=== PATIENT | male | born 1950 | race Caucasian/White ===

== ENCOUNTER 2017-10-11 19:10 | Emergency (ER) | payer MEDICARE, OTHER, SELFPAY ==
[2017-10-11 19:32] VITALS: BP 139/66; PULSE 78; RESP 16; TEMP 36.3; O2SAT 92; BMI 39.5
--- NOTE | 2017-10-11 19:40 | DI.RAD.S_ITS ---
PROCEDURE: XR FOOT LT MIN 3V INDICATIONS: left foot injury TECHNIQUE: 3 views of the foot were acquired. COMPARISON: None. FINDINGS: Bones: No displaced fractures are or dislocations. No suspicious bony lesions. Soft tissues: There is soft tissue swelling in the forefoot. IMPRESSION: 1. No displaced fracture or dislocation. Dictated by: Oz Velez M.D. on 10/11/2017 at 20:37 Approved by: Oz Velez M.D. on 10/11/2017 at 20:38
--- NOTE | 2017-10-11 20:55 | ED_ITS ---
HPI - Extremity Injury (Lower) <NADIRA Santos - Last Filed: 10/11/17 22:06> General Chief Complaint: Extremity Injury, Lower Stated Complaint: pain x2 days foot injury/smashed Time Seen by Provider: 10/11/17 21:03 History of Present Illness HPI Narrative: 67-year-old male here for complaint of pain into his left foot. Patient states that he accidentally dropped a grill great on his left foot 2 days ago. He denies any other injuries. He is able to ambulate in the emergency room today. He reports increased pain with weight-bearing. He does report having some bruising to the area. No other concerns. Related Data Home Medications Medication Instructions Recorded Confirmed MULTIVITAMIN (#MULTIPLE VITAMINS) 1 cap PO QDAY #0 10/22/10 doxazosin [Cardura] 2 mg PO HS #0 08/23/12 amitriptyline 25 mg PO HS #0 tab 01/24/16 naproxen sodium [Aleve] 220 mg PO BIDCC #0 tab 01/24/16 nortriptyline [Pamelor] 25 mg PO HS #0 cap 01/24/16 Previous Rx's Medication Instructions Recorded alum-mag hydroxide-simeth [Mag-Al 10 ml PO Q6HP PRN #30 ea 12/12/15 Plus] cephalexin [Keflex] 500 mg PO Q6H #20 cap 07/16/17 hydrocodone-acetaminophen [Gloucester] 1 tab PO Q4HP PRN #15 tab 07/16/17 Allergies Allergy/AdvReac Type Severity Reaction Status Date / Time No Known Drug Allergies Allergy Verified 10/11/17 19:38 Review of Systems <NADIRA Santos - Last Filed: 10/11/17 22:06> Constitutional Denies chills, Denies fatigue, Denies fever(s), Denies lethargy and Denies weakness Eyes Denies change in vision, Denies eye discharge, Denies irritation and Denies loss of vision ENT Ears, Nose, Mouth, and Throat: Denies change in voice, Denies neck pain and Denies sore throat Cardiovascular Denies dyspnea and Denies dyspnea on exertion Respiratory Denies cough, Denies dyspnea, Denies dyspnea on exertion and Denies wheezing Genitourinary Denies hematuria, Denies flank pain, Denies urinary incontinence and Denies urinary urgency Musculoskeletal Denies neck pain Comments: Left foot pain Integumentary/Breasts Denies pruritus, Denies erythema, Denies rash and Denies wounds Neurologic Denies loss of vision and Denies weakness Endocrine Denies fatigue and Denies flushing Allergic/Immunologic Denies wheezing Exam <NADIRA Santos - Last Filed: 10/11/17 22:06> Initial Vital Signs Initial Vital Signs: Vital Signs Temperature 97.4 F L 10/11/17 19:32 Pulse Rate 78 10/11/17 19:32 Respiratory Rate 16 10/11/17 19:32 Blood Pressure 139/66 H 10/11/17 19:32 Pulse Oximetry 92 10/11/17 19:32 Const General: cooperative and well developed Nutritional Appearance: well nourished Orientation: alert, awake, oriented x3 and not confused HENMT Mouth: oral mucosae normal and moist mucous membranes Eyes Conjunctivae: conjunctivae normal Sclera: sclerae normal Cornea: corneas normal Pupils: PERRL EOM: EOM intact bilaterally Resp Effort & Inspection: normal respiratory effort, able to speak in complete sentences, no respiratory distress and no use of accessory muscles Auscultation: clear to auscultation bilaterally, no rales, no rhonchi and no wheezes Cardio Rate: regular rate Rhythm: regular rhythm Heart Sounds: no click, no gallops, no murmurs and no rubs Skin General: no rashes or lesions noted, No jaundice and No petechiae Extrem Other: Left foot with slight swelling. Ecchymosis along the MTP joints of all 4 fingers. No skin breaks. Distal sensation is intact. Distal range of motion is intact. Distal cap refill less than 2 sec <Fidencio Brown DO - Last Filed: 10/12/17 04:23> Initial Vital Signs Initial Vital Signs: Vital Signs Temperature 97.4 F L 10/11/17 19:32 Pulse Rate 78 10/11/17 19:32 Respiratory Rate 16 10/11/17 19:32 Blood Pressure 139/66 H 10/11/17 19:32 Pulse Oximetry 92 10/11/17 19:32 Course <NADIRA Santos - Last Filed: 10/11/17 22:06> Orders Ordered: ED Orders 10/11/17 19:40 XR foot LT min 3V Stat Vital Signs - 8 hr 10/11/17 19:32 Temperature 97.4 F L Pulse Rate 78 Respiratory Rate 16 Blood Pressure 139/66 H Pulse Oximetry 92 <Fidencio Brown DO - Last Filed: 10/12/17 04:23> Orders Ordered: ED Orders 10/11/17 19:40 XR foot LT min 3V Stat Vital Signs - 8 hr 10/11/17 19:32 Temperature 97.4 F L Pulse Rate 78 Respiratory Rate 16 Blood Pressure 139/66 H Pulse Oximetry 92 MDM - Extremity Injury (Lower) <NADIRA Santos - Last Filed: 10/11/17 22:06> Imaging Data foot: Radiologist's impression: Patient: Arvind Hinds MR#: [id number] : 1950 Acct:[id number] Age/Sex: 67 / M Date of Service: 10/11/17 Loc: ED Accession Number: [id number] Procedure: XR foot LT min 3V Ordering Provider: Medardo Garcia PROCEDURE: XR FOOT LT MIN 3V INDICATIONS: left foot injury TECHNIQUE: 3 views of the foot were acquired. COMPARISON: None. FINDINGS: Bones: No displaced fractures are or dislocations. No suspicious bony lesions. Soft tissues: There is soft tissue swelling in the forefoot. IMPRESSION: 1. No displaced fracture or dislocation. Dictated by: Oz Velez M.D. on 10/11/2017 at 20:37 Approved by: Oz Velez M.D. on 10/11/2017 at 20:38 [facility] Narrative Medical decision making narrative: X-ray of the left foot was obtained was negative for any acute fractures. Signs and symptoms presents as contusion to the left foot. [id number] Tylenol Motrin as needed for any discomfort. Follow up with primary care provider. Ice and elevation few times a day over the next few days to help with swelling. For any worsening symptoms return to the emergency room. Discharge Plan Departure Patient Disposition: Home, Self-Care Clinical Impression: Contusion of foot, left Discharge Date/Time: 10/11/17 21:26 Interventions: ED Discharge Assessment Last Done: 10/11/17 21:25 Instructions: DI for Contusion Activity Restrictions/Additional Instructions: X-ray of the left foot was obtained was negative for any acute fractures. Signs and symptoms presents as contusion to the left foot. [id number] Tylenol Motrin as needed for any discomfort. Follow up with primary care provider. Ice and elevation few times a day over the next few days to help with swelling. For any worsening symptoms return to the emergency room. Prescriptions: No Action MULTIVITAMIN (#MULTIPLE VITAMINS) 1 cap PO QDAY Qty: 0 RF: 0 doxazosin [Cardura] 2 MG tablet 2 mg PO HS Qty: 0 RF: 0 alum-mag hydroxide-simeth [Mag-Al Plus] 30 ML suspension 10 ml PO Q6HP PRNQty: 30 RF: 0 amitriptyline 25 MG tablet 25 mg PO HS Qty: 0 RF: 0 nortriptyline [Pamelor] 25 MG capsule 25 mg PO HS Qty: 0 RF: 0 naproxen sodium [Aleve] 220 MG tablet 220 mg PO BIDCC Qty: 0 RF: 0 hydrocodone-acetaminophen [[place]] 5 MG/325 MG tablet 1 tab PO Q4HP PRNQty: 15 RF: 0 cephalexin [Keflex] 500 MG capsule 500 mg PO Q6H Qty: 20 RF: 0 Referrals: Jackson Brennan DO [Primary Care Provider] - <Fidencio Brown DO - Last Filed: 10/12/17 04:23> Cosign ED Attending Cosbrandiature Attestation: I was immediately available in the department for consultation. Documentation has been reviewed. I agree with assessment and plan.
== END 2017-10-11 21:26 | disposition home or self-care (01) ==
PROVIDERS: Emergency Provider Nurse Practitioner Family; Family Provider Family Medicine; PCP Family Medicine
DX: S90.32XA Contusion of left foot, initial encounter (principal); W23.0XXA Caught, crushed, jammed, or pinched between moving objects, initial encounter
CPT/HCPCS: 73630; 99282; 99283

== ENCOUNTER 2017-11-20 10:36 | Emergency (ER) | payer MEDICARE, OTHER, SELFPAY ==
[2017-11-20 10:42] VITALS: BP 145/80; PULSE 72; RESP 15; TEMP 36.8; O2SAT 92; BMI 39.5
--- NOTE | 2017-11-20 11:26 | PC.NURSE ---
dropped something on his left foot and has had swelling since - swelling goes up into calf area - spotty redness - normal temp
--- NOTE | 2017-11-20 11:39 | ED_ITS ---
HPI - Extremity Injury (Lower) General Chief Complaint: Extremity Injury, Lower Stated Complaint: CELLULITUS LEFT LEG Time Seen by Provider: 11/20/17 11:27 Source: patient Mode of arrival: ambulatory Limitations: no limitations History of Present Illness HPI Narrative: Patient is a 67-year-old male who presents with left leg rash. He broke his foot on 10/11/2017. Since then he has had left leg swelling. A few days ago he noticed a rash she said it initially was pruritic. He has not been looking at his leg on a regular basis does not over it has been worsening. He has not had any fever or chills. The thinks that his legs low bit more swollen today. Related Data Home Medications Medication Instructions Recorded Confirmed MULTIVITAMIN (#MULTIPLE VITAMINS) 1 cap PO QDAY #0 10/22/10 doxazosin [Cardura] 2 mg PO HS #0 08/23/12 amitriptyline 25 mg PO HS #0 tab 01/24/16 naproxen sodium [Aleve] 220 mg PO BIDCC #0 tab 01/24/16 nortriptyline [Pamelor] 25 mg PO HS #0 cap 01/24/16 Previous Rx's Medication Instructions Recorded alum-mag hydroxide-simeth [Mag-Al 10 ml PO Q6HP PRN #30 ea 12/12/15 Plus] cephalexin [Keflex] 500 mg PO Q6H #20 cap 07/16/17 hydrocodone-acetaminophen [Hayden] 1 tab PO Q4HP PRN #15 tab 07/16/17 cephalexin [Keflex] 500 mg PO TID #21 cap 11/20/17 Allergies Allergy/AdvReac Type Severity Reaction Status Date / Time No Known Drug Allergies Allergy Verified 11/20/17 10:42 Review of Systems Review of Systems GENERAL: Denies chills, fatigue, malaise, fever, sweats, travel HEENT: Denies sinus pain, ear pain, sore throat, difficulty swallowing, neck pain RESPIRATORY: Denies dyspnea, cough, wheezing, hemoptysis, sputum. CARDIOVASCULAR: Denies chest pain, palpitations, orthopnea, edema GASTROINTESTINAL: Denies nausea, vomiting, abdominal pain, diarrhea, constipation, melena. : Denies dysuria, frequency, incontinence, hematuria, urinary retention, flank pain. MUSCULOSKELETAL: Denies weakness, joint pain, or bony pain SKIN: See HPI NEUROLOGIC: Denies weakness, dizziness, headache, numbness, change in speech, confusion PSYCHIATRIC: No concerning psychosocial issues. 12 point review of systems is negative except for those stated above and HPI PFSH Medical History Diabetes (Acute) Social History Smoking Status: Never smoker Exam Initial Vital Signs Initial Vital Signs: Vital Signs Temperature 98.3 F 11/20/17 10:42 Pulse Rate 72 11/20/17 10:42 Respiratory Rate 15 11/20/17 10:42 Blood Pressure 145/80 H 11/20/17 10:42 Pulse Oximetry 92 11/20/17 10:42 GENERAL: Well-appearing, well-nourished and in no acute distress. HEENT: Head atraumatic,EOMI, pupils reactive CARDIOVASCULAR: Regular rate and rhythm without murmurs, rubs or gallops. RESPIRATORY: Breath sounds equal bilaterally, no wheezes rales or rhonchi. NEUROLOGICAL: Alert and oriented x4.Normal gait and speech. Cranial nerves II through XII grossly intact. SKIN: Left leg blotchy erythema which petechiae purpura, remains below the knee non circumferential EXTREMITIES: Legs look relatively equal to me. No significant swelling in the left leg calf is nontender. No pitting edema. Neurovascularly intact no gross bony deformity Course Vital Signs - 8 hr 11/20/17 10:42 Temperature 98.3 F Pulse Rate 72 Respiratory Rate 15 Blood Pressure 145/80 H Pulse Oximetry 92 Discharge Plan Departure Patient Disposition: Home, Self-Care Clinical Impression: Cellulitis Discharge Date/Time: 11/20/17 11:58 Interventions: ED Discharge Assessment Last Done: 11/20/17 11:57 Instructions: Cellulitis Activity Restrictions/Additional Instructions: *You have been diagnosed with cellulitis left leg *What to do: Look at rash every day if it is going beyond the knee return to ED for further evaluation *Continue to take medications as directed Keflex 500 mg 3 times a day for 7 At your request you're medications have been faxed to [facility] in [place] *Follow up with your primary care provider in 2-3 days *Return to ER if you should have worsening rash, fever, weakness or any new, worsening or concerning symptoms Prescriptions: New cephalexin [Keflex] 500 mg capsule 500 mg PO TID Qty: 21 RF: 0 No Action MULTIVITAMIN (#MULTIPLE VITAMINS) 1 cap PO QDAY Qty: 0 RF: 0 doxazosin [Cardura] 2 MG tablet 2 mg PO HS Qty: 0 RF: 0 alum-mag hydroxide-simeth [Mag-Al Plus] 30 ML suspension 10 ml PO Q6HP PRNQty: 30 RF: 0 amitriptyline 25 MG tablet 25 mg PO HS Qty: 0 RF: 0 nortriptyline [Pamelor] 25 MG capsule 25 mg PO HS Qty: 0 RF: 0 naproxen sodium [Aleve] 220 MG tablet 220 mg PO BIDCC Qty: 0 RF: 0 hydrocodone-acetaminophen [Hayden] 5 MG/325 MG tablet 1 tab PO Q4HP PRNQty: 15 RF: 0 cephalexin [Keflex] 500 MG capsule 500 mg PO Q6H Qty: 20 RF: 0 Referrals: Jackson Brennan DO [Primary Care Provider] -
== END 2017-11-20 11:58 | disposition home or self-care (01) ==
PROVIDERS: Emergency Provider Emergency Medicine; Family Provider Family Medicine; PCP Family Medicine
DX: L03.116 Cellulitis of left lower limb (principal)
CPT/HCPCS: 99282

== ENCOUNTER 2018-03-11 12:55 | Emergency (ER) | payer MEDICARE, OTHER, SELFPAY ==
[2018-03-11 12:58] VITALS: BP 146/86; PULSE 78; RESP 14; TEMP 36.6; O2SAT 98
--- NOTE | 2018-03-11 13:20 | DI.RAD.S_ITS ---
PROCEDURE: XR HAND LT MIN 3V INDICATIONS: laceration 2/3 fingers b/l. TECHNIQUE: 3 views of the hand(s) acquired. COMPARISON: [facility], , HAND 3V RIGHT, 04/08/2017, 14:33. FINDINGS: Bones: Acute comminuted fracture involving the third distal phalangeal shaft is noted. There is also suggestion of a nondisplaced fracture involving the second distal phalangeal tuft. No other acute fracture or dislocation is seen. There is extensive fusion of carpal bones with numerous fixation screws in place. Near-complete bony fusion throughout intercarpal joints are seen. No gross hardware loosening or failure is noted. 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 Soft tissues: No suspicious soft tissue calcifications. IMPRESSION: Acute fractures involving second and third distal phalanges as described above. No other acute fracture or dislocation. Extensive fusion of carpal bones. Dictated by: Duarte Loza M.D. on 03/11/2018 at 14:30 Approved by: Duarte Loza M.D. on 03/11/2018 at 14:39
[2018-03-11] MEDS: HYDROMORPHONE 1 MG INJ IV (13:30)
[2018-03-11] MEDS: CEFAZOLIN 1 GM/50 ML FROZ.PIGGY IV (13:30)
[2018-03-11] MEDS: ONDANSETRON 4 MG/2 ML INJ IV (13:32)
--- NOTE | 2018-03-11 13:33 | PC.NURSE ---
unable to assess fingers RT pain, controlling bleeding and limited mobility. Pt went to XR and after pain medication administered.
[2018-03-11 13:40] VITALS: BP 132/90; PULSE 68; RESP 16; O2SAT 93
--- NOTE | 2018-03-11 13:41 | ED_ITS ---
HPI - Extremity Injury (Upper) General Chief Complaint: Extremity Injury, Upper Stated Complaint: left hand injury from table saw Time Seen by Provider: 03/11/18 13:20 Source: patient Mode of arrival: ambulatory Limitations: no limitations History of Present Illness HPI narrative: This is a 67 year old male who comes to the emergency department with complaint of laceration to the 2nd and 3rd finger. Patient states he was working with a table saw when he states that he was pushing a peice of wood through and it kicked back and he lacerated his fingers. He has pain, he is having difficulty with extension and flexion of all of the fingers, it is unclear if this is secondary to pain or actual tendon involvement. Patient denies any other injuries. He states his tetanus is up-to-date. He does have a history of Parkinson's disease and takes medications for this. Related Data Home Medications Medication Instructions Recorded Confirmed MULTIVITAMIN (#MULTIPLE VITAMINS) 1 cap PO QDAY #0 10/22/10 naproxen sodium [Aleve] 220 mg PO BIDCC #0 tab 01/24/16 nortriptyline [Pamelor] 25 mg PO HS #0 cap 01/24/16 03/11/18 allopurinol 1 tab PO DAILY 03/11/18 03/11/18 carbidopa-levodopa 03/11/18 cetirizine 1 tab PO DAILY 03/11/18 03/11/18 doxazosin 1 tab PO BEDTIME 03/11/18 03/11/18 duloxetine 1 cap PO DAILY 03/11/18 03/11/18 esomeprazole magnesium 1 cap PO DAILY 03/11/18 03/11/18 felodipine 1 tab PO DAILY 03/11/18 03/11/18 gabapentin 03/11/18 glimepiride 1 tab PO DAILY 03/11/18 03/11/18 lamotrigine 1 tab PO BID 03/11/18 03/11/18 lamotrigine 1 tab PO DAILY 03/11/18 03/11/18 metformin 03/11/18 pramipexole 1 tab PO DAILY 03/11/18 03/11/18 rasagiline [Azilect] 1 tab PO DAILY 03/11/18 03/11/18 rosuvastatin 1 tab PO DAILY 03/11/18 03/11/18 Previous Rx's Medication Instructions Recorded alum-mag hydroxide-simeth [Mag-Al 10 ml PO Q6HP PRN #30 ea 12/12/15 Plus] hydrocodone-acetaminophen [[place]] 1 tab PO Q4HP PRN #15 tab 07/16/17 cephalexin [Keflex] 500 mg PO QID #40 cap 03/11/18 hydrocodone-acetaminophen [[place]] 1 tab PO Q4-6H PRN #20 tab 03/11/18 Allergies Allergy/AdvReac Type Severity Reaction Status Date / Time No Known Drug Allergies Allergy Verified 03/11/18 13:00 Review of Systems Review of Systems All systems reviewed & are unremarkable except as noted in HPI and below Musculoskeletal Reports as per HPI, Reports limited range of motion, Denies numbness and Reports other (Pain, laceration) Integumentary/Breasts Reports bleeding lesions Neurologic Denies numbness PFSH Medical History Diabetes (Acute) Parkinsons disease (Acute) Social History Smoking Status: Never smoker Exam Narrative Exam Narrative: GENERAL: Alert and oriented x three, well-nourished, well- appearing male in moderate distress. HEENT: Head normocephalic, atraumatic, EOMI, pupils reactive, face symmetric, moist mucous membranes NECK: Supple, full range of motion CARDIOVASCULAR: Regular rate and rhythm without murmurs, rubs or gallops. RESPIRATORY: Breath sounds equal bilaterally, no wheezes rales or rhonchi. EXTREMITIES: Patient able to partially extend fingers but having some difficulty , unable to flex fingers individually prior to numbing. After numbing he is able to flex/extend fingers although not at distal DIP on 2/3rd finger. He does have sensation to light touch at the distal end where skin is still intact , cap refill is 2 seconds. Patient's 2nd finger has laceration of from the pad running about midline towards the finger that is about a cm in length, the fingernail is almost completely avulsed, and there is small laceration adjacent on the lateral side. On the 3rd finger patient has a laceration of the distal finger running from the pad to approximately midline of the nail that is jagged and irregular and into the subcutaneous tissue, patient has majority of the nail in place although easily movable, patient has a large avulsion just proximal to the nail that is 1 x 2 cm in length, I am not able to visualize tendon or bone but it is fairly deep into the subcutaneous tissue. Sensation, 2+ radial pulse, . Neurovascularly intact NEUROLOGICAL: Cranial nerves II through XII grossly intact. Moving all extremities SKIN: Warm, dry, no petechiae. Initial Vital Signs Initial Vital Signs: Vital Signs Temperature 97.8 F 03/11/18 12:58 Pulse Rate 78 03/11/18 12:58 Respiratory Rate 14 03/11/18 12:58 Blood Pressure 146/86 H 03/11/18 12:58 Pulse Oximetry 98 03/11/18 12:58 Procedures Laceration Repair Laceration 1: Site: other (3rd finger left hand) Side (If applicable): left Size (cm): 2.1 Description: stellate Depth: simple, single layer Local Anesthetic: bupivacaine 0.5% (done digital block) Pre-repair: wound explored and irrigated extensively Skin layer closed with: nylon Size (cm): 4-0 Number of sutures: 2 Technique: simple, interrupted (Patient had 2 sutures placed in the distal end of the finger to help draw together. Nonstick dressing applied.) Nerve Block Nerve Block 1: Time out performed: Yes Local Anesthetic: bupivacaine 0.5% Amount of anesthesia used (mL): 5 Side: left Nerve Blocks: digital (2nd) Procedure Successful: Yes Patient Tolerated Procedure: Well Complications: none Nerve Block 2: Time out performed: Yes Local Anesthetic: bupivacaine 0.5% Amount of anesthesia used (mL): 6 Side: left Nerve Blocks: digital (3rd) Procedure Successful: Yes Patient Tolerated Procedure: Well Complications: [facility] Procedure Name of Procedure: Time out performed: Yes Course Orders Ordered: ED Orders 03/11/18 13:20 XR hand LT min 3V Stat Discontinued Medications Diphtheria/Tetanus/Acell Pertussis (Adacel) 0.5 ml IM .ONCE ONE Stop: 03/11/18 13:22 Last Admin: 03/11/18 14:22 Dose: Hydromorphone HCl (Dilaudid) 1 mg IV NOW ONE Stop: 03/11/18 13:21 Last Admin: 03/11/18 13:30 Dose: 1 mg Cefazolin Sodium/Dextrose (Ancef) 1 gm in 50 mls @ 200 mls/hr IV NOW ONE Stop: 03/11/18 13:34 Last Infusion: 03/11/18 14:22 Dose: 0 mls/hr Admin: 03/11/18 13:30 Dose: 200 mls/hr Ondansetron HCl (Zofran) 4 mg IV NOW ONE Stop: 03/11/18 13:32 Last Admin: 03/11/18 13:32 Dose: 4 mg Vital Signs - 8 hr 03/11/18 12:58 03/11/18 13:40 03/11/18 14:12 Temperature 97.8 F Pulse Rate 78 68 69 Respiratory Rate 14 16 18 Blood Pressure 146/86 H Blood Pressure [Right Arm] 132/90 122/53 L Pulse Oximetry 98 93 97 03/11/18 15:06 03/11/18 16:08 03/11/18 16:31 Temperature Pulse Rate 71 70 73 Respiratory Rate 14 18 18 Blood Pressure Blood Pressure [Right Arm] 131/83 126/77 106/70 Pulse Oximetry 92 97 97 MDM - Extremity Injury (Upper) Imaging Data Hand x-ray: Radiologist's impression: [address] [address] XRay Report Signed Patient: Arvind Hinds RMR#: [id number] : [id number]:[id number] Age/Sex: 67 / MDate of Service: 03/11/18 Loc: ED Accession Number: [id number] Procedure: XR hand LT min 3V Ordering Provider: Diana Romano D.O. PROCEDURE: XR HAND LT MIN 3V INDICATIONS: laceration 2/3 fingers b/l. TECHNIQUE: 3 views of the hand(s) acquired. COMPARISON: [facility] , HAND 3V RIGHT, 04/08/2017, 14:33. FINDINGS: Bones: Acute comminuted fracture involving the third distal phalangeal shaft is noted. There is also suggestion of a nondisplaced fracture involving the second distal phalangeal tuft. No other acute fracture or dislocation is seen. There is extensive fusion of carpal bones with numerous fixation screws in place. Near-complete bony fusion throughout intercarpal joints are seen. No gross hardware loosening or failure is noted. 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 Soft tissues: No suspicious soft tissue calcifications. IMPRESSION: Acute fractures involving second and third distal phalanges as described above. No other acute fracture or dislocation. Extensive fusion of carpal bones. Dictated by: Duarte Loza M.D. on 03/11/2018 at 14:30 Approved by: Duarte Loza M.D. on 03/11/2018 at 14:39 [facility] Narrative Medical decision making narrative: Patient has open fractures of the distal 2nd and 3rd fingers. He has some avulsion but does not appear to have a complete amputation or almost complete amputation of either finger. The majority of the tissue is intact. I spoke with Dr. Lezama who recommends if there is laceration that appears will be improved with a stitch may place that, wound care as well as some dose of IV antibiotics and then Keflex, splinting and follow-up in the next week with Orthopedic surgery. Patient has had similar injuries in the past and is comfortable with this plan. Splint applied by nursing. Discharge Plan Departure Patient Disposition: Home Clinical Impression: Fracture of finger, left, Fracture of distal phalanx of finger, open Discharge Date/Time: 03/11/18 16:50 Interventions: ED Discharge Assessment Last Done: 03/11/18 16:42 Instructions: DI for Open Fracture Activity Restrictions/Additional Instructions: Follow-up with Orthopedic surgery in the next 5-7 days for recheck. Call thing Wednesday morning for an appointment. Take antibiotics until they are completely gone. Your prescription has been sent to your pharmacy. Take pain medications as needed, these medications can make you sleepy do not drive, perform hazards activities or make any major decisions while taking them. Wound Care: Keep wound(s) clean and dry. Wash daily with soap and water only. Keep area bandaged when not washing it. Do not use over the counter products (alcohol or peroxide)on the wounds unless instructed by a physician, you may use triple antibiotic ointment to the affected areas. If wound condition worsens (increased/expanding redness, developing fluid blisters, or worsening pain), either contact your doctor for an urgent re- assessment , or return to the Emergency Department. Return to the Emergency Department for any new or worsening symptoms Return if fever greater than 100.4 Fahrenheit, increased swelling, increasing pain or worsening symptoms such as increased discharge or spreading redness. Use warm compresses 3 times daily for 20 minutes to the affected area. Prescriptions: New cephalexin [Keflex] 500 mg capsule 500 mg PO QID Qty: 40 RF: 0 hydrocodone-acetaminophen [[place]] 5-325 mg tablet 1 tab PO Q4-6H PRN (Reason: pain) Qty: 20 RF: 0 No Action MULTIVITAMIN (#MULTIPLE VITAMINS) 1 cap PO QDAY Qty: 0 RF: 0 alum-mag hydroxide-simeth [Mag-Al Plus] 30 ML suspension 10 ml PO Q6HP PRNQty: 30 RF: 0 nortriptyline [Pamelor] 25 MG capsule 25 mg PO HS Qty: 0 RF: 0 naproxen sodium [Aleve] 220 MG tablet 220 mg PO BIDCC Qty: 0 RF: 0 hydrocodone-acetaminophen [[place]] 5 MG/325 MG tablet 1 tab PO Q4HP PRNQty: 15 RF: 0 cetirizine 10 mg tablet 1 tab PO DAILY RF: 0 felodipine 5 mg tablet extended release 24 hr 1 tab PO DAILY RF: 0 carbidopa-levodopa 50-200 mg tablet extended release RF: 0 lamotrigine 25 mg tablet 1 tab PO BID RF: 0 esomeprazole magnesium 40 mg capsule,delayed release(DR/EC) 1 cap PO DAILY RF: 0 glimepiride 4 mg tablet 1 tab PO DAILY RF: 0 gabapentin 300 mg capsule RF: 0 doxazosin 4 mg tablet 1 tab PO BEDTIME RF: 0 allopurinol 300 mg tablet 1 tab PO DAILY RF: 0 metformin 500 mg tablet extended release 24 hr RF: 0 lamotrigine 100 mg tablet 1 tab PO DAILY RF: 0 duloxetine 60 mg capsule,delayed release(DR/EC) 1 cap PO DAILY RF: 0 rasagiline [Azilect] 1 mg tablet 1 tab PO DAILY RF: 0 pramipexole 0.25 mg tablet 1 tab PO DAILY RF: 0 rosuvastatin 20 mg tablet 1 tab PO DAILY RF: 0
[2018-03-11 14:12] VITALS: BP 122/53; PULSE 69; RESP 18; O2SAT 97
[2018-03-11 15:06] VITALS: BP 131/83; PULSE 71; RESP 14; O2SAT 92
[2018-03-11 16:08] VITALS: BP 126/77; PULSE 70; RESP 18; O2SAT 97
[2018-03-11 16:31] VITALS: BP 106/70; PULSE 73; RESP 18; O2SAT 97
== END 2018-03-11 16:50 | disposition home or self-care (01) ==
PROVIDERS: Emergency Provider Emergency Medicine; Family Provider Family Medicine; PCP Family Medicine
DX: S62.633B Displaced fracture of distal phalanx of left middle finger, initial encounter for open fracture (principal); S62.635B Displaced fracture of distal phalanx of left ring finger, initial encounter for open fracture; W31.2XXA Contact with powered woodworking and forming machines, initial encounter
CPT/HCPCS: 12001; 36591; 64450; 73130; 96365; 96375; 99284; 99285; J1170; J2405

== ENCOUNTER 2018-03-20 08:35 | Emergency (ER) | payer MEDICARE, OTHER, SELFPAY ==
[2018-03-20 08:40] VITALS: BP 120/79; PULSE 86; RESP 16; TEMP 37; O2SAT 93; BMI 41.0
--- NOTE | 2018-03-20 08:56 | ED.WOUNDLAC ---
HPI - Wound/Laceration General Chief Complaint: Wound/Laceration Stated Complaint: LEFT HAND INFECTION Time Seen by Provider: 03/20/18 08:55 Source: patient Mode of arrival: ambulatory Limitations: no limitations History of Present Illness HPI narrative: Patient is a 67-year-old male who presents with known left hand injury 2nd and 3rd fingertips. He was seen evaluated here initially in the ED followed up with Orthopedics and is scheduled for surgery in 3 days. He has been on Keflex. However he says the swelling and pain has gotten more intense. He says there is white drainage. No significant erythema or streaking. He has not had any fevers. Related Data Home Medications Medication Instructions Recorded Confirmed MULTIVITAMIN (#MULTIPLE VITAMINS) 1 cap PO QDAY #0 10/22/10 naproxen sodium [Aleve] 220 mg PO BIDCC #0 tab 01/24/16 nortriptyline [Pamelor] 25 mg PO HS #0 cap 01/24/16 03/11/18 allopurinol 1 tab PO DAILY 03/11/18 03/11/18 carbidopa-levodopa 03/11/18 cetirizine 1 tab PO DAILY 03/11/18 03/11/18 doxazosin 1 tab PO BEDTIME 03/11/18 03/11/18 duloxetine 1 cap PO DAILY 03/11/18 03/11/18 esomeprazole magnesium 1 cap PO DAILY 03/11/18 03/11/18 felodipine 1 tab PO DAILY 03/11/18 03/11/18 gabapentin 03/11/18 glimepiride 1 tab PO DAILY 03/11/18 03/11/18 lamotrigine 1 tab PO BID 03/11/18 03/11/18 lamotrigine 1 tab PO DAILY 03/11/18 03/11/18 metformin 03/11/18 pramipexole 1 tab PO DAILY 03/11/18 03/11/18 rasagiline [Azilect] 1 tab PO DAILY 03/11/18 03/11/18 rosuvastatin 1 tab PO DAILY 03/11/18 03/11/18 Previous Rx's Medication Instructions Recorded alum-mag hydroxide-simeth [Mag-Al 10 ml PO Q6HP PRN #30 ea 12/12/15 Plus] hydrocodone-acetaminophen [[place]] 1 tab PO Q4HP PRN #15 tab 03/02/18 cephalexin [Keflex] 500 mg PO QID #40 cap 03/11/18 hydrocodone-acetaminophen [[place]] 1 tab PO Q4-6H PRN #20 tab 03/11/18 Allergies Allergy/AdvReac Type Severity Reaction Status Date / Time No Known Drug Allergies Allergy Verified 03/11/18 13:00 Review of Systems Review of Systems GENERAL: Denies chills, fatigue, malaise, fever, sweats, travel HEENT: Denies sinus pain, ear pain, sore throat, difficulty swallowing, neck pain RESPIRATORY: Denies dyspnea, cough, wheezing, hemoptysis, sputum. CARDIOVASCULAR: Denies chest pain, palpitations, orthopnea, edema GASTROINTESTINAL: Denies nausea, vomiting, abdominal pain, diarrhea, constipation, melena. : Denies dysuria, frequency, incontinence, hematuria, urinary retention, flank pain. MUSCULOSKELETAL: Denies weakness, joint pain, or bony pain SKIN: See HPI NEUROLOGIC: Denies weakness, dizziness, headache, numbness, change in speech, confusion PSYCHIATRIC: No concerning psychosocial issues. 12 point review of systems is negative except for those stated above and HPI PFSH Medical History Arthritis (Acute) Asthma (Acute) Depression (Acute) Diabetes (Acute) Pancreatic tumor (Acute) Parkinsons disease (Acute) Sleep apnea (Acute) Surgical History H/O vasectomy (Acute) Hx of parathyroidectomy (Acute) Hx of splenectomy (Acute) S/P excision of lipoma (Acute) Status post correction of deviated nasal septum (Acute) Status post fusion of wrist (Acute) Social History Smoking Status: Former smoker alcohol intake: current Exam Initial Vital Signs Initial Vital Signs: Vital Signs Temperature 98.6 F 03/20/18 08:40 Pulse Rate 86 03/20/18 08:40 Respiratory Rate 16 03/20/18 08:40 Blood Pressure 120/79 03/20/18 08:40 Pulse Oximetry 93 03/20/18 08:40 GENERAL: Well-appearing, well-nourished and in no acute distress. CARDIOVASCULAR: peripheral pulses in tact, cap refill <2 sec RESPIRATORY: No respiratory distress, speaks in full sentences without difficulty EXTREMITIES: Normal range of motion, no clubbing or edema. Neurovascularly intact NEUROLOGICAL: Cranial nerves II through XII grossly intact. Normal gait and speech. SKIN: Stitches in place in left 2nd and 3rd finger. There is a significant swelling but no significant gross pus no erythema or streaking. He is able to move he has neurovascularly intact. Course Orders Ordered: ED Orders 03/20/18 09:23 Basic Metabolic Panel Stat Blood Culture Stat Complete Blood Count AUTO DIFF Stat Lactate (Lactic Acid) Stat 03/20/18 13:00 Lactate (Lactic Acid) Routine Discontinued Medications Vancomycin HCl 1,500 mg/ (Sodium Chloride) 500 mls @ 333.333 mls/hr IV NOW ONE Stop: 03/20/18 09:04 Last Infusion: 03/20/18 12:14 Dose: 0 mls/hr Admin: 03/20/18 09:40 Dose: 333.333 mls/hr Sodium Chloride (Normal Saline 0.9%) 1,000 mls @ 1,000 mls/hr IV BOLUS ONE Stop: 03/20/18 11:10 Last Infusion: 03/20/18 12:14 Dose: 0 mls/hr Admin: 03/20/18 10:19 Dose: 1,000 mls/hr Consultations Consultation #1: Dr. Craig orthopedics has been notified of patient's symptoms test results and plan for surgery on Wednesday. At this time he states that surgery unlikely stay at Wednesday as previously scheduled. No need for emergent surgery. Aware of lactic acid 3.7. Time: 10:12 Vital Signs - 8 hr 03/20/18 08:40 03/20/18 11:58 03/20/18 14:00 Temperature 98.6 F Pulse Rate 86 65 82 Respiratory Rate 16 16 20 Blood Pressure 120/79 142/87 H Blood Pressure [Left Arm] 146/85 H Pulse Oximetry 93 96 98 MDM - Wound/Laceration Lab Data Attestation: I reviewed the patient's lab results. Result diagrams: 03/20/18 09:23 03/20/18 09:23 Lab Results 03/20/18 03/20/18 03/20/18 Range/Units 09:23 09:23 09:23 WBC 8.0 (4.5-11.0) X10^3/uL RBC 4.48 L (4.5-5.9) X10^6/uL Hgb 14.7 (13.5-17.5) g/dL Hct 43.8 (41-53) % MCV 97.8 (80-100) fL MCH 32.9 (26-34) PG MCHC 33.6 (30-36) % RDW 14.3 (11.6-14.8) % Plt Count 303 (150-400) X10^3/uL Neut % (Auto) 62.8 (50-75) % Lymph % (Auto) 24.0 L (25-40) % [place] % (Auto) 8.3 (3-14) % Eos % (Auto) 3.7 (2-4) % Baso % (Auto) 1.2 (0-2) % Neut # (Auto) 5000 (0550-9895) /uL Sodium 141 (137-145) mmol/L Potassium 4.2 (3.4-5.1) mmol/L Chloride 100 (98-107) mmol/L Carbon Dioxide 24 (22-32) mmol/L BUN 18 (9-20) mg/dL Creatinine 0.80 (0.66-1.25) mg/dL Estimated GFR > 60.0 (>60) mL/min BUN/Creatinine Ratio 22.5 H (6-22) Glucose 230 H (80-110) mg/dL Lactate 3.7 H (0.7-2.1) mmol/L Calcium 8.5 (8.4-10.2) mg/dL 03/20/18 Range/Units 13:00 WBC (4.5-11.0) X10^3/uL RBC (4.5-5.9) X10^6/uL Hgb (13.5-17.5) g/dL Hct (41-53) % MCV (80-100) fL MCH (26-34) PG MCHC (30-36) % RDW (11.6-14.8) % Plt Count (150-400) X10^3/uL Neut % (Auto) (50-75) % Lymph % (Auto) (25-40) % [place] % (Auto) (3-14) % Eos % (Auto) (2-4) % Baso % (Auto) (0-2) % Neut # (Auto) (2795-0421) /uL Sodium (137-145) mmol/L Potassium (3.4-5.1) mmol/L Chloride (98-107) mmol/L Carbon Dioxide (22-32) mmol/L BUN (9-20) mg/dL Creatinine (0.66-1.25) mg/dL Estimated GFR (>60) mL/min BUN/Creatinine Ratio (6-22) Glucose (80-110) mg/dL Lactate 0.9 (0.7-2.1) mmol/L Calcium (8.4-10.2) mg/dL MDM Narrative Medical decision making narrative: Patient 1 L of IV fluids and vancomycin repeat lactate was well below cortical limits. Patient did not appear septic or toxic. Wound does not seem grossly infected. At this time I agree with surgery on Wednesday. Patient also been elevating his warm well he has been in the emergency department for last 4-5 hours. His swelling significantly went down his pain improved been able to sleep. I discussed all findings with the patient and spouse, Education has been performed regarding treatment plan, diagnosis, warning signs and symptoms and all concerns have been addressed. Verbally agree with and understood all of the above. Discharge Plan Departure Patient Disposition: Home Clinical Impression: Laceration of left index finger Discharge Date/Time: 03/20/18 14:02 Interventions: ED Discharge Assessment Last Done: 03/20/18 14:00 Instructions: Care for a Laceration Prior to Repair Activity Restrictions/Additional Instructions: *You have been diagnosed with finger laceration *What to do: Blood work is reassuring. I did discuss case with Orthopedics. At this time may wait until Wednesday for surgery. Keep elevated to help avoid swelling *Continue to take medications as directed Continue and finish antibiotics as previously prescribed *Follow up with your primary care provider in 2-3 days, follow up with Orthopedic as scheduled in 2 days *Return to ER if you should have redness, pus, increased pain or any new, worsening or concerning symptoms Prescriptions: No Action MULTIVITAMIN (#MULTIPLE VITAMINS) 1 cap PO QDAY Qty: 0 RF: 0 alum-mag hydroxide-simeth [Mag-Al Plus] 30 ML suspension 10 ml PO Q6HP PRNQty: 30 RF: 0 nortriptyline [Pamelor] 25 MG capsule 25 mg PO HS Qty: 0 RF: 0 naproxen sodium [Aleve] 220 MG tablet 220 mg PO BIDCC Qty: 0 RF: 0 hydrocodone-acetaminophen [[place]] 5 MG/325 MG tablet 1 tab PO Q4HP PRNQty: 15 RF: 0 cetirizine 10 mg tablet 1 tab PO DAILY RF: 0 felodipine 5 mg tablet extended release 24 hr 1 tab PO DAILY RF: 0 carbidopa-levodopa 50-200 mg tablet extended release RF: 0 lamotrigine 25 mg tablet 1 tab PO BID RF: 0 esomeprazole magnesium 40 mg capsule,delayed release(DR/EC) 1 cap PO DAILY RF: 0 glimepiride 4 mg tablet 1 tab PO DAILY RF: 0 gabapentin 300 mg capsule RF: 0 doxazosin 4 mg tablet 1 tab PO BEDTIME RF: 0 allopurinol 300 mg tablet 1 tab PO DAILY RF: 0 metformin 500 mg tablet extended release 24 hr RF: 0 lamotrigine 100 mg tablet 1 tab PO DAILY RF: 0 duloxetine 60 mg capsule,delayed release(DR/EC) 1 cap PO DAILY RF: 0 rasagiline [Azilect] 1 mg tablet 1 tab PO DAILY RF: 0 pramipexole 0.25 mg tablet 1 tab PO DAILY RF: 0 rosuvastatin 20 mg tablet 1 tab PO DAILY RF: 0 cephalexin [Keflex] 500 mg capsule 500 mg PO QID Qty: 40 RF: 0 hydrocodone-acetaminophen [[place]] 5-325 mg tablet 1 tab PO Q4-6H PRN (Reason: pain) Qty: 20 RF: 0 Referrals: Jackson Brennan DO [Primary Care Provider] -
--- NOTE | 2018-03-20 08:59 | PC.NURSE ---
left 3 and 4th finger, healing, swelling noted. scan amount of discharge middle finger. soaking in hibiclens and warm water, tolerating well. distal cms intact and rom limited due to pain.
[2018-03-20 09:35] LABS: Add Manual Diff / Slide Review NO; Basophils Percent Auto 1.2 % (0-2); Eosinophils Percent Auto 3.7 % (2-4); Hematocrit 43.8 % (41-53); Hemoglobin 14.7 g/dL (13.5-17.5); Mean Corpuscular HGB Conc 33.6 % (30-36); Mean Corpuscular Hemoglobin 32.9 PG (26-34); Mean Corpuscular Volume 97.8 fL (80-100); Monocytes Percent Auto 8.3 % (3-14); Neutrophils Absolute Auto 5000 /uL (3000-5900); Neutrophils Percent Auto 62.8 % (50-75); Platelet Count 303 X10^3/uL (150-400); Red Blood Cell Count 4.48 X10^6/uL (4.5-5.9); Red Cell Distribution Width 14.3 % (11.6-14.8)
[2018-03-20] MEDS: VANCOMYCIN 1,500 MG in SODIUM CHLORIDE 0.9% 500 ML 333.333 ML IV (09:40)
[2018-03-20 09:46] LABS: Lactate (Lactic Acid) 3.7 mmol/L (0.7-2.1)
[2018-03-20 09:47] LABS: BUN Creatinine Ratio 22.5 (6-22); Blood Urea Nitrogen 18 mg/dL (9-20); Calcium 8.5 mg/dL (8.4-10.2); Carbon Dioxide 24 mmol/L (22-32); Chloride 100 mmol/L (98-107); Estimated Glomerular Filt Rate > 60.0 mL/min (>60); Glucose 230 mg/dL (80-110); HEMOLYSIS 30 (0-50); Potassium 4.2 mmol/L (3.4-5.1); Sodium 141 mmol/L (137-145)
[2018-03-20] MEDS: SODIUM CHLORIDE 0.9% 1,000 ML 1000 ML IV (10:19)
[2018-03-20 11:58] VITALS: BP 146/85; PULSE 65; RESP 16; O2SAT 96
[2018-03-20 13:27] LABS: Lactate (Lactic Acid) 0.9 mmol/L (0.7-2.1)
[2018-03-20 14:00] VITALS: BP 142/87; PULSE 82; RESP 20; O2SAT 98
== END 2018-03-20 14:02 | disposition home or self-care (01) ==
PROVIDERS: Emergency Provider Emergency Medicine; Family Provider Family Medicine; PCP Family Medicine
DX: S61.211A Laceration without foreign body of left index finger without damage to nail, initial encounter (principal)
CPT/HCPCS: 36415; 36591; 80048; 83605; 85025; 87040; 96365; 96366; 99283

== ENCOUNTER 2018-03-22 06:09 | Day surgery (SDC) | payer MEDICARE, OTHER, SELFPAY ==
[2018-03-16 15:23] VITALS: BMI 41.3
[2018-03-22] VITALS (10 sets, daily range): BP systolic 102–154; BP diastolic 63–95; PULSE 55–81; RESP 8–17; TEMP 36.2–36.7; O2SAT 90–99; BMI 39.9
--- NOTE | 2018-03-22 07:06 | PM.PREOP ---
Pre-operative Note Interval Note Pre-op Check: Yes History & Physical Reviewed by Physician and Yes Exam Performed Changes: No
--- NOTE | 2018-03-22 07:12 | P.OP_ITS ---
Operative Date/Time/Diagnoses Date of procedure: 03/22/18 Time of procedure: 08:10 Pre-op diagnosis: 1. Open fracture distal phalanx left middle finger ICD 10: S62.663 2. Laceration of nail bed of finger left index ICD S61.319 3. Laceration of nail bed finger left middle ICD S61.319 4. Contact with powered saw as cause of accidental injury ICD W31.2XXA Post-op diagnosis: same Procedure & Clinicians Procedure: 1. Percutaneous skeletal fixation, distal phalangeal fracture, finger, middle left F2 CPT 51103 2. Repair, nail bed, finger left, F2 CPT 65313 3. Repair, nail bed, finger left F1 CPT 77919 Same procedure as scheduled: Yes Indications: Patient is a 67-year-old male that sustained an injury to his left hand with a table saw. The patient sustained complex lacerations including nail bed lacerations and open fracture of the left middle finger and a nail bed laceration and distal tuft fracture of the left index finger. Patient had initial washout and several sutures placed into his fingers in the emergency room and sent to clinic for evaluation. Due to the complex nature of the nailbed lacerations that had not been repaired and the complex comminuted and displaced distal phalanx fracture the patient was indicated for formal irrigation debridement nail bed repair of the left middle and index fingers and possible pinning of the left middle finger. The patient understands that regardless of fixation that the patient is at high risk for nail bed deformity sensation loss and finger sensitivity. The patient understands there is a risk for need for additional procedures in the future should he have nail bed deformity, infection, persistent pain or nonunion. The risks benefits and alternatives to the procedure were discussed with the patient in detail including infection, malunion, nonunion, nail bed deformity, persistent pain, numbness, blood clot, symptomatic hardware. Patient understands and has expressed their desire to proceed with irrigation debridement nail bed repair and possible pinning. Surgeon: Mare Varela Click Yes if Unassisted: Yes Anesthesia Type: General and Local Operative Notes Findings: Left middle finger: Left middle finger nail had been slipped under the small amount of remaining eponychial fold of this was angulated loose and easily removed. On removal a complex stellate nail bed laceration was encountered the proximal aspect of the sterile matrix into the germinal matrix. Additionally this probed deep to expose the open fracture at the base of the DIP joint. This was irrigated thoroughly decision is made to stabilize the distal phalanx with a transarticular wire through the DIP joint. This was in place the nail bed was repaired using 6 0 Monocryl suture. This was a complex repair. The nail was cleansed and Betadine the retained and replaced at the eponychial fold for a stent and secured with nylon suture. Left index finger: The distal 90% of the nail was missing the base of the nail in the eponychial fold was retained. Distal to this there was a again a stellate nail bed laceration as well as a vertical laceration through the pulp of the distal phalanx. The nail bed was irrigated and repaired with 6 0 Monocryl suture. The remaining proximal nail in the eponychial fold all was well fixed and retained. Closure Type: primary Specimen(s): none sent Implants & Drains: 0.045 K-wire x1 in the left middle finger across the DIP Applied: other (Aluminum foam splint) Estimated Blood Loss (mL): 1 Blood products transfused: none Tourniquet time (min): 20 Procedure in detail: The patient was seen in the site and sides of surgery marked in the preoperative area. This was the left hand index and middle fingers. The patient was then brought to the operating room placed on the operative table. General anesthesia was administered. A hand table was positioned on the left side. All bony prominences were padded the patient was secured to the table. SCDs were placed on the legs. The left upper extremity was prepped and draped in the standard sterile fashion. Formal time-out procedure was called to confirm the patient, procedure, side and site of surgery , administration of preoperative antibiotics. All personnel agreed. Digital blocks were completed on the left hand 2nd and 3rd digits through a common digital nerve block at the A1 chivo level of the index and middle fingers with 4 cc of 50/50 Marcaine and lidocaine Two of glove finger tourniquets were created on the middle and index finger and rolled down for exsanguination. Attention was 1st turned to the left middle finger. There is a complex saw injury with a nail bed laceration. The nail was present and loosely placed up partially under the eponychial fold was angulated and easily removed. This exposed a large stellate type nail bed laceration involving the proximal nail bed at the proximal aspect of the sterile and into the germinal matrix. This was very extensive in nature. There was no purulence noted. There was noted to be displaced fracture fragment of the base of the proximal phalanx that was prominent in the proximal wound of this was reduced and thorough irrigation was completed. The nail was removed placed in a Betadine solution and retained for later use as a stent. After irrigation it was felt that due to the extremely comminuted nature of the distal phalanx fracture that the nail would not provide enough inherent stability not to support the fracture fragment. Therefore decision for pinning was made. Again due to the very proximal nature of the fracture a transarticular a DIP pin was selected. Therefore a 0.45 K-wire was placed in a retrograde fashion across the DIP joint under fluoroscopic guidance. This held a reasonable reduction and clinical appearance of this complex a comminuted fracture. Next the nail bed was repaired using 6 0 Monocryl suture. This was a very difficult repair due to the nature of the nailbed tissue quality as well as a complex laceration pattern. After the nail bed was repaired the saved finger nail was trimmed and replaced into what remained of the eponychial fold as a nail stent. This was secured using 5 0 nylon suture in a figure-eight type pattern utilizing a notch in the nail to help secure it. The pulp lacerations that have previously had a few loose sutures in from the ER were again inspected these were noted to be clean with no evidence of purulent drainage and healed. The sutures removed from this laceration. The tourniquet was released and hemostasis achieved. Attention was then turned to the left index finger where again a finger tourniquet was utilized for exsanguination. This finger had a nondisplaced distal tuft fracture was felt to be stable. Over 90% of the distal nail was absent due to the injury. However the proximal 10% was well fixed in the eponychial fold and was felt to provide adequate stenting and the nailbed laceration was distal to this so this was left in place. The nail bed laceration was then inspected and cleared of clot and thoroughly irrigated. Again this was a stellate pattern in the sterile matrix. Again after irrigation the 6 0 Monocryl sutures was used to repair the laceration and a simple suture fashion. Once this was completed the tourniquet was released. Dressings were placed with non adherent Xeroform gauze followed by sterile gauze and Coban. For the middle finger and additional lumen a foam splint was utilized at the DIP joint. Coban was placed around the dressings. The patient was then woken from anesthesia and taken to recovery room in good condition. All counts were correct. There were no known immediate complications from this procedure. Complications: none Condition: stable Disposition: PACU Plan for aftercare: The patient will elevate his fingers above heart level. He will have pain/anti-inflammatory medication as needed. Patient will keep his dressing clean dry and intact he will follow up as scheduled in approximately 1 week for a dressing change. The wire will be retained approximately 3-4 weeks and pulled in clinic. Nylon sutures were retained approximately 2 weeks.
[2018-03-22] MEDS: LACTATED RINGERS 1,000 ML 42 ML IV (07:45)
[2018-03-22] MEDS: CEFAZOLIN 2 GM/100 ML FROZ.PIGGY IV (07:55)
--- NOTE | 2018-03-22 08:23 | SUR.OPER ---
Supine on padded OR bed, head on pillow, Right arm secured on padded arm board at <90 degrees abduction, Left arm on large padded armboard and controlled by surgeon, legs uncrossed, safety belt at thigh.
[2018-03-22] MEDS: BUPIVACAINE 0.25% (PF) VIAL 30 ML INJ (08:38)
[2018-03-22] MEDS: LIDOCAINE 1% 10 ML INJ INJ (08:39)
[2018-03-22] MEDS: fentaNYL 100 MCG/2 ML INJ 50 MCG IV ×2 (09:47→09:52)
[2018-03-22] MEDS: HYDROMORPHONE 2 MG INJ 0.5 MG IV (10:02)
[2018-03-22] MEDS: HYDROCODONE/ACET 5/325 TABLET 1 TAB PO (10:28)
--- NOTE | 2018-03-22 10:43 | SUR.PHASEII ---
assumed care from jassi, operative fingers to L hand cd/i. they are iced and elevated. brought in, d/c instructions discussed, pt's pain up to 6/10, medicated with norco 1 tab, when dr bolden made aware. pt now feeling better and stated pain down to 4/10
--- NOTE | 2018-03-22 11:15 | SUR.PHASEII ---
pt ready to go, dressed with assist of and left when ready and in stable condition.
== END 2018-03-22 11:00 | disposition home or self-care (01) ==
PROVIDERS: Family Provider Family Medicine; PCP Family Medicine; Visit Provider Orthopaedic Surgery Foot and Ankle Surgery
PROC: (CPT 26756; principal; 2018-03-22 07:45)
PROC: (CPT 26756; 2018-03-22 07:45)
DX: S62.663B Nondisplaced fracture of distal phalanx of left middle finger, initial encounter for open fracture (principal); S61.311A Laceration without foreign body of left index finger with damage to nail, initial encounter; S61.313A Laceration without foreign body of left middle finger with damage to nail, initial encounter; W31.2XXA Contact with powered woodworking and forming machines, initial encounter; G47.33 Obstructive sleep apnea (adult) (pediatric); G20 Parkinson's disease; E11.9 Type 2 diabetes mellitus without complications; J45.909 Unspecified asthma, uncomplicated; Z79.84 Long term (current) use of oral hypoglycemic drugs
CPT/HCPCS: 26756; 11760 ×2; J0690; J1100; J1170; J2250; J2704; J3010

== ENCOUNTER 2018-04-01 19:42 | Emergency (ER) | payer MEDICARE, OTHER, SELFPAY ==
[2018-04-01 19:47] VITALS: BP 140/84; PULSE 76; RESP 18; TEMP 36.8; O2SAT 94; BMI 39.5
--- NOTE | 2018-04-01 19:53 | ED.SKABFB ---
HPI - Skin/Abscess/Foreign Bdy <NADIRA Santos - Last Filed: 04/01/18 22:14> General Chief complaint: Skin/Abscess/Foreign Body Stated complaint: BANDAGES CAME OFF FINGER Time Seen by Provider: 04/01/18 19:53 Source: patient Mode of arrival: ambulatory Limitations: no limitations History of Present Illness HPI narrative: 67-year-old male with history of hypertension and is a former smoker here for complaint of a point pin out of his left index finger. He was treated by Orthopedics for a open fracture to his distal left index finger and middle finger earlier this month. He reports that there was a pain that was inserted by the surgeon for the fracture he states today that is bandage accidentally came off when he was lifting a child seat plan the bandage and the pain out of the distal end of the finger. He denies any direct trauma to the distal end of the finger. He denies any increased pain no bleeding. He still has full range of motion and good sensation to the distal end of the finger. He denies any other concerns or complaints at this time. MD complaint: other Related Data Home Medications Medication Instructions Recorded Confirmed MULTIVITAMIN (#MULTIPLE VITAMINS) 1 cap PO QDAY #0 10/22/10 03/22/18 naproxen sodium [Aleve] 220 mg PO BIDCC #0 tab 01/24/16 03/22/18 nortriptyline [Pamelor] 25 mg PO HS #0 cap 01/24/16 03/22/18 allopurinol 1 tab PO DAILY 03/11/18 03/22/18 carbidopa-levodopa 03/11/18 cetirizine 1 tab PO DAILY 03/11/18 03/22/18 doxazosin 1 tab PO BEDTIME 03/11/18 03/22/18 duloxetine 1 cap PO DAILY 03/11/18 03/22/18 esomeprazole magnesium 1 cap PO DAILY 03/11/18 03/22/18 felodipine 1 tab PO DAILY 03/11/18 03/22/18 gabapentin 03/11/18 glimepiride 1 tab PO DAILY 03/11/18 03/22/18 lamotrigine 1 tab PO BID 03/11/18 03/22/18 lamotrigine 1 tab PO DAILY 03/11/18 03/22/18 metformin 03/11/18 pramipexole 1 tab PO DAILY 03/11/18 03/22/18 rasagiline [Azilect] 1 tab PO DAILY 03/11/18 03/22/18 rosuvastatin 1 tab PO DAILY 03/11/18 03/22/18 alum-mag hydroxide-simeth [Mag-Al 10 ml PO Q6HP 03/22/18 03/22/18 Plus] Previous Rx's Medication Instructions Recorded hydrocodone-acetaminophen [Paris] 1 tab PO Q4HP PRN #15 tab 07/16/17 cephalexin [Keflex] 500 mg PO QID #40 cap 03/11/18 hydrocodone-acetaminophen [[place]] 1 tab PO Q4-6H PRN #15 tab 03/22/18 Allergies Allergy/AdvReac Type Severity Reaction Status Date / Time No Known Drug Allergies Allergy Verified 03/11/18 13:00 Review of Systems <NADIRA Santos - Last Filed: 04/01/18 22:14> Constitutional Denies chills, Denies fever(s), Denies lethargy and Denies weakness Eyes Denies change in vision, Denies eye discharge, Denies irritation and Denies loss of vision ENT Ears, Nose, Mouth, and Throat: Denies change in voice, Denies neck pain and Denies sore throat Cardiovascular Denies chest pain, Denies irregular heart rhythm, Denies lightheadedness, Denies palpitations, Denies dyspnea, Denies dyspnea on exertion and Denies orthopnea Respiratory Denies cough, Denies dyspnea, Denies dyspnea on exertion and Denies wheezing Gastrointestinal Gastrointestinal: Denies abdominal pain, Denies change in bowel habits, Denies diarrhea, Denies nausea and Denies vomiting Genitourinary Denies hematuria, Denies flank pain, Denies urinary incontinence and Denies urinary urgency Musculoskeletal Denies neck pain Comments: Pain from surgery came out of distal left middle finger Integumentary/Breasts Denies pruritus, Denies erythema, Denies rash and Denies wounds Neurologic Denies loss of vision and Denies weakness Endocrine Denies palpitations Allergic/Immunologic Denies wheezing Exam <NADIRA Santos - Last Filed: 04/01/18 22:14> Initial Vital Signs Initial Vital Signs: Vital Signs Temperature 98.3 F 04/01/18 19:47 Pulse Rate 76 04/01/18 19:47 Respiratory Rate 18 04/01/18 19:47 Blood Pressure 140/84 04/01/18 19:47 Pulse Oximetry 94 04/01/18 19:47 Const General: cooperative and well developed Nutritional Appearance: well nourished Orientation: alert, awake, oriented x3 and not confused [facility] Mouth: oral mucosae normal and moist mucous membranes Eyes Conjunctivae: conjunctivae normal Sclera: sclerae normal Pupils: PERRL EOM: EOM intact bilaterally Resp Effort & Inspection: normal respiratory effort, able to speak in complete sentences, no respiratory distress and no use of accessory muscles Auscultation: clear to auscultation bilaterally, no rales, no rhonchi and no wheezes Cardio Rate: regular rate Rhythm: regular rhythm Heart Sounds: no click, no gallops, no murmurs and no rubs Skin General: no rashes or lesions noted, No jaundice and No petechiae Neuro General: alert, oriented x3, gait normal and no focal motor deficits Speech: speech normal Extrem Other: Left middle finger with incision site to the distal end of the middle finger that appears to be healing well no signs of infection. Distal sensation is intact. Distal cap refills less than 2 sec. Patient has good range of motion. No signs of bleeding. <Diana Romano DO - Last Filed: 04/02/18 01:10> Initial Vital Signs Initial Vital Signs: Vital Signs Temperature 98.3 F 04/01/18 19:47 Pulse Rate 76 04/01/18 19:47 Respiratory Rate 18 04/01/18 19:47 Blood Pressure 140/84 04/01/18 19:47 Pulse Oximetry 94 04/01/18 19:47 Course <NADIRA Santos - Last Filed: 04/01/18 22:14> Vital Signs - 8 hr 04/01/18 19:47 04/01/18 20:50 Temperature 98.3 F Pulse Rate 76 74 Respiratory Rate 18 Blood Pressure 140/84 125/86 Pulse Oximetry 94 94 <Diana Romano DO - Last Filed: 04/02/18 01:10> Vital Signs - 8 hr 04/01/18 19:47 04/01/18 20:50 Temperature 98.3 F Pulse Rate 76 74 Respiratory Rate 18 Blood Pressure 140/84 125/86 Pulse Oximetry 94 94 MDM - Skin/Abscess/Foreign Bdy <NADIRA Santos - Last Filed: 04/01/18 22:14> [facility] Narrative Medical decision making narrative: Discussed case with Dr. [facility] who states redressed and splint finger and have follow-up with Orthopedics on Wednesday. Patient's finger was redressed and resplinted. [id number] Tylenol Motrin as needed for any discomfort. Patient called Dr. Hahn is office thing Wednesday morning to schedule follow-up appointment. For any worsening symptoms return to the emergency room. Discharge Plan Departure Patient Disposition: Home Clinical Impression: Fracture of phalanx of left middle finger Discharge Date/Time: 04/01/18 20:51 Interventions: ED Discharge Assessment Last Done: 04/01/18 20:50 Instructions: DI for Finger Fracture Activity Restrictions/Additional Instructions: After talking with Orthopedics finger was redressed and resplinted. Recommended to follow up with Orthopedics on Wednesday call Dr. Contreras's office and schedule follow-up appointment. Use [id number] Tylenol or Motrin as needed for any discomfort. Dress wound daily with bacitracin and a dressing. For any worsening symptoms return to the emergency room. Prescriptions: No Action MULTIVITAMIN (#MULTIPLE VITAMINS) 1 cap PO QDAY Qty: 0 RF: 0 nortriptyline [Pamelor] 25 MG capsule 25 mg PO HS Qty: 0 RF: 0 naproxen sodium [Aleve] 220 MG tablet 220 mg PO BIDCC Qty: 0 RF: 0 hydrocodone-acetaminophen [Paris] 5 MG/325 MG tablet 1 tab PO Q4HP PRNQty: 15 RF: 0 cetirizine 10 mg tablet 1 tab PO DAILY RF: 0 felodipine 5 mg tablet extended release 24 hr 1 tab PO DAILY RF: 0 carbidopa-levodopa 50-200 mg tablet extended release RF: 0 lamotrigine 25 mg tablet 1 tab PO BID RF: 0 esomeprazole magnesium 40 mg capsule,delayed release(DR/EC) 1 cap PO DAILY RF: 0 glimepiride 4 mg tablet 1 tab PO DAILY RF: 0 gabapentin 300 mg capsule RF: 0 doxazosin 4 mg tablet 1 tab PO BEDTIME RF: 0 allopurinol 300 mg tablet 1 tab PO DAILY RF: 0 metformin 500 mg tablet extended release 24 hr RF: 0 lamotrigine 100 mg tablet 1 tab PO DAILY RF: 0 duloxetine 60 mg capsule,delayed release(DR/EC) 1 cap PO DAILY RF: 0 rasagiline [Azilect] 1 mg tablet 1 tab PO DAILY RF: 0 pramipexole 0.25 mg tablet 1 tab PO DAILY RF: 0 rosuvastatin 20 mg tablet 1 tab PO DAILY RF: 0 cephalexin [Keflex] 500 mg capsule 500 mg PO QID Qty: 40 RF: 0 alum-mag hydroxide-simeth [Mag-Al Plus] 30 ML suspension 10 ml PO Q6HP RF: 0 hydrocodone-acetaminophen [[place]] 5-325 mg tablet 1 tab PO Q4-6H PRN (Reason: pain) Qty: 15 RF: 0 Referrals: Mare Varela MD [Physician] - Jackson Brennan DO [Primary Care Provider] - <Diana Romano DO - Last Filed: 04/02/18 01:10> Cosign ED Attending Cosignature Attestation: I was immediately available in the department for consultation. This documentation has been reviewed and I agree with assessment and plan. Supervised by Diana Romano DO
--- NOTE | 2018-04-01 20:35 | ED_ITS ---
HPI - Skin/Abscess/Foreign Bdy <NADIRA Santos - Last Filed: 04/01/18 22:14> General Chief complaint: Skin/Abscess/Foreign Body Stated complaint: BANDAGES CAME OFF FINGER Time Seen by Provider: 04/01/18 19:53 Source: patient Mode of arrival: ambulatory Limitations: no limitations History of Present Illness HPI narrative: 67-year-old male with history of hypertension and is a former smoker here for complaint of a point pin out of his left index finger. He was treated by Orthopedics for a open fracture to his distal left index finger and middle finger earlier this month. He reports that there was a pain that was inserted by the surgeon for the fracture he states today that is bandage accidentally came off when he was lifting a child seat plan the bandage and the pain out of the distal end of the finger. He denies any direct trauma to the distal end of the finger. He denies any increased pain no bleeding. He still has full range of motion and good sensation to the distal end of the finger. He denies any other concerns or complaints at this time. MD complaint: other Related Data Home Medications Medication Instructions Recorded Confirmed MULTIVITAMIN (#MULTIPLE VITAMINS) 1 cap PO QDAY #0 10/22/10 03/22/18 naproxen sodium [Aleve] 220 mg PO BIDCC #0 tab 01/24/16 03/22/18 nortriptyline [Pamelor] 25 mg PO HS #0 cap 01/24/16 03/22/18 allopurinol 1 tab PO DAILY 03/11/18 03/22/18 carbidopa-levodopa 03/11/18 cetirizine 1 tab PO DAILY 03/11/18 03/22/18 doxazosin 1 tab PO BEDTIME 03/11/18 03/22/18 duloxetine 1 cap PO DAILY 03/11/18 03/22/18 esomeprazole magnesium 1 cap PO DAILY 03/11/18 03/22/18 felodipine 1 tab PO DAILY 03/11/18 03/22/18 gabapentin 03/11/18 glimepiride 1 tab PO DAILY 03/11/18 03/22/18 lamotrigine 1 tab PO BID 03/11/18 03/22/18 lamotrigine 1 tab PO DAILY 03/11/18 03/22/18 metformin 03/11/18 pramipexole 1 tab PO DAILY 03/11/18 03/22/18 rasagiline [Azilect] 1 tab PO DAILY 03/11/18 03/22/18 rosuvastatin 1 tab PO DAILY 03/11/18 03/22/18 alum-mag hydroxide-simeth [Mag-Al 10 ml PO Q6HP 03/22/18 03/22/18 Plus] Previous Rx's Medication Instructions Recorded hydrocodone-acetaminophen [[place]] 1 tab PO Q4HP PRN #15 tab 07/16/17 cephalexin [Keflex] 500 mg PO QID #40 cap 03/11/18 hydrocodone-acetaminophen [[place]] 1 tab PO Q4-6H PRN #15 tab 03/22/18 Allergies Allergy/AdvReac Type Severity Reaction Status Date / Time No Known Drug Allergies Allergy Verified 03/11/18 13:00 Review of Systems <NADIRA Santos - Last Filed: 04/01/18 22:14> Constitutional Denies chills, Denies fever(s), Denies lethargy and Denies weakness Eyes Denies change in vision, Denies eye discharge, Denies irritation and Denies loss of vision ENT Ears, Nose, Mouth, and Throat: Denies change in voice, Denies neck pain and Denies sore throat Cardiovascular Denies chest pain, Denies irregular heart rhythm, Denies lightheadedness, Denies palpitations, Denies dyspnea, Denies dyspnea on exertion and Denies orthopnea Respiratory Denies cough, Denies dyspnea, Denies dyspnea on exertion and Denies wheezing Gastrointestinal Gastrointestinal: Denies abdominal pain, Denies change in bowel habits, Denies diarrhea, Denies nausea and Denies vomiting Genitourinary Denies hematuria, Denies flank pain, Denies urinary incontinence and Denies urinary urgency Musculoskeletal Denies neck pain Comments: Pain from surgery came out of distal left middle finger Integumentary/Breasts Denies pruritus, Denies erythema, Denies rash and Denies wounds Neurologic Denies loss of vision and Denies weakness Endocrine Denies palpitations Allergic/Immunologic Denies wheezing Exam <NADIRA Santos - Last Filed: 04/01/18 22:14> Initial Vital Signs Initial Vital Signs: Vital Signs Temperature 98.3 F 04/01/18 19:47 Pulse Rate 76 04/01/18 19:47 Respiratory Rate 18 04/01/18 19:47 Blood Pressure 140/84 04/01/18 19:47 Pulse Oximetry 94 04/01/18 19:47 Const General: cooperative and well developed Nutritional Appearance: well nourished Orientation: alert, awake, oriented x3 and not confused [facility] Mouth: oral mucosae normal and moist mucous membranes Eyes Conjunctivae: conjunctivae normal Sclera: sclerae normal Pupils: PERRL EOM: EOM intact bilaterally Resp Effort & Inspection: normal respiratory effort, able to speak in complete sentences, no respiratory distress and no use of accessory muscles Auscultation: clear to auscultation bilaterally, no rales, no rhonchi and no wheezes Cardio Rate: regular rate Rhythm: regular rhythm Heart Sounds: no click, no gallops, no murmurs and no rubs Skin General: no rashes or lesions noted, No jaundice and No petechiae Neuro General: alert, oriented x3, gait normal and no focal motor deficits Speech: speech normal Extrem Other: Left middle finger with incision site to the distal end of the middle finger that appears to be healing well no signs of infection. Distal sensation is intact. Distal cap refills less than 2 sec. Patient has good range of motion. No signs of bleeding. <Diana Romano DO - Last Filed: 04/02/18 01:10> Initial Vital Signs Initial Vital Signs: Vital Signs Temperature 98.3 F 04/01/18 19:47 Pulse Rate 76 04/01/18 19:47 Respiratory Rate 18 04/01/18 19:47 Blood Pressure 140/84 04/01/18 19:47 Pulse Oximetry 94 04/01/18 19:47 Course <NADIRA Santos - Last Filed: 04/01/18 22:14> Vital Signs - 8 hr 04/01/18 19:47 04/01/18 20:50 Temperature 98.3 F Pulse Rate 76 74 Respiratory Rate 18 Blood Pressure 140/84 125/86 Pulse Oximetry 94 94 <Diana Romano DO - Last Filed: 04/02/18 01:10> Vital Signs - 8 hr 04/01/18 19:47 04/01/18 20:50 Temperature 98.3 F Pulse Rate 76 74 Respiratory Rate 18 Blood Pressure 140/84 125/86 Pulse Oximetry 94 94 MDM - Skin/Abscess/Foreign Bdy <NADIRA Santos - Last Filed: 04/01/18 22:14> [facility] Narrative Medical decision making narrative: Discussed case with Dr. [facility] who states redressed and splint finger and have follow-up with Orthopedics on Wednesday. Patient's finger was redressed and resplinted. [id number] Tylenol Motrin as needed for any discomfort. Patient called Dr. Hahn is office thing Wednesday morning to schedule follow-up appointment. For any worsening symptoms return to the emergency room. Discharge Plan Departure Patient Disposition: Home Clinical Impression: Fracture of phalanx of left middle finger Discharge Date/Time: 04/01/18 20:51 Interventions: ED Discharge Assessment Last Done: 04/01/18 20:50 Instructions: DI for Finger Fracture Activity Restrictions/Additional Instructions: After talking with Orthopedics finger was redressed and resplinted. Recommended to follow up with Orthopedics on Wednesday call Dr. Contreras's office and schedule follow-up appointment. Use [id number] Tylenol or Motrin as needed for any discomfort. Dress wound daily with bacitracin and a dressing. For any worsening symptoms return to the emergency room. Prescriptions: No Action MULTIVITAMIN (#MULTIPLE VITAMINS) 1 cap PO QDAY Qty: 0 RF: 0 nortriptyline [Pamelor] 25 MG capsule 25 mg PO HS Qty: 0 RF: 0 naproxen sodium [Aleve] 220 MG tablet 220 mg PO BIDCC Qty: 0 RF: 0 hydrocodone-acetaminophen [[place]] 5 MG/325 MG tablet 1 tab PO Q4HP PRNQty: 15 RF: 0 cetirizine 10 mg tablet 1 tab PO DAILY RF: 0 felodipine 5 mg tablet extended release 24 hr 1 tab PO DAILY RF: 0 carbidopa-levodopa 50-200 mg tablet extended release RF: 0 lamotrigine 25 mg tablet 1 tab PO BID RF: 0 esomeprazole magnesium 40 mg capsule,delayed release(DR/EC) 1 cap PO DAILY RF: 0 glimepiride 4 mg tablet 1 tab PO DAILY RF: 0 gabapentin 300 mg capsule RF: 0 doxazosin 4 mg tablet 1 tab PO BEDTIME RF: 0 allopurinol 300 mg tablet 1 tab PO DAILY RF: 0 metformin 500 mg tablet extended release 24 hr RF: 0 lamotrigine 100 mg tablet 1 tab PO DAILY RF: 0 duloxetine 60 mg capsule,delayed release(DR/EC) 1 cap PO DAILY RF: 0 rasagiline [Azilect] 1 mg tablet 1 tab PO DAILY RF: 0 pramipexole 0.25 mg tablet 1 tab PO DAILY RF: 0 rosuvastatin 20 mg tablet 1 tab PO DAILY RF: 0 cephalexin [Keflex] 500 mg capsule 500 mg PO QID Qty: 40 RF: 0 alum-mag hydroxide-simeth [Mag-Al Plus] 30 ML suspension 10 ml PO Q6HP RF: 0 hydrocodone-acetaminophen [[place]] 5-325 mg tablet 1 tab PO Q4-6H PRN (Reason: pain) Qty: 15 RF: 0 Referrals: Mare Varela MD [Physician] - Jackson Brennan DO [Primary Care Provider] - <Diana Romano DO - Last Filed: 04/02/18 01:10> Cosign ED Attending Cosignature Attestation: I was immediately available in the department for consultation. This documentation has been reviewed and I agree with assessment and plan. Supervised by Diana Romano DO
[2018-04-01 20:50] VITALS: BP 125/86; PULSE 74; O2SAT 94
== END 2018-04-01 20:51 | disposition home or self-care (01) ==
PROVIDERS: Emergency Provider Nurse Practitioner Family; Family Provider Family Medicine; PCP Family Medicine
DX: S62.603A Fracture of unspecified phalanx of left middle finger, initial encounter for closed fracture (principal)
CPT/HCPCS: 99282

== ENCOUNTER 2018-04-11 10:35 | Outpatient (RCR) | payer MEDICARE, OTHER, SELFPAY | END 2018-04-12 11:41 | LOC: SP 10:35 | PROVIDERS: Family Provider Family Medicine; PCP Family Medicine; Visit Provider Electrodiagnostic Medicine | DX: G20 Parkinson's disease (principal); R13.10 Dysphagia, unspecified | CPT/HCPCS: 92610 ==

== ENCOUNTER 2018-04-19 13:13 | Day surgery (SDC) | payer MEDICARE, OTHER, SELFPAY ==
[2018-04-18 12:27] VITALS: BMI 41.3
[2018-04-19] VITALS (11 sets, daily range): BP systolic 130–172; BP diastolic 86–112; PULSE 63–79; RESP 9–16; TEMP 36.3–36.9; O2SAT 93–100; BMI 41.3
--- NOTE | 2018-04-19 14:21 | PM.PREOP ---
Pre-operative Note Interval Note Pre-op Check: Yes History & Physical Reviewed by Physician and Yes Exam Performed Changes: No
[2018-04-19] MEDS: LACTATED RINGERS 1,000 ML 42 ML IV (15:20)
[2018-04-19] MEDS: CEFAZOLIN 2 GM/100 ML FROZ.PIGGY IV (15:40)
--- NOTE | 2018-04-19 16:05 | SUR.OPER ---
Supine on padded OR bed, head on pillow, right arm secured on padded arm board, left arm on sterile field, at <90 degrees abduction, legs uncrossed, safety belt at thigh, tape over blanket over lower legs.
[2018-04-19] MEDS: BUPIVACAINE 0.25% (PF) VIAL 30 ML INJ (16:12)
--- NOTE | 2018-04-19 17:35 | SUR.PHASEI ---
Dr. Stevens wants an EKG. RT called they are at bedside. patient remains alert NSR.
[2018-04-19] MEDS: HYDRALAZINE 20 MG/ML VIAL 10 MG IV ×2 (17:45→18:03)
[2018-04-19] MEDS: CARBIDOPA-LEVODOPA ER 50/200 TABLET 1 EACH PO (18:03)
[2018-04-19] MEDS: LORazepam 2 MG/ML SYRINGE 0.5 MG IV ×2 (18:13→18:15)
--- NOTE | 2018-04-19 18:29 | PM.OP.1 ---
Operative Date/Time/Diagnoses Date of procedure: 04/19/18 Time of procedure: 16:00 Pre-op diagnosis: Open displaced fracture distal phalanx left middle finger. Painful stiff left middle finger distal phalanx Post-op diagnosis: same Procedure & Clinicians Procedure: 1. Revision amputation left finger tip left middle finger at distal interphalangeal joint disarticulation 2. Surgeon interpretation of intraoperative fluoroscopic images. cpt [id number] Modifier 58 for staged procedure: More extensive procedure--with persistence of a painful stiff digit , comminuted distal phalanx fracture with dorsal tissue loss. the patient has elected for revision amputation with disarticulation at the distal interphalangeal joint, after initial attempting digit salvage after his severe hand saw injury Same procedure as scheduled: Yes Indications: The patient is a 67-year-old male that is status post saw injury to his left hand index and middle fingers. The patient had a nail bed repair of the left index finger and a nail bed repair and pinning of the highly comminuted distal phalanx fracture of the middle finger on the left as well as a nail bed repair. Unfortunately patient has had a loss of fixation of his highly comminuted distal phalanx fracture. Additionally the patient has had continued swelling and pain and stiffness. Options were discussed with the patient. Due to the highly comminuted distal phalanx fracture destruction of the DIP joint the patient has been indicated for revision amputation with disarticulation through the DIP joint and primary closure. We discussed the amputation levels regardless of traumatic or surgical can have throbbing and persistent stump sensitivity. Patient understands and agrees with the plan he would like to proceed with revision amputation, disarticulation through the DIP joint of his left middle finger. Surgeon: Mare Varela Click Yes if Unassisted: Yes Anesthesia Type: General and Local Operative Notes Findings: Healing dorsal middle finger saw injury with a complex nail bed laceration. There is a healing scab the wound just proximal to the nail bed and a supple distal phalanx pulp tissue. Radiographically there is a highly comminuted burst type fracture of the distal phalanx with extension into the distal interphalangeal joint with significant displacement of the fragments. Intraoperative fluoroscopy: AP and lateral imaging of the left middle finger demonstrate amputation stump after disarticulation through the DIP joint with shortening and contouring of the middle phalanx condyles. Closure Type: primary Specimen(s): none sent Estimated Blood Loss (mL): 2 Blood products transfused: none Tourniquet time (min): 0 Procedure in detail: Patient was seen in the preoperative area his side and site of surgery marked and informed consent confirmed and final questions answered. Patient was then brought back to the operating room by the anesthesia team and placed supine on the operative table. General anesthesia was administered. Patient's left hand was prepped on a hand table. A formal time-out procedure was performed confirming the patient's side and site of surgery administration of preoperative antibiotics 30 min prior to incision. All were in agreement. A finger digital block was performed following the time-out procedure approximately 7 cc of 0.25% Marcaine plain of this was done through the standard dorsal digital block technique with additional supplementary local through a palmar the central the common digital nerve block. Next the left upper extremity is prepped and draped in the standard sterile fashion. Finger glove tourniquet was placed over the middle finger and rolled down. This was cut and released prior to closure. [place] type incision was drawn out over the left middle finger with the dorsal shorter flap adjust proximal to the nail fold and the unhealed dorsal wound. A longer plantar pulp flap was maintained. The skin was incised sharply deep down to bone and through the DIP joint performing the disarticulation. Disarticulation stump was noted have a highly comminuted distal phalanx fracture with the DIP joint surface in at least 3 different pieces. Middle phalanx cartilage was removed with a rongeur and the condyles carefully contoured reduce prominence but maintain length. Medial and lateral neurovascular bundles were dissected out cut proximally under tension. Wound edges were freshened wound irrigated with sterile saline. The finger tourniquet was released and a layered closure was performed utilizing 2 O Vicryl, 4 0 Monocryl, 5 0 nylon. A digit pinked up nicely after tourniquet release. The digit was dressed with Xeroform gauze Erika and Coban. Final intraoperative fluoroscopy was obtained confirming appropriate length and shape of the amputation. The patient was awoken from anesthesia and taken to the PACU in good condition. There were no immediate complications from this procedure. Complications: none Condition: stable Disposition: PACU Plan for aftercare: Patient will keep his dressing in place he will follow up in the clinic in approximately 2 weeks for suture removal. Patient states he has tramadol at home for pain medication and declines further prescription. Patient understands to elevate and use ice knee may take anti-inflammatories as tolerated for pain.
== END 2018-04-19 18:50 | disposition home or self-care (01) ==
PROVIDERS: PCP Family Medicine; Visit Provider Orthopaedic Surgery Foot and Ankle Surgery
PROC: (CPT 26951; principal; 2018-04-19 14:45)
DX: S62.633D Displaced fracture of distal phalanx of left middle finger, subsequent encounter for fracture with routine healing (principal); G20 Parkinson's disease; G47.33 Obstructive sleep apnea (adult) (pediatric); E66.9 Obesity, unspecified; J45.909 Unspecified asthma, uncomplicated; Z87.891 Personal history of nicotine dependence; F41.9 Anxiety disorder, unspecified; I10 Essential (primary) hypertension
CPT/HCPCS: 26951; 93005; 93010; J0360; J0690; J2060; J2405; J2704; J3010

== ENCOUNTER 2018-07-26 16:26 | Emergency (ER) | payer MEDICARE, OTHER, SELFPAY ==
[2018-07-26 16:35] VITALS: BP 157/100; PULSE 84; RESP 17; TEMP 37; O2SAT 97; BMI 41.0
--- NOTE | 2018-07-26 16:44 | DI.RAD.S_ITS ---
PROCEDURE: XR FINGER RT MIN 2V INDICATIONS: laceration on thumb TECHNIQUE: AP hand, 2 views of the right 1st finger(s) acquired. COMPARISON: None FINDINGS: Bones: There is a mildly displaced oblique fracture of the distal phalanx of the 1st digit. Soft tissues: No suspicious soft tissue calcifications. IMPRESSION: 1st digit fracture. Dictated by: Merlene Henson M.D. on 07/26/2018 at 17:01 Approved by: Merlene Henson M.D. on 07/26/2018 at 17:03
--- NOTE | 2018-07-26 17:39 | ED.WOUNDLAC ---
HPI - Wound/Laceration <Ann Dewey PA-C - Last Filed: 07/26/18 21:43> General Chief Complaint: Wound/Laceration Stated Complaint: RT HAND THUMB LACERATION Time Seen by Provider: 07/26/18 17:39 Source: patient Mode of arrival: ambulatory Limitations: no limitations History of Present Illness HPI narrative: This 68-year-old male states that he ?did something stupid again?. He cut the thumb on his right hand with a table saw and thinks this went to the bone. He states he was wearing gloves. He states his tetanus vaccine is up-to-date from last injury. He denies any other injury or pain. He does not think that the finger feels weak. He states he has some numbness around that area from previous injuries but parts are painful. He states that he would like some tramadol for pain as he cannot take other medications but that works well for him without side effects. Related Data Home Medications Medication Instructions Recorded Confirmed MULTIVITAMIN (#MULTIPLE VITAMINS) 1 cap PO QDAY #0 10/22/10 03/22/18 naproxen sodium [Aleve] 220 mg PO BIDCC #0 tab 01/24/16 03/22/18 nortriptyline [Pamelor] 25 mg PO HS #0 cap 01/24/16 03/22/18 allopurinol 1 tab PO DAILY 03/11/18 03/22/18 carbidopa-levodopa 03/11/18 doxazosin 1 tab PO BEDTIME 03/11/18 03/22/18 duloxetine 1 cap PO DAILY 03/11/18 03/22/18 esomeprazole magnesium 1 cap PO DAILY 03/11/18 03/22/18 felodipine 1 tab PO DAILY 03/11/18 03/22/18 gabapentin 03/11/18 glimepiride 1 tab PO DAILY 03/11/18 03/22/18 lamotrigine 1 tab PO DAILY 03/11/18 03/22/18 lamotrigine 150 tab PO BID 03/11/18 03/22/18 metformin 03/11/18 pramipexole 1 tab PO DAILY 03/11/18 03/22/18 rasagiline [Azilect] 1 tab PO DAILY 03/11/18 03/22/18 rosuvastatin 1 tab PO DAILY 03/11/18 03/22/18 alum-mag hydroxide-simeth [Mag-Al 10 ml PO Q6HP 03/22/18 03/22/18 Plus] albuterol sulfate 2 puff INHALATION Q4-6H PRN 04/19/18 04/19/18 duloxetine [Cymbalta] 60 mg PO DAILY 04/19/18 04/19/18 levalbuterol HCl 0.63 mg INHALATION Q4-6H PRN 04/19/18 04/19/18 Previous Rx's Medication Instructions Recorded cephalexin [Keflex] 500 mg PO QID #28 cap 07/26/18 tramadol 50 mg PO Q6H PRN #10 tab 07/26/18 Allergies Allergy/AdvReac Type Severity Reaction Status Date / Time No Known Drug Allergies Allergy Verified 07/26/18 16:40 Review of Systems <Ann Dewey PA-C - Last Filed: 07/26/18 21:43> Review of Systems ROS Unobtainable: All systems reviewed & are unremarkable except as noted in HPI and below PFSH <Ann Dewey PA-C - Last Filed: 07/26/18 21:43> Medical History Arthritis (Chronic) Asthma (Chronic) Depression (Chronic) Diabetes (Chronic) Parkinsons disease (Chronic) Sleep apnea (Chronic) Pancreatic tumor (Resolved) Surgical History H/O vasectomy (Resolved) Hx of parathyroidectomy (Resolved) Hx of splenectomy (Resolved) S/P excision of lipoma (Resolved) Status post correction of deviated nasal septum (Resolved) Status post fusion of wrist (Resolved) Status post nail surgery (Resolved 03/22/18) Social History household members: spouse Smoking Status: Former smoker alcohol intake: current Social History household members: spouse Smoking Status: Former smoker alcohol intake: current Exam <Ann Dewey PA-C - Last Filed: 07/26/18 21:43> Narrative Exam Narrative: GENERAL APPEARANCE: Patient sitting comfortably, in no distress. LUNGS: Clear to auscultation bilaterally. HEART: Rate and rhythm regular without murmur, normal S1 and S2, no S3 or S4. DERMATOLOGIC: There is a 3 cm long laceration extending from the lateral border of the thumb nail over the thumb pad, this is jagged, 6-7 mm deep at most, fat is visible, the medial portion is edematous and the skin does not come together, there is as much as 8-9 mm gap with the fat visible and partly everted, no visible bone on tendon, lateral portion there is no gap but skin is jagged. There is no subungual hematoma and the nail appears viable MUSCULOSKELETAL: Right thumb full range of motion, strength is intact in all anne against resistance NEUROVASCULAR: Sensation thumb is warm and pink with brisk cap refill. Resting tremor noted Initial Vital Signs Initial Vital Signs: Vital Signs Temperature 98.6 F 07/26/18 16:35 Pulse Rate 84 07/26/18 16:35 Respiratory Rate 17 07/26/18 16:35 Blood Pressure 157/100 H 07/26/18 16:35 Pulse Oximetry 97 07/26/18 16:35 <Fidencio Brown DO - Last Filed: 07/27/18 03:43> Initial Vital Signs Initial Vital Signs: Vital Signs Temperature 98.6 F 07/26/18 16:35 Pulse Rate 84 07/26/18 16:35 Respiratory Rate 17 07/26/18 16:35 Blood Pressure 157/100 H 07/26/18 16:35 Pulse Oximetry 97 07/26/18 16:35 Procedures <Ann Dewey PA-C - Last Filed: 07/26/18 21:43> Laceration Repair Laceration 1: Site: hand (thumb) Side (If applicable): right Size (cm): 3 Description: irregular Depth: simple, single layer Local Anesthetic: lidocaine 1% Amount of anesthesia used (mL): 6 Pre-repair: wound explored and irrigated extensively Skin layer closed with: nylon Size (cm): 5-0 Number of sutures: 3 Technique: simple, interrupted Misc Procedure Name of Procedure: Note: The thumb is markedly edematous, fat is everted and only the radial of the border could be loosely sutured with 3 sutures due to the swelling and gap. Surgicel was placed over the gap, then a bulky dressing, and straight splint to protect the joint. Advised patient the fracture itself is likely to heal on its own however he should follow up with his PCP in a few days to reassess once the swelling is a bit improved to check the tendons again. Patient has had a similar wound in the past and needed treatment at wound care, and he agrees to call there in the morning for appointment. Course <Ann Dewey PA-C - Last Filed: 07/26/18 21:43> Additional Information: Dr. Brown has seen wound and agrees the majority of it should not be sutured and patient should f/u at wound care. Keflex prescribed for open fx Orders Ordered: Discontinued Medications Acetaminophen (Tylenol) 650 mg PO NOW ONE Stop: 07/26/18 17:50 Last Admin: 07/26/18 18:01 Dose: 650 mg Tramadol HCl (Ultram) 50 mg PO NOW ONE Stop: 07/26/18 17:50 Last Admin: 07/26/18 18:01 Dose: 50 mg Vital Signs - 8 hr 07/26/18 16:35 07/26/18 19:35 Temperature 98.6 F Pulse Rate 84 68 Respiratory Rate 17 15 Blood Pressure 157/100 H 165/105 H Pulse Oximetry 97 99 <Fidencio Brown DO - Last Filed: 07/27/18 03:43> Orders Ordered: Discontinued Medications Acetaminophen (Tylenol) 650 mg PO NOW ONE Stop: 07/26/18 17:50 Last Admin: 07/26/18 18:01 Dose: 650 mg Tramadol HCl (Ultram) 50 mg PO NOW ONE Stop: 07/26/18 17:50 Last Admin: 07/26/18 18:01 Dose: 50 mg Vital Signs - 8 hr 07/26/18 16:35 07/26/18 19:35 Temperature 98.6 F Pulse Rate 84 68 Respiratory Rate 17 15 Blood Pressure 157/100 H 165/105 H Pulse Oximetry 97 99 Discharge Plan Departure Patient Disposition: Home Clinical Impression: Laceration of thumb Qualifiers: Encounter type: initial encounter Damage to nail status: with damage Foreign body presence: without foreign body Laterality: right Qualified Code(s): S61.111A - Laceration without foreign body of right thumb with damage to nail, initial encounter Fracture of thumb, open Qualifiers: Encounter type: initial encounter Phalanx: distal Fracture alignment: displaced Laterality: right Qualified Code(s): S62.521B - Displaced fracture of distal phalanx of right thumb, initial encounter for open fracture Discharge Date/Time: 07/26/18 19:36 Interventions: ED Discharge Assessment Last Done: 07/26/18 19:35 Instructions: DI for Laceration Repair, DI for Finger Fracture Activity Restrictions/Additional Instructions: You have a fracture that is a little bit out of place at the end of your thumb. Typically, this will heal without surgery however you should follow-up with her PCP at the end of this week to reassess your tendon and ligament strength once the swelling starts to improve. You should also call the [facility] 1st thing tomorrow morning and schedule an appointment as most of this wound was too wide to be sutured and too swollen. You should follow up there this week as well. Since you have taken tramadol without problems before, you can continue a little bit of this for pain as needed. Take 1 tab up to every 6 hr with Tylenol as they work well together. Remember this can interact potentially with your Seroquel so we do not want you to take more than that, but it is not worth the risk of terrible side effects that you have had with other pain medicines. I have prescribed an antibiotic, cephalexin for you to take for the next week to help prevent infection since this is an open fracture. Please pick this up as well and start it this evening Prescriptions: New tramadol 50 mg tablet 50 mg PO Q6H PRN (Reason: fracture pain) Qty: 10 RF: 0 cephalexin [Keflex] 500 mg capsule 500 mg PO QID Qty: 28 RF: 0 No Action MULTIVITAMIN (#MULTIPLE VITAMINS) 1 cap PO QDAY Qty: 0 RF: 0 nortriptyline [Pamelor] 25 MG capsule 25 mg PO HS Qty: 0 RF: 0 naproxen sodium [Aleve] 220 MG tablet 220 mg PO BIDCC Qty: 0 RF: 0 felodipine 5 mg tablet extended release 24 hr 1 tab PO DAILY RF: 0 carbidopa-levodopa 50-200 mg tablet extended release RF: 0 lamotrigine 25 mg tablet 150 tab PO BID RF: 0 esomeprazole magnesium 40 mg capsule,delayed release(DR/EC) 1 cap PO DAILY RF: 0 glimepiride 4 mg tablet 1 tab PO DAILY RF: 0 gabapentin 300 mg capsule RF: 0 doxazosin 4 mg tablet 1 tab PO BEDTIME RF: 0 allopurinol 300 mg tablet 1 tab PO DAILY RF: 0 metformin 500 mg tablet extended release 24 hr RF: 0 lamotrigine 100 mg tablet 1 tab PO DAILY RF: 0 duloxetine 60 mg capsule,delayed release(DR/EC) 1 cap PO DAILY RF: 0 rasagiline [Azilect] 1 mg tablet 1 tab PO DAILY RF: 0 pramipexole 0.25 mg tablet 1 tab PO DAILY RF: 0 rosuvastatin 20 mg tablet 1 tab PO DAILY RF: 0 alum-mag hydroxide-simeth [Mag-Al Plus] 30 ML suspension 10 ml PO Q6HP RF: 0 levalbuterol HCl 0.63 mg/3 mL Solution For Nebulization 0.63 mg INHALATION Q4-6H PRN (Reason: asthma) RF: 0 albuterol sulfate 90 mcg/actuation Hfa Aerosol Inhaler 2 puff INHALATION Q4-6H PRN (Reason: asthma) RF: 0 duloxetine [Cymbalta] 60 mg Capsule,Delayed Release(Dr/Ec) 60 mg PO DAILY RF: 0 Referrals: Jackson Brennan DO [Primary Care Provider] - Jim Mar MD [Physician] - <Fidencio Brown DO - Last Filed: 07/27/18 03:43> [facility] I was immediately available in the department for consultation. Documentation has been reviewed. I agree with assessment and plan.
[2018-07-26] MEDS: TRAMADOL 50 MG TABLET PO (18:01)
[2018-07-26] MEDS: ACETAMINOPHEN 325 MG TABLET 650 MG PO (18:01)
[2018-07-26 19:35] VITALS: BP 165/105; PULSE 68; RESP 15; O2SAT 99
== END 2018-07-26 19:36 | disposition home or self-care (01) ==
PROVIDERS: Emergency Provider Internal Medicine; PCP Family Medicine
DX: S61.111A Laceration without foreign body of right thumb with damage to nail, initial encounter (principal); S62.521B Displaced fracture of distal phalanx of right thumb, initial encounter for open fracture
CPT/HCPCS: 12002; 73140; 99284

== ENCOUNTER → 2018-07-29 14:09 | Outpatient (CLI) | payer MEDICARE, OTHER, SELFPAY | PROVIDERS: PCP Family Medicine; Visit Provider Family Medicine | DX: S62.521B Displaced fracture of distal phalanx of right thumb, initial encounter for open fracture (principal); S61.111A Laceration without foreign body of right thumb with damage to nail, initial encounter; E11.622 Type 2 diabetes mellitus with other skin ulcer; G20 Parkinson's disease; W31.2XXA Contact with powered woodworking and forming machines, initial encounter | CPT/HCPCS: 11042; 99212; 99213 ==

== ENCOUNTER → 2018-08-05 09:52 | Outpatient (CLI) | payer MEDICARE, OTHER, SELFPAY | PROVIDERS: PCP Family Medicine; Visit Provider Family Medicine | DX: S61.111A Laceration without foreign body of right thumb with damage to nail, initial encounter (principal); S62.521B Displaced fracture of distal phalanx of right thumb, initial encounter for open fracture; W31.2XXA Contact with powered woodworking and forming machines, initial encounter; E11.622 Type 2 diabetes mellitus with other skin ulcer; G20 Parkinson's disease | CPT/HCPCS: 11042 ==

== ENCOUNTER → 2018-08-11 08:32 | Outpatient (CLI) | payer MEDICARE, OTHER, SELFPAY | PROVIDERS: PCP Family Medicine; Visit Provider Family Medicine | DX: S61.111A Laceration without foreign body of right thumb with damage to nail, initial encounter (principal); S62.521B Displaced fracture of distal phalanx of right thumb, initial encounter for open fracture; E11.622 Type 2 diabetes mellitus with other skin ulcer; G20 Parkinson's disease; Z91.19 Patient's noncompliance with other medical treatment and regimen | CPT/HCPCS: 97597; 99213 ==

== ENCOUNTER → 2018-08-18 10:05 | Outpatient (CLI) | payer MEDICARE, OTHER, SELFPAY | PROVIDERS: PCP Family Medicine; Visit Provider Family Medicine | DX: S61.111A Laceration without foreign body of right thumb with damage to nail, initial encounter (principal); S62.521B Displaced fracture of distal phalanx of right thumb, initial encounter for open fracture; E11.622 Type 2 diabetes mellitus with other skin ulcer; G20 Parkinson's disease; Z91.19 Patient's noncompliance with other medical treatment and regimen | CPT/HCPCS: 97597 ==

== ENCOUNTER → 2018-08-22 11:24 | Outpatient (CLI) | payer MEDICARE, OTHER, SELFPAY ==
--- NOTE | 2018-08-22 | DI.RAD.S_ITS ---
PROCEDURE: XR FINGER RT MIN 2V INDICATIONS: RIGHT THUMB PAIN TECHNIQUE: AP hand, 2 views of the right first finger acquired. COMPARISON: [facility], [place], XR FINGER RT MIN 2V, 07/26/2018, 16:50. [facility], [place], FINGER RT, 07/16/2017, 16:37. FINDINGS: Bones: No previously unidentified fractures or dislocations. No suspicious bony lesions. There is a healing fracture involving the distal phalanx of the first digit, accompanied by prior soft tissue deep laceration. No osteomyelitis is found, no foreign body is seen. Soft tissues: No suspicious soft tissue calcifications. IMPRESSION: Healing deep laceration and fracture involving the distal phalanx of the thumb. Dictated by: Harry Paredes M.D. on 08/22/2018 at 12:49 Approved by: Harry Paredes M.D. on 08/22/2018 at 12:51
== END ==
PROVIDERS: PCP Family Medicine; Visit Provider Family Medicine
DX: M79.644 Pain in right finger(s) (principal); S62.521A Displaced fracture of distal phalanx of right thumb, initial encounter for closed fracture; S61.111A Laceration without foreign body of right thumb with damage to nail, initial encounter; E11.622 Type 2 diabetes mellitus with other skin ulcer
CPT/HCPCS: 73140

== ENCOUNTER → 2018-08-25 08:50 | Outpatient (CLI) | payer MEDICARE, OTHER, SELFPAY | PROVIDERS: PCP Family Medicine; Visit Provider Family Medicine | DX: S61.111A Laceration without foreign body of right thumb with damage to nail, initial encounter (principal); S62.521B Displaced fracture of distal phalanx of right thumb, initial encounter for open fracture; E11.622 Type 2 diabetes mellitus with other skin ulcer; G20 Parkinson's disease; Z91.19 Patient's noncompliance with other medical treatment and regimen | CPT/HCPCS: 97597 ==

== ENCOUNTER → 2019-03-29 13:06 | Outpatient (CLI) | payer MEDICARE, OTHER, SELFPAY ==
--- NOTE | 2019-03-29 | DI.RAD.S_ITS ---
PROCEDURE: XR RIBS LT 2V INDICATIONS: LT 1ST RIB TECHNIQUE: 2 views of the left ribs were acquired. COMPARISON: None. FINDINGS: Surgical changes and devices: None. Bones and chest wall: No acute fractures or dislocations. No suspicious bony lesions. Overlying soft tissues appear unremarkable. Minimal degenerative changes of the left acromioclavicular joint. Lungs and pleura: Hazy left lung base pulmonary opacities noted. IMPRESSION: 1. No acute left rib fracture identified. 2. Hazy left basilar pulmonary opacities likely representing atelectasis, less likely pneumonia. Consider dedicated PA and lateral chest radiographs if there is continued clinical concern. Dictated by: Boston Hanna M.D. on 03/29/2019 at 17:35 Approved by: Boston Hanna M.D. on 03/29/2019 at 17:38
== END ==
PROVIDERS: PCP Family Medicine; Visit Provider Internal Medicine
DX: R07.81 Pleurodynia (principal)
CPT/HCPCS: 71100

== ENCOUNTER 2019-06-07 02:37 | Emergency (ER) | payer MEDICARE, OTHER, SELFPAY ==
--- NOTE | 2019-06-07 03:02 | ED.EAR ---
HPI - Ear Problem General Chief complaint: Ear Stated complaint: left ear cut, fell out of bed Time Seen by Provider: 06/07/19 03:02 History of Present Illness HPI Narrative: 68-year-old gentleman with getting out of bed this evening to get up to the bathroom. He rolled over and fell out of bed catching the external portion of his ear on the edge of the bedside table on the way down. He suffered no additional trauma but did notice moderate amount of bleeding from the ear and came in for additional evaluation. No dizziness, nausea, chest pain, dyspnea, fever, altered mental status Severity: mild Treatment prior to arrival: none Related Data Home Medications Medication Instructions Recorded Confirmed MULTIVITAMIN (#MULTIPLE VITAMINS) 1 cap PO QDAY #0 10/22/10 03/22/18 naproxen sodium [Aleve] 220 mg PO BIDCC #0 tab 01/24/16 03/22/18 nortriptyline [Pamelor] 25 mg PO HS #0 cap 01/24/16 03/22/18 allopurinol 1 tab PO DAILY 03/11/18 03/22/18 carbidopa-levodopa 03/11/18 doxazosin 1 tab PO BEDTIME 03/11/18 03/22/18 duloxetine 1 cap PO DAILY 03/11/18 03/22/18 esomeprazole magnesium 1 cap PO DAILY 03/11/18 03/22/18 felodipine 1 tab PO DAILY 03/11/18 03/22/18 gabapentin 03/11/18 glimepiride 1 tab PO DAILY 03/11/18 03/22/18 lamotrigine 1 tab PO DAILY 03/11/18 03/22/18 lamotrigine 150 tab PO BID 03/11/18 03/22/18 metformin 03/11/18 pramipexole 1 tab PO DAILY 03/11/18 03/22/18 rasagiline [Azilect] 1 tab PO DAILY 03/11/18 03/22/18 rosuvastatin 1 tab PO DAILY 03/11/18 03/22/18 alum-mag hydroxide-simeth [Mag-Al 10 ml PO Q6HP 03/22/18 03/22/18 Plus] albuterol sulfate 2 puff INHALATION Q4-6H PRN 04/19/18 04/19/18 duloxetine [Cymbalta] 60 mg PO DAILY 04/19/18 04/19/18 levalbuterol HCl 0.63 mg INHALATION Q4-6H PRN 04/19/18 04/19/18 Previous Rx's Medication Instructions Recorded cephalexin [Keflex] 500 mg PO QID #28 cap 07/26/18 tramadol 50 mg PO Q6H PRN #10 tab 07/26/18 Allergies Allergy/AdvReac Type Severity Reaction Status Date / Time No Known Drug Allergies Allergy Verified 07/26/18 16:40 Review of Systems Review of Systems Narrative: All systems reviewed and are unremarkable except as noted in HPI and below Patient History Medical History Arthritis (Chronic) Asthma (Chronic) Depression (Chronic) Diabetes (Chronic) Pancreatic tumor (Resolved) Parkinsons disease (Chronic) Sleep apnea (Chronic) Surgical History H/O vasectomy (Resolved) Hx of parathyroidectomy (Resolved) Hx of splenectomy (Resolved) S/P excision of lipoma (Resolved) Status post correction of deviated nasal septum (Resolved) Status post fusion of wrist (Resolved) Status post nail surgery (Resolved 03/22/18) Social History household members: spouse Smoking Status: Former smoker alcohol intake: current Smoking Status: Former smoker alcohol intake frequency: 0-2 drinks per day Substance Use Type: marijuana Exam Narrative Exam Narrative: General: Alert appropriate in no acute distress Neck: Supple without any tenderness or contusion. Full range of motion at the neck Left ear: 1 cm superficial laceration mid antihelix extending toward the helix. Skin edges easily approximate. No damage to underlying cartilage. Bleeding is controlled. No damage or trauma into the canal or further into the ear itself. Face: no additional trauma, bruising Respiratory: Able to speak in full sentences, no obvious respiratory distress Skin: No obvious rashes, warm and dry Extremities: No bruising, contusion, pain or signs of trauma Neurologic: Grossly intact no obvious asymmetries or abnormalities Psych, appropriate insight and affect, cooperative Initial Vital Signs Initial Vital Signs: Vital Signs Temperature 97.9 F 06/07/19 03:09 Pulse Rate 79 06/07/19 03:09 Respiratory Rate 16 06/07/19 03:09 Blood Pressure 151/104 H 06/07/19 03:09 Pulse Oximetry 93 06/07/19 03:09 Course Vital Signs Vital signs: Vital Signs - 8 hr 06/07/19 03:09 Temperature 97.9 F Pulse Rate 79 Respiratory Rate 16 Blood Pressure 151/104 H Pulse Oximetry 93 Medical Decision Making Medical Records Medical records reviewed: Yes I reviewed the patient's medical records. MDM Narrative Medical decision making narrative: 1 cm superficial laceration to the antihelix of the ear, left side. Closed with skin adhesive. No sign of infection, no indication for antibiotics at this time. No damage further down the ear or to the canal itself. No other trauma identified on exam. Safe for home discharge Thank you for coming in tonight. I'm sorry you rolled out of bed in ended up hitting your ear on the table. You cut through the skin over the surface of the ear only. She did not damage the cartilage. It is the external ear and does not extend into the ear canal. I used skin adhesive to hold the edges of the skin together to decrease the risk of infection. You do have quite a bit of bruising to the ear and I do expect that it will hurt and will be more swollen tomorrow. It is okay to shower and let water run into the ear canal. Please be gentle withdrawing the external ear so you don't feel the glue off too soon. It would be ideal to leave the glue in place for 4-5 days. If you notice increasing signs of infection, redness, drainage or more pain in the cartilage itself the wound does need to be evaluated again. Please feel free to return to the emergency room if you are worsening I hope you're able to get more sleep this evening Discharge Plan Departure Patient Disposition: Home Clinical Impression: Laceration of ear Qualifiers: Encounter type: initial encounter Laterality: left Qualified Code(s): S01.312A - Laceration without foreign body of left ear, initial encounter Instructions: DI for Minor Laceration Activity Restrictions/Additional Instructions: Thank you for coming in tonight. I'm sorry you rolled out of bed in ended up hitting your ear on the table. You cut through the skin over the surface of the ear only. She did not damage the cartilage. It is the external ear and does not extend into the ear canal. I used skin adhesive to hold the edges of the skin together to decrease the risk of infection. You do have quite a bit of bruising to the ear and I do expect that it will hurt and will be more swollen tomorrow. It is okay to shower and let water run into the ear canal. Please be gentle withdrawing the external ear so you don't feel the glue off too soon. It would be ideal to leave the glue in place for 4-5 days. If you notice increasing signs of infection, redness, drainage or more pain in the cartilage itself the wound does need to be evaluated again. Please feel free to return to the emergency room if you are worsening I hope you're able to get more sleep this evening Prescriptions: No Action MULTIVITAMIN (#MULTIPLE VITAMINS) 1 cap PO QDAY Qty: 0 RF: 0 nortriptyline [Pamelor] 25 MG capsule 25 mg PO HS Qty: 0 RF: 0 naproxen sodium [Aleve] 220 MG tablet 220 mg PO BIDCC Qty: 0 RF: 0 tramadol 50 mg tablet 50 mg PO Q6H PRN (Reason: fracture pain) Qty: 10 RF: 0 cephalexin [Keflex] 500 mg capsule 500 mg PO QID Qty: 28 RF: 0 felodipine 5 mg tablet extended release 24 hr 1 tab PO DAILY RF: 0 carbidopa-levodopa 50-200 mg tablet extended release RF: 0 lamotrigine 25 mg tablet 150 tab PO BID RF: 0 esomeprazole magnesium 40 mg capsule,delayed release(DR/EC) 1 cap PO DAILY RF: 0 glimepiride 4 mg tablet 1 tab PO DAILY RF: 0 gabapentin 300 mg capsule RF: 0 doxazosin 4 mg tablet 1 tab PO BEDTIME RF: 0 allopurinol 300 mg tablet 1 tab PO DAILY RF: 0 metformin 500 mg tablet extended release 24 hr RF: 0 lamotrigine 100 mg tablet 1 tab PO DAILY RF: 0 duloxetine 60 mg capsule,delayed release(DR/EC) 1 cap PO DAILY RF: 0 rasagiline [Azilect] 1 mg tablet 1 tab PO DAILY RF: 0 pramipexole 0.25 mg tablet 1 tab PO DAILY RF: 0 rosuvastatin 20 mg tablet 1 tab PO DAILY RF: 0 alum-mag hydroxide-simeth [Mag-Al Plus] 30 ML suspension 10 ml PO Q6HP RF: 0 levalbuterol HCl 0.63 mg/3 mL Solution For Nebulization 0.63 mg INHALATION Q4-6H PRN (Reason: asthma) RF: 0 albuterol sulfate 90 mcg/actuation Hfa Aerosol Inhaler 2 puff INHALATION Q4-6H PRN (Reason: asthma) RF: 0 duloxetine [Cymbalta] 60 mg Capsule,Delayed Release(Dr/Ec) 60 mg PO DAILY RF: 0 Referrals: Jackson Brennan DO [Primary Care Provider] -
[2019-06-07 03:09] VITALS: BP 151/104; PULSE 79; RESP 16; TEMP 36.6; O2SAT 93; BMI 40.4
[2019-06-07 03:20] VITALS: BP 147/91; PULSE 82; RESP 19; O2SAT 93
== END 2019-06-07 03:20 | disposition home or self-care (01) ==
PROVIDERS: Emergency Provider Emergency Medicine; PCP Family Medicine
DX: S01.312A Laceration without foreign body of left ear, initial encounter (principal); W06.XXXA Fall from bed, initial encounter
CPT/HCPCS: 99281; 99282

== ENCOUNTER 2019-07-11 22:17 | Emergency (ER) | payer MEDICARE, OTHER, SELFPAY ==
[2019-07-11 22:18] VITALS: BP 127/82; PULSE 83; RESP 16; TEMP 37.6; O2SAT 95; BMI 39.5
--- NOTE | 2019-07-11 22:39 | DI.RAD.S_ITS ---
PROCEDURE: XR CHEST 2V INDICATIONS: shortness of breath, cough TECHNIQUE: 2 views of the chest were acquired. COMPARISON: [facility], , CHEST 2 VIEW, 05/01/2017, 13:33. FINDINGS: Surgical changes and devices: None. Lungs and pleura: No acute consolidation. There is a linear peripheral opacity in the left base compatible with scarring or atelectasis. No pleural effusions or pneumothorax. Mediastinum: Mediastinal contours are normal. Heart size is normal. Bones and chest wall: No suspicious bony abnormalities. Soft tissues appear unremarkable. IMPRESSION: 1. No acute cardiopulmonary disease. Dictated by: Oz Velez M.D. on 07/12/2019 at 8:06 Approved by: Oz Velez M.D. on 07/12/2019 at 8:06
[2019-07-11 23:07] LABS: Hematocrit 40.3 % (41-53); Hemoglobin 13.4 g/dL (13.5-17.5); Mean Corpuscular HGB Conc 33.3 % (30-36); Mean Corpuscular Hemoglobin 32.9 PG (26-34); Mean Corpuscular Volume 98.9 fL (80-100); Platelet Count 257 X10^3/uL (150-400); Red Blood Cell Count 4.08 X10^6/uL (4.5-5.9); Red Cell Distribution Width 14.7 % (11.6-14.8); White Blood Cell Count 8.5 X10^3/uL (4.5-11.0)
[2019-07-11 23:09] LABS: Add Manual Diff / Slide Review YES
[2019-07-11 23:13] LABS: Alanine Aminotransferase 9 IU/L (<50); Albumin Globulin Ratio 1.3 (1.0-2.8); Alkaline Phosphatase 180 U/L (38-126); Aspartate Aminotransferase 33 IU/L (17-59); Bilirubin Total 0.3 mg/dL (0.2-1.3); Blood Urea Nitrogen 20 mg/dL (9-20); Carbon Dioxide 26 mmol/L (22-32); Chloride 101 mmol/L (98-107); Estimated Glomerular Filt Rate > 60.0 mL/min (>60); Globulin 3.1 g/dL (1.7-4.1); Glucose 266 mg/dL (80-110); HEMOLYSIS 21 (0-50); Potassium 4.1 mmol/L (3.4-5.1); Sodium 136 mmol/L (137-145); Total Protein 7.1 g/dL (6.3-8.2)
--- NOTE | 2019-07-11 23:19 | ED.GENADULT ---
HPI - General Adult General Chief complaint: Shortness of Breath/Dyspnea Stated complaint: SOB and cough for approx 3 days Time Seen by Provider: 07/11/19 23:16 Source: patient Mode of arrival: Ambulatory Limitations: no limitations History of Present Illness HPI narrative: 68-year-old male. Has a history of asthma. Has albuterol at home. Has 3 days of cough and shortness of breath. Chest pain only with coughing. He states that he is having somewhat of a productive cough. Subjective fevers. Did do his albuterol prior to arrival without any improvement of symptoms. Related Data Home Medications Medication Instructions Recorded Confirmed MULTIVITAMIN (#MULTIPLE VITAMINS) 1 cap PO QDAY #0 10/22/10 03/22/18 naproxen sodium [Aleve] 220 mg PO BIDCC #0 tab 01/24/16 03/22/18 nortriptyline [Pamelor] 25 mg PO HS #0 cap 01/24/16 03/22/18 allopurinol 1 tab PO DAILY 03/11/18 03/22/18 carbidopa-levodopa 03/11/18 doxazosin 1 tab PO BEDTIME 03/11/18 03/22/18 duloxetine 1 cap PO DAILY 03/11/18 03/22/18 esomeprazole magnesium 1 cap PO DAILY 03/11/18 03/22/18 felodipine 1 tab PO DAILY 03/11/18 03/22/18 gabapentin 03/11/18 glimepiride 1 tab PO DAILY 03/11/18 03/22/18 lamotrigine 1 tab PO DAILY 03/11/18 03/22/18 lamotrigine 150 tab PO BID 03/11/18 03/22/18 metformin 03/11/18 pramipexole 1 tab PO DAILY 03/11/18 03/22/18 rasagiline [Azilect] 1 tab PO DAILY 03/11/18 03/22/18 rosuvastatin 1 tab PO DAILY 03/11/18 03/22/18 alum-mag hydroxide-simeth [Mag-Al 10 ml PO Q6HP 03/22/18 03/22/18 Plus] albuterol sulfate 2 puff INHALATION Q4-6H PRN 04/19/18 04/19/18 duloxetine [Cymbalta] 60 mg PO DAILY 04/19/18 04/19/18 levalbuterol HCl 0.63 mg INHALATION Q4-6H PRN 04/19/18 04/19/18 Previous Rx's Medication Instructions Recorded cephalexin [Keflex] 500 mg PO QID #28 cap 07/26/18 tramadol 50 mg PO Q6H PRN #10 tab 07/26/18 prednisone 40 mg PO DAILY 4 Days #8 tab 07/12/19 Allergies Allergy/AdvReac Type Severity Reaction Status Date / Time No Known Drug Allergies Allergy Verified 07/11/19 22:18 Review of Systems Constitutional Constitutional: Reports fever(s) Cardiovascular Cardiovascular: Reports dyspnea Respiratory Respiratory: Reports cough and Reports dyspnea Gastrointestinal Gastrointestinal: Denies abdominal pain, Denies nausea and Denies vomiting Musculoskeletal Musculoskeletal: Denies myalgias and Denies arthralgias Integumentary/Breasts Skin/Breast: Denies rash Neurologic Neurologic: Denies behavioral changes Psychiatric Psychiatric: Denies behavioral changes Hematologic/Lymphatic Hematologic/Lymphatic: Denies easy bleeding and Denies easy bruising Patient History Medical History Arthritis (Chronic) Asthma (Chronic) Depression (Chronic) Diabetes (Chronic) Pancreatic tumor (Resolved) Parkinsons disease (Chronic) Sleep apnea (Chronic) Social History household members: spouse Smoking Status: Former smoker alcohol intake: current Smoking Status: Former smoker alcohol intake frequency: holidays/special occasions only Substance Use Type: marijuana Exam Initial Vital Signs Initial Vital Signs: Vital Signs Temperature 99.6 F 07/11/19 22:18 Pulse Rate 83 07/11/19 22:18 Respiratory Rate 16 07/11/19 22:18 Blood Pressure 127/82 07/11/19 22:18 Pulse Oximetry 95 07/11/19 22:18 Const General: cooperative, comfortable and well developed Limitations: mental status not altered HENMT Head: normal to inspection and normocephalic Resp Effort & Inspection: normal respiratory effort Auscultation: clear to auscultation bilaterally Cardio Rate: regular rate Rhythm: regular rhythm Skin Lesions: no lesions Rashes: no rashes Neuro General: alert and awake Cognition: normal cognition Speech: speech normal Extrem General: normal to inspection and capillary refill normal Course Orders Ordered: ED Orders 07/11/19 22:39 XR chest 2V Stat EKG-12 Lead Stat Measure peak expiratory flow ONCE RT Consult Eval and Treat Now 07/11/19 22:55 Complete Blood Count AUTO DIFF Stat Comprehensive Metabolic Panel Stat Lactate (Lactic Acid) Stat Discontinued Medications Prednisone (Deltasone) 40 mg PO NOW ONE Stop: 07/12/19 00:06 Last Admin: 07/12/19 00:27 Dose: 40 mg [facility] Vital Signs Vital signs: Vital Signs - 8 hr 07/12/19 00:34 Temperature 99.0 F Pulse Rate 69 Respiratory Rate 23 Blood Pressure 139/85 Pulse Oximetry 91 Medical Decision Making Lab Data Lab results reviewed: Yes I reviewed the patient's lab results. Result diagrams: 07/11/19 22:55 07/11/19 22:55 Labs: Lab Results 07/11/19 07/11/19 07/11/19 Range/Units 22:55 22:55 22:55 WBC 8.5 (4.5-11.0) X10^3/uL RBC 4.08 L (4.5-5.9) X10^6/uL Hgb 13.4 L (13.5-17.5) g/dL Hct 40.3 L (41-53) % MCV 98.9 (80-100) fL MCH 32.9 (26-34) PG MCHC 33.3 (30-36) % RDW 14.7 (11.6-14.8) % Plt Count 257 (150-400) X10^3/uL Neut % (Auto) Not Reportable Lymph % (Auto) Not Reportable Thomas % (Auto) Not Reportable Eos % (Auto) Not Reportable Baso % (Auto) Not Reportable Lymph # (Auto) Not Reportable Thomas # (Auto) Not Reportable Baso # (Auto) Not Reportable Total Counted 100 Seg Neutrophils % 83.0 H (38-70) % Lymphocytes % (Manual) 6.0 L (25-45) % Monocytes % (Manual) 8.0 (2-11) % Eosinophils % (Manual) 3.0 (2-4) % Neutrophils # (Manual) 7055 H (2701-3328) /uL RBC Morphology Normal morphology Sodium 136 L (137-145) mmol/L Potassium 4.1 (3.4-5.1) mmol/L Chloride 101 (98-107) mmol/L Carbon Dioxide 26 (22-32) mmol/L BUN 20 (9-20) mg/dL Creatinine 0.80 (0.66-1.25) mg/dL Estimated GFR > 60.0 (>60) mL/min BUN/Creatinine Ratio 25.0 H (6-22) Glucose 266 H (80-110) mg/dL Lactate 2.0 (0.7-2.1) mmol/L Calcium 9.0 (8.4-10.2) mg/dL Total Bilirubin 0.3 (0.2-1.3) mg/dL AST 33 (17-59) IU/L ALT 9 (<50) IU/L Alkaline Phosphatase 180 H (38-126) U/L Total Protein 7.1 (6.3-8.2) g/dL Albumin 4.0 (3.5-5.0) g/dL Globulin 3.1 (1.7-4.1) g/dL Albumin/Globulin Ratio 1.3 (1.0-2.8) Imaging Data Chest x-ray: Attestation: I personally reviewed and interpreted this imaging study as follows: My Impression: Increased pulmonary markings bilateral. No focal consolidation ECG Data Attestation: I personally reviewed and interpreted this ECG as follows: Prior ECG tracings: not available for review Interpretation: Sinus rhythm Ventricular rate 82 Sinus arrhythmia Normal QRS Normal QTC No ST T wave changes MDM Narrative Medical decision making narrative: Patient stated that he did not think another nebulizer treatment here in the ER with improvement of his symptoms. He is afebrile. His lungs are clear. His chest x-ray shows no definitive pneumonia. His EKG is unremarkable. I feel we can hold on antibiotics for now. He is not hypoxic. Not tachypneic. Will send home with a short course of steroids. He stated that these have helped him in the past. He was given return precautions and follow-up instructions. He expressed understanding and agreement. Discharge Plan Departure Patient Disposition: Home Clinical Impression: Cough Discharge Date/Time: 07/12/19 00:35 Instructions: DI for Cough -- Adult Activity Restrictions/Additional Instructions: Take the steroids as needed. Continue to use your albuterol inhaler/nebulizer at home as needed. Return to the emergency department for any new or worsening symptoms. Contact your primary care provider for follow-up. Your prescriptions were electronically transmitted to [facility] in [place] Prescriptions: New prednisone 20 mg tablet 40 mg PO DAILY 4 Days Qty: 8 RF: 0 No Action MULTIVITAMIN (#MULTIPLE VITAMINS) 1 cap PO QDAY Qty: 0 RF: 0 nortriptyline [Pamelor] 25 MG capsule 25 mg PO HS Qty: 0 RF: 0 naproxen sodium [Aleve] 220 MG tablet 220 mg PO BIDCC Qty: 0 RF: 0 tramadol 50 mg tablet 50 mg PO Q6H PRN (Reason: fracture pain) Qty: 10 RF: 0 cephalexin [Keflex] 500 mg capsule 500 mg PO QID Qty: 28 RF: 0 felodipine 5 mg tablet extended release 24 hr 1 tab PO DAILY RF: 0 carbidopa-levodopa 50-200 mg tablet extended release RF: 0 lamotrigine 25 mg tablet 150 tab PO BID RF: 0 esomeprazole magnesium 40 mg capsule,delayed release(DR/EC) 1 cap PO DAILY RF: 0 glimepiride 4 mg tablet 1 tab PO DAILY RF: 0 gabapentin 300 mg capsule RF: 0 doxazosin 4 mg tablet 1 tab PO BEDTIME RF: 0 allopurinol 300 mg tablet 1 tab PO DAILY RF: 0 metformin 500 mg tablet extended release 24 hr RF: 0 lamotrigine 100 mg tablet 1 tab PO DAILY RF: 0 duloxetine 60 mg capsule,delayed release(DR/EC) 1 cap PO DAILY RF: 0 rasagiline [Azilect] 1 mg tablet 1 tab PO DAILY RF: 0 pramipexole 0.25 mg tablet 1 tab PO DAILY RF: 0 rosuvastatin 20 mg tablet 1 tab PO DAILY RF: 0 alum-mag hydroxide-simeth [Mag-Al Plus] 30 ML suspension 10 ml PO Q6HP RF: 0 levalbuterol HCl 0.63 mg/3 mL Solution For Nebulization 0.63 mg INHALATION Q4-6H PRN (Reason: asthma) RF: 0 albuterol sulfate 90 mcg/actuation Hfa Aerosol Inhaler 2 puff INHALATION Q4-6H PRN (Reason: asthma) RF: 0 duloxetine [Cymbalta] 60 mg Capsule,Delayed Release(Dr/Ec) 60 mg PO DAILY RF: 0 Referrals: Jackson Brennan DO [Primary Care Provider] -
[2019-07-11 23:21] LABS: Neutrophils Absolute Manual 7055 /uL (3000-5900); Total Cells Counted 100
[2019-07-11 23:22] LABS: RBC Morphology Normal Morphology
[2019-07-12] MEDS: predniSONE 20 MG TABLET 40 MG PO (00:27)
[2019-07-12 00:34] VITALS: BP 139/85; PULSE 69; RESP 23; TEMP 37.2; O2SAT 91
== END 2019-07-12 00:35 | disposition home or self-care (01) ==
PROVIDERS: Emergency Provider Emergency Medicine; PCP Family Medicine
DX: R05 Cough (principal); R07.89 Other chest pain
CPT/HCPCS: 36415; 71046; 80053; 83605; 85025; 93005; 99284; 99285

== ENCOUNTER 2019-12-23 19:21 | Emergency (ER) | payer MEDICARE, OTHER, SELFPAY ==
--- NOTE | 2019-12-23 19:28 | DI.RAD.S_ITS ---
PROCEDURE: XR RIBS RT MIN 3V W CXR 1V INDICATIONS: R rib pain post fall TECHNIQUE: To views of the right ribs were acquired, along with a single view chest. COMPARISON: [facility], , XR CHEST 2V, 07/11/2019, 22:39. FINDINGS: Surgical changes and devices: None. Bones and chest wall: Mildly displaced right lateral 6th rib. Possible nondisplaced right 7th rib. No suspicious bony lesions. Overlying soft tissues appear unremarkable. Lungs and pleura: No pleural effusions or pneumothorax. Prominent pulmonary markings bilaterally, unchanged. Mild airspace opacity at the right costophrenic angle. Mediastinum: Mediastinal contours appear normal. Heart size is normal. IMPRESSION: Mildly displaced right lateral 6th rib. Possible nondisplaced right 7th rib fracture. Dictated by: Robert Palmer M.D. on 12/23/2019 at 20:01 Approved by: Robert Palmer M.D. on 12/23/2019 at 20:06
[2019-12-23 19:29] VITALS: BP 137/103; PULSE 65; RESP 14; TEMP 36.7; O2SAT 95; BMI 39.5
--- NOTE | 2019-12-23 19:33 | ED_ITS ---
HPI - Fall <BARBARA ParkerP - Last Filed: 12/23/19 20:54> General Chief Complaint: Fall Stated Complaint: Right side fall Time Seen by Provider: 12/23/19 19:29 Source: patient Mode of arrival: EMS History of Present Illness HPI Narrative: 69yo male with history of diabetes and hypertension, states he slipped while walking in landed on his right side approximately 2 days ago. He felt a pop in his ribs but thought that it was just bruised. However, over the past 2 days he has noticed increasing pain in the right side of his ribs. Patient called EMS today for significant pain, he states the pain is worse with movement or palpation to the area. Patient denies any previous injury to his ribs. He denies any shoulder pain, elbow pain, neck pain, head injury, hip pain, or lower leg pain. He denies hitting his head or losing consciousness. Patient denies feeling dizzy, shortness of breath, or having chest pain prior to fall. He denies loss conscious or vomiting post fall, was able to get up off th e floor himself. Patient denies any other symptoms such as fevers, chills, nausea, vomiting, diarrhea, or any other concerns. Modified trauma called post x-ray results. Related Data Home Medications Medication Instructions Recorded Confirmed naproxen sodium [Aleve] 220 mg PO BIDCC #0 tab 01/24/16 12/23/19 allopurinol 300 mg PO DAILY 12/23/19 12/23/19 alprazolam 0.25 mg PO TID PRN 12/23/19 12/23/19 carbidopa-levodopa 1 tab PO 6XD 12/23/19 12/23/19 cetirizine 10 mg PO DAILY PRN 12/23/19 12/23/19 doxazosin 4 mg PO DAILY 12/23/19 12/23/19 duloxetine 60 mg PO DAILY 12/23/19 12/23/19 esomeprazole magnesium 40 mg PO DAILY 12/23/19 12/23/19 felodipine 5 mg PO DAILY 12/23/19 12/23/19 gabapentin 300 mg PO QID 12/23/19 12/23/19 glipizide 10 mg PO BID 12/23/19 12/23/19 lamotrigine 200 mg PO DAILY 12/23/19 12/23/19 metformin 1,000 mg PO BID 12/23/19 12/23/19 nortriptyline 25 mg PO BEDTIME 12/23/19 12/23/19 pramipexole 0.25 mg PO BEDTIME 12/23/19 12/23/19 rasagiline [Azilect] 1 mg PO DAILY 12/23/19 12/23/19 rosuvastatin 20 mg PO DAILY 12/23/19 12/23/19 Previous Rx's Medication Instructions Recorded oxycodone-acetaminophen [Percocet] 1 tab PO Q4-6H PRN #10 tab 12/23/19 Allergies Allergy/AdvReac Type Severity Reaction Status Date / Time No Known Drug Allergies Allergy Verified 12/23/19 19:43 Review of Systems <NADIRA Parker - Last Filed: 12/23/19 20:54> Review of Systems Narrative: REVIEW OF SYSTEMS: GENERAL: Denies fever or chills. HENT: No head trauma. EYES: No d vision changes CARDIOVASCULAR: Reports rib pain, see HPI. No heart palpitations or diaphoresis. RESPIRATORY: No shortness of breath or cough. GASTROINTESTINAL: No nausea or vomiting MUSCULOSKELETAL: Complains of right rib pain, see HPI. INTEGUMENTARY: No rash. NEURO: No numbness. PSYCH: No behavior or mood changes. Patient History <NADIRA Parker - Last Filed: 12/23/19 20:54> Medical History Arthritis (Chronic) Asthma (Chronic) Depression (Chronic) Diabetes (Chronic) Pancreatic tumor (Resolved) Parkinsons disease (Chronic) Sleep apnea (Chronic) Surgical History H/O vasectomy (Resolved) Hx of parathyroidectomy (Resolved) Hx of splenectomy (Resolved) S/P excision of lipoma (Resolved) Status post correction of deviated nasal septum (Resolved) Status post fusion of wrist (Resolved) Status post nail surgery (Resolved 03/22/18) Social History household members: spouse Smoking Status: Former smoker alcohol intake: current Smoking Status: Former smoker alcohol intake frequency: holidays/special occasions only Substance Use Type: marijuana Exam <NADIRA Parker - Last Filed: 12/23/19 20:54> Initial Vital Signs Initial Vital Signs: Vital Signs Temperature 98.0 F 12/23/19 19:29 Pulse Rate 65 12/23/19 19:29 Respiratory Rate 14 12/23/19 19:29 Blood Pressure 137/103 H 12/23/19 19:29 Pulse Oximetry 95 12/23/19 19:29 PHYSICAL EXAMINATION: GENERAL: Alert, and cooperative. Answers questions promptly and appropriately. Vital signs noted. HENT: Normocephalic, atraumatic. EYES: Symmetrical, sclera white, no periorbital swelling. NECK: No spinal tenderness, nexus score 0. CARDIOVASCULAR: S1 and S2 sounds normal. Regular rate and rhythm, no murmurs, clicks, or bruits. No pedal edema. RESPIRATORY: Normal respiratory rate, trachea midline, airway patent. No stridor, nasal flaring or accessory muscle use. Lungs are clear in all anne. MUSCULOSKELETAL: Tenderness to palpation of lateral right upper ribs, no tenderness to palpation of clavicles, neck, shoulder, elbow, wrist, or hip. Equal tone and mass bilaterally. No spinal tenderness or deformities. EXTREMITIES: CMS intact. No pedal edema. SKIN: Warm, dry, soft, appropriate color for ethnicity. No lesions, rashes, or wounds. NEURO: Alert and Oriented X 3. No sensory deficits. PSYCH: Appropriate affect and mood. <Fidencio Brown DO - Last Filed: 12/23/19 22:26> Initial Vital Signs Initial Vital Signs: Vital Signs Temperature 98.0 F 12/23/19 19:29 Pulse Rate 65 12/23/19 19:29 Respiratory Rate 14 12/23/19 19:29 Blood Pressure 137/103 H 12/23/19 19:29 Pulse Oximetry 95 12/23/19 19:29 Course <NADIRA Parker - Last Filed: 12/23/19 20:54> Course Course Narrative: Patient was given Toradol, reports reduced pain after injection. RT at bedside to teach patient had a use incentive spirometer. Orders Ordered: ED Orders 12/23/19 19:28 XR ribs RT min 3V w CXR1V Stat 12/23/19 20:33 RT Consult Eval and Treat NOW Discontinued Medications Ketorolac Tromethamine (Toradol) 30 mg IM NOW ONE Stop: 12/23/19 19:29 Last Admin: 12/23/19 19:34 Dose: 30 mg Documented by: HUGH Oxycodone/Acetaminophen (Endocet 5/325 Prepack) 1 bottle MISC SEEINSTR ONE Stop: 12/23/19 20:34 Last Admin: 12/23/19 20:42 Dose: 1 bottle Documented by: SANDRA Vital Signs Vital signs: Vital Signs - 8 hr 12/23/19 19:29 12/23/19 19:54 12/23/19 20:00 Temperature 98.0 F Pulse Rate 65 65 65 Respiratory Rate 14 Blood Pressure 137/103 H 187/102 H Pulse Oximetry 95 96 94 12/23/19 20:42 Temperature Pulse Rate 66 Respiratory Rate Blood Pressure 151/70 H Pulse Oximetry 94 <Fidencio Brown DO - Last Filed: 12/23/19 22:26> Orders Ordered: ED Orders 12/23/19 19:28 XR ribs RT min 3V w CXR1V Stat 12/23/19 20:33 RT Consult Eval and Treat NOW Discontinued Medications Ketorolac Tromethamine (Toradol) 30 mg IM NOW ONE Stop: 12/23/19 19:29 Last Admin: 12/23/19 19:34 Dose: 30 mg Documented by: HUGH Oxycodone/Acetaminophen (Endocet 5/325 Prepack) 1 bottle MISC SEEINSTR ONE Stop: 12/23/19 20:34 Last Admin: 12/23/19 20:42 Dose: 1 bottle Documented by: SANDRA Vital Signs Vital signs: Vital Signs - 8 hr 12/23/19 19:29 12/23/19 19:54 12/23/19 20:00 Temperature 98.0 F Pulse Rate 65 65 65 Respiratory Rate 14 Blood Pressure 137/103 H 187/102 H Pulse Oximetry 95 96 94 12/23/19 20:42 Temperature Pulse Rate 66 Respiratory Rate Blood Pressure 151/70 H Pulse Oximetry 94 MDM - Fall <NADIRA Parker - Last Filed: 12/23/19 20:54> Medical Records Attestation: I reviewed the patient's medical records. Lab Data Attestation: I reviewed the patient's lab results. Imaging Data Rib Xray: Radiologist's Impression: [address] [address] XRay Report Signed Patient: Arvind Hinds RMR#: [id number] : [id number]:[id number] Age/Sex: 69 / MDate of Service: 12/23/19 Loc: ED Accession Number: [id number] Procedure: XR ribs RT min 3V w CXR1V Ordering Provider: Milady Fernandez PROCEDURE: XR RIBS RT MIN 3V W CXR 1V INDICATIONS: R rib pain post fall TECHNIQUE: To views of the right ribs were acquired, along with a single view chest. COMPARISON: [facility], CR, XR CHEST 2V, 07/11/2019, 22:39. FINDINGS: Surgical changes and devices: None. Bones and chest wall: Mildly displaced right lateral 6th rib. Possible nondisplaced right 7th rib. No suspicious bony lesions. Overlying soft tissues appear unremarkable. Lungs and pleura: No pleural effusions or pneumothorax. Prominent pulmonary markings bilaterally, unchanged. Mild airspace opacity at the right costophrenic angle. Mediastinum: Mediastinal contours appear normal. Heart size is normal. IMPRESSION: Mildly displaced right lateral 6th rib. Possible nondisplaced right 7th rib fracture. Dictated by: Robert Palmer M.D. on 12/23/2019 at 20:01 Approved by: Robert Palmer M.D. on 12/23/2019 at 20:06 [facility] Narrative Medical decision making narrative: 69-year-old male presents to the emergency department after mechanical fall for right rib pain. X-ray results show to rib fractures. Patient's pain significantly improved after administration of Toradol, we discussed being discharged with oxycodone. Patient states he does not like to use narcotics frequently but wheeze in occasionally needed for pain. RT performed incentive spirometer teaching, patient was educated extensively about the importance of. He was encouraged to follow up with his PCP in 1-2 weeks. Return precautions given for new or worsening symptoms. Patient agreed to plan of care verbalized understanding. at bedside verbalized understanding. Discharge Plan Departure Patient Disposition: Home Clinical Impression: Closed rib fracture Qualifiers: Encounter type: initial encounter Rib fracture type: multiple ribs Laterality: right Qualified Code(s): S22.41XA - Multiple fractures of ribs, right side, initial encounter for closed fracture Discharge Date/Time: 12/23/19 20:50 Instructions: DI for Rib Fracture, How to Prevent Falls Activity Restrictions/Additional Instructions: Thank you for entrusting me with your care today. As discussed, you have to rib fractures. You have fractured your 6th and 7th rib. You have been given an incentive spirometer, please use this daily. Take 10 breaths 10 times a day to prevent pneumonia. You have been prescribed a narcotic medication, this medication can make you drowsy. Do not drive while using this medication or perform activities that require mental alertness. These medications can also make you constipated, please use [id number] docusate sodium as needed for constipation. Your prescription was sent to [facility] in [place]. Call your primary care provider on Wednesday to schedule a follow-up appointment within the next few weeks. Return emergency department for any new or worsening symptoms such as severe pain, uncontrollable vomiting, high fevers, severe cough, or any other concerns. Prescriptions: New oxycodone-acetaminophen [Percocet] 5-325 mg tablet 1 tab PO Q4-6H PRN (Reason: pain) Qty: 10 RF: 0 No Action naproxen sodium [Aleve] 220 MG tablet 220 mg PO BIDCC Qty: 0 RF: 0 lamotrigine 200 mg tablet 200 mg PO DAILY RF: 0 cetirizine 10 mg tablet 10 mg PO DAILY PRN (Reason: allergies) RF: 0 glipizide 10 mg tablet 10 mg PO BID RF: 0 felodipine 5 mg tablet extended release 24 hr 5 mg PO DAILY RF: 0 nortriptyline 25 mg capsule 25 mg PO BEDTIME RF: 0 alprazolam 0.25 mg tablet 0.25 mg PO TID PRN (Reason: Anxiety) RF: 0 esomeprazole magnesium 40 mg capsule,delayed release(DR/EC) 40 mg PO DAILY RF: 0 pramipexole 0.25 mg tablet 0.25 mg PO BEDTIME RF: 0 gabapentin 300 mg capsule 300 mg PO QID RF: 0 doxazosin 4 mg tablet 4 mg PO DAILY RF: 0 allopurinol 300 mg tablet 300 mg PO DAILY RF: 0 metformin 500 mg tablet extended release 24 hr 1,000 mg PO BID RF: 0 rosuvastatin 20 mg tablet 20 mg PO DAILY RF: 0 duloxetine 60 mg capsule,delayed release(DR/EC) 60 mg PO DAILY RF: 0 rasagiline [Azilect] 1 mg tablet 1 mg PO DAILY RF: 0 carbidopa-levodopa 50-200 mg tablet extended release 1 tab PO 6XD RF: 0 Referrals: Jonatan Bales MD [Primary Care Provider] - <Fidencio Brown DO - Last Filed: 12/23/19 22:26> Cosign ED Attending Cosignature Attestation: I was immediately available in the department for consultation. This documentation has been reviewed and I agree with assessment and plan. Supervised by Fidencio Brown DO
[2019-12-23] MEDS: KETOROLAC 60 MG/2 ML VIAL 30 MG IM (19:34)
[2019-12-23 19:54] VITALS: PULSE 65; O2SAT 96
[2019-12-23 20:00] VITALS: BP 187/102; PULSE 65; O2SAT 94
[2019-12-23 20:42] VITALS: BP 151/70; PULSE 66; O2SAT 94
[2019-12-23] MEDS: OXYCODONE/APAP 5/325 PREPACK 1 BOTTLE MISC (20:42)
== END 2019-12-23 20:50 | disposition home or self-care (01) ==
PROVIDERS: Emergency Provider Nurse Practitioner; PCP Internal Medicine
DX: S22.41XA Multiple fractures of ribs, right side, initial encounter for closed fracture (principal); W19.XXXA Unspecified fall, initial encounter
CPT/HCPCS: 71101; 96372; 99283; J1885

== ENCOUNTER 2020-10-05 12:37 | Emergency (ER) | payer MEDICARE, OTHER, SELFPAY ==
[2020-10-05 12:40] VITALS: BP 115/84; PULSE 74; RESP 15; TEMP 36.8; O2SAT 96; BMI 38.0
--- NOTE | 2020-10-05 12:44 | DI.RAD.S_ITS ---
PROCEDURE: XR WRIST LT MIN 3V INDICATIONS: wrist pain TECHNIQUE: 4 views of the wrist were acquired. COMPARISON: [facility], CR, XR WRIST 3VW LT, 05/29/2016, 11:07. [facility], CR, XR WRIST 3VW LT, 04/03/2016, 11:16. [facility], CR, XR WRIST 3VW LT, 01/16/2016, 12:22. [facility], CR, XR WRIST 3VW LT, 12/06/2015, 16:03. [facility], CR, WRIST MINIMUM 3 VIEWS LEFT, 04/17/2013, 16:24. FINDINGS: Bones: Numerous fixation screws can be seen within the central ulnar carpus. The navicular bone has been removed. No displaced fractures are seen. No suspicious lytic or blastic lesions are seen. Soft tissues: No suspicious soft tissue calcifications. IMPRESSION: Extensive postoperative changes, without an acute plain film abnormality seen. Dictated by: Lance Locke M.D. on 10/05/2020 at 12:17 Approved by: Lance Locke M.D. on 10/05/2020 at 12:19
[2020-10-05 14:02] VITALS: PULSE 70
--- NOTE | 2020-10-05 14:48 | ED_ITS ---
HPI - Extremity Problem General Chief complaint: Extremity Problem,Nontraumatic Stated complaint: LT WRIST PAIN Time Seen by Provider: 10/05/20 14:23 Source: patient Mode of arrival: Ambulatory Limitations: no limitations History of Present Illness HPI Narrative: 70-year-old male with chronic left wrist/hand pain. Has also had longstanding left hand/wrist discomfort who is here for evaluation of worsening pain in his left wrist. Is also describing swelling. Has had discomfort in his left wrist off and on for the past month but over the past 12-24 hours he feels like it is getting worse. He has no history of gout. He is on allopurinol for another reason. He describes no specific trauma. He does have a wrist brace that he has been using that is left over from prior surgeries. Related Data Home Medications Medication Instructions Recorded Confirmed naproxen sodium [Aleve] 220 mg PO BIDCC #0 tab 01/24/16 12/23/19 allopurinol 300 mg PO DAILY 12/23/19 12/23/19 alprazolam 0.25 mg PO TID PRN 12/23/19 12/23/19 carbidopa-levodopa 1 tab PO 6XD 12/23/19 12/23/19 cetirizine 10 mg PO DAILY PRN 12/23/19 12/23/19 doxazosin 4 mg PO DAILY 12/23/19 12/23/19 duloxetine 60 mg PO DAILY 12/23/19 12/23/19 esomeprazole magnesium 40 mg PO DAILY 12/23/19 12/23/19 felodipine 5 mg PO DAILY 12/23/19 12/23/19 gabapentin 300 mg PO QID 12/23/19 12/23/19 glipizide 10 mg PO BID 12/23/19 12/23/19 lamotrigine 200 mg PO DAILY 12/23/19 12/23/19 metformin 1,000 mg PO BID 12/23/19 12/23/19 nortriptyline 25 mg PO BEDTIME 12/23/19 12/23/19 pramipexole 0.25 mg PO BEDTIME 12/23/19 12/23/19 rasagiline [Azilect] 1 mg PO DAILY 12/23/19 12/23/19 rosuvastatin 20 mg PO DAILY 12/23/19 12/23/19 Previous Rx's Medication Instructions Recorded oxycodone-acetaminophen [Percocet] 1 tab PO Q4-6H PRN #10 tab 12/23/19 Allergies Allergy/AdvReac Type Severity Reaction Status Date / Time No Known Drug Allergies Allergy Verified 10/05/20 12:59 Review of Systems Constitutional Constitutional: Reports system reviewed and no additional complaints, except as documented Musculoskeletal Comments: Left wrist/hand discomfort Integumentary/Breasts Skin/Breast: Reports system reviewed and no additional complaints, except as documented Neurologic Neurologic: Reports system reviewed and no additional complaints, except as documented Hematologic/Lymphatic On Anticoagulants: No Allergic/Immunologic Allergic/Immunologic: Reports system reviewed and no additional complaints, except as documented Patient History Medical History Arthritis Asthma Depression Diabetes Pancreatic tumor Parkinsons disease Sleep apnea Surgical History (Updated 06/20/20 @ 08:48 by [facility]) H/O vasectomy Hx of parathyroidectomy Hx of splenectomy S/P excision of lipoma Status post correction of deviated nasal septum Status post fusion of wrist Status post nail surgery (03/22/18) Social History household members: spouse Smoking Status: Former smoker alcohol intake: current Smoking Status: Former smoker alcohol intake frequency: holidays/special occasions only Substance Use Type: marijuana Exam Initial Vital Signs Initial Vital Signs: Vital Signs Temperature 98.2 F 10/05/20 12:40 Pulse Rate 74 10/05/20 12:40 Respiratory Rate 15 10/05/20 12:40 Blood Pressure 115/84 10/05/20 12:40 Pulse Oximetry 96 10/05/20 12:40 Const General: cooperative and comfortable Limitations: mental status not altered HENLA Head: normal to inspection and normocephalic Cardio Pulses: radial pulses present on the left Skin Other: Well-healed surgical scars posterior left wrist Neuro Sensory Exam: no sensory deficits noted Extrem Other: Left elbow is unremarkable. Does have discomfort with flexion and extension of the left wrist. Does have swelling around the left wrist. The rest of his hand is unremarkable Psych Appearance: grossly normal and well kempt Course Orders Ordered: ED Orders 10/05/20 12:44 XR wrist LT min 3V Stat Vital Signs Vital signs: Vital Signs - 8 hr 10/05/20 12:40 10/05/20 14:02 Temperature 98.2 F Pulse Rate 74 Pulse Rate [Left Radial] 70 Respiratory Rate 15 Blood Pressure 115/84 Pulse Oximetry 96 MDM - Extremity (Nontraumatic) Imaging Data Extremity x-ray #1: Radiologist's Impression: [address] [id number] ReportSigned Patient: Arvind Hinds RMR#: [id number]: 1950cct:[id number]/Sex: 70 / MDate of Service: 10/05/20Loc: EDAccession Number: [id number] Procedure: XR wrist LT min 3V Ordering Provider: Diana Romano D.O. PROCEDURE: XR WRIST LT MIN 3V INDICATIONS: wrist pain TECHNIQUE: 4 views of the wrist were acquired. COMPARISON: [facility] [place], [place], XR WRIST 3VW LT, 05/29/2016, 11:07. [facility] [place], CR, XR WRIST 3VW LT, 04/03/2016, 11:16. [facility] [place], CR, XR WRIST 3VW LT, 01/16/2016, 12:22. [facility] [place], CR, XR WRIST 3VW LT, 12/06/2015, 16:03. [facility], CR, WRIST MINIMUM 3 VIEWS LEFT, 04/17/2013, 16:24. FINDINGS: Bones: Numerous fixation screws can be seen within the central ulnar carpus. The navicular bone has been removed. No displaced fractures are seen. No suspicious lytic or blastic lesions are seen. Soft tissues: No suspicious soft tissue calcifications. IMPRESSION: Extensive postoperative changes, without an acute plain film abnormality seen. Dictated by: Lance Locke M.D. on 10/05/2020 at 12:17 Approved by: Lance Locke M.D. on 10/05/2020 at 12:19 [facility] Narrative Medical decision making narrative: There were no fractures nor dislocations. He is neurovascular intact. Does have swelling around the left wrist but there is no signs of infection. Low suspicion for gout. We did discuss conservative treatment to include resting it and keeping it elevated also pain medicine which he states he has at home already. No further workup needed on the emergency department. He is given return precautions. Expressed understanding and agreement. Discharge Plan Departure Patient Disposition: Home Clinical Impression: Left wrist pain Instructions: How To Perform RICE (Rest, Ice, Compress, Elevate), DI for Wrist Pain Activity Restrictions/Additional Instructions: The x-rays today do not show any signs of acute fractures. There is no indication of any infection. I do recommend that you continue with the anti- inflammatories and also the wrist splint like we discussed. Return to the emergency department for any new or worsening symptoms Prescriptions: No Action naproxen sodium [Aleve] 220 MG tablet 220 mg PO BIDCC Qty: 0 RF: 0 lamotrigine 200 mg tablet 200 mg PO DAILY RF: 0 cetirizine 10 mg tablet 10 mg PO DAILY PRN (Reason: allergies) RF: 0 glipizide 10 mg tablet 10 mg PO BID RF: 0 felodipine 5 mg tablet extended release 24 hr 5 mg PO DAILY RF: 0 nortriptyline 25 mg capsule 25 mg PO BEDTIME RF: 0 alprazolam 0.25 mg tablet 0.25 mg PO TID PRN (Reason: Anxiety) RF: 0 esomeprazole magnesium 40 mg capsule,delayed release(DR/EC) 40 mg PO DAILY RF: 0 pramipexole 0.25 mg tablet 0.25 mg PO BEDTIME RF: 0 gabapentin 300 mg capsule 300 mg PO QID RF: 0 doxazosin 4 mg tablet 4 mg PO DAILY RF: 0 allopurinol 300 mg tablet 300 mg PO DAILY RF: 0 metformin 500 mg tablet extended release 24 hr 1,000 mg PO BID RF: 0 rosuvastatin 20 mg tablet 20 mg PO DAILY RF: 0 duloxetine 60 mg capsule,delayed release(DR/EC) 60 mg PO DAILY RF: 0 rasagiline [Azilect] 1 mg tablet 1 mg PO DAILY RF: 0 carbidopa-levodopa 50-200 mg tablet extended release 1 tab PO 6XD RF: 0 oxycodone-acetaminophen [Percocet] 5-325 mg tablet 1 tab PO Q4-6H PRN (Reason: pain) Qty: 10 RF: 0 Referrals: Jonatan Bales MD [Primary Care Provider] -
== END 2020-10-05 14:55 | disposition home or self-care (01) ==
PROVIDERS: Emergency Provider Emergency Medicine; PCP Internal Medicine
DX: M25.532 Pain in left wrist (principal)
CPT/HCPCS: 73110; 99283

== ENCOUNTER 2021-01-26 11:13 | Emergency (ER) | payer MEDICARE, OTHER, SELFPAY ==
--- NOTE | 2021-01-26 12:09 | DI.US.S_ITS ---
PROCEDURE: US PERIPH VENOUS LOW EXTREM LT INDICATIONS: sudden pain in left upper thigh. difficulty walking TECHNIQUE: Real-time imaging, as well as color and pulse Doppler interrogation, were performed of the lower extremity deep veins from the inguinal ligament to the popliteal fossa. COMPARISON: None. FINDINGS: The common femoral, femoral and popliteal veins are normally compressible, and free of intraluminal thrombus. Color and pulse Doppler demonstrate normal phasic intraluminal flow. There is normal augmentation response to distal compression maneuver. No abnormality identified in the left lateral upper thigh at the area of clinical concern. IMPRESSION: No left lower extremity DVT. Dictated by: Robert Palmer M.D. on 01/26/2021 at 12:15 Approved by: Robert Palmer M.D. on 01/26/2021 at 12:17
[2021-01-26 12:11] VITALS: BP 138/84; PULSE 81; RESP 19; TEMP 36.3; O2SAT 93; BMI 38.0
[2021-01-26 13:40] VITALS: BP 132/81; PULSE 66; RESP 20; O2SAT 99
[2021-01-26 13:45] VITALS: PULSE 71; O2SAT 95
--- NOTE | 2021-01-26 13:56 | ED.EXTPRO ---
HPI - Extremity Problem General Chief complaint: Extremity Problem,Nontraumatic Stated complaint: Pain 6/10 in left leg. thinks blood clot Time Seen by Provider: 01/26/21 13:30 Source: patient Mode of arrival: Family Vehicle Limitations: no limitations History of Present Illness HPI Narrative: Patient is a 70-year-old male here for evaluation of pain in his left leg. He states that last evening he started noticing a pain in his left upper leg. There is a ?knot? in that area. He denies any trauma. He has had a history of lipomas in the past. Has not tried anything for the symptoms prior to arrival. He is concerned about a blood clot. Related Data Home Medications Medication Instructions Recorded Confirmed naproxen sodium 220 mg tablet 220 mg PO BIDCC #0 tab 01/24/16 12/23/19 (Aleve) allopurinol 300 mg tablet 300 mg PO DAILY 12/23/19 12/23/19 alprazolam 0.25 mg tablet 0.25 mg PO TID PRN 12/23/19 12/23/19 carbidopa ER 50 mg-levodopa 200 mg 1 tab PO 6XD 12/23/19 12/23/19 tablet,extended release cetirizine 10 mg tablet 10 mg PO DAILY PRN 12/23/19 12/23/19 doxazosin 4 mg tablet 4 mg PO DAILY 12/23/19 12/23/19 duloxetine 60 mg capsule,delayed 60 mg PO DAILY 12/23/19 12/23/19 release esomeprazole magnesium 40 mg 40 mg PO DAILY 12/23/19 12/23/19 capsule,delayed release felodipine 5 mg tablet,extended 5 mg PO DAILY 12/23/19 12/23/19 release 24 hr gabapentin 300 mg capsule 300 mg PO QID 12/23/19 12/23/19 glipizide 10 mg tablet 10 mg PO BID 12/23/19 12/23/19 lamotrigine 200 mg tablet 200 mg PO DAILY 12/23/19 12/23/19 metformin 500 mg tablet,extended 1,000 mg PO BID 12/23/19 12/23/19 release 24 hr nortriptyline 25 mg capsule 25 mg PO BEDTIME 12/23/19 12/23/19 pramipexole 0.25 mg tablet 0.25 mg PO BEDTIME 12/23/19 12/23/19 rasagiline 1 mg tablet (Azilect) 1 mg PO DAILY 12/23/19 12/23/19 rosuvastatin 20 mg tablet 20 mg PO DAILY 12/23/19 12/23/19 Previous Rx's Medication Instructions Recorded oxycodone-acetaminophen 5 mg-325 1 tab PO Q4-6H PRN #10 tab 12/23/19 mg tablet (Percocet) Allergies Allergy/AdvReac Type Severity Reaction Status Date / Time No Known Drug Allergies Allergy Verified 01/26/21 12:16 Review of Systems Constitutional Constitutional: Reports system reviewed and no additional complaints, except as documented Musculoskeletal Musculoskeletal: Reports system reviewed and no additional complaints, except as documented and Reports as per HPI Integumentary/Breasts Skin/Breast: Reports system reviewed and no additional complaints, except as documented and Reports as per HPI Neurologic Neurologic: Reports system reviewed and no additional complaints, except as documented Hematologic/Lymphatic On Anticoagulants: No Patient History Medical History (Updated 01/26/21 @ 14:00 by Eliceo Hardy DO) Arthritis Asthma Depression Diabetes Pancreatic tumor Parkinsons disease Sleep apnea Surgical History (Updated 06/20/20 @ 08:48 by [facility]wd: [facility]) H/O vasectomy Hx of parathyroidectomy Hx of splenectomy S/P excision of lipoma Status post correction of deviated nasal septum Status post fusion of wrist Status post nail surgery (03/22/18) Social History household members: spouse Smoking Status: Former smoker alcohol intake: current Smoking Status: Former smoker alcohol intake frequency: holidays/special occasions only Substance Use Type: marijuana Exam Initial Vital Signs Initial Vital Signs: Vital Signs Temperature 97.3 F L 01/26/21 12:11 Pulse Rate 81 01/26/21 12:11 Respiratory Rate 19 01/26/21 12:11 Blood Pressure 138/84 01/26/21 12:11 Pulse Oximetry 93 01/26/21 12:11 Const General: cooperative and comfortable Resp Effort & Inspection: normal respiratory effort Cardio Rate: regular rate Skin General: no rashes or lesions noted and elasticity normal Neuro General: patient awake, patient oriented x3 and moves all extremities Extrem Other: Patient does have a well defined 2 cm soft freely movable mass in his lateral thigh the left leg approximately mid femur. This appears to be the area of tenderness to palpation. Course Orders Ordered: ED Orders 01/26/21 12:09 US periph venous low extrem lt Stat Vital Signs Vital signs: Vital Signs - 8 hr 01/26/21 12:11 01/26/21 13:40 Temperature 97.3 F L Pulse Rate 81 66 Respiratory Rate 19 20 Blood Pressure 138/84 132/81 Pulse Oximetry 93 99 MDM - Extremity (Nontraumatic) Imaging Data US - DVT: Radiologist's Impression: [address] [address] Ultrasound Report Signed Patient: Arvind Hinds MR#: [id number] : 1950 Acct:[id number] Age/Sex: 70 / M Date of Service: 01/26/21 Loc: ED Accession Number: [id number] ?? Procedure: US periph venous low extrem lt Ordering Provider: Eliceo Hardy D.O. PROCEDURE:? US PERIPH VENOUS LOW EXTREM LT ? INDICATIONS:? sudden pain in left upper thigh. difficulty walking ? TECHNIQUE:? Real-time imaging, as well as color and pulse Doppler interrogation, were performed of the lower extremity deep veins from the inguinal ligament to the popliteal fossa.? ? COMPARISON:? None. ? FINDINGS:? The common femoral, femoral and popliteal veins are normally compressible, and free of intraluminal thrombus.? Color and pulse Doppler demonstrate normal phasic intraluminal flow.? There is normal augmentation response to distal compression maneuver. ? ? No abnormality identified in the left lateral upper thigh at the area of clinical concern. ? IMPRESSION:? No left lower extremity DVT. ? ? Dictated by: Robert Palmer M.D. on 01/26/2021 at 12:15 ? ? Approved by: Robert Palmer M.D. on 01/26/2021 at 12:17?? [facility] Narrative Medical decision making narrative: Patient does not have a DVT on his ultrasound and his physical exam is most consistent with a lipoma. This seems to be where he is having the most tenderness to palpation. He is neurovascularly intact. No further workup needed in the emergency department. Informed him that he should contact his primary doctor as he may need to get in to have this lipoma removed especially if the symptoms continue. He expressed understanding agreement. Discharge Plan Departure Patient Disposition: Home Clinical Impression: Lipoma Instructions: Lipoma Activity Restrictions/Additional Instructions: Your physical exam today is most consistent with a lipoma on the outside of your left leg. These can become uncomfortable. Recommend that you contact your primary doctor for follow-up to discuss further evaluation if needed. Return to the emergency department for any new or worsening symptoms Prescriptions: No Action naproxen sodium [Aleve] 220 MG tablet 220 mg PO BIDCC Qty: 0 RF: 0 lamotrigine 200 mg tablet 200 mg PO DAILY RF: 0 cetirizine 10 mg tablet 10 mg PO DAILY PRN (Reason: allergies) RF: 0 glipizide 10 mg tablet 10 mg PO BID RF: 0 felodipine 5 mg tablet extended release 24 hr 5 mg PO DAILY RF: 0 nortriptyline 25 mg capsule 25 mg PO BEDTIME RF: 0 alprazolam 0.25 mg tablet 0.25 mg PO TID PRN (Reason: Anxiety) RF: 0 esomeprazole magnesium 40 mg capsule,delayed release(DR/EC) 40 mg PO DAILY RF: 0 pramipexole 0.25 mg tablet 0.25 mg PO BEDTIME RF: 0 gabapentin 300 mg capsule 300 mg PO QID RF: 0 doxazosin 4 mg tablet 4 mg PO DAILY RF: 0 allopurinol 300 mg tablet 300 mg PO DAILY RF: 0 metformin 500 mg tablet extended release 24 hr 1,000 mg PO BID RF: 0 rosuvastatin 20 mg tablet 20 mg PO DAILY RF: 0 duloxetine 60 mg capsule,delayed release(DR/EC) 60 mg PO DAILY RF: 0 rasagiline [Azilect] 1 mg tablet 1 mg PO DAILY RF: 0 carbidopa-levodopa 50-200 mg tablet extended release 1 tab PO 6XD RF: 0 oxycodone-acetaminophen [Percocet] 5-325 mg tablet 1 tab PO Q4-6H PRN (Reason: pain) Qty: 10 RF: 0 Referrals: Jonatan Bales MD [Primary Care Provider] -
[2021-01-26 14:00] VITALS: BP 124/72; PULSE 66; O2SAT 97
== END 2021-01-26 14:37 | disposition home or self-care (01) ==
PROVIDERS: Emergency Provider Emergency Medicine; PCP Internal Medicine
DX: D17.24 Benign lipomatous neoplasm of skin and subcutaneous tissue of left leg (principal)
CPT/HCPCS: 93971; 99283

== ENCOUNTER 2021-01-30 12:02 | Emergency (ER) | payer MEDICARE, OTHER, SELFPAY ==
[2021-01-30 12:26] VITALS: BP 132/65; PULSE 67; RESP 15; TEMP 36.2; O2SAT 95; BMI 38.0
--- NOTE | 2021-01-30 15:46 | ED.SKABFB ---
HPI - Skin/Abscess/Foreign Bdy <Connor Hadley PA-C - Last Filed: 01/30/21 16:02> General Chief complaint: Skin/Abscess/Foreign Body Stated complaint: Pain in Left Leg, Rash Time Seen by Provider: 01/30/21 14:46 Source: patient Mode of arrival: Wheelchair Limitations: no limitations History of Present Illness HPI narrative: Arvind presents today with chief complaint of continued left proximal leg pain and now rash to his left inner proximal thigh. He reports that the rash is painful to the touch. He denies any significant fever, difficulty walking, decreased range of motion, or any other acute concerns or complaints at this time. Related Data Home Medications Medication Instructions Recorded Confirmed naproxen sodium 220 mg tablet 220 mg PO BIDCC #0 tab 01/24/16 12/23/19 (Aleve) allopurinol 300 mg tablet 300 mg PO DAILY 12/23/19 12/23/19 alprazolam 0.25 mg tablet 0.25 mg PO TID PRN 12/23/19 12/23/19 carbidopa ER 50 mg-levodopa 200 mg 1 tab PO 6XD 12/23/19 12/23/19 tablet,extended release cetirizine 10 mg tablet 10 mg PO DAILY PRN 12/23/19 12/23/19 doxazosin 4 mg tablet 4 mg PO DAILY 12/23/19 12/23/19 duloxetine 60 mg capsule,delayed 60 mg PO DAILY 12/23/19 12/23/19 release esomeprazole magnesium 40 mg 40 mg PO DAILY 12/23/19 12/23/19 capsule,delayed release felodipine 5 mg tablet,extended 5 mg PO DAILY 12/23/19 12/23/19 release 24 hr gabapentin 300 mg capsule 300 mg PO QID 12/23/19 12/23/19 glipizide 10 mg tablet 10 mg PO BID 12/23/19 12/23/19 lamotrigine 200 mg tablet 200 mg PO DAILY 12/23/19 12/23/19 metformin 500 mg tablet,extended 1,000 mg PO BID 12/23/19 12/23/19 release 24 hr nortriptyline 25 mg capsule 25 mg PO BEDTIME 12/23/19 12/23/19 pramipexole 0.25 mg tablet 0.25 mg PO BEDTIME 12/23/19 12/23/19 rasagiline 1 mg tablet (Azilect) 1 mg PO DAILY 12/23/19 12/23/19 rosuvastatin 20 mg tablet 20 mg PO DAILY 12/23/19 12/23/19 Previous Rx's Medication Instructions Recorded oxycodone-acetaminophen 5 mg-325 1 tab PO Q4-6H PRN #10 tab 12/23/19 mg tablet (Percocet) valacyclovir 1 gram tablet 1,000 mg PO TID 7 Days #21 tab 01/30/21 Allergies Allergy/AdvReac Type Severity Reaction Status Date / Time No Known Drug Allergies Allergy Verified 01/30/21 12:26 Review of Systems <Connor Hadley PA-C - Last Filed: 01/30/21 16:02> Review of Systems Narrative: As per HPI Patient History <Connor Hadley PA-C - Last Filed: 01/30/21 16:02> Medical History (Updated 01/30/21 @ 15:53 by Connor Hadley PA-C) Arthritis Asthma Depression Diabetes Pancreatic tumor Parkinsons disease Sleep apnea Surgical History (Updated 06/20/20 @ 08:48 by [email or web address] [place]) H/O vasectomy Hx of parathyroidectomy Hx of splenectomy S/P excision of lipoma Status post correction of deviated nasal septum Status post fusion of wrist Status post nail surgery (03/22/18) Social History household members: spouse Smoking Status: Former smoker alcohol intake: current Smoking Status: Former smoker alcohol intake frequency: 0-2 drinks per day Substance Use Type: marijuana Exam <Connor Hadley PA-C - Last Filed: 01/30/21 16:02> Narrative Exam Narrative: Exam Narrative: Const General: cooperative, healthy appearing, comfortable, no acute distress, well developed and well groomed Nutritional Appearance: Elevated BMI Orientation: alert and oriented x3 HENMT Head: normal to inspection and atraumatic Ears: hearing grossly normal bilaterally Nose: external nose normal and nares normal Face and sinus: normal facial exam Neck Neck: normal visual inspection and supple Resp Effort & Inspection: normal respiratory effort, able to speak in complete sentences, no audible wheezes, not labored, no nasal flaring and no respiratory distress Neuro General: alert, oriented x3, gait normal, tone normal and moves all extremities Cognition: normal cognition Speech: speech normal Gait: normal gait Skin Irregular shaped area of Clustered vesicles on erythematous base to left proximal inner thigh. No underlying fluctuance noted. Psych Appearance: grossly normal and well kempt Mental Status: mental status grossly normal Speech and Movement: speech and movement normal Mood: congruent mood Affect: normal affect Initial Vital Signs Initial Vital Signs: Vital Signs Temperature 97.2 F L 01/30/21 12:26 Pulse Rate 67 01/30/21 12:26 Respiratory Rate 15 01/30/21 12:26 Blood Pressure 132/65 01/30/21 12:26 Pulse Oximetry 95 01/30/21 12:26 <Diana Romano DO - Last Filed: 01/31/21 09:14> Initial Vital Signs Initial Vital Signs: Vital Signs Temperature 97.2 F L 01/30/21 12:26 Pulse Rate 67 01/30/21 12:26 Respiratory Rate 15 01/30/21 12:26 Blood Pressure 132/65 01/30/21 12:26 Pulse Oximetry 95 01/30/21 12:26 Course <Connor Hadley PA-C - Last Filed: 01/30/21 16:02> Vital Signs Vital signs: Vital Signs - 8 hr 01/30/21 12:26 Temperature 97.2 F L Pulse Rate 67 Respiratory Rate 15 Blood Pressure 132/65 Pulse Oximetry 95 <DO Barrett Rowan Last Filed: 01/31/21 09:14> Vital Signs Vital signs: Vital Signs - 8 hr 01/30/21 12:26 Temperature 97.2 F L Pulse Rate 67 Respiratory Rate 15 Blood Pressure 132/65 Pulse Oximetry 95 [facility] - Skin/Abscess/Foreign Bdy <RUBY Pablo Last Filed: 01/30/21 16:02> [facility] Narrative Medical decision making narrative: Differential diagnosis includes he tinea infection, abscess, cellulitis. Patient's rash is consistent with herpes zoster. He also has had the prodromal symptoms that suggest this. We will treat with antivirals and strict ER return precautions. Patient verbalizes understanding and agrees to plan and has no further concerns at this time. Thank you A [id number] system was used with the dictation of this note. Please disregard any spelling or grammatical errors. Discharge Plan Departure Patient Disposition: Home Clinical Impression: Shingles rash Qualifiers: Herpes zoster complications: without complications Qualified Code(s): B02.9 - Zoster without complications Instructions: DI for Shingles Activity Restrictions/Additional Instructions: It was very nice to meet you this afternoon. Please use the antivirals as discussed to help decrease the length of your shingles outbreak. Use ibuprofen or acetaminophen as needed to help with pain management. Return precautions include fever, spreading rash, or any other new or worsening complaints. Thank you Connor Hadley PA-C Prescriptions: New valacyclovir 1 gram tablet 1,000 mg PO TID 7 Days Qty: 21 RF: 0 No Action naproxen sodium [Aleve] 220 MG tablet 220 mg PO BIDCC Qty: 0 RF: 0 lamotrigine 200 mg tablet 200 mg PO DAILY RF: 0 cetirizine 10 mg tablet 10 mg PO DAILY PRN (Reason: allergies) RF: 0 glipizide 10 mg tablet 10 mg PO BID RF: 0 felodipine 5 mg tablet extended release 24 hr 5 mg PO DAILY RF: 0 nortriptyline 25 mg capsule 25 mg PO BEDTIME RF: 0 alprazolam 0.25 mg tablet 0.25 mg PO TID PRN (Reason: Anxiety) RF: 0 esomeprazole magnesium 40 mg capsule,delayed release(DR/EC) 40 mg PO DAILY RF: 0 pramipexole 0.25 mg tablet 0.25 mg PO BEDTIME RF: 0 gabapentin 300 mg capsule 300 mg PO QID RF: 0 doxazosin 4 mg tablet 4 mg PO DAILY RF: 0 allopurinol 300 mg tablet 300 mg PO DAILY RF: 0 metformin 500 mg tablet extended release 24 hr 1,000 mg PO BID RF: 0 rosuvastatin 20 mg tablet 20 mg PO DAILY RF: 0 duloxetine 60 mg capsule,delayed release(DR/EC) 60 mg PO DAILY RF: 0 rasagiline [Azilect] 1 mg tablet 1 mg PO DAILY RF: 0 carbidopa-levodopa 50-200 mg tablet extended release 1 tab PO 6XD RF: 0 oxycodone-acetaminophen [Percocet] 5-325 mg tablet 1 tab PO Q4-6H PRN (Reason: pain) Qty: 10 RF: 0 Referrals: Jonatan Bales MD [Primary Care Provider] - <Diana Romano DO - Last Filed: 01/31/21 09:14> Cosign ED Attending Cosignature Attestation: I was immediately available in the department for consultation. Documentation has been reviewed.
[2021-01-30 16:00] VITALS: BP 137/68; PULSE 67; RESP 16; TEMP 36.7; O2SAT 96
== END 2021-01-30 16:01 | disposition home or self-care (01) ==
PROVIDERS: Emergency Provider Physician Assistant; PCP Internal Medicine
DX: B02.9 Zoster without complications (principal)
CPT/HCPCS: 99281

== ENCOUNTER 2021-02-26 09:21 | Emergency (ER) | payer MEDICARE, OTHER, SELFPAY ==
[2021-02-26] VITALS (55 sets, daily range): BP systolic 138–191; BP diastolic 70–110; PULSE 55–78; RESP 12–26; TEMP 36.7; O2SAT 88–98; BMI 39.5
--- NOTE | 2021-02-26 09:24 | ED_ITS ---
HPI - General Adult General Chief complaint: Seizure Stated complaint: Seizure Time Seen by Provider: 02/26/21 09:22 Source: patient and EMS Mode of arrival: EMS History of Present Illness HPI narrative: Patient is a 70-year-old male. Known history of Parkinson's disease. Approximately 2 weeks ago he had a deep brain stimulator placed by the [employer] [facility]. He has no reported history of seizures. Apparently this morning the patient was standing in the kitchen. His heard some rustling. She came into the kitchen and noticed that he was stumbling around and moving his hands around on the counter. She helped him to the ground. He did not fall. Did not hit his head. He then had what was reported as a ?grand mall ?s eizure. Unsure as to how long the seizure lasted however it did end on its own. He did bite his lower lip. When EMS arrived he was confused. They did describe it as a postictal state. Upon transport to the emergency department the patient did have episodes of hypoxia with a oxygen saturations in the 80s. No underlying lung issues that her diagnosed. This improved with oxygen by nasal cannula. His mental status improved EN route to the emergency department per EMS. Upon arrival patient is complaining of left big toe pain and does seem a little confused about what happened this morning. Related Data Home Medications Medication Instructions Recorded Confirmed naproxen sodium 220 mg tablet 220 mg PO BIDCC #0 tab 01/24/16 12/23/19 (Aleve) allopurinol 300 mg tablet 300 mg PO DAILY 12/23/19 12/23/19 alprazolam 0.25 mg tablet 0.25 mg PO TID PRN 12/23/19 12/23/19 carbidopa ER 50 mg-levodopa 200 mg 1 tab PO 6XD 12/23/19 12/23/19 tablet,extended release cetirizine 10 mg tablet 10 mg PO DAILY PRN 12/23/19 12/23/19 doxazosin 4 mg tablet 4 mg PO DAILY 12/23/19 12/23/19 duloxetine 60 mg capsule,delayed 60 mg PO DAILY 12/23/19 12/23/19 release esomeprazole magnesium 40 mg 40 mg PO DAILY 12/23/19 12/23/19 capsule,delayed release felodipine 5 mg tablet,extended 5 mg PO DAILY 12/23/19 12/23/19 release 24 hr gabapentin 300 mg capsule 300 mg PO QID 12/23/19 12/23/19 glipizide 10 mg tablet 10 mg PO BID 12/23/19 12/23/19 lamotrigine 200 mg tablet 200 mg PO DAILY 12/23/19 12/23/19 metformin 500 mg tablet,extended 1,000 mg PO BID 12/23/19 12/23/19 release 24 hr nortriptyline 25 mg capsule 25 mg PO BEDTIME 12/23/19 12/23/19 pramipexole 0.25 mg tablet 0.25 mg PO BEDTIME 12/23/19 12/23/19 rasagiline 1 mg tablet (Azilect) 1 mg PO DAILY 12/23/19 12/23/19 rosuvastatin 20 mg tablet 20 mg PO DAILY 12/23/19 12/23/19 Previous Rx's Medication Instructions Recorded oxycodone-acetaminophen 5 mg-325 1 tab PO Q4-6H PRN #10 tab 12/23/19 mg tablet (Percocet) Allergies Allergy/AdvReac Type Severity Reaction Status Date / Time No Known Drug Allergies Allergy Verified 01/30/21 12:26 Review of Systems Constitutional Constitutional: Denies fever(s) and Denies headache(s) Eyes Eyes: Reports system reviewed and no additional complaints, except as documented ENT Ears, Nose, Mouth, and Throat: Reports system reviewed and no additional complaints, except as documented and Denies headache(s) Cardiovascular Cardiovascular: Reports system reviewed and no additional complaints, except as documented Respiratory Respiratory: Reports as per HPI and Reports system reviewed and no additional complaints, except as documented Gastrointestinal Gastrointestinal: Reports system reviewed and no additional complaints, except as documented Musculoskeletal Musculoskeletal: Reports system reviewed and no additional complaints, except as documented and Reports as per HPI Integumentary/Breasts Skin/Breast: Reports system reviewed and no additional complaints, except as documented and Reports as per HPI Neurologic Neurologic: Reports system reviewed and no additional complaints, except as documented, Reports as per HPI and Denies headache(s) Hematologic/Lymphatic On Anticoagulants: No Patient History Medical History (Updated 02/26/21 @ 17:43 by Eliceo Hardy DO) Arthritis Asthma Depression Diabetes Pancreatic tumor Parkinsons disease Sleep apnea Surgical History (Updated 06/20/20 @ 08:48 by [employer] [facility]) H/O vasectomy Hx of parathyroidectomy Hx of splenectomy S/P excision of lipoma Status post correction of deviated nasal septum Status post fusion of wrist Status post nail surgery (03/22/18) Social History household members: spouse Smoking Status: Former smoker alcohol intake: current Smoking Status: Former smoker alcohol intake frequency: 0-2 drinks per day Substance Use Type: marijuana Exam Initial Vital Signs Initial Vital Signs: Vital Signs Temperature 98.0 F 02/26/21 09:33 Pulse Rate 73 02/26/21 09:33 Respiratory Rate 18 02/26/21 09:33 Blood Pressure 166/91 H 02/26/21 09:33 Pulse Oximetry 88 L 02/26/21 09:33 Const General: cooperative and comfortable HENMT Head: other (Two surgical incisions with stitches in place bilateral frontal region.) Mouth: oral mucosae normal, tongue normal, moist mucous membranes and lip abnorm al (Small superficial abrasion to the left lower lip no active bleeding.) Teeth and gingiva: dentition normal Eyes General: appearance normal, both eyes and all related structures Resp Effort & Inspection: normal respiratory effort Auscultation: clear to auscultation bilaterally Cardio Rate: regular rate Rhythm: regular rhythm GI Inspection: normal to inspection Palpation: soft Skin Other: Surgical incisions in the bilateral frontal region of his scalp are consistent with his stated history of deep brain stimulator placement. The stitches appear well. Wounds of. Healing. No signs of infection. Patient does have a superficial abrasion on the dorsum of the left great toe. Neuro General: patient alert, patient awake and moves all extremities Speech: speech normal Other: No shaking movements. Is confused about why he is here. Does know his date. Extrem Other: Shoulders elbows pelvis knees all unremarkable. Psych Appearance: grossly normal and well kempt Course Orders Ordered: ED Orders 02/26/21 09:31 XR foot LT min 3V Stat 02/26/21 09:49 CT head/brain wo con Stat 02/26/21 10:05 Complete Blood Count AUTO DIFF Stat Comprehensive Metabolic Panel Stat Lipase Stat Prolactin Stat 02/26/21 10:27 EKG-12 Lead Stat 02/26/21 11:53 COVID19 -Nasal swab/Pre-Proc Stat Discontinued Medications Acetaminophen (Acetaminophen 325 Mg Tablet) 650 mg PO NOW ONE Stop: 02/26/21 11:06 Last Admin: 02/26/21 11:10 Dose: 650 mg Documented by: NEFTALI Acetaminophen (Acetaminophen 325 Mg Tablet) 650 mg PO NOW ONE Stop: 02/26/21 16:57 Last Admin: 02/26/21 17:14 Dose: 650 mg Documented by: NEFTALI Carbidopa/Levodopa (Carbidopa-Levodopa 25/100 Tablet) 1 each PO NOW ONE Stop: 02/26/21 16:32 Last Admin: 02/26/21 16:52 Dose: 1 each Documented by: NEFTALI Carbidopa/Levodopa (Carbidopa-Levodopa Er 50/200 Tablet) 0.5 each PO NOW ONE Stop: 02/26/21 16:32 Last Admin: 02/26/21 16:52 Dose: 0.5 each Documented by: NEFTALI Levetiracetam 1,000 mg/ Sodium (Chloride) 110 mls @ 440 mls/hr IV NOW ONE Stop: 02/26/21 12:00 Last Infusion: 02/26/21 12:57 Dose: 0 mls/hr Documented by: Admin: 02/26/21 12:40 Dose: 440 mls/hr Documented by: NEFTALI Lorazepam (Lorazepam 2 Mg/Ml Inj) 2 mg IV NOW ONE Stop: 02/26/21 11:42 Last Admin: 02/26/21 11:53 Dose: Not Given Documented by: NEFTALI Vital Signs Vital signs: Vital Signs - 8 hr 02/26/21 09:51 02/26/21 10:00 02/26/21 10:30 Pulse Rate 72 63 64 Respiratory Rate 13 18 Blood Pressure Pulse Oximetry 89 L 94 95 02/26/21 10:40 02/26/21 11:00 02/26/21 11:01 Pulse Rate 65 60 65 Respiratory Rate 22 20 26 H Blood Pressure 180/91 H 181/89 H Pulse Oximetry 94 96 95 02/26/21 11:27 02/26/21 11:30 02/26/21 11:31 Pulse Rate 58 L 59 L Respiratory Rate 18 15 22 Blood Pressure 152/79 H Pulse Oximetry 93 92 93 02/26/21 11:42 02/26/21 11:44 02/26/21 12:00 Pulse Rate 68 75 76 Respiratory Rate 16 16 19 Blood Pressure 191/97 H 179/84 H Pulse Oximetry 98 97 92 02/26/21 12:04 02/26/21 12:30 02/26/21 13:00 Pulse Rate 77 77 73 Respiratory Rate 19 20 20 Blood Pressure 147/86 H 166/79 H Pulse Oximetry 91 91 90 L 02/26/21 13:01 02/26/21 13:30 02/26/21 14:00 Pulse Rate 73 74 69 Respiratory Rate 20 19 18 Blood Pressure 138/83 143/77 H 148/86 H Pulse Oximetry 91 90 L 95 02/26/21 14:30 02/26/21 15:00 02/26/21 15:30 Pulse Rate 70 69 69 Respiratory Rate 17 18 17 Blood Pressure 163/81 H Pulse Oximetry 92 96 95 02/26/21 15:31 02/26/21 15:41 Pulse Rate 71 Respiratory Rate 18 Blood Pressure 160/90 H Pulse Oximetry 96 93 Medical Decision Making Lab Data Lab results reviewed: Yes I reviewed the patient's lab results. Result diagrams: 02/26/21 10:05 02/26/21 10:05 Labs: Lab Results 02/26/21 02/26/21 02/26/21 Range/Units 10:05 10:05 11:53 WBC 7.1 (4.5-11.0) X10^3/uL RBC 4.29 L (4.5-5.9) X10^6/uL Hgb 13.9 (13.5-17.5) g/dL Hct 42.8 (41-53) % MCV 99.8 (80-100) fL MCH 32.4 (26-34) PG MCHC 32.5 (30-36) % RDW 14.8 (11.6-14.8) % Plt Count 317 (150-400) X10^3/uL Neut % (Auto) 68.0 (50-75) % Lymph % (Auto) 17.4 L (25-40) % Bradford % (Auto) 9.1 (3-14) % Eos % (Auto) 4.8 H (2-4) % Baso % (Auto) 0.7 (0-2) % Neut # (Auto) 4800 (8243-4322) /uL Lymph # (Auto) 1200 (3733-4209) /uL Bradford # (Auto) 600 (0-900) /uL Eos # (Auto) 300 (0-450) /uL Baso # (Auto) 100 (0-100) /uL Sodium 137 (137-145) mmol/L Potassium 4.7 (3.4-5.1) mmol/L Chloride 99 (98-107) mmol/L Carbon Dioxide 29 (22-32) mmol/L BUN 18 (9-20) mg/dL Creatinine 0.77 (0.66-1.25) mg/dL Estimated GFR > 60.0 (>60) mL/min BUN/Creatinine Ratio 23.4 H (6-22) Glucose 205 H (80-110) mg/dL Calcium 9.3 (8.4-10.2) mg/dL Total Bilirubin 0.4 (0.2-1.3) mg/dL AST 27 (17-59) IU/L ALT 11 (<50) IU/L Alkaline Phosphatase 202 H (38-126) U/L Total Protein 7.1 (6.3-8.2) g/dL Albumin 4.1 (3.5-5.0) g/dL Globulin 3.0 (1.7-4.1) g/dL Albumin/Globulin Ratio 1.4 (1.0-2.8) Lipase 39 (23-300) U/L Prolactin 16.3 (3.7-17.9) ng/mL SARS-CoV-2 (PCR) Negative (Negative) Point of Care Testing Glucose POC 197 Point of care testing: Point of Care Testing Glucose POC [address] scan - head: Radiologist's Impression: [address] [address] [address] Scan Report Signed Patient: Arvind Hinds MR#: [id number] : 1950 Acct:[id number] Age/Sex: 70 / M Date of Service: 02/26/21 Loc: ED Accession Number: [id number] ?? Procedure: CT head/brain wo con Ordering Provider: Eliceo Hardy D.O. PROCEDURE:? CT HEAD/BRAIN WO CON ? INDICATIONS:? first time seizure after stimulator placed for Parkinson's ? TECHNIQUE:? Noncontrast 4.5 mm thick angled axial sections acquired from the foramen magnum to the vertex, with coronal and sagittal reformats.? For radiation dose reduction, the following was used:? automated exposure control, adjustment of mA and/or kV according to patient size.? ? COMPARISON:? None. ? FINDINGS:? Image quality:? Excellent.? ? CSF spaces:? Basal cisterns are patent.? No extra-axial fluid collections.? The ventricles are symmetric in size and shape.? ? Brain:? No intracranial bleeds or masses.? Bilateral thalamic neural stimulators noted.? There is cerebral volume loss for age, with resultant ventricular and sulcal prominence.? There are periventricular and deep white matter chronic small vessel ischemic changes.? There is intracranial internal carotid artery atherosclerosis.? ? Skull and face:? Calvarium and visualized facial bones appear intact, without suspicious lesions.? ? Sinuses:? Visualized sinuses and mastoids are clear.? ? IMPRESSION:? No acute intracranial disease process. ? ? Dictated by: Korin Garcia MD, PhD on 02/26/2021 at 9:45 ? ? Approved by: Korin Garcia MD, PhD on 02/26/2021 at 9:49? Extremity x-ray #1: Radiologist's Impression: [place] [address] XRay Report Signed Patient: Arvind Hinds MR#: [id number] : 1950 Acct:[id number] Age/Sex: 70 / M Date of Service: 02/26/21 Loc: ED Accession Number: [id number] ?? Procedure: XR foot LT min 3V Ordering Provider: Eliceo Hardy D.O. PROCEDURE:? XR FOOT LT MIN 3V ? INDICATIONS:? L great toe pain after seizure ? TECHNIQUE:? 3 views of the foot were acquired.? ? COMPARISON:? [facility], , XR FOOT LT MIN 3V, 10/11/2017, 19:39. ? FINDINGS:? ? Bones:? In this patient with this given history, scrutiny is given to great toe.? No 1st toe fractures or dislocations are seen. ? No fractures or dislocations are seen elsewhere.? No suspicious bony lesions.? ? Incidental note is made of a bipartite medial sesamoid bone.? Incidental note is made of an accessory ossicle, an os trigonum.? A plantar calcaneal spur is seen.? ? Soft tissues:? No tibiotalar joint effusion.? Achilles tendon appears normal.? ? ? IMPRESSION:? No acute abnormalities can be seen by plain film, including involving the great toe. ? ? Dictated by: Lance Locke M.D. on 02/26/2021 at 8:53 ? ? Approved by: Lance Locke M.D. on 02/26/2021 at 8:55?? ECG Data Attestation: I personally reviewed and interpreted this ECG as follows: Interpretation: Sinus rhythm Ventricular rate is 62 Normal axis Normal QRS Normal QTC No ST T wave changes MDM Narrative Medical decision making narrative: Upon arrival it appeared that the patient did have the seizure. It was not witnessed but he did appear to be postictal afterwards and also. Of have been his left lower lip. He was somewhat confused upon arrival with a seem to improve. His arrived to the emergency department and she stated that he did return to essentially normal. I discussed the case with SALLIE Meyer with his neuro surgery team who stated that seizures after a deep brain stimulator are rare after 24 hours. She recommended treating him like any other first-time seizure. Holding on any antiseizure medications and having him follow-up as an outpatient. Patient was observed in the emergency department and prior to discharged had another generalized tonic clonic seizure. Lasted approximately 30 seconds. It did resolve on its own however he was given 2 mg of Ativan. I contacted the neurosurgery team once again. It was recommended that he be given 1 g of Keppra which was administered. He again was postictal afterwards. His stated that he was back to normal in between the seizures so I would not consider this status. Patient did have some episodes of hypoxia but I suspect that this is secondary to his somnolence from the Ativan. No further seizure activity. Neurosurgery team at [facility] would like him transferred to their facility. Dr. Trejo is excepting. Did discuss this with the patient's expressed understanding and agreement. Patient did get to the point where he passed a swallow screen. He was given a dose of his carbidopa/levodopa and tolerated without problems. Currently waiting for bed assignment. Care turned over to Dr. Romano at change of shift to continue to observe until transfer is complete. Discharge Plan Departure Patient Disposition: [facility] Clinical Impression: Generalized seizure, Parkinson's disease Prescriptions: No Action naproxen sodium [Aleve] 220 MG tablet 220 mg PO BIDCC Qty: 0 RF: 0 lamotrigine 200 mg tablet 200 mg PO DAILY RF: 0 cetirizine 10 mg tablet 10 mg PO DAILY PRN (Reason: allergies) RF: 0 glipizide 10 mg tablet 10 mg PO BID RF: 0 felodipine 5 mg tablet extended release 24 hr 5 mg PO DAILY RF: 0 nortriptyline 25 mg capsule 25 mg PO BEDTIME RF: 0 alprazolam 0.25 mg tablet 0.25 mg PO TID PRN (Reason: Anxiety) RF: 0 esomeprazole magnesium 40 mg capsule,delayed release(DR/EC) 40 mg PO DAILY RF: 0 pramipexole 0.25 mg tablet 0.25 mg PO BEDTIME RF: 0 gabapentin 300 mg capsule 300 mg PO QID RF: 0 doxazosin 4 mg tablet 4 mg PO DAILY RF: 0 allopurinol 300 mg tablet 300 mg PO DAILY RF: 0 metformin 500 mg tablet extended release 24 hr 1,000 mg PO BID RF: 0 rosuvastatin 20 mg tablet 20 mg PO DAILY RF: 0 duloxetine 60 mg capsule,delayed release(DR/EC) 60 mg PO DAILY RF: 0 rasagiline [Azilect] 1 mg tablet 1 mg PO DAILY RF: 0 carbidopa-levodopa 50-200 mg tablet extended release 1 tab PO 6XD RF: 0 oxycodone-acetaminophen [Percocet] 5-325 mg tablet 1 tab PO Q4-6H PRN (Reason: pain) Qty: 10 RF: 0 Referrals: Jonatan Bales MD [Primary Care Provider] -
--- NOTE | 2021-02-26 09:31 | DI.RAD.S_ITS ---
PROCEDURE: XR FOOT LT MIN 3V INDICATIONS: L great toe pain after seizure TECHNIQUE: 3 views of the foot were acquired. COMPARISON: [facility], CR, XR FOOT LT MIN 3V, 10/11/2017, 19:39. FINDINGS: Bones: In this patient with this given history, scrutiny is given to great toe. No 1st toe fractures or dislocations are seen. No fractures or dislocations are seen elsewhere. No suspicious bony lesions. Incidental note is made of a bipartite medial sesamoid bone. Incidental note is made of an accessory ossicle, an os trigonum. A plantar calcaneal spur is seen. Soft tissues: No tibiotalar joint effusion. Achilles tendon appears normal. IMPRESSION: No acute abnormalities can be seen by plain film, including involving the great toe. Dictated by: Lance Locke M.D. on 02/26/2021 at 8:53 Approved by: Lance Locke M.D. on 02/26/2021 at 8:55
--- NOTE | 2021-02-26 09:49 | DI.CT.S_ITS ---
PROCEDURE: CT HEAD/BRAIN WO CON INDICATIONS: first time seizure after stimulator placed for Parkinson's TECHNIQUE: Noncontrast 4.5 mm thick angled axial sections acquired from the foramen magnum to the vertex, with coronal and sagittal reformats. For radiation dose reduction, the following was used: automated exposure control, adjustment of mA and/or kV according to patient size. COMPARISON: None. FINDINGS: Image quality: Excellent. CSF spaces: Basal cisterns are patent. No extra-axial fluid collections. The ventricles are symmetric in size and shape. Brain: No intracranial bleeds or masses. Bilateral thalamic neural stimulators noted. There is cerebral volume loss for age, with resultant ventricular and sulcal prominence. There are periventricular and deep white matter chronic small vessel ischemic changes. There is intracranial internal carotid artery atherosclerosis. Skull and face: Calvarium and visualized facial bones appear intact, without suspicious lesions. Sinuses: Visualized sinuses and mastoids are clear. IMPRESSION: No acute intracranial disease process. Dictated by: Korin Garcia MD, PhD on 02/26/2021 at 9:45 Approved by: Korin Garcia MD, PhD on 02/26/2021 at 9:49
[2021-02-26 10:20] LABS: Add Manual Diff / Slide Review NO; Basophils Absolute Auto 100 /uL (0-100); Basophils Percent Auto 0.7 % (0-2); Eosinophils Absolute Auto 300 /uL (0-450); Eosinophils Percent Auto 4.8 % (2-4); Hematocrit 42.8 % (41-53); Hemoglobin 13.9 g/dL (13.5-17.5); Lymphocytes Absolute Auto 1200 /uL (1100-4500); Lymphocytes Percent Auto 17.4 % (25-40); Mean Corpuscular HGB Conc 32.5 % (30-36); Mean Corpuscular Hemoglobin 32.4 PG (26-34); Mean Corpuscular Volume 99.8 fL (80-100); Monocytes Absolute Auto 600 /uL (0-900); Monocytes Percent Auto 9.1 % (3-14); Neutrophils Absolute Auto 4800 /uL (1500-7000); Platelet Count 317 X10^3/uL (150-400); Red Blood Cell Count 4.29 X10^6/uL (4.5-5.9); Red Cell Distribution Width 14.8 % (11.6-14.8); White Blood Cell Count 7.1 X10^3/uL (4.5-11.0)
[2021-02-26 10:30] LABS: Alanine Aminotransferase 11 IU/L (<50); Albumin 4.1 g/dL (3.5-5.0); Albumin Globulin Ratio 1.4 (1.0-2.8); Alkaline Phosphatase 202 U/L (38-126); Aspartate Aminotransferase 27 IU/L (17-59); BUN Creatinine Ratio 23.4 (6-22); Bilirubin Total 0.4 mg/dL (0.2-1.3); Blood Urea Nitrogen 18 mg/dL (9-20); Calcium 9.3 mg/dL (8.4-10.2); Carbon Dioxide 29 mmol/L (22-32); Chloride 99 mmol/L (98-107); Estimated Glomerular Filt Rate > 60.0 mL/min (>60); Glucose 205 mg/dL (80-110); HEMOLYSIS < 15 (0-50); Lipase 39 U/L (23-300); Potassium 4.7 mmol/L (3.4-5.1); Sodium 137 mmol/L (137-145); Total Protein 7.1 g/dL (6.3-8.2)
[2021-02-26 10:46] LABS: Prolactin 16.3 ng/mL (3.7-17.9)
[2021-02-26] MEDS: ACETAMINOPHEN 325 MG TABLET 650 MG PO ×2 (11:10→17:14)
--- NOTE | 2021-02-26 11:12 | PC.NURSE ---
patient oxygen removed, to see what room air oxygen saturations do. Maintaining 92% on room air. reports he normally runs low 90's
--- NOTE | 2021-02-26 11:39 | PC.NURSE ---
Loud moaning and grunting heard from room, patient having grand mal seizure. Dr Hardy immediately at bedside, verbal order for 2mg IV Ativan. Patient rolled to side by Dr hardy, suction at bedside, nasal cannula oxygen in place.
[2021-02-26] MEDS: LORazepam 2 MG/ML INJ (11:40)
--- NOTE | 2021-02-26 12:14 | PC.NURSE ---
patient snoring, remains on 6lnc. oxygen sats drop into high 80's, patient repositioned, sats increase to low 90's. COntinue to monitor patient. Provider aware. Patient opens eyes with repositioning of head. Non verbal at this time.
[2021-02-26 12:17] LABS: COVID19 -Nasal RAPID Negative (Negative)
[2021-02-26] MEDS: levETIRAcetam 1,000 MG in SODIUM CHLORIDE 0.9% 100 ML 440 ML IV (12:40)
--- NOTE | 2021-02-26 15:20 | PC.NURSE ---
Patient more awake, eyes open, able to verbalize need to urinate. Repositioned patient in bed, placed urinal. Privacy given for patient to attempt to urinate.
[2021-02-26] MEDS: CARBIDOPA-LEVODOPA ER 50/200 TABLET 0.5 EACH PO ×2 (16:52→21:34)
[2021-02-26] MEDS: CARBIDOPA-LEVODOPA 25/100 TABLET 1 EACH PO ×2 (16:52→21:34)
--- NOTE | 2021-02-26 18:50 | PC.NURSE ---
Verbal order for EKG from Dr Romano, RT called
[2021-02-26] MEDS: MORPHINE 2 MG/ML INJ IV ×3 (19:35→23:54)
[2021-02-26] MEDS: INSULIN LISPRO 100 UNIT/ML 3ML VIAL SUBCUT (20:51)
[2021-02-26] MEDS: PRAMIPEXOLE 0.25 MG TABLET PO (20:52)
[2021-02-26] MEDS: allopurinoL 100 MG TABLET PO (20:52)
[2021-02-26] MEDS: NORTRIPTYLINE 10 MG CAPSULE PO (20:53)
[2021-02-26] MEDS: lamoTRIgine 100 MG TABLET 200 MG PO (20:54)
[2021-02-26] MEDS: DOXAZOSIN 4 MG TABLET PO (20:55)
--- NOTE | 2021-02-26 21:37 | PC.NURSE ---
Patient transferred over to hospital bed. Tolerated well, was able to roll himself over to hospital bed. Expresses significant headache. Medicated with IV morphine for headache.
[2021-02-27] VITALS: PULSE 61; RESP 20; O2SAT 90
[2021-02-27 00:01] VITALS: BP 165/72; PULSE 63; RESP 21; O2SAT 92
[2021-02-27] MEDS: levETIRAcetam 250 MG TABLET 1000 MG PO (00:33)
== END 2021-02-27 00:55 | disposition short-term general hospital (02) ==
PROVIDERS: Emergency Medicine; Emergency Provider Emergency Medicine; PCP Internal Medicine
DX: R56.9 Unspecified convulsions (principal); G20 Parkinson's disease; M79.675 Pain in left toe(s); R09.02 Hypoxemia
CPT/HCPCS: 36415; 70450; 73630; 80053; 82962; 83690; 84146; 85025; 87635; 93005; 93010; 96365; 96372; 96375; 96376; 99285; C9803; J1815; J1953; J2060; J2270

== ENCOUNTER 2021-04-16 10:19 | Emergency (ER) | payer MEDICARE, OTHER, SELFPAY ==
[2021-04-16] VITALS (14 sets, daily range): BP systolic 162–178; BP diastolic 73–124; PULSE 61–160; RESP 15–23; TEMP 36.3; O2SAT 93–100; BMI 38.0
--- NOTE | 2021-04-16 10:28 | ED.NEUROSD ---
HPI - Neuro Symptoms/Deficit General Chief Complaint: Neuro Symptoms/Deficit Stated Complaint: Poss stroke Time Seen by Provider: 04/16/21 10:26 Source: patient Mode of arrival: Wheelchair Limitations: no limitations History of Present Illness HPI Narrative: This is a 70-year-old male who was seen at [facility] yesterday and had his deep brain stimulator battery changed. Patient had incision on his left side of his head as well as left chest. Patient and his both state that he had facial droop after the surgery which has not resolved. He has had difficulty swallowing and has had difficulty swelling fluids as well as swallow going solids patient's speech has been changed. He does not appreciate any weakness on the left versus right. He was discharged around 430 p.m. yesterday afternoon. His states that when she went to see him postoperatively she noticed the facial droop in assumed that it would resolve once he returned home but it has not. It does not sound like it has been getting worse but has not improved. Patient denies any fevers or chills. He denies any headache at this time. No new numbness, tingling or weakness of extremities. He has not had any nausea or vomiting or other new GI or urinary symptoms. He is not on any anticoagulants normally or currently. He has restarted his Parkinson's medications as instructed yesterday. Patient states Dr. Trejo is a neurosurgeon who treated him and Dr. Loza is his Parkinson's doctor. Of note he did have seizure activity in February approximately 2 weeks after his DBS was placed which was new and is currently on Keppra and lamotrigine for this. He and his have not appreciated any new seizure activity since his discharge from the hospital. Related Data Home Medications Medication Instructions Recorded Confirmed naproxen sodium 220 mg tablet 220 mg PO BIDCC #0 tab 01/24/16 12/23/19 (Aleve) allopurinol 300 mg tablet 300 mg PO DAILY 12/23/19 12/23/19 alprazolam 0.25 mg tablet 0.25 mg PO TID PRN 12/23/19 12/23/19 carbidopa ER 50 mg-levodopa 200 mg 1 tab PO 6XD 12/23/19 12/23/19 tablet,extended release cetirizine 10 mg tablet 10 mg PO DAILY PRN 12/23/19 12/23/19 doxazosin 4 mg tablet 4 mg PO DAILY 12/23/19 12/23/19 duloxetine 60 mg capsule,delayed 60 mg PO DAILY 12/23/19 12/23/19 release esomeprazole magnesium 40 mg 40 mg PO DAILY 12/23/19 12/23/19 capsule,delayed release felodipine 5 mg tablet,extended 5 mg PO DAILY 12/23/19 12/23/19 release 24 hr gabapentin 300 mg capsule 300 mg PO QID 12/23/19 12/23/19 glipizide 10 mg tablet 10 mg PO BID 12/23/19 12/23/19 lamotrigine 200 mg tablet 200 mg PO DAILY 12/23/19 12/23/19 metformin 500 mg tablet,extended 1,000 mg PO BID 12/23/19 12/23/19 release 24 hr nortriptyline 25 mg capsule 25 mg PO BEDTIME 12/23/19 12/23/19 pramipexole 0.25 mg tablet 0.25 mg PO BEDTIME 12/23/19 12/23/19 rasagiline 1 mg tablet (Azilect) 1 mg PO DAILY 12/23/19 12/23/19 rosuvastatin 20 mg tablet 20 mg PO DAILY 12/23/19 12/23/19 Previous Rx's Medication Instructions Recorded oxycodone-acetaminophen 5 mg-325 1 tab PO Q4-6H PRN #10 tab 12/23/19 mg tablet (Percocet) Allergies Allergy/AdvReac Type Severity Reaction Status Date / Time No Known Drug Allergies Allergy Verified 01/30/21 12:26 Review of Systems Review of Systems ROS Unobtainable: All systems reviewed & are unremarkable except as noted in HPI and below Patient History Medical History (Updated 04/16/21 @ 17:42 by Gloria Richardson DO) Arthritis Asthma Depression Diabetes Pancreatic tumor Parkinsons disease Sleep apnea Surgical History (Updated 04/16/21 @ 10:35 by Gloria Richardson DO) H/O vasectomy Hx of parathyroidectomy Hx of splenectomy S/P deep brain stimulator placement S/P excision of lipoma Status post correction of deviated nasal septum Status post fusion of wrist Status post nail surgery (03/22/18) Social History household members: spouse Smoking Status: Former smoker alcohol intake: current Smoking Status: Former smoker alcohol intake frequency: 0-2 drinks per day Substance Use Type: marijuana Exam Narrative Exam Narrative: GEN: well nourished, well appearing male, alert and oriented x 3, patient appears to be in mild distress. HEENT: Atraumatic, patient has bandage on the left parietal scalp, warmth, erythema or other skin changes noted. Equal round reactive to light, extraocular movements are intact, nares are clear, TMs are clear with no fluid, there is no conjunctival pallor. Throat is clear without any exudates, erythema, tonsillar enlargement or uvular deviation, patient has significant left facial droop of the lower face and some mild decrease in movement of the upper. He but does have movement of the brow. He does have some dysarthria. He does appear to be managing his secretions appropriately. HEART: Regular rate and rhythm without murmur, clicks, rubs. Pulses are equal in upper and lower extremities LUNGS:Lungs clear to auscultation, no wheezes, rales, crackles, chest moves symmetrically ABD:bowel sounds normal, soft, non-tender, no guarding, rebound, rigidity, no masses noted, no hepatosplenomegaly MSCL: Non-tender, no muscle atrophy, muscles strength 5/5 upper and lower extremities, full range of motion NEURO:CN 2-12 intact, sensation normal, reflexes 2/4 upper and lower extremities. finger nose finger test normal, heel avelar test normal SKIN: Patient has incisions on the left as well as left upper chest which appear intact, without warmth, erythema or other skin changes noted. Initial Vital Signs Initial Vital Signs: Vital Signs Temperature 97.3 F L 04/16/21 10:39 Pulse Rate 160 H 04/16/21 10:39 Respiratory Rate 18 04/16/21 10:39 Pulse Oximetry 95 04/16/21 10:39 Scores GCS Gloria coma scale eye opening: Spontaneous Gloria coma scale verbal response: Orientated Munson coma scale motor response: Obey commands Munson coma scale total score: 15 NIH Stroke Scale Level of Conciousness: Alert, keenly responsive Ask month/age: Answers both questions correctly. Open/close eyes, close hand: Performs both tasks correctly Best gaze horizontal: Normal Visual anne: No visual loss Facial palsy: Partial paralysis, total or near total paralysis of lower face Left arm drift: No drift for full 10 sec Right arm drift: No drift for full 10 sec Left leg drift: No drift for full 5 sec Right leg drift: No drift for full 5 sec Limb ataxia: Absent Sensory on face/arms/legs: Normal, no sensory loss Best language: No aphasia, normal Dysarthria: Mild to mod,some slurring Extinction or inattention: No abnormality Total NIH Stroke scale score: 3 Course Orders Ordered: ED Orders 04/16/21 10:35 Basic Metabolic Panel Stat Complete Blood Count AUTO DIFF Stat Partial Thromboplastin Time Stat Prothrombin Time INR Stat EKG-12 Lead Routine 04/16/21 10:39 COVID19 -Nasal swab/Pre-Proc Stat 04/16/21 11:05 CT head/brain wo con Stat 04/16/21 11:26 CT angio head and neck Stat 04/16/21 12:24 Urine Drug Screen, Rapid Stat 04/16/21 14:13 EC echo doppler complete Stat Discontinued Medications Aspirin (Aspirin 81 Mg Chew Tab) 324 mg PO NOW ONE Stop: 04/16/21 13:53 Last Admin: 04/16/21 14:08 Dose: 324 mg Documented by: NIEVES Sodium Chloride (Normal Saline 0.9%) 1,000 mls @ 150 mls/hr IV CONT ASHLEY Last Infusion: 04/16/21 17:54 Dose: 0 mls/hr Documented by: Admin: 04/16/21 11:15 Dose: 150 mls/hr Documented by: ENZO Consultations Consultation #1: Spoke with Milady RIZO for Dr. Trejo. She is familiar with the patient. He was seen yesterday he had his leads connected for his deep brain stimulator. His surgery had been delayed secondary to seizures after the stimulator was initially placed she notes they also had flat tire on the way to their surgery yesterday. They did notice some facial droop mildly after the surgery patient was given his Parkinson's medications and it seemed to improve and he was discharged home. She states family contacted them today and stated on the way home and throughout the evening he had worsening facial droop that was quite significant this morning and patient was instructed to come to us. After review of head CT and CT angiography the neurosurgeon believes patient has likely had a stroke and is not just from his stimulator placement. They recommended 81 mg aspirin daily. They are agreeable to a 324 mg today followed by 81 mg daily afterwards. They would not recommend a higher dose this close after surgery. They will have to see the patient to switch his DBS to MRI mode in order him to get MRI and they were going to set him up with the Stroke Clinic. We did discuss that I will contact [facility] today to review the case as well. Consultation #2: Dr. Washington, with tele stroke. He agrees with plan for aspirin daily, typical stroke workup. And asked that the neurosurgery clinic set the patient up with the Stroke Clinic as he is working remotely at a different facility and does not have all the contact information. Vital Signs Vital signs: Vital Signs - 8 hr 04/16/21 10:39 04/16/21 11:41 04/16/21 11:42 Temperature 97.3 F L Pulse Rate 160 H 71 70 Respiratory Rate 18 23 22 Blood Pressure 172/86 H Pulse Oximetry 95 97 04/16/21 12:00 04/16/21 12:30 04/16/21 13:00 Temperature Pulse Rate 79 65 61 Respiratory Rate 18 18 Blood Pressure 166/124 H 174/86 H 174/97 H Pulse Oximetry 94 94 93 04/16/21 13:30 04/16/21 13:31 04/16/21 14:00 Temperature Pulse Rate 65 65 69 Respiratory Rate 20 15 23 Blood Pressure 176/94 H Pulse Oximetry 95 96 100 04/16/21 14:01 04/16/21 14:30 04/16/21 15:00 Temperature Pulse Rate 70 68 63 Respiratory Rate 17 23 15 Blood Pressure 172/91 H 177/97 H Pulse Oximetry 100 04/16/21 15:01 04/16/21 18:09 Temperature Pulse Rate 72 80 Respiratory Rate 20 22 Blood Pressure 178/92 H 162/73 H Pulse Oximetry 97 MDM - Neuro Symptoms/Deficit Lab Data Result diagrams: 04/16/21 10:35 04/16/21 10:35 Labs: Lab Results 04/16/21 04/16/21 04/16/21 Range/Units 10:35 10:35 10:35 WBC 8.3 (4.5-11.0) X10^3/uL RBC 4.04 L (4.5-5.9) X10^6/uL Hgb 13.5 (13.5-17.5) g/dL Hct 39.9 L (41-53) % MCV 98.6 (80-100) fL MCH 33.4 (26-34) PG MCHC 33.9 (30-36) % RDW 15.1 H (11.6-14.8) % Plt Count 289 (150-400) X10^3/uL Neut % (Auto) 66.2 (50-75) % Lymph % (Auto) 17.8 L (25-40) % [place] % (Auto) 12.0 (3-14) % Eos % (Auto) 3.3 (2-4) % Baso % (Auto) 0.7 (0-2) % Neut # (Auto) 5500 (0882-7448) /uL Lymph # (Auto) 1500 (2008-7293) /uL [place] # (Auto) 1000 H (0-900) /uL Eos # (Auto) 300 (0-450) /uL Baso # (Auto) 100 (0-100) /uL PT 10.1 (10.1-12.7) SECONDS INR 0.9 (0.9-1.3) APTT 32 (26.4-36.2) SECONDS Sodium 138 (137-145) mmol/L Potassium 4.2 (3.4-5.1) mmol/L Chloride 99 (98-107) mmol/L Carbon Dioxide 31 (22-32) mmol/L BUN 12 (9-20) mg/dL Creatinine 0.75 (0.66-1.25) mg/dL Estimated GFR > 60.0 (>60) mL/min BUN/Creatinine Ratio 16.0 (6-22) Glucose 250 H (80-110) mg/dL Calcium 9.9 (8.4-10.2) mg/dL U Opiates 300ng/mL cut (Negative) Ur Oxycodone Screen (Negative) Urine Methadone Screen (Negative) Ur Barbiturates Screen (Negative) U Tricyclic Antidepress (Negative) Ur Phencyclidine Scrn (Negative) Ur Amphetamines Screen (Negative) U Methamphetamines Scrn (Negative) Ur MDMA Scrn (Ecstasy) (Negative) U Benzodiazepines Scrn (Negative) Urine Cocaine Screen (Negative) U Marijuana (THC) Screen (Negative) SARS-CoV-2 (PCR) (Negative) 04/16/21 04/16/21 Range/Units 10:39 12:24 WBC (4.5-11.0) X10^3/uL RBC (4.5-5.9) X10^6/uL Hgb (13.5-17.5) g/dL Hct (41-53) % MCV (80-100) fL MCH (26-34) PG MCHC (30-36) % RDW (11.6-14.8) % Plt Count (150-400) X10^3/uL Neut % (Auto) (50-75) % Lymph % (Auto) (25-40) % [place] % (Auto) (3-14) % Eos % (Auto) (2-4) % Baso % (Auto) (0-2) % Neut # (Auto) (7723-6315) /uL Lymph # (Auto) (9789-9339) /uL [place] # (Auto) (0-900) /uL Eos # (Auto) (0-450) /uL Baso # (Auto) (0-100) /uL PT (10.1-12.7) SECONDS INR (0.9-1.3) APTT (26.4-36.2) SECONDS Sodium (137-145) mmol/L Potassium (3.4-5.1) mmol/L Chloride (98-107) mmol/L Carbon Dioxide (22-32) mmol/L BUN (9-20) mg/dL Creatinine (0.66-1.25) mg/dL Estimated GFR (>60) mL/min BUN/Creatinine Ratio (6-22) Glucose (80-110) mg/dL Calcium (8.4-10.2) mg/dL U Opiates 300ng/mL cut Negative (Negative) Ur Oxycodone Screen Negative (Negative) Urine Methadone Screen Negative (Negative) Ur Barbiturates Screen Negative (Negative) U Tricyclic Antidepress Negative (Negative) Ur Phencyclidine Scrn Negative (Negative) Ur Amphetamines Screen Negative (Negative) U Methamphetamines Scrn Negative (Negative) Ur MDMA Scrn (Ecstasy) Negative (Negative) U Benzodiazepines Scrn Negative (Negative) Urine Cocaine Screen Negative (Negative) U Marijuana (THC) Screen Negative (Negative) SARS-CoV-2 (PCR) Negative (Negative) Urine Dip Bedside Urine Glucose Negative Bedside Urine Bilirubin - Negative Bedside Urine Ketone - Negative Urine Specific Kidder 1.010 Bedside Urine Occult Blood - Negative Bedside Urine pH 7.0 Bedside Urine Protein - Negative Bedside Urine Urobilinogen - Negative Bedside Urine Nitrite - Negative Bedside Urine Leukocytes - Negative Esterase Imaging Data CT scan - head: Radiologist's Impression: Meenakshi Dumont??70??M??1950 ? Allergy/Adv: No Known Drug Allergies (More??) Close Head/Neck CTA (Signed) Korin Garcia - 04/16/[address] (Signed) Lance Locke - 04/16/[address] (Signed) Korin Garcia - 02/26/21 Foot X-Ray (Signed) Lance Locke - 02/26/21 Telemetry Strips 02/26/21 Vascular Ultrasound (Signed) Call,Robert - 01/26/21 Wrist X-Ray (Signed) Lance Locke - 10/05/20 Ribs X-Ray (Signed) Call,Robert - 12/23/19 Chest X-Ray (Signed) Oz Velez - 07/11/19 Ribs X-Ray (Signed) Boston Hanna - 03/29/19 Finger X-Ray (Signed) Harry Paredes - 08/22/18 Finger X-Ray (Signed) Merlene Henson - 07/26/18 Hand X-Ray (Signed) Duarte Loza - 03/11/18 Foot X-Ray (Signed) Oz Velez - 10/11/17 Radiology - Historical 05/01/17 Radiology - Historical 04/03/17 Radiology - Historical 05/24/16 Radiology - Historical 01/24/16 Telemetry Strips 12/11/15 Telemetry Strips 12/11/15 Radiology - Historical 12/11/15 Launch?[place] [address] CT Scan Report Signed Patient: Meenakshi Dumont MR#: [id number] : 1950 Acct:[id number] Age/Sex: 70 / M Date of Service: 04/16/21 Loc: ED Accession Number: [id number] ?? Procedure: CT angio head and neck Ordering Provider: Gloria Richardson D.O. PROCEDURE:? CT ANGIO HEAD AND NECK ? INDICATIONS:? left facial droop, dysphagia, speech, had DBS sx yesterday ? TECHNIQUE:? After the administration of intravenous contrast, 1 mm thick sections acquired from the aortic arch through the [place].? Post-contrast 4.5 mm thick sections then re-acquired from the foramen magnum to the vertex.? 3-dimensional wbfhihx-gixfkrwfq-qcpijjnpuh (MIP) and/or volume rendering reformats were acquired of the central intracranial vasculature and neck separately. ? COMPARISON:? [facility], CT, CT HEAD/BRAIN WO CON, 02/26/2021, 9:39.? [facility], CT, CT HEAD/BRAIN WO CON, 04/16/2021, 10:56. ? FINDINGS:? Image quality:? Degraded by beam hardening artifact related to neurostimulator leads. ? BRAIN:? CSF spaces:? Ventricles are normal in size and shape.? Basal cisterns are patent.? No extra-axial fluid collections.? ? Brain:? Bilateral thalamic neural stimulators are stable.? No midline shift.? No intracranial bleeds or masses.? Sandoval-white matter interface appears intact.? ? Skull and face:? Calvarium and facial bones appear intact, without suspicious lesions.? Orbits appear normal.? ? Sinuses:? Sinuses and mastoids are clear.? ? HEAD CT ANGIOGRAPHY:? Anterior circulation:? Intracranial internal carotid arteries are normal in flow. Atherosclerotic calcifications noted in the cavernous and clinoid segments of the internal carotid arteries bilaterally which causes mild stenosis of the vessels. ? The flow within the paired anterior cerebral arteries is normal and symmetric.? The flow within the middle cerebral arteries is normal and symmetric.? The anterior communicating artery is seen.? No aneurysms are seen.? ? Posterior circulation:? Visualized portions of the vertebral arteries demonstrate normal caliber, and join to form a normal appearing basilar artery.? Flow within the posterior cerebral arteries is normal and symmetric.? No aneurysms are seen.? ? Dural sinuses demonstrate normal postcontrast enhancement.? ? NECK CT ANGIOGRAPHY:? Carotid system:? The great vessels demonstrate a conventional anatomy as they arise from the aortic arch.? The origins of the common carotid arteries appear patent.? The common carotid arteries demonstrate normal caliber and courses.? The bifurcation regions are both widely patent.? The internal carotid arteries demonstrate normal calibers and courses.? ? Posterior circulation:? The origins of the vertebral arteries both appear widely patent.? The more superior extracranial portions of both vertebral arteries also demonstrate normal courses and calibers.? They join to form a normal appearing basilar artery.? ? Soft tissues:? Visualized neck soft tissues demonstrate no suspicious abnormalities.? Neural stimulator noted in the left chest wall.? Multiple air locules noted tracking along the neurostimulator lead in the left chest wall, posterior-lateral left neck and the left parietal scalp.? Air noted adjacent to neurostimulator in the subcutaneous fat of the left chest wall.? ? Bones:? No suspicious bony lesions. Spine degenerative disc disease and facet arthropathy. Visualized cervical spine appears normally aligned.? ? ? IMPRESSION:? ? 1. No acute intracranial disease process. ? 2. No large vessel occlusion, hemodynamically significant vascular stenosis, vascular dissection or aneurysm. ? 3. Subcutaneous air adjacent to neurostimulator in left chest wall and tracking along neurostimulator leads in the left neck and left scalp.? Please correlate with clinical data to exclude infection. ? Any quantitative measurements of stenosis were performed using NASCET criteria.? ? ? Dictated by: Korin Garcia MD, PhD on 04/16/2021 at 11:44 ? ? Approved by: Korin Garcia MD, PhD on 04/16/2021 at 11:54?? CTA - brain/neck: Radiologist's Impression: Meenakshi Dumont??70??M??1950 ? Allergy/Adv: No Known Drug Allergies (More??) Close Head/Neck CTA (Signed) Korin Garcia - 04/16/[address] (Signed) Lance Locke - 04/16/[address] (Signed) Korin Garcia - 02/26/21 Foot X-Ray (Signed) Lance Locke - 02/26/21 Telemetry Strips 02/26/21 Vascular Ultrasound (Signed) Robert Palmer - 01/26/21 Wrist X-Ray (Signed) Lance Locke - 10/05/20 Ribs X-Ray (Signed) Robert Palmer - 12/23/19 Chest X-Ray (Signed) Oz Velez - 07/11/19 Ribs X-Ray (Signed) Boston Hanna - 03/29/19 Finger X-Ray (Signed) Harry Paredes - 08/22/18 Finger X-Ray (Signed) Merlene Henson - 07/26/18 Hand X-Ray (Signed) Duarte Loza - 03/11/18 Foot X-Ray (Signed) Oz Velez - 10/11/17 Radiology - Historical 05/01/17 Radiology - Historical 04/03/17 Radiology - Historical 05/24/16 Radiology - Historical 01/24/16 Telemetry Strips 12/11/15 Telemetry Strips 12/11/15 Radiology - Historical 12/11/15 Launch?Image [address] [address] [address] Scan Report Signed Patient: Meenakshi Dumont MR#: [id number] : 1950 Acct:[id number] Age/Sex: 70 / M Date of Service: 04/16/21 Loc: ED Accession Number: [id number] ?? Procedure: CT angio head and neck Ordering Provider: Gloria Richardson D.O. PROCEDURE:? CT ANGIO HEAD AND NECK ? INDICATIONS:? left facial droop, dysphagia, speech, had DBS sx yesterday ? TECHNIQUE:? After the administration of intravenous contrast, 1 mm thick sections acquired from the aortic arch through the [place].? Post-contrast 4.5 mm thick sections then re-acquired from the foramen magnum to the vertex.? 3-dimensional znwwdbg-yybtborss-eulkkvmxoz (MIP) and/or volume rendering reformats were acquired of the central intracranial vasculature and neck separately. ? COMPARISON:? [facility], CT, CT HEAD/BRAIN WO CON, 02/26/2021, 9:39.? [facility], CT, CT HEAD/BRAIN WO CON, 04/16/2021, 10:56. ? FINDINGS:? Image quality:? Degraded by beam hardening artifact related to neurostimulator leads. ? BRAIN:? CSF spaces:? Ventricles are normal in size and shape.? Basal cisterns are patent.? No extra-axial fluid collections.? ? Brain:? Bilateral thalamic neural stimulators are stable.? No midline shift.? No intracranial bleeds or masses.? Sandoval-white matter interface appears intact.? ? Skull and face:? Calvarium and facial bones appear intact, without suspicious lesions.? Orbits appear normal.? ? Sinuses:? Sinuses and mastoids are clear.? ? HEAD CT ANGIOGRAPHY:? Anterior circulation:? Intracranial internal carotid arteries are normal in flow. Atherosclerotic calcifications noted in the cavernous and clinoid segments of the internal carotid arteries bilaterally which causes mild stenosis of the vessels. ? The flow within the paired anterior cerebral arteries is normal and symmetric.? The flow within the middle cerebral arteries is normal and symmetric.? The anterior communicating artery is seen.? No aneurysms are seen.? ? Posterior circulation:? Visualized portions of the vertebral arteries demonstrate normal caliber, and join to form a normal appearing basilar artery.? Flow within the posterior cerebral arteries is normal and symmetric.? No aneurysms are seen.? ? Dural sinuses demonstrate normal postcontrast enhancement.? ? NECK CT ANGIOGRAPHY:? Carotid system:? The great vessels demonstrate a conventional anatomy as they arise from the aortic arch.? The origins of the common carotid arteries appear patent.? The common carotid arteries demonstrate normal caliber and courses.? The bifurcation regions are both widely patent.? The internal carotid arteries demonstrate normal calibers and courses.? ? Posterior circulation:? The origins of the vertebral arteries both appear widely patent.? The more superior extracranial portions of both vertebral arteries also demonstrate normal courses and calibers.? They join to form a normal appearing basilar artery.? ? Soft tissues:? Visualized neck soft tissues demonstrate no suspicious abnormalities.? Neural stimulator noted in the left chest wall.? Multiple air locules noted tracking along the neurostimulator lead in the left chest wall, posterior-lateral left neck and the left parietal scalp.? Air noted adjacent to neurostimulator in the subcutaneous fat of the left chest wall.? ? Bones:? No suspicious bony lesions. Spine degenerative disc disease and facet arthropathy. Visualized cervical spine appears normally aligned.? ? ? IMPRESSION:? ? 1. No acute intracranial disease process. ? 2. No large vessel occlusion, hemodynamically significant vascular stenosis, vascular dissection or aneurysm. ? 3. Subcutaneous air adjacent to neurostimulator in left chest wall and tracking along neurostimulator leads in the left neck and left scalp.? Please correlate with clinical data to exclude infection. ? Any quantitative measurements of stenosis were performed using NASCET criteria.? ? ? Dictated by: Korin Garcia MD, PhD on 04/16/2021 at 11:44 ? ? Approved by: Korin Garcia MD, PhD on 04/16/2021 at 11:54?? ECHO: Radiologist's Impression: [address] [address] Echocardiography Report Signed Patient: Meenakshi Dumont MR#: [id number] : 1950 Acct:[id number] Age/Sex: 70 / M Date of Service: 04/16/21 Loc: ED Accession Number: [id number] ?? Procedure: EC echo doppler complete Ordering Provider: Gloria Richardson D.O. ? [facility] +---------+? [facility]? +---------+ : ? :? [address] [place] [address] ? : ? : : ? :? [place], [place] ? : ? : : ? :? [id number] ? : ? : : ? : ? Phone: [phone] : ? : [phone]? [phone]? +---------+ ? Echocardiogram Report + + :Name: MEENAKSHI DUMONT? ? ? Study Date: 04/16/2021 ? Height: 68 in? : :Hospital ? ? ReadingLocation: ? Weight: 250 lb : : ? Gender: Male ? BSA: 2.2 m2? ? : :: 1950? Age: 70 yrs? BP: 172/86 mmHg: :Reason For Study: CVA, LEFT FACIAL DROOP ? : :Ordering Physician: DYLAN,? : :GLORIA ? Performed By: Philomena Brannon? : :Referring: GLORIA RICHARDSON? : + + Interpretation Summary ? The left ventricle is mildly dilated. The ejection fraction is estimated to be 55-60%. There is no obvious LV thrombus. ? The right ventricle is mildly dilated. The right ventricular systolic function is normal. ? No significant valvular pathology seen. ? There is aortic root sclerosis/calcification. Mild atherosclerotic plaque(s) in the aortic arch. ? The IVC is of normal diameter and collapses greater than 50% with a sniff. This suggests a low right atrial pressure of 3 mm Hg. ? Procedure: ? A two-dimensional transthoracic echocardiogram with color flow and Doppler was performed. The study quality was technically difficult. There is no prior echocardiogram noted for this patient. The patient was in sinus rhythm with heart rates between 61-70 bpm during the exam. Left Ventricle: ? The left ventricle is mildly dilated. There is normal left ventricular wall thickness. A false chord is noted (normal variant). There is no thrombus. The ejection fraction is estimated to be 55-60%. There are no focal wall motion abnormalities. Diastolic parameters suggest a relaxation abnormality of the left ventricle, consistent with probable normal filling pressures. Right Ventricle: ? The right ventricle is mildly dilated. The right ventricular systolic function is normal. Atria: ? The left atrium is moderately dilated. Right atrial size is normal. There is no Doppler evidence for an interatrial shunt. Mitral Valve: ? There is mild mitral annular calcification. The mitral valve leaflets are slightly calcified. There is mild mitral regurgitation. Aortic Valve: ? The aortic valve is not well visualized. The aortic valve opens well. The aortic valve is slightly calcified. The aortic valve is trileaflet. There is no aortic valve stenosis. No aortic regurgitation is present. Tricuspid Valve: ? The tricuspid valve is normal in structure and function. There is mild tricuspid regurgitation. The right ventricular systolic pressure is estimated to be at least 28 mmHg based on an estimated right atrial pressure of 3 mm Hg. Pulmonic Valve: ? The pulmonic valve is not well visualized. There is no pulmonic valvular regurgitation. Great Vessels: ? The aortic root is normal size. There is aortic root sclerosis/calcification. The ascending aorta is at the upper limits of normal in size. Mild atherosclerotic plaque(s) in the aortic arch. The IVC is of normal diameter and collapses greater than 50% with a sniff. This suggests a low right atrial pressure of 3 mm Hg. Pericardium/ Pleura ? There is no pericardial effusion. There is no pleural effusion. ? MMode/2D Measurements & Calculations LVIDd: 6.0 cm? LVOT diam: 2.0 cm LVIDs: 3.9 cm? Ao root diam: 3.3 cm FS: 34.8 % ? asc Aorta Diam: 3.8 cm IVSd: 0.73 cm? Ao Arch Diam (Prox Trans): 3.3 cm LVPWd: 0.92 cm LV mcdonough. diameter/BSA (cm/m^2): 2.7 LV sys. diameter/BSA (cm/m^2): 1.7 ? LA A2 area: 27.0 cm2 ? RA long axis: 6.0 cm LA A4 area: 25.4 cm2 ? RA area: 21.6 cm2 LA length (vol): 6.1 cm? RA vol: 66.6 ml LA vol: 96.0 ml? RA : 29.6 ml/m2 LA vol index: 42.7 ml/m2 ? IVC diam: 1.9 cm ? RVD1 (basal): 4.5 cm TAPSE: 2.7 cm ? Doppler Measurements & Calculations Ao V2 max: 177.6 cm/sec? LVOT Max Nir: 111.8 cm/sec Ao V2 mean: 117.4 cm/sec ? LV V1 max P.0 mmHg Ao max P.6 mmHg ? LV V1 VTI: 23.5 cm Ao mean P.3 mmHg ? SHELLEY(I,D): 2.0 cm2 Ao V2 VTI: 37.8 cm ? SHELLEY(V,D): 2.0 cm2 ? sev ratio: 0.62 ? SHELLEY indexed to BSA (cm^2/m^2): 0.88 ? MV E max nir: 61.7 cm/sec? TR max nir: 248.6 cm/sec MV A max nir: 82.6 cm/sec? TR max P.7 mmHg MV E/A: 0.75 ? PA V2 max: 119.7 cm/sec Med Peak E' Nir: 7.3 cm/sec? ? ? PA V2 mean: 69.3 cm/sec E/E' med: 8.5? PA mean P.3 mmHg Lat Peak E' Nir: 8.4 cm/sec? ? ? PA pr(Accel): 31.0 mmHg E/E' lat: 7.4 E/e' average: 7.9 MV dec time: 0.31 sec ? SV(LVOT): 75.0 ml ? Reading Physician:04:36 PM ECG Data Attestation: I personally reviewed and interpreted this ECG as follows: Prior ECG tracings: available for review Interpretation: Sinus rhythm with premature atrial complexes rate of 73 MD 170 QRS 82 and QTC of 412. No acute ST elevation depression appreciated. Patient has some nonspecific change. Patient has prior EKG from 02/26/2021 which appears similar to today's. MDM Narrative Medical decision making narrative: This is a 70-year-old male with a drink brain stimulator leads reconnected yesterday. Patient and state he had some facial droop that they noted at the hospital prior to discharge and then has worsened overnight. Patient woke up this and has significant facial droop, dysarthria and has had difficulty swallowing but is able to eat food and drink water. Patient's head CT and CT angiography does not show any acute occlusion, L changes. No obvious signs of infection. Patient has restarted his Parkinson's medication at his normal dosages. His labs do not show any new findings. Patient cannot get an MRI echo was obtained which shows no acute changes. He would not be a candidate for tPA or intervention at this time. It was discussed with Telestroke. Patient does not wish to stay overnight otherwise and will follow up with his neuro surgery team and started on aspirin 81 mg daily. Discharge Plan Departure Patient Disposition: Home Clinical Impression: Acute CVA (cerebrovascular accident) Instructions: DI for Stroke-Ischemic Activity Restrictions/Additional Instructions: There is some concern that you may have had a stroke after your deep brain stimulator surgery but you do need to follow-up with your neuro surgery team. They are going to set you up for an MRI but have to have your stimulator turned to MRI mode 1st. It is recommend you take aspirin 81 mg daily until you see your neuro surgery team. Also discussed with her team about following up with the [facility]. Please return for new or worsening symptoms, new numbness, tingling, weakness, difficulty with speech that is worsening difficulty with swallowing, chest pain or shortness of breath, severe headaches, fevers or signs of infection or other new or concerning symptoms. Prescriptions: No Action naproxen sodium [Aleve] 220 MG tablet 220 mg PO BIDCC Qty: 0 0RF lamotrigine 200 mg tablet 200 mg PO DAILY 0RF cetirizine 10 mg tablet 10 mg PO DAILY PRN (Reason: allergies) 0RF Label Comments: TAKE 1 TABLET BY MOUTH ONCE DAILY NEEDED FOR CONGESTION glipizide 10 mg tablet 10 mg PO BID 0RF felodipine 5 mg tablet extended release 24 hr 5 mg PO DAILY 0RF nortriptyline 25 mg capsule 25 mg PO BEDTIME 0RF alprazolam 0.25 mg tablet 0.25 mg PO TID PRN (Reason: Anxiety) 0RF esomeprazole magnesium 40 mg capsule,delayed release(DR/EC) 40 mg PO DAILY 0RF pramipexole 0.25 mg tablet 0.25 mg PO BEDTIME 0RF gabapentin 300 mg capsule 300 mg PO QID 0RF doxazosin 4 mg tablet 4 mg PO DAILY 0RF allopurinol 300 mg tablet 300 mg PO DAILY 0RF metformin 500 mg tablet extended release 24 hr 1,000 mg PO BID 0RF rosuvastatin 20 mg tablet 20 mg PO DAILY 0RF duloxetine 60 mg capsule,delayed release(DR/EC) 60 mg PO DAILY 0RF rasagiline [Azilect] 1 mg tablet 1 mg PO DAILY 0RF carbidopa-levodopa 50-200 mg tablet extended release 1 tab PO 6XD 0RF oxycodone-acetaminophen [Percocet] 5-325 mg tablet 1 tab PO Q4-6H PRN (Reason: pain) Qty: 10 0RF Referrals: Jonatan Bales MD [Primary Care Provider] -
[2021-04-16 10:53] LABS: Add Manual Diff / Slide Review NO; Basophils Absolute Auto 100 /uL (0-100); Basophils Percent Auto 0.7 % (0-2); Eosinophils Absolute Auto 300 /uL (0-450); Eosinophils Percent Auto 3.3 % (2-4); Hematocrit 39.9 % (41-53); Hemoglobin 13.5 g/dL (13.5-17.5); Lymphocytes Absolute Auto 1500 /uL (1100-4500); Lymphocytes Percent Auto 17.8 % (25-40); Mean Corpuscular HGB Conc 33.9 % (30-36); Mean Corpuscular Hemoglobin 33.4 PG (26-34); Mean Corpuscular Volume 98.6 fL (80-100); Monocytes Absolute Auto 1000 /uL (0-900); Neutrophils Absolute Auto 5500 /uL (1500-7000); Neutrophils Percent Auto 66.2 % (50-75); Platelet Count 289 X10^3/uL (150-400); Red Blood Cell Count 4.04 X10^6/uL (4.5-5.9); Red Cell Distribution Width 15.1 % (11.6-14.8); White Blood Cell Count 8.3 X10^3/uL (4.5-11.0)
[2021-04-16 10:54] LABS: INR 0.9 (0.9-1.3); Prothrombin Time 10.1 SECONDS (10.1-12.7)
[2021-04-16 10:57] LABS: PTT Partial Thromboplastin Tim 32 SECONDS (26.4-36.2)
[2021-04-16 11:00] LABS: Blood Urea Nitrogen 12 mg/dL (9-20); Calcium 9.9 mg/dL (8.4-10.2); Carbon Dioxide 31 mmol/L (22-32); Chloride 99 mmol/L (98-107); Estimated Glomerular Filt Rate > 60.0 mL/min (>60); Glucose 250 mg/dL (80-110); HEMOLYSIS < 15 (0-50); Potassium 4.2 mmol/L (3.4-5.1); Sodium 138 mmol/L (137-145)
--- NOTE | 2021-04-16 11:05 | DI.CT.S_ITS ---
PROCEDURE: CT HEAD/BRAIN WO CON INDICATIONS: left facial droop, dysphagia, speech, had DBS sx yesterday TECHNIQUE: Noncontrast 4.5 mm thick angled axial sections acquired from the foramen magnum to the vertex, with coronal and sagittal reformats. For radiation dose reduction, the following was used: automated exposure control, adjustment of mA and/or kV according to patient size. COMPARISON: [facility], CT, HEAD WITHOUT CONTRAST, 10/22/2010, 10:36. [facility], CT, CT HEAD/BRAIN WO CON, 02/26/2021, 9:39. FINDINGS: Image quality: Excellent. CSF spaces: Basal cisterns are patent. No extra-axial fluid collections. The ventricles are symmetric in size and shape. Brain: Deep brain stimulators are seen on both sides, which are similar to the prior examination. No intracranial bleeds or masses. There is cerebral volume loss for age, with resultant ventricular and sulcal prominence. There are periventricular and deep white matter chronic small vessel ischemic changes. There is intracranial internal carotid artery atherosclerosis. In this patient with a given history of left-sided facial droop, scrutiny is given to the visualized course of the left facial nerve, including within the left parotid gland. To the limits of this noncontrast head CT, no significant abnormalities are seen. Skull and face: Associated with the left deep brain stimulator wires on the left, there is soft tissue gas seen. Calvarium and visualized facial bones appear intact, without suspicious lesions. Sinuses: Visualized sinuses and mastoids are clear. IMPRESSION: Bilateral deep brain stimulators are seen. No gasper, acute abnormality is identified by noncontrast head CT. No acute intracranial hemorrhage is seen. Soft tissue gas is seen associated with the deep brain stimulator wires on the left, which is consistent with recent surgical manipulation. Dictated by: Lance Locke M.D. on 04/16/2021 at 10:17 Approved by: Lance Locke M.D. on 04/16/2021 at 10:21
[2021-04-16] MEDS: SODIUM CHLORIDE 0.9% 1,000 ML 150 ML IV (11:15)
--- NOTE | 2021-04-16 11:26 | DI.CT.S_ITS ---
PROCEDURE: CT ANGIO HEAD AND NECK INDICATIONS: left facial droop, dysphagia, speech, had DBS sx yesterday TECHNIQUE: After the administration of intravenous contrast, 1 mm thick sections acquired from the aortic arch through the [place] of [place]. Post-contrast 4.5 mm thick sections then re-acquired from the foramen magnum to the vertex. 3-dimensional zjnplhy-vzzacmysa-zwbjznfeuu (MIP) and/or volume rendering reformats were acquired of the central intracranial vasculature and neck separately. COMPARISON: [facility], CT, CT HEAD/BRAIN WO CON, 02/26/2021, 9:39. [facility], CT, CT HEAD/BRAIN WO CON, 04/16/2021, 10:56. FINDINGS: Image quality: Degraded by beam hardening artifact related to neurostimulator leads. BRAIN: CSF spaces: Ventricles are normal in size and shape. Basal cisterns are patent. No extra-axial fluid collections. Brain: Bilateral thalamic neural stimulators are stable. No midline shift. No intracranial bleeds or masses. Sandoval-white matter interface appears intact. Skull and face: Calvarium and facial bones appear intact, without suspicious lesions. Orbits appear normal. Sinuses: Sinuses and mastoids are clear. HEAD CT ANGIOGRAPHY: Anterior circulation: Intracranial internal carotid arteries are normal in flow. Atherosclerotic calcifications noted in the cavernous and clinoid segments of the internal carotid arteries bilaterally which causes mild stenosis of the vessels. The flow within the paired anterior cerebral arteries is normal and symmetric. The flow within the middle cerebral arteries is normal and symmetric. The anterior communicating artery is seen. No aneurysms are seen. Posterior circulation: Visualized portions of the vertebral arteries demonstrate normal caliber, and join to form a normal appearing basilar artery. Flow within the posterior cerebral arteries is normal and symmetric. No aneurysms are seen. Dural sinuses demonstrate normal postcontrast enhancement. NECK CT ANGIOGRAPHY: Carotid system: The great vessels demonstrate a conventional anatomy as they arise from the aortic arch. The origins of the common carotid arteries appear patent. The common carotid arteries demonstrate normal caliber and courses. The bifurcation regions are both widely patent. The internal carotid arteries demonstrate normal calibers and courses. Posterior circulation: The origins of the vertebral arteries both appear widely patent. The more superior extracranial portions of both vertebral arteries also demonstrate normal courses and calibers. They join to form a normal appearing basilar artery. Soft tissues: Visualized neck soft tissues demonstrate no suspicious abnormalities. Neural stimulator noted in the left chest wall. Multiple air locules noted tracking along the neurostimulator lead in the left chest wall, posterior-lateral left neck and the left parietal scalp. Air noted adjacent to neurostimulator in the subcutaneous fat of the left chest wall. Bones: No suspicious bony lesions. Spine degenerative disc disease and facet arthropathy. Visualized cervical spine appears normally aligned. IMPRESSION: 1. No acute intracranial disease process. 2. No large vessel occlusion, hemodynamically significant vascular stenosis, vascular dissection or aneurysm. 3. Subcutaneous air adjacent to neurostimulator in left chest wall and tracking along neurostimulator leads in the left neck and left scalp. Please correlate with clinical data to exclude infection. Any quantitative measurements of stenosis were performed using NASCET criteria. Dictated by: Korin Garcia MD, PhD on 04/16/2021 at 11:44 Approved by: Korin Garcia MD, PhD on 04/16/2021 at 11:54
[2021-04-16 11:30] LABS: COVID19 -Nasal RAPID Negative (Negative)
[2021-04-16 12:41] LABS: UR Morphine/Opiate cutoff 300 Negative (Negative); Ur Creatinine Normal (Normal); Ur Specific Gravity Normal (Normal); Urine Amphetamines Negative (Negative); Urine Barbiturates Negative (Negative); Urine Benzodiazepines Negative (Negative); Urine Cocaine Negative (Negative); Urine MDMA Negative (Negative); Urine Methadone Negative (Negative); Urine Methamphetamines Negative (Negative); Urine Oxycodone Negative (Negative); Urine Phencyclidine Negative (Negative); Urine Tetrahydrocannabinol Negative (Negative); Urine Tricyclic Antidepressant Negative (Negative); Urine pH Normal (Normal)
[2021-04-16] MEDS: ASPIRIN 81 MG CHEW TAB 324 MG PO (14:08)
--- NOTE | 2021-04-16 14:13 | DI.ECHO.S_ITS ---
[place] [facility]---------+ [facility] +---------+ : : [address] : [place] : : : : [id number] : : : : Phone: [phone]+ Echocardiogram Report + + :Name: MEENAKSHI DUMONT Study Date: 04/16/2021 Height: 68 in : :[facility] ReadingLocation: Weight: 250 lb : : Gender: Male BSA: 2.2 m2 : :: 1950 Age: 70 yrs BP: 172/86 mmHg: :Reason For Study: CVA, LEFT FACIAL DROOP : :Ordering Physician: DYLAN, : :GLORIA Performed By: Philomena Brannon : :Referring: GLORIA RICHARDSON : + + Interpretation Summary The left ventricle is mildly dilated. The ejection fraction is estimated to be 55-60%. There is no obvious LV thrombus. The right ventricle is mildly dilated. The right ventricular systolic function is normal. No significant valvular pathology seen. There is aortic root sclerosis/calcification. Mild atherosclerotic plaque(s) in the aortic arch. The IVC is of normal diameter and collapses greater than 50% with a sniff. This suggests a low right atrial pressure of 3 mm Hg. Procedure: A two-dimensional transthoracic echocardiogram with color flow and Doppler was performed. The study quality was technically difficult. There is no prior echocardiogram noted for this patient. The patient was in sinus rhythm with heart rates between 61-70 bpm during the exam. Left Ventricle: The left ventricle is mildly dilated. There is normal left ventricular wall thickness. A false chord is noted (normal variant). There is no thrombus. The ejection fraction is estimated to be 55-60%. There are no focal wall motion abnormalities. Diastolic parameters suggest a relaxation abnormality of the left ventricle, consistent with probable normal filling pressures. Right Ventricle: The right ventricle is mildly dilated. The right ventricular systolic function is normal. Atria: The left atrium is moderately dilated. Right atrial size is normal. There is no Doppler evidence for an interatrial shunt. Mitral Valve: There is mild mitral annular calcification. The mitral valve leaflets are slightly calcified. There is mild mitral regurgitation. Aortic Valve: The aortic valve is not well visualized. The aortic valve opens well. The aortic valve is slightly calcified. The aortic valve is trileaflet. There is no aortic valve stenosis. No aortic regurgitation is present. Tricuspid Valve: The tricuspid valve is normal in structure and function. There is mild tricuspid regurgitation. The right ventricular systolic pressure is estimated to be at least 28 mmHg based on an estimated right atrial pressure of 3 mm Hg. Pulmonic Valve: The pulmonic valve is not well visualized. There is no pulmonic valvular regurgitation. Great Vessels: The aortic root is normal size. There is aortic root sclerosis/calcification. The ascending aorta is at the upper limits of normal in size. Mild atherosclerotic plaque(s) in the aortic arch. The IVC is of normal diameter and collapses greater than 50% with a sniff. This suggests a low right atrial pressure of 3 mm Hg. Pericardium/ Pleura There is no pericardial effusion. There is no pleural effusion. MMode/2D Measurements & Calculations LVIDd: 6.0 cm LVOT diam: 2.0 cm LVIDs: 3.9 cm Ao root diam: 3.3 cm FS: 34.8 % asc Aorta Diam: 3.8 cm IVSd: 0.73 cm Ao Arch Diam (Prox Trans): 3.3 cm LVPWd: 0.92 cm LV mcdonough. diameter/BSA (cm/m^2): 2.7 LV sys. diameter/BSA (cm/m^2): 1.7 LA A2 area: 27.0 cm2 RA long axis: 6.0 cm LA A4 area: 25.4 cm2 RA area: 21.6 cm2 LA length (vol): 6.1 cm RA vol: 66.6 ml LA vol: 96.0 ml RA : 29.6 ml/m2 LA vol index: 42.7 ml/m2 IVC diam: 1.9 cm RVD1 (basal): 4.5 cm TAPSE: 2.7 cm Doppler Measurements & Calculations Ao V2 max: 177.6 cm/sec LVOT Max Nir: 111.8 cm/sec Ao V2 mean: 117.4 cm/sec LV V1 max P.0 mmHg Ao max P.6 mmHg LV V1 VTI: 23.5 cm Ao mean P.3 mmHg SHELLEY(I,D): 2.0 cm2 Ao V2 VTI: 37.8 cm SHELLEY(V,D): 2.0 cm2 sev ratio: 0.62 SHELLEY indexed to BSA (cm^2/m^2): 0.88 MV E max nir: 61.7 cm/sec TR max nir: 248.6 cm/sec MV A max nir: 82.6 cm/sec TR max P.7 mmHg MV E/A: 0.75 PA V2 max: 119.7 cm/sec Med Peak E' Nir: 7.3 cm/sec PA V2 mean: 69.3 cm/sec E/E' med: 8.5 PA mean P.3 mmHg Lat Peak E' Nir: 8.4 cm/sec PA pr(Accel): 31.0 mmHg E/E' lat: 7.4 E/e' average: 7.9 MV dec time: 0.31 sec SV(LVOT): 75.0 ml Reading Physician:04:36 PM
== END 2021-04-16 17:45 | disposition home or self-care (01) ==
PROVIDERS: Emergency Provider Emergency Medicine; PCP Internal Medicine
DX: I97.821 Postprocedural cerebrovascular infarction following other surgery (principal); I63.9 Cerebral infarction, unspecified; R29.703 NIHSS score 3; R03.0 Elevated blood-pressure reading, without diagnosis of hypertension; Z20.822 Contact with and (suspected) exposure to COVID-19; Z87.891 Personal history of nicotine dependence
CPT/HCPCS: 36415; 70450; 70496; 70498; 80048; 80305; 81003; 85025; 85610; 85730; 87635; 93005; 93306; 96360; 96361; 99285; C9803; Q9967

== ENCOUNTER → 2021-07-07 08:55 | Outpatient (CLI) | payer MEDICARE, OTHER, SELFPAY ==
--- NOTE | 2021-07-07 | DI.ECHO.S_ITS ---
[place] +---------+ [facility] +---------+ : : [address] : [place] : : : : [id number] : : : : Phone: [phone] +---------+ Echocardiogram Report + + :Name: MEENAKSHI DUMONT Study Date: 07/07/2021 Height: 67.5 in : :[facility] ReadingLocation: Weight: 215 lb : : Gender: Male BSA: 2.1 m2 : :: 1950 Age: 70 yrs BP: 170/110 mmHg: :Reason For Study: Transient visual loss, bilateral : :Ordering Physician: : :HIPOLITO Performed By: Bertrand Joseph : :Referring: JEFF SOLANO : + + Interpretation Summary The study quality was technically difficult. The ejection fraction is estimated to be 55-60%. There are no obvious focal wall motion abnormalities noted but poor endocardial definition reduces the sensitivity for the detection of such. There is no Doppler evidence for an interatrial shunt. Procedure: A two-dimensional transthoracic echocardiogram with color flow and Doppler was performed. The subcostal views were difficult to obtain and are suboptimal in quality. The suprasternal notch views were difficult to obtain and are suboptimal in quality. Comparison is made with the echocardiogram of 04/16/2021. The study quality was technically difficult. The heart rate ranged between 66 - 78 bpm during the study. Left Ventricle: The left ventricle is normal in size and wall thickness. The ejection fraction is estimated to be 55-60%. There are no obvious focal wall motion abnormalities noted but poor endocardial definition reduces the sensitivity for the detection of such. Diastolic function could not be accurately assessed due to unobtainable data. Right Ventricle: The right ventricle is normal in size and function. Atria: The left atrium is mildly dilated. The right atrium is mild to moderately dilated. There is no Doppler evidence for an interatrial shunt. Mitral Valve: The mitral valve is normal in structure and function. Aortic Valve: The aortic valve is trileaflet. The aortic valve opens well. No aortic regurgitation is present. Tricuspid Valve: The tricuspid valve is normal. There is a trace or physiologic amount of tricuspid regurgitation. Pulmonary artery pressures cannot be estimated because of the lack of a measurable TR jet velocity but the IVC suggests a CVP of around 8 mmHg. Pulmonic Valve: The pulmonic valve leaflets are thin and pliable; valve motion is normal. There is a trace or physiologic amount of pulmonic regurgitation. Great Vessels: The aortic root is normal size. The ascending aorta is normal in size. The aortic arch could not be visualized. The IVC is of normal diameter and collapses less than 50% with a sniff. This suggests a right atrial pressure of 8 mm Hg. Pericardium/ Pleura There is no pericardial effusion. There is an anterior echo-free space consistent with a fat pad. There is no pleural effusion. MMode/2D Measurements & Calculations LVIDd: 5.3 cm LVOT diam: 2.0 cm LVIDs: 3.9 cm Ao root diam: 2.8 cm FS: 26.4 % asc Aorta Diam: 3.5 cm IVSd: 0.90 cm LVPWd: 0.70 cm LV mcdonough. diameter/BSA (cm/m^2): 2.5 LV sys. diameter/BSA (cm/m^2): 1.9 LA A2 area: 21.7 cm2 RA long axis: 6.6 cm LA A4 area: 25.6 cm2 IVC diam: 1.8 cm LA length (vol): 5.6 cm LA vol: 83.8 ml LA vol index: 39.9 ml/m2 RVD1 (basal): 3.7 cm TAPSE: 2.8 cm Doppler Measurements & Calculations Ao V2 max: 122.6 cm/sec LVOT Max Nir: 101.0 cm/sec Ao V2 mean: 88.7 cm/sec LV V1 max P.1 mmHg Ao max P.0 mmHg LV V1 VTI: 18.3 cm Ao mean P.4 mmHg SHELLEY(I,D): 2.4 cm2 Ao V2 VTI: 24.1 cm SHELLEY(V,D): 2.6 cm2 sev ratio: 0.76 SHELLEY indexed to BSA (cm^2/m^2): 1.1 SV(LVOT): 57.5 ml Reading Physician:02:03 PM
== END ==
PROVIDERS: PCP Internal Medicine; Referring Provider Ophthalmology; Visit Provider Ophthalmology
DX: H53.123 Transient visual loss, bilateral (principal)
CPT/HCPCS: 93306

== ENCOUNTER → 2021-07-08 12:11 | Outpatient (CLI) | payer MEDICARE, OTHER, SELFPAY ==
--- NOTE | 2021-07-08 | DI.US.S_ITS ---
PROCEDURE: US CAROTID DOPPLER BI INDICATIONS: TRANSIENT VISION LOSS TECHNIQUE: Color and pulse Doppler interrogation was performed of both carotid systems, with image documentation and velocity measurements. COMPARISON: None. FINDINGS: Stenosis calculations are based on SRU (Society of Radiologists in Ultrasound) criteria. The flow velocities and the arterial waveforms are normal within both carotid arterial systems. No significant atherosclerotic plaque is seen. The estimated degree of internal carotid artery stenosis is less than 50%. Antegrade flow is confirmed within both vertebral arteries. IMPRESSION: Normal carotid study. Dictated by: Lance Locke M.D. on 07/08/2021 at 12:46 Approved by: Lance Locke M.D. on 07/08/2021 at 12:47
== END ==
PROVIDERS: PCP Internal Medicine; Referring Provider Ophthalmology; Visit Provider Ophthalmology
DX: H53.123 Transient visual loss, bilateral (principal)
CPT/HCPCS: 93880

== ENCOUNTER → 2021-08-07 13:07 | Outpatient (CLI) | payer MEDICARE, OTHER, SELFPAY ==
--- NOTE | 2021-08-07 | DI.RAD.S_ITS ---
PROCEDURE: XR CHEST 2V INDICATIONS: COUGH TECHNIQUE: 2 views of the chest were acquired. COMPARISON: [facility], CR, XR CHEST 2V, 07/11/2019, 22:39. FINDINGS: Surgical changes and devices: Left chest wall neurostimulator. Lungs and pleura: Lungs are clear. No pleural effusions or pneumothorax. Mediastinum: Mediastinal contours are normal. Heart size is normal. Bones and chest wall: No suspicious bony abnormalities. Soft tissues appear unremarkable. IMPRESSION: No acute cardiopulmonary disease process. Dictated by: Korin Gacria MD, PhD on 08/07/2021 at 15:26 Approved by: Korin Garcia MD, PhD on 08/07/2021 at 15:26
== END ==
PROVIDERS: Family Provider Internal Medicine; PCP Internal Medicine; Referring Provider Internal Medicine; Visit Provider Internal Medicine
DX: R05.3 Chronic cough (principal)
CPT/HCPCS: 71046

== ENCOUNTER 2021-12-08 11:40 | Emergency (ER) | payer MEDICARE, OTHER, SELFPAY ==
[2021-12-08 11:46] VITALS: BP 149/89; PULSE 76; RESP 16; TEMP 36.6; O2SAT 96; BMI 38.0
--- NOTE | 2021-12-08 11:57 | PC.NURSE ---
Was normal Last night, patient awoke this morning and did not feel normal. When he attempted to speak, he noticed his voice was hoarse and he wasn't able to get words out. He whispered clear and legible words per that were not slurred and were appropriate. Mild weakness in exhibit preparator to left arm and left leg as well as some ataxia. Able to walk. Has history of stroke with left sided deficit. Also has a Deep Brain Stimulator with parkinson's tremors. Difficult to assess what is new and what is residual or symptoms of Parkinson's. Patient's stroke occurred in 2019 right after DBS was placed.
[2021-12-08 12:18] LABS: Add Manual Diff / Slide Review NO; Basophils Absolute Auto 100 /uL (0-100); Basophils Percent Auto 0.8 % (0-2); Eosinophils Absolute Auto 200 /uL (0-450); Eosinophils Percent Auto 2.7 % (2-4); Hematocrit 41.7 % (41-53); Hemoglobin 14.1 g/dL (13.5-17.5); Lymphocytes Absolute Auto 1400 /uL (1100-4500); Lymphocytes Percent Auto 20.9 % (25-40); Mean Corpuscular HGB Conc 33.9 % (30-36); Mean Corpuscular Hemoglobin 33.8 PG (26-34); Mean Corpuscular Volume 99.9 fL (80-100); Monocytes Absolute Auto 800 /uL (0-900); Monocytes Percent Auto 11.8 % (3-14); Neutrophils Absolute Auto 4400 /uL (1500-7000); Neutrophils Percent Auto 63.8 % (50-75); Platelet Count 246 X10^3/uL (150-400); Red Blood Cell Count 4.17 X10^6/uL (4.5-5.9); Red Cell Distribution Width 14.3 % (11.6-14.8); White Blood Cell Count 6.9 X10^3/uL (4.5-11.0)
[2021-12-08 12:27] LABS: Alanine Aminotransferase 8 IU/L (<50); Albumin Globulin Ratio 1.4 (1.0-2.8); Alkaline Phosphatase 121 U/L (38-126); Aspartate Aminotransferase 32 IU/L (17-59); BUN Creatinine Ratio 23.9 (6-22); Bilirubin Total 0.4 mg/dL (0.2-1.3); Blood Urea Nitrogen 17 mg/dL (9-20); Carbon Dioxide 30 mmol/L (22-32); Chloride 99 mmol/L (98-107); Estimated Glomerular Filt Rate > 60 mL/min (>60); Globulin 2.8 g/dL (1.7-4.1); Glucose 240 mg/dL (80-110); Potassium 4.6 mmol/L (3.4-5.1); Sodium 134 mmol/L (137-145); Total Protein 6.8 g/dL (6.3-8.2)
[2021-12-08 12:39] LABS: HEMOLYSIS 57 (0-50)
[2021-12-08 13:00] VITALS: BP 140/72; PULSE 62; RESP 17; O2SAT 98
--- NOTE | 2021-12-08 13:09 | ED_ITS ---
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 His last known well was last night woke up this morning did not say anything was eating his breakfast try to speak and laterally his voice was gone. He was able to whisper he was not talking gibberish he did not have slurring of speech. He had no numbness tingling or weakness no facial droop no visual changes. He is worried that this might be a stroke. Previously when he has TIA was postoperative his deep brain stimulator he again had difficulty speaking could not get words out however at that time he had facial droop and definite slurring of words. All of his symptoms resolved. Today his symptoms lasted for about 20 minutes and then they resolved. He has no other symptoms today no chest pain or palpitations. Patient states she stool more dizzy today but is always dizzy. On Anticoagulants: Yes (aspirin) Related Data Home Medications Medication Instructions Recorded Confirmed naproxen sodium 220 mg tablet 220 mg PO BIDCC #0 tabs 01/24/16 12/23/19 (Aleve) allopurinol 300 mg tablet 300 mg PO DAILY 12/23/19 12/23/19 alprazolam 0.25 mg tablet 0.25 mg PO TID PRN Anxiety 12/23/19 12/23/19 carbidopa ER 50 mg-levodopa 200 mg 1 tab PO 6XD 12/23/19 12/23/19 tablet,extended release cetirizine 10 mg tablet 10 mg PO DAILY PRN allergies 12/23/19 12/23/19 doxazosin 4 mg tablet 4 mg PO DAILY 12/23/19 12/23/19 duloxetine 60 mg capsule,delayed 60 mg PO DAILY 12/23/19 12/23/19 release esomeprazole magnesium 40 mg 40 mg PO DAILY 12/23/19 12/23/19 capsule,delayed release felodipine 5 mg tablet,extended 5 mg PO DAILY 12/23/19 12/23/19 release 24 hr gabapentin 300 mg capsule 300 mg PO QID 12/23/19 12/23/19 glipizide 10 mg tablet 10 mg PO BID 12/23/19 12/23/19 lamotrigine 200 mg tablet 200 mg PO DAILY 12/23/19 12/23/19 metformin 500 mg tablet,extended 1,000 mg PO BID 12/23/19 12/23/19 release 24 hr nortriptyline 25 mg capsule 25 mg PO BEDTIME 12/23/19 12/23/19 pramipexole 0.25 mg tablet 0.25 mg PO BEDTIME 12/23/19 12/23/19 rasagiline 1 mg tablet (Azilect) 1 mg PO DAILY 12/23/19 12/23/19 rosuvastatin 20 mg tablet 20 mg PO DAILY 12/23/19 12/23/19 Previous Rx's Medication Instructions Recorded oxycodone-acetaminophen 5 mg-325 1 tab PO Q4-6H PRN pain #10 tabs 12/23/19 mg tablet (Percocet) Allergies Allergy/AdvReac Type Severity Reaction Status Date / Time No Known Drug Allergies Allergy Verified 12/08/21 11:49 Review of Systems Review of Systems Narrative: GENERAL: Denies chills, fatigue, malaise, fever, sweats, travel HEENT: Denies sinus pain, ear pain, sore throat, difficulty swallowing, neck pain RESPIRATORY: Denies dyspnea, cough, wheezing, hemoptysis, sputum. CARDIOVASCULAR: Denies chest pain, palpitations, orthopnea, edema GASTROINTESTINAL: Denies nausea, vomiting, abdominal pain, diarrhea, constipation, melena. : Denies dysuria, frequency, incontinence, hematuria, urinary retention, flank pain. MUSCULOSKELETAL: Denies weakness, joint pain, or bony pain SKIN: No rash, no erythema, no pruritus NEUROLOGIC: See HPI PSYCHIATRIC: No concerning psychosocial issues. 12 point review of systems is negative except for those stated above and HPI Hematologic/Lymphatic On Anticoagulants: Yes (aspirin) Patient History Medical History Arthritis Asthma Depression Diabetes Pancreatic tumor Parkinsons disease Sleep apnea Surgical History H/O vasectomy Hx of parathyroidectomy Hx of splenectomy S/P deep brain stimulator placement S/P excision of lipoma Status post correction of deviated nasal septum Status post fusion of wrist Status post nail surgery (03/22/18) Social History household members: spouse Smoking Status: Former smoker alcohol intake: current Smoking Status: Former smoker alcohol intake frequency: 0-2 drinks per day Substance Use Type: marijuana Exam Initial Vital Signs Initial Vital Signs: Vital Signs Temperature 97.8 F 12/08/21 11:46 Pulse Rate 76 12/08/21 11:46 Respiratory Rate 16 12/08/21 11:46 Blood Pressure 149/89 H 12/08/21 11:46 Pulse Oximetry 96 12/08/21 11:46 Oxygen Delivery Method 12/08/21 11:46 GENERAL: Alert 71-year-old male no acute distress and in no acute distress. HEENT: Head atraumatic,EOMI, pupils reactive, face symmetric, moist mucous membranes CARDIOVASCULAR: Regular rate and rhythm without murmurs, rubs or gallops. RESPIRATORY: Breath sounds equal bilaterally, no wheezes rales or rhonchi. ABDOMEN: Soft, nontender. Normoactive bowel sounds all 4 quadrants. No guarding or rebound. EXTREMITIES: Normal range of motion, no clubbing or edema. Neurovascularly intact NEUROLOGICAL: Alert and oriented x4.Normal gait and speech. Cranial nerves II through XII grossly intact. Good guhten-tb-fnsg, good prrb-rc-lqef, strength equal bilaterally, no dysarthria or aphasia, sensation in tact to soft touch b ilaterally, no visual changes, no facial droop SKIN: Warm, dry, no laceration, no petechiae, no rashes or lesions. Scores NIH Stroke Scale Level of Conciousness: Alert, keenly responsive Ask month/age: Answers both questions correctly. Open/close eyes, close hand: Performs both tasks correctly Best gaze horizontal: Normal Visual anne: No visual loss Facial palsy: Normal symetrical movement Left arm drift: No drift for full 10 sec Right arm drift: No drift for full 10 sec Left leg drift: No drift for full 5 sec Right leg drift: No drift for full 5 sec Limb ataxia: Present in two limbs (both arms) Sensory on face/arms/legs: Normal, no sensory loss Best language: No aphasia, normal Dysarthria: Normal Extinction or inattention: No abnormality Total NIH Stroke scale score: 2 Course Orders Ordered: Discontinued Medications Sodium Chloride (Normal Saline 0.9%) 1,000 mls @ 150 mls/hr IV CONT ASHLEY Last Admin: 12/08/21 14:55 Dose: Not Given Documented By: PHYLLIS Vital Signs Vital signs: Vital Signs - 8 hr 12/08/21 11:46 Temperature 97.8 F Pulse Rate 76 Respiratory Rate 16 Blood Pressure 149/89 H Pulse Oximetry 96 Oxygen Delivery Method Room Air MDM - Neuro Symptoms/Deficit Lab Data Result diagrams: 12/08/21 12:05 12/08/21 12:05 Labs: Lab Results 12/08/21 12/08/21 12/08/21 Range/Units 12:00 12:05 12:05 WBC 6.9 (4.5-11.0) X10^3/uL RBC 4.17 L (4.5-5.9) X10^6/uL Hgb 14.1 (13.5-17.5) g/dL Hct 41.7 (41-53) % MCV 99.9 (80-100) fL MCH 33.8 (26-34) PG MCHC 33.9 (30-36) % RDW 14.3 (11.6-14.8) % Plt Count 246 (150-400) X10^3/uL Neut % (Auto) 63.8 (50-75) % Lymph % (Auto) 20.9 L (25-40) % [place] % (Auto) 11.8 (3-14) % Eos % (Auto) 2.7 (2-4) % Baso % (Auto) 0.8 (0-2) % Neut # (Auto) 4400 (2231-7311) /uL Lymph # (Auto) 1400 (2770-2684) /uL [place] # (Auto) 800 (0-900) /uL Eos # (Auto) 200 (0-450) /uL Baso # (Auto) 100 (0-100) /uL Sodium 134 L (137-145) mmol/L Potassium 4.6 (3.4-5.1) mmol/L Chloride 99 (98-107) mmol/L Carbon Dioxide 30 (22-32) mmol/L BUN 17 (9-20) mg/dL Creatinine 0.71 (0.66-1.25) mg/dL Estimated GFR > 60 (>60) mL/min BUN/Creatinine Ratio 23.9 H (6-22) Glucose 240 H (80-110) mg/dL Calcium 9.0 (8.4-10.2) mg/dL Total Bilirubin 0.4 (0.2-1.3) mg/dL AST 32 (17-59) IU/L ALT 8 (<50) IU/L Alkaline Phosphatase 121 (38-126) U/L Total Creatine Kinase 56 (55-170) U/L CK-MB (CK-2) TNP CK-MB (CK-2) Rel Index TNP Troponin I < 0.012 (0.01-0.034) ng/mL Total Protein 6.8 (6.3-8.2) g/dL Albumin 4.0 (3.5-5.0) g/dL Globulin 2.8 (1.7-4.1) g/dL Albumin/Globulin Ratio 1.4 (1.0-2.8) Imaging Data CTA - brain/neck: Radiologist's Impression: [address] [place] [id number] Scan Report Signed Patient: Arvind Hinds MR#: [id number] : 1950 Acct:[id number] Age/Sex: 71 / M Date of Service: 12/08/21 Loc: ED Accession Number: [id number] ?? Procedure: CT angio head and neck Ordering Provider: Cecilia Kapoor D.O. PROCEDURE:? CT ANGIO HEAD AND NECK ? INDICATIONS:? speech difficulty now resolved. ? TECHNIQUE:? Pre-contrast 4.5 mm thick sections acquired from the foramen magnum to the vertex.? After the administration of intravenous contrast, 1 mm thick sections acquired from the aortic arch through the [place] of [place].? Post-contrast 4.5 mm thick sections then re- acquired from the foramen magnum to the vertex.? 3-dimensional xtrrfaw-bgwwcovhx-evkiateral (MIP) and/or volume rendering reformats were acquired of the central intracranial vasculature and neck separately. For radiation dose reduction, the following was used:? automated exposure control, adjustment of mA and/or kV according to patient size.? ? COMPARISON:? [facility], CT, CT ANGIO HEAD AND NECK, 04/16/2021, 11:27. ? FINDINGS:? Image quality:? There is artifact associated with the metallic hardware. ? Artifact from the metallic hardware is reduced by metal reconstruction algorithm.? ? BRAIN:? CSF spaces:? Ventricles are normal in size and shape.? Basal cisterns are patent.? No extra-axial fluid collections.? ? Brain:? Bilateral thalamic stimulators are seen.? No midline shift.? No intracranial bleeds or masses.? Sandoval-white matter interface appears intact.? ? Skull and face:? Calvarium and facial bones appear intact, without suspicious lesions.? Orbits appear normal.? ? Sinuses:? Sinuses and mastoids are clear.? ? HEAD CT ANGIOGRAPHY:? Anterior circulation:? Intracranial internal carotid arteries are normal in size and flow.? The flow within the paired anterior cerebral arteries is normal and symmetric.? The flow within the middle cerebral arteries is normal and symmetric.? The anterior communicating artery is seen.? No aneurysms are seen.? ? Posterior circulation:? Visualized portions of the vertebral arteries demonstra te normal caliber, and join to form a normal appearing basilar artery.? Flow within the posterior cerebral arteries is normal and symmetric.? No aneurysms are seen.? ? NECK CT ANGIOGRAPHY:? Carotid system:? The great vessels demonstrate a conventional anatomy as they arise from the aortic arch.? The origins of the common carotid arteries appear patent.? The common carotid arteries demonstrate normal caliber and courses.? The bifurcation regions are both widely patent.? The internal carotid arteries demonstrate normal calibers and courses.? ? Posterior circulation:? The origins of the vertebral arteries both appear widely patent.? The more superior extracranial portions of both vertebral arteries also demonstrate normal courses and calibers.? They join to form a normal appearing basilar art jarvis.? ? Soft tissues:? Visualized neck soft tissues demonstrate no suspicious abnormalities.? ? Bones:? No suspicious bony lesions.? Visualized cervical spine appears normally aligned.? Focal moderate lower cervical spine degenerative changes are seen. ? ? IMPRESSION:? No significant acute intracranial abnormality is seen. ? Bilateral thalamic stimulators are seen. ? No significant intracranial arterial abnormality is seen.? ? Within the arteries of the neck, no hemodynamically significant stenosis can be seen. ? ? Any quantitative measurements of stenosis were performed using NASCET criteria.? ? ? Dictated by: Lance Locke M.D. on 12/08/2021 at 13:00? ECG Data Interpretation: Probable sinus rhythm however loss of artifact from deep brain stimulator no obvious ST changes MDM Narrative Medical decision making narrative: Patient presents with inability to speak. initially reported confusion and not being able to understand him however he was not actually able to get his voice out but he was able to whisper and he was not speaking gibberish or slurring his words. Patient thought he was having a stroke because postoperatively he could not speak and also had facial droop today he does not have facial droop. He has a little worsening dizziness. The always has dizziness. He does have some ataxia but a bilateral arms he also has some shaking a Parkinson's which might be contributing to this as well he certainly has no weakness. Patient's symptoms have completely resolved CT angio was negative. Patient cannot get an MRI because of his deep brain stimulator this time symptoms are very abnormal for any sort of stroke. Discharge Plan Departure Patient Disposition: Home Clinical Impression: Hoarse voice quality Instructions: DI for Transient Ischemic Attack Activity Restrictions/Additional Instructions: *You have been diagnosed with hoarse voice *What to do: At this time not being able test speak is not white a sign of a stroke. Please monitor her weakness facial droop worsening dizziness unable to understand his words severe confusion. I am glad you brought him in today. Workup today is negative fast scan is negative in blood work is reassuring. Please continue on daily aspirin. *Continue to take medications as directed *Follow up with your primary care provider in 2-3 days or call [phone] *Return to ER if you should have any of the above symptoms or any new, worsening or concerning symptoms Prescriptions: No Action naproxen sodium [Aleve] 220 MG tablet 220 mg PO BIDCC Qty: 0 lamotrigine 200 mg tablet 200 mg PO DAILY cetirizine 10 mg tablet 10 mg PO DAILY PRN (Reason: allergies) Label Comments: TAKE 1 TABLET BY MOUTH ONCE DAILY NEEDED FOR CONGESTION glipizide 10 mg tablet 10 mg PO BID felodipine 5 mg tablet extended release 24 hr 5 mg PO DAILY nortriptyline 25 mg capsule 25 mg PO BEDTIME alprazolam 0.25 mg tablet 0.25 mg PO TID PRN (Reason: Anxiety) esomeprazole magnesium 40 mg capsule,delayed release(DR/EC) 40 mg PO DAILY pramipexole 0.25 mg tablet 0.25 mg PO BEDTIME gabapentin 300 mg capsule 300 mg PO QID doxazosin 4 mg tablet 4 mg PO DAILY allopurinol 300 mg tablet 300 mg PO DAILY metformin 500 mg tablet extended release 24 hr 1,000 mg PO BID rosuvastatin 20 mg tablet 20 mg PO DAILY duloxetine 60 mg capsule,delayed release(DR/EC) 60 mg PO DAILY rasagiline [Azilect] 1 mg tablet 1 mg PO DAILY carbidopa-levodopa 50-200 mg tablet extended release 1 tab PO 6XD oxycodone-acetaminophen [Percocet] 5-325 mg tablet 1 tab PO Q4-6H PRN (Reason: pain) Qty: 10 0RF Referrals: Jonatan Bales MD [Primary Care Provider] - Visit Report Forms: Patient Portal/API
--- NOTE | 2021-12-08 13:24 | DI.CT.S_ITS ---
PROCEDURE: CT ANGIO HEAD AND NECK INDICATIONS: speech difficulty now resolved. TECHNIQUE: Pre-contrast 4.5 mm thick sections acquired from the foramen magnum to the vertex. After the administration of intravenous contrast, 1 mm thick sections acquired from the aortic arch through the [place] of [place]. Post-contrast 4.5 mm thick sections then re-acquired from the foramen magnum to the vertex. 3-dimensional gxnwzlm-kkxrbtihe-kmjhchcbha (MIP) and/or volume rendering reformats were acquired of the central intracranial vasculature and neck separately. For radiation dose reduction, the following was used: automated exposure control, adjustment of mA and/or kV according to patient size. COMPARISON: [facility], CT, CT ANGIO HEAD AND NECK, 04/16/2021, 11:27. FINDINGS: Image quality: There is artifact associated with the metallic hardware. Artifact from the metallic hardware is reduced by metal reconstruction algorithm. BRAIN: CSF spaces: Ventricles are normal in size and shape. Basal cisterns are patent. No extra-axial fluid collections. Brain: Bilateral thalamic stimulators are seen. No midline shift. No intracranial bleeds or masses. Sandoval-white matter interface appears intact. Skull and face: Calvarium and facial bones appear intact, without suspicious lesions. Orbits appear normal. Sinuses: Sinuses and mastoids are clear. HEAD CT ANGIOGRAPHY: Anterior circulation: Intracranial internal carotid arteries are normal in size and flow. The flow within the paired anterior cerebral arteries is normal and symmetric. The flow within the middle cerebral arteries is normal and symmetric. The anterior communicating artery is seen. No aneurysms are seen. Posterior circulation: Visualized portions of the vertebral arteries demonstrate normal caliber, and join to form a normal appearing basilar artery. Flow within the posterior cerebral arteries is normal and symmetric. No aneurysms are seen. NECK CT ANGIOGRAPHY: Carotid system: The great vessels demonstrate a conventional anatomy as they arise from the aortic arch. The origins of the common carotid arteries appear patent. The common carotid arteries demonstrate normal caliber and courses. The bifurcation regions are both widely patent. The internal carotid arteries demonstrate normal calibers and courses. Posterior circulation: The origins of the vertebral arteries both appear widely patent. The more superior extracranial portions of both vertebral arteries also demonstrate normal courses and calibers. They join to form a normal appearing basilar artery. Soft tissues: Visualized neck soft tissues demonstrate no suspicious abnormalities. Bones: No suspicious bony lesions. Visualized cervical spine appears normally aligned. Focal moderate lower cervical spine degenerative changes are seen. IMPRESSION: No significant acute intracranial abnormality is seen. Bilateral thalamic stimulators are seen. No significant intracranial arterial abnormality is seen. Within the arteries of the neck, no hemodynamically significant stenosis can be seen. Any quantitative measurements of stenosis were performed using NASCET criteria. Dictated by: Lance Locke M.D. on 12/08/2021 at 13:00 Approved by: Lance Locke M.D. on 12/08/2021 at 13:03
[2021-12-08 13:30] LABS: Creatine Kinase 56 U/L (55-170)
[2021-12-08 13:42] LABS: Troponin I < 0.012 ng/mL (0.01-0.034)
[2021-12-08 14:00] VITALS: BP 139/72; PULSE 71; RESP 18; O2SAT 97
[2021-12-08 14:58] VITALS: BP 133/72; PULSE 61; RESP 17; O2SAT 99
== END 2021-12-08 14:59 | disposition home or self-care (01) ==
PROVIDERS: Emergency Provider Emergency Medicine; Family Provider Internal Medicine; PCP Internal Medicine
DX: R49.0 Dysphonia (principal); R42 Dizziness and giddiness; R07.9 Chest pain, unspecified
CPT/HCPCS: 36415; 70496; 70498; 80053; 82550; 84484; 85025; 93005; 99284

== ENCOUNTER → 2021-12-19 13:42 | Outpatient (CLI) | payer MEDICARE, OTHER, SELFPAY ==
[2021-12-19 14:02] LABS: Add Manual Diff / Slide Review NO; Basophils Absolute Auto 100 /uL (0-100); Basophils Percent Auto 0.7 % (0-2); Eosinophils Absolute Auto 300 /uL (0-450); Eosinophils Percent Auto 3.5 % (2-4); Hemoglobin 13.7 g/dL (13.5-17.5); Lymphocytes Absolute Auto 1900 /uL (1100-4500); Lymphocytes Percent Auto 22.7 % (25-40); Mean Corpuscular HGB Conc 33.3 % (30-36); Mean Corpuscular Hemoglobin 33.2 PG (26-34); Mean Corpuscular Volume 99.6 fL (80-100); Monocytes Absolute Auto 1000 /uL (0-900); Monocytes Percent Auto 11.8 % (3-14); Neutrophils Absolute Auto 5100 /uL (1500-7000); Neutrophils Percent Auto 61.3 % (50-75); Platelet Count 226 X10^3/uL (150-400); Red Blood Cell Count 4.12 X10^6/uL (4.5-5.9); Red Cell Distribution Width 14.4 % (11.6-14.8); White Blood Cell Count 8.3 X10^3/uL (4.5-11.0)
[2021-12-19 14:36] LABS: Alanine Aminotransferase 11 IU/L (<50); Albumin 4.1 g/dL (3.5-5.0); Albumin Globulin Ratio 1.6 (1.0-2.8); Alkaline Phosphatase 165 U/L (38-126); Aspartate Aminotransferase 27 IU/L (17-59); BUN Creatinine Ratio 22.2 (6-22); Bilirubin Total 0.3 mg/dL (0.2-1.3); Blood Urea Nitrogen 22 mg/dL (9-20); Calcium 9.7 mg/dL (8.4-10.2); Carbon Dioxide 28 mmol/L (22-32); Chloride 99 mmol/L (98-107); Estimated Glomerular Filt Rate > 60 mL/min (>60); Globulin 2.5 g/dL (1.7-4.1); Glucose 264 mg/dL (80-110); HEMOLYSIS < 15 (0-50); Potassium 4.4 mmol/L (3.4-5.1); Sodium 137 mmol/L (137-145); Total Protein 6.6 g/dL (6.3-8.2)
[2021-12-23 16:54] LABS: Chromogranin A, Serum 60.2 ng/mL (0.0-101.8)
== END ==
PROVIDERS: Family Provider Internal Medicine; PCP Internal Medicine; Referring Provider Internal Medicine; Visit Provider Internal Medicine
DX: C7A.8 Other malignant neuroendocrine tumors (principal); C7B.8 Other secondary neuroendocrine tumors
CPT/HCPCS: 36415; 80053; 85025; 86316

== ENCOUNTER → 2022-04-18 12:29 | Outpatient (CLI) | payer MEDICARE, OTHER, SELFPAY ==
[2022-04-18 13:16] LABS: Influenza A - CEPHEID Flu A NEGATIVE (NEGATIVE); Influenza B - CEPHEID Flu B NEGATIVE (NEGATIVE); Respiratory Syncytial Virus Negative (Negative)
[2022-04-18 13:43] LABS: COVID-19 CEPHEID 4-PLEX PCR POSITIVE (Negative)
== END ==
PROVIDERS: Family Provider Internal Medicine; PCP Internal Medicine; Visit Provider Physician Assistant
DX: U07.1 COVID-19 (principal); J34.89 Other specified disorders of nose and nasal sinuses; Z20.822 Contact with and (suspected) exposure to COVID-19
CPT/HCPCS: 0241U

== ENCOUNTER 2022-04-29 09:21 | Emergency (ER) | payer MEDICARE, OTHER, SELFPAY ==
[2022-04-29 09:32] VITALS: BP 117/65; PULSE 72; RESP 18; TEMP 36.4; O2SAT 88; O2SAT 95; BMI 38.0
[2022-04-29 09:33] VITALS: BP 117/65; PULSE 71; O2SAT 91
--- NOTE | 2022-04-29 09:35 | DI.RAD.S_ITS ---
PROCEDURE: XR CHEST 2V INDICATIONS: cough TECHNIQUE: 2 views of the chest were acquired. COMPARISON: [facility], CR, XR CHEST 2V, 08/07/2021, 14:27. FINDINGS: Surgical changes and devices: Left chest wall neurostimulator device is in place. Lungs and pleura: No pleural effusions or pneumothorax. Minimal streaky bibasilar opacities likely representing atelectasis. No focal consolidations. Lungs are otherwise clear. Mediastinum: Mediastinal contours are normal. Heart size is normal. Bones and chest wall: No suspicious bony abnormalities. Soft tissues appear unremarkable. IMPRESSION: Minimal streaky bibasilar opacities favored to represent atelectasis. No focal consolidations. Otherwise, no acute cardiopulmonary abnormality seen. Dictated by: Alejo Rogers M.D. on 04/29/2022 at 10:13 Approved by: Alejo Rogers M.D. on 04/29/2022 at 10:14
--- NOTE | 2022-04-29 09:37 | ED_ITS ---
HPI - Eye Problem General Chief complaint: Eye Problems Stated complaint: rt eye pain /covid+ t-14 Time Seen by Provider: 04/29/22 09:25 History of Present Illness HPI Narrative: 71M former smoker with history of stroke, seizure, Parkinson's and 2 weeks removed from COVID diagnosis states he has been having redness and discomfort in his right eye for least 1-2 weeks. He denies any trauma or injury. He denies any blurred or double vision. He denies any drainage or exudate but states it has been tearing a bit. He denies any foreign body, welding, UV exposure. He does not wear contacts. He states he is got a mild right-sided headache Related Data Home Medications Medication Instructions Recorded Confirmed naproxen sodium 220 mg tablet 220 mg PO BIDCC #0 tabs 01/24/16 04/18/22 (Aleve) allopurinol 300 mg tablet 300 mg PO DAILY 12/23/19 04/18/22 alprazolam 0.25 mg tablet 0.25 mg PO TID PRN Anxiety 12/23/19 04/18/22 carbidopa ER 50 mg-levodopa 200 mg 1 tab PO 6XD 12/23/19 04/18/22 tablet,extended release cetirizine 10 mg tablet 10 mg PO DAILY PRN allergies 12/23/19 04/18/22 doxazosin 4 mg tablet 4 mg PO DAILY 12/23/19 04/18/22 duloxetine 60 mg capsule,delayed 60 mg PO DAILY 12/23/19 04/18/22 release esomeprazole magnesium 40 mg 40 mg PO DAILY 12/23/19 04/18/22 capsule,delayed release felodipine 5 mg tablet,extended 5 mg PO DAILY 12/23/19 04/18/22 release 24 hr gabapentin 300 mg capsule 300 mg PO QID 12/23/19 04/18/22 glipizide 10 mg tablet 10 mg PO BID 12/23/19 04/18/22 lamotrigine 200 mg tablet 200 mg PO DAILY 12/23/19 04/18/22 metformin 500 mg tablet,extended 1,000 mg PO BID 12/23/19 04/18/22 release 24 hr nortriptyline 25 mg capsule 25 mg PO BEDTIME 12/23/19 04/18/22 pramipexole 0.25 mg tablet 0.25 mg PO BEDTIME 12/23/19 04/18/22 rasagiline 1 mg tablet (Azilect) 1 mg PO DAILY 12/23/19 04/18/22 rosuvastatin 20 mg tablet 20 mg PO DAILY 12/23/19 04/18/22 Previous Rx's Medication Instructions Recorded oxycodone-acetaminophen 5 mg-325 1 tab PO Q4-6H PRN pain #10 tabs 12/23/19 mg tablet (Percocet) doxycycline hyclate 100 mg tablet 100 mg PO BID #20 tabs 04/29/22 Allergies Allergy/AdvReac Type Severity Reaction Status Date / Time No Known Drug Allergies Allergy Verified 04/29/22 09:37 Review of Systems Review of Systems Narrative: GENERAL: See HPI HEENT: See HPI RESPIRATORY: Denies dyspnea, cough, wheezing, hemoptysis, sputum. CARDIOVASCULAR: Denies chest pain, palpitations, orthopnea, edema, GASTROINTESTINAL: Denies nausea, vomiting, abdominal pain, diarrhea, constipation, melena. : Denies dysuria, frequency, incontinence, hematuria, urinary retention. MUSCULOSKELETAL: denies weakness, joint pain, or bony pain SKIN: Denies rash, skin lesions, or other NEUROLOGIC: Denies weakness, headache, numbness, change in speech, confusion, seizures, incoordination. PSYCHIATRIC: No concerning psychosocial issues. 12 point review of systems is negative except for those stated above Patient History Medical History Arthritis Asthma Depression Diabetes Pancreatic tumor Parkinsons disease Sleep apnea Viral URI with cough Surgical History H/O vasectomy Hx of parathyroidectomy Hx of splenectomy S/P deep brain stimulator placement S/P excision of lipoma Status post correction of deviated nasal septum Status post fusion of wrist Status post nail surgery (03/22/18) Social History household members: spouse Smoking Status: Former smoker alcohol intake: current Smoking Status: Former smoker alcohol intake frequency: 0-2 drinks per day Substance Use Type: marijuana Exam Narrative Exam Narrative: GENERAL: [71] year old patient appears stated age. Well-developed patient, in mild distress. HEAD: Atraumatic. Normocephalic. EYES: Pupils equal round and reactive. Extraocular motions intact though painful. No scleral icterus. Does have injection in his right eye, no obvious chemosis, no foreign body, upper lid everted. No change in his discomfort with use of proparacaine. No dye uptake with fluorescein. Rick-Pen notes pressure in right eye 17mmHg ENT: Nose without bleeding, purulent drainage. Throat without erythema, tonsillar hypertrophy or exudate. Airway patent. NECK: Trachea midline. Non tender CARDIOVASCULAR: Regular rate and rhythm without murmurs, gallops, or rubs. RESPIRATORY: Clear to auscultation. Breath sounds equal bilaterally. No wheezes, rales, or rhonchi. GASTROINTESTINAL: Abdomen soft, non-tender, nondistended. EXTREMITIES: No edema or joint tenderness. BACK: Nontender without deformity or crepitance. No flank tenderness. NEURO: AOx3. SKIN: No rash or erythema of visible areas Initial Vital Signs Initial Vital Signs: Vital Signs Temperature 97.6 F 04/29/22 09:32 Pulse Rate 72 04/29/22 09:32 Respiratory Rate 18 04/29/22 09:32 Blood Pressure 117/65 04/29/22 09:32 Pulse Oximetry 95 04/29/22 09:32 Oxygen Delivery Method 04/29/22 09:32 Course Course Course Narrative: Patient has unremarkable findings on visual acuity and given his pain with extraocular motion, no change with proparacaine, no dye uptake or other obvious explanation patient will be given an IV with labs and CT of his orbit to rule out cellulitis or abscess Orders Ordered: ED Orders 04/29/22 09:35 Chest [XR chest 2V] Stat 04/29/22 10:53 CT orbit BI w con Stat 04/29/22 10:54 C-Reactive Protein Quant Stat Comprehensive Metabolic Panel Stat 04/29/22 11:30 ALT [Alanine Aminotransferase] Stat Alkaline Phosphatase Stat Bilirubin Total Stat CBC Auto Diff [Complete Blood Count AUTO DIFF] Stat ESR [Erythrocyte Sedimentation Rate] Stat Lipase Stat Discontinued Medications Fluorescein Sodium (Fluorescein 1 Mg Strip) 1 mg EYE-RIGHT NOW ONE Stop: 04/29/22 09:36 Last Admin: 04/29/22 09:40 Dose: 1 mg Documented By: KLBoni Proparacaine HCl (Proparacaine 0.5% Ophth Penny) 1 drops EYE-RIGHT NOW ONE Stop: 04/29/22 09:36 Last Admin: 04/29/22 09:40 Dose: 1 drop Documented By: LAST Vital Signs Vital signs: Vital Signs - 8 hr 04/29/22 09:32 04/29/22 09:32 04/29/22 09:33 Temperature 97.6 F Pulse Rate 72 71 Respiratory Rate 18 Blood Pressure 117/65 Pulse Oximetry 95 88 L 91 Oxygen Delivery Method Room Air 04/29/22 09:33 04/29/22 10:00 04/29/22 11:52 Temperature Pulse Rate 63 57 L Respiratory Rate 20 Blood Pressure 117/65 Pulse Oximetry 97 96 Oxygen Delivery Method Room Air MDM - Eye Problem Lab Data Result diagrams: 04/29/22 11:30 04/29/22 10:54 Labs: Lab Results 04/29/22 04/29/22 04/29/22 Range/Units 10:54 11:30 11:30 WBC 5.2 (4.5-11.0) X10^3/uL RBC 3.86 L (4.5-5.9) X10^6/uL Hgb 13.2 L (13.5-17.5) g/dL Hct 39.5 L (41-53) % MCV 102.3 H (80-100) fL MCH 34.2 H (26-34) PG MCHC 33.4 (30-36) % RDW 14.9 H (11.6-14.8) % Plt Count 215 (150-400) X10^3/uL Neut % (Auto) 61.3 (50-75) % Lymph % (Auto) 22.4 L (25-40) % Waller % (Auto) 13.8 (3-14) % Eos % (Auto) 2.3 (2-4) % Baso % (Auto) 0.2 (0-2) % Neut # (Auto) 3200 (8027-3339) /uL Lymph # (Auto) 1200 (2257-6501) /uL Waller # (Auto) 700 (0-900) /uL Eos # (Auto) 100 (0-450) /uL Baso # (Auto) 0 (0-100) /uL ESR 14 (0-15) MM/HR Sodium 134 L (137-145) mmol/L Potassium 4.3 (3.4-5.1) mmol/L Chloride 96 L (98-107) mmol/L Carbon Dioxide 30 (22-32) mmol/L BUN 15 (9-20) mg/dL Creatinine 0.75 (0.66-1.25) mg/dL Estimated GFR > 60 (>60) mL/min BUN/Creatinine Ratio 20.0 (6-22) Glucose 203 H (80-110) mg/dL Calcium 9.3 (8.4-10.2) mg/dL Total Bilirubin 0.5 (0.2-1.3) mg/dL AST 24 (17-59) IU/L ALT 7 (<50) IU/L Alkaline Phosphatase 125 (38-126) U/L C-Reactive Protein < 0.5 (<1.0) mg/dL Total Protein 7.5 (6.3-8.2) g/dL Albumin 4.1 (3.5-5.0) g/dL Globulin 3.4 (1.7-4.1) g/dL Albumin/Globulin Ratio 1.2 (1.0-2.8) Lipase (23-300) U/L // Range/Units 11:30 WBC (4.5-11.0) X10^3/uL RBC (4.5-5.9) X10^6/uL Hgb (13.5-17.5) g/dL Hct (41-53) % MCV (80-100) fL MCH (26-34) PG MCHC (30-36) % RDW (11.6-14.8) % Plt Count (150-400) X10^3/uL Neut % (Auto) (50-75) % Lymph % (Auto) (25-40) % Waller % (Auto) (3-14) % Eos % (Auto) (2-4) % Baso % (Auto) (0-2) % Neut # (Auto) (8786-6235) /uL Lymph # (Auto) (8651-3871) /uL Waller # (Auto) (0-900) /uL Eos # (Auto) (0-450) /uL Baso # (Auto) (0-100) /uL ESR (0-15) MM/HR Sodium (137-145) mmol/L Potassium (3.4-5.1) mmol/L Chloride (98-107) mmol/L Carbon Dioxide (22-32) mmol/L BUN (9-20) mg/dL Creatinine (0.66-1.25) mg/dL Estimated GFR (>60) mL/min BUN/Creatinine Ratio (6-22) Glucose (80-110) mg/dL Calcium (8.4-10.2) mg/dL Total Bilirubin 0.6 (0.2-1.3) mg/dL AST (17-59) IU/L ALT 8 (<50) IU/L Alkaline Phosphatase 123 (38-126) U/L C-Reactive Protein (<1.0) mg/dL Total Protein (6.3-8.2) g/dL Albumin (3.5-5.0) g/dL Globulin (1.7-4.1) g/dL Albumin/Globulin Ratio (1.0-2.8) Lipase 27 (23-300) U/L Imaging Data Chest x-ray: Radiologist's Impression: [address] [address] XRay Report Signed Patient: Arvind Hinds MR#: [id number] : 1950 Acct:[id number] Age/Sex: 71 / M Date of Service: 04/29/22 Loc: ED Accession Number: [id number] ?? Procedure: XR chest 2V Ordering Provider: Fidencio Brown D.O. PROCEDURE:? XR CHEST 2V ? INDICATIONS:? cough ? TECHNIQUE:? 2 views of the chest were acquired.? ? COMPARISON:? [facility], [place], XR CHEST 2V, 08/07/2021, 14:27. ? FINDINGS:? ? Surgical changes and devices:? Left chest wall neurostimulator device is in place. ? Lungs and pleura:? No pleural effusions or pneumothorax.? Minimal streaky bibasilar opacities likely representing atelectasis.? No focal consolidations.? Lungs are otherwise clear. ? Mediastinum:? Mediastinal contours are normal.? Heart size is normal.? ? Bones and chest wall:? No suspicious bony abnormalities.? Soft tissues appear unremarkable.? ? IMPRESSION:? Minimal streaky bibasilar opacities favored to represent atelectasis.? No focal consolidations.? Otherwise, no acute cardiopulmonary abnormality seen. ? ? Dictated by: Alejo Rogers M.D. on 04/29/2022 at 10:13 ? ? Approved by: Alejo Rogers M.D. on 04/29/2022 at 10:14 ? CT Facial Bones : Radiologist's Impression: [address] [id number] Scan ReportSigned Patient: Arvind Hinds RMR#: [id number]: 1950cct:[id number]/Sex: 71 / MDate of Service: 04/29/22Loc: EDAccession Number: [id number] Procedure: CT orbit BI w con Ordering Provider: Fidencio Brown D.O. PROCEDURE: CT ORBIT BI W CON INDICATIONS: pain with EOM, redness, orbital cellulitis vs. other TECHNIQUE: After the administration of intravenous contrast, 2.5 mm axial images acquired through the orbits, with coronal and sagittal reformats. For radiation dose reduction, the following was used: automated exposure control, adjustment of mA and/or kV according to patient size. COMPARISON: None. FINDINGS: Image quality: Excellent. Orbits: Globes are symmetrical. The optic nerves are normal in size and enhancement. No retrobulbar masses or fat abnormalities. The extra-ocular muscles are normal and symmetrical in appearance. Lacrimal glands are normal. Optic chiasm is normal. There is a degree of bilateral forehead edema above the globes, right greater than left, which may represent facial cellulitis. No soft tissue gas or fluid collection. Intracranial: The pituitary gland is normal, without sellar or suprasellar masses. Visualized cerebral hemispheres, brainstem, and spinal cord appear normal. Bilateral deep brain stimulators are noted, incompletely imaged. Bones and sinuses: Visualized calvarium and facial bones appear intact. Mucosal thickening of the inferior left maxillary sinus. Minimal patchy bilateral ethmoid disease. Bilateral fartun bullosa. There is an air-fluid level present in the right fartun bullosa. There is a mucous retention cyst in the left sphenoid sinus. IMPRESSION: 1. Findings suggest possible supraorbital facial cellulitis. 2. Globes and orbits intact. 3. Chronic sinus disease. Findings include an air-fluid level in a right middle nasal turbinate fartun bullosa, possibly indicating acute infected fluid within the fartun bullosa. Dictated by: Red Washington M.D. on 04/29/2022 at 12:17 Approved by: Red Washington M.D. on 04/29/2022 at 12:23 [facility] Narrative Medical decision making narrative: 71M former smoker with history of stroke, seizure, Parkinson's presents with his in the chief complaint of a red painful eye in the absence of any visual disturbance or injury Multiple etiologies for patient's symptoms considered including: [Conjunctivitis, corneal abrasion, zoster ophthalmicus, acute angle closure glaucoma, orbital cellulitis versus other Conjunctivitis, corneal abrasion and zoster ophthalmicus all considered but thought unlikely based on exam. There is no exudate, there is no dye uptake with fluorescein and no forehead rash. Acute angle closure glaucoma considered but thought unlikely given lack of visual change, pupil is responding appropriately and pressures are normal. Septal and preseptal cellulitis considered. Patient has no proptosis or vision change and no imaging findings to suggest orbital cellulitis. Furthermore patient has no fever or elevated white blood cell count.] Patient's symptoms improved over duration of stay with above-stated therapies. Findings and discharge diagnosis discussed with patient/family followed by verbalization of understanding Return precautions discussed with patient/family whom verbalize understanding. Discharge Plan Departure Patient Disposition: Home Clinical Impression: Cellulitis of face Instructions: DI for Cellulitis -- Adult Activity Restrictions/Additional Instructions: *You have been diagnosed with [right-sided facial cellulitis. As we discussed there is no evidence of ocular involvement which is reassuring.] *What to do: *Please continue to take your regular medications as directed. [x ] New medication prescriptions sent to your pharmacy: [ [facility] [place]] [ ] New medication written as a paper prescription [ ] No new medications given *Please follow up with your primary care provider in 2-3 days, call for an appointment. Let them know you were seen in the Emergency Department and that we ask that you be seen in follow up. We will electronically transmit a record of today's note if your PCP is in our system * also, as we discussed I have included contact information for the local eye doctors. Please give them a call, let them know you were seen in the emergency department and we would like you seen in follow-up *Return to Emergency Department if you should have any new, worsening or concerning symptoms, such as [fever greater than 101 F, shaking chills, worsening pain, persistent vomiting or other bothersome symptoms] Prescriptions: New doxycycline hyclate 100 mg tablet 100 mg PO BID Qty: 20 0RF No Action naproxen sodium [Aleve] 220 MG tablet 220 mg PO BIDCC Qty: 0 lamotrigine 200 mg tablet 200 mg PO DAILY cetirizine 10 mg tablet 10 mg PO DAILY PRN (Reason: allergies) Label Comments: TAKE 1 TABLET BY MOUTH ONCE DAILY NEEDED FOR CONGESTION glipizide 10 mg tablet 10 mg PO BID felodipine 5 mg tablet extended release 24 hr 5 mg PO DAILY nortriptyline 25 mg capsule 25 mg PO BEDTIME alprazolam 0.25 mg tablet 0.25 mg PO TID PRN (Reason: Anxiety) esomeprazole magnesium 40 mg capsule,delayed release(DR/EC) 40 mg PO DAILY pramipexole 0.25 mg tablet 0.25 mg PO BEDTIME gabapentin 300 mg capsule 300 mg PO QID doxazosin 4 mg tablet 4 mg PO DAILY allopurinol 300 mg tablet 300 mg PO DAILY metformin 500 mg tablet extended release 24 hr 1,000 mg PO BID rosuvastatin 20 mg tablet 20 mg PO DAILY duloxetine 60 mg capsule,delayed release(DR/EC) 60 mg PO DAILY rasagiline [Azilect] 1 mg tablet 1 mg PO DAILY carbidopa-levodopa 50-200 mg tablet extended release 1 tab PO 6XD oxycodone-acetaminophen [Percocet] 5-325 mg tablet 1 tab PO Q4-6H PRN (Reason: pain) Qty: 10 0RF Referrals: Sagar Mendez MD [Physician] - Jonatan Bales MD [Primary Care Provider] -
[2022-04-29] MEDS: FLUORESCEIN 1 MG STRIP EYE-RIGHT (09:40)
[2022-04-29] MEDS: PROPARACAINE 0.5% OPHTH SOL 1 DROPS EYE-RIGHT (09:40)
[2022-04-29 10:00] VITALS: PULSE 63; O2SAT 97
--- NOTE | 2022-04-29 10:53 | DI.CT.S_ITS ---
PROCEDURE: CT ORBIT BI W CON INDICATIONS: pain with EOM, redness, orbital cellulitis vs. other TECHNIQUE: After the administration of intravenous contrast, 2.5 mm axial images acquired through the orbits, with coronal and sagittal reformats. For radiation dose reduction, the following was used: automated exposure control, adjustment of mA and/or kV according to patient size. COMPARISON: None. FINDINGS: Image quality: Excellent. Orbits: Globes are symmetrical. The optic nerves are normal in size and enhancement. No retrobulbar masses or fat abnormalities. The extra-ocular muscles are normal and symmetrical in appearance. Lacrimal glands are normal. Optic chiasm is normal. There is a degree of bilateral forehead edema above the globes, right greater than left, which may represent facial cellulitis. No soft tissue gas or fluid collection. Intracranial: The pituitary gland is normal, without sellar or suprasellar masses. Visualized cerebral hemispheres, brainstem, and spinal cord appear normal. Bilateral deep brain stimulators are noted, incompletely imaged. Bones and sinuses: Visualized calvarium and facial bones appear intact. Mucosal thickening of the inferior left maxillary sinus. Minimal patchy bilateral ethmoid disease. Bilateral fartun bullosa. There is an air-fluid level present in the right fartun bullosa. There is a mucous retention cyst in the left sphenoid sinus. IMPRESSION: 1. Findings suggest possible supraorbital facial cellulitis. 2. Globes and orbits intact. 3. Chronic sinus disease. Findings include an air-fluid level in a right middle nasal turbinate fartun bullosa, possibly indicating acute infected fluid within the fartun bullosa. Dictated by: Red Washington M.D. on 04/29/2022 at 12:17 Approved by: Red Washington M.D. on 04/29/2022 at 12:23
[2022-04-29 11:27] LABS: Alanine Aminotransferase 7 IU/L (<50); Albumin 4.1 g/dL (3.5-5.0); Albumin Globulin Ratio 1.2 (1.0-2.8); Alkaline Phosphatase 125 U/L (38-126); Aspartate Aminotransferase 24 IU/L (17-59); Bilirubin Total 0.5 mg/dL (0.2-1.3); Blood Urea Nitrogen 15 mg/dL (9-20); C-Reactive Protein Quant < 0.5 mg/dL (<1.0); Calcium 9.3 mg/dL (8.4-10.2); Carbon Dioxide 30 mmol/L (22-32); Chloride 96 mmol/L (98-107); Estimated Glomerular Filt Rate > 60 mL/min (>60); Globulin 3.4 g/dL (1.7-4.1); Glucose 203 mg/dL (80-110); HEMOLYSIS 39 (0-50); Potassium 4.3 mmol/L (3.4-5.1); Sodium 134 mmol/L (137-145); Total Protein 7.5 g/dL (6.3-8.2)
[2022-04-29 11:52] VITALS: PULSE 57; RESP 20; O2SAT 96
[2022-04-29 11:55] LABS: Erythrocyte Sedimentation Rate 14 MM/HR (0-15)
[2022-04-29 12:00] VITALS: BP 116/60; PULSE 58; RESP 17; O2SAT 100
[2022-04-29 12:34] LABS: Add Manual Diff / Slide Review NO; Basophils Absolute Auto 0 /uL (0-100); Basophils Percent Auto 0.2 % (0-2); Eosinophils Absolute Auto 100 /uL (0-450); Eosinophils Percent Auto 2.3 % (2-4); Hematocrit 39.5 % (41-53); Hemoglobin 13.2 g/dL (13.5-17.5); Lymphocytes Absolute Auto 1200 /uL (1100-4500); Lymphocytes Percent Auto 22.4 % (25-40); Mean Corpuscular HGB Conc 33.4 % (30-36); Mean Corpuscular Hemoglobin 34.2 PG (26-34); Mean Corpuscular Volume 102.3 fL (80-100); Monocytes Absolute Auto 700 /uL (0-900); Monocytes Percent Auto 13.8 % (3-14); Neutrophils Absolute Auto 3200 /uL (1500-7000); Neutrophils Percent Auto 61.3 % (50-75); Platelet Count 215 X10^3/uL (150-400); Red Blood Cell Count 3.86 X10^6/uL (4.5-5.9); Red Cell Distribution Width 14.9 % (11.6-14.8); White Blood Cell Count 5.2 X10^3/uL (4.5-11.0)
[2022-04-29 12:39] LABS: Alanine Aminotransferase 8 IU/L (<50); Alkaline Phosphatase 123 U/L (38-126); Bilirubin Total 0.6 mg/dL (0.2-1.3); Lipase 27 U/L (23-300)
== END 2022-04-29 13:20 | disposition home or self-care (01) ==
PROVIDERS: Emergency Provider Emergency Medicine; Family Provider Internal Medicine; PCP Internal Medicine
DX: L03.211 Cellulitis of face (principal); R05.9 Cough, unspecified; G20 Parkinson's disease; Z86.16 Personal history of COVID-19; Z79.899 Other long term (current) drug therapy
CPT/HCPCS: 36415; 70481; 71046; 80053; 82247; 83690; 84075; 84460; 85025; 85651; 86140; 99284; Q9967

== ENCOUNTER 2022-06-16 19:31 | Emergency (ER) | payer MEDICARE, OTHER, SELFPAY ==
[2022-06-16 19:36] VITALS: BP 145/81; PULSE 73; RESP 20; TEMP 36.4; O2SAT 93; BMI 38.0
--- NOTE | 2022-06-16 19:47 | DI.RAD.S_ITS ---
PROCEDURE: XR FINGER LT MIN 2V INDICATIONS: injury with saw TECHNIQUE: AP hand, 2 views of the 4th digit acquired. COMPARISON: [facility], [place], XR HAND LT MIN 3V, 03/11/2018, 13:04. FINDINGS: Bones: There is mild partial amputation of the tip of the 4th distal phalanx. Prior amputation of the 3rd distal phalanx is demonstrated. There is a chronic mildly displaced nonunited fracture through the tuft of the 2nd distal phalanx. Multiple fixation screws are demonstrated within the carpal bones. The trapezium is surgically absent. There is a chronic fracture of the scaphoid. Moderate degeneration demonstrated at the radiocarpal and distal radioulnar joints. Soft tissues: There is acute soft tissue amputation of the 4th digit distally. No radiopaque foreign bodies. IMPRESSION: 1. Acute partial amputation through the tip of the 4th distal phalanx. 2. Postsurgical and posttraumatic changes demonstrated elsewhere in the hand as described. Dictated by: Oz Velez M.D. on 06/16/2022 at 20:45 Approved by: Oz Velez M.D. on 06/16/2022 at 20:49
[2022-06-16 20:57] VITALS: O2SAT 98
[2022-06-16 20:58] VITALS: BP 154/84; PULSE 70; O2SAT 96
--- NOTE | 2022-06-16 21:07 | ED.UPPEXIN ---
HPI - Extremity Injury (Upper) General Chief Complaint: Extremity Injury, Upper Stated Complaint: cut left 4th finger with a saw Time Seen by Provider: 06/16/22 20:19 Source: patient Mode of arrival: Ambulatory History of Present Illness HPI narrative: 71-year-old male former smoker with history of kidney stones, deep brain stimulator, hypertension presents with his for evaluation of an accidental injury to his left ring finger. He was working with a saw when his finger was accidentally cut resulting in an injury to the tip of his finger. Bleeding had been controlled prior to his arrival. There is soft tissue loss and no obvious bony exposure. He denies any numbness, tingling or weakness. His tetanus will need to be updated. He is otherwise well and free of complaint Related Data Home Medications Medication Instructions Recorded Confirmed naproxen sodium 220 mg tablet 220 mg PO BIDCC #0 tabs 01/24/16 04/18/22 (Aleve) allopurinol 300 mg tablet 300 mg PO DAILY 12/23/19 04/18/22 alprazolam 0.25 mg tablet 0.25 mg PO TID PRN Anxiety 12/23/19 04/18/22 carbidopa ER 50 mg-levodopa 200 mg 1 tab PO 6XD 12/23/19 04/18/22 tablet,extended release cetirizine 10 mg tablet 10 mg PO DAILY PRN allergies 12/23/19 04/18/22 doxazosin 4 mg tablet 4 mg PO DAILY 12/23/19 04/18/22 duloxetine 60 mg capsule,delayed 60 mg PO DAILY 12/23/19 04/18/22 release esomeprazole magnesium 40 mg 40 mg PO DAILY 12/23/19 04/18/22 capsule,delayed release felodipine 5 mg tablet,extended 5 mg PO DAILY 12/23/19 04/18/22 release 24 hr gabapentin 300 mg capsule 300 mg PO QID 12/23/19 04/18/22 glipizide 10 mg tablet 10 mg PO BID 12/23/19 04/18/22 lamotrigine 200 mg tablet 200 mg PO DAILY 12/23/19 04/18/22 metformin 500 mg tablet,extended 1,000 mg PO BID 12/23/19 04/18/22 release 24 hr nortriptyline 25 mg capsule 25 mg PO BEDTIME 12/23/19 04/18/22 pramipexole 0.25 mg tablet 0.25 mg PO BEDTIME 12/23/19 04/18/22 rasagiline 1 mg tablet (Azilect) 1 mg PO DAILY 12/23/19 04/18/22 rosuvastatin 20 mg tablet 20 mg PO DAILY 12/23/19 04/18/22 Previous Rx's Medication Instructions Recorded oxycodone-acetaminophen 5 mg-325 1 tab PO Q4-6H PRN pain #10 tabs 12/23/19 mg tablet (Percocet) doxycycline hyclate 100 mg tablet 100 mg PO BID #20 tabs 04/29/22 cephalexin 500 mg capsule 500 mg PO Q6H 7 days #28 caps 06/16/22 Allergies Allergy/AdvReac Type Severity Reaction Status Date / Time No Known Drug Allergies Allergy Verified 04/29/22 09:37 Review of Systems Review of Systems Narrative: GENERAL: Denies chills, fatigue, malaise, fever, sweats. HEENT: Denies sinus pain, ear pain, sore throat, difficulty swallowing, dizziness. RESPIRATORY: Denies dyspnea, cough, wheezing, hemoptysis, sputum. CARDIOVASCULAR: Denies chest pain, palpitations, orthopnea, edema, GASTROINTESTINAL: Denies nausea, vomiting, abdominal pain, diarrhea, constipation, melena. : Denies dysuria, frequency, incontinence, hematuria, urinary retention. MUSCULOSKELETAL: See HPI SKIN: Denies rash, skin lesions, or other NEUROLOGIC: Denies weakness, headache, numbness, change in speech, confusion, seizures, incoordination. PSYCHIATRIC: No concerning psychosocial issues. 12 point review of systems is negative except for those stated above Patient History Medical History Arthritis Asthma Depression Diabetes Pancreatic tumor Parkinsons disease Sleep apnea Viral URI with cough Surgical History H/O vasectomy Hx of parathyroidectomy Hx of splenectomy S/P deep brain stimulator placement S/P excision of lipoma Status post correction of deviated nasal septum Status post fusion of wrist Status post nail surgery (03/22/18) Social History household members: spouse Smoking Status: Former smoker alcohol intake: current Smoking Status: Former smoker alcohol intake frequency: 0-2 drinks per day Substance Use Type: marijuana Exam Narrative Exam Narrative: GEN: AOx3 and in mild distress EYES: Pupils are equal, round, and reactive to light and accommodation. Extraoccular muscles are intact bilaterally. There is no subconjunctival hemorrhage or exudate. CHEST: Lungs are clear to auscultation bilaterally and free of wheezes, rales, or rhonchi. Heart rate is regular rhythm, there are no murmurs, clicks, rubs, or gallops. There is no chest wall tenderness. ABD: Abdomen is soft and nontender. There is no guarding or rebound. Bowel sounds are normal in all 4 quadrants. There is no mass or organomegaly. EXT: L 4th finger with partial tip amputation, no active bleeding. No obvious bone exposed, some nail involvment. Full ROM, no numbness or tingling. SKIN: Warm, pink, and dry. No erythema or rash Initial Vital Signs Initial Vital Signs: Vital Signs Temperature 97.6 F 06/16/22 19:36 Pulse Rate 73 06/16/22 19:36 Respiratory Rate 20 06/16/22 19:36 Blood Pressure 145/81 H 06/16/22 19:36 Pulse Oximetry 93 06/16/22 19:36 Oxygen Delivery Method 06/16/22 19:36 Procedures Orthopedic Splinting/Casting Injury #1: Side: left Upper Extremity Injury Location: finger Upper Extremity Immobilizer: finger (other) (hemostatic gauze and tube gauze dressing) Course Orders Ordered: ED Orders 06/16/22 19:47 XR finger LT min 2V Stat Discontinued Medications Cefazolin Sodium (Cephalexin 250 Mg Prepack) 1 bottle MISC SEEINSTR ONE Stop: 06/16/22 21:12 Last Admin: 06/16/22 21:25 Dose: 250 mg Documented By: FLORIAN Diphtheria/Tetanus/Acell Pertussis (Tet,Diph,Pertuss(Acell),Vac/Pf 0.5 Ml Syringe) 0.5 ml IM .ONCE ONE Stop: 06/16/22 21:00 Last Admin: 06/16/22 21:25 Dose: 0.5 ml Documented By: FLORIAN Vital Signs Vital signs: Vital Signs - 8 hr 06/16/22 19:36 06/16/22 20:57 06/16/22 20:58 Temperature 97.6 F Pulse Rate 73 70 Respiratory Rate 20 Blood Pressure 145/81 H Pulse Oximetry 93 98 96 Oxygen Delivery Method Room Air 06/16/22 20:58 Temperature Pulse Rate Respiratory Rate Blood Pressure 154/84 H Pulse Oximetry Oxygen Delivery Method MDM - Extremity Injury (Upper) MDM Narrative Medical decision making narrative: [71-year-old male with left 4th finger injury presents with his , story obtained from patient] Multiple etiologies for patient's symptoms considered including, but not limited to: [Laceration, soft tissue loss, tip amputation versus other] Prior Charts reviewed: Multiple prior ED visits Imaging reviewed: Partial tip amputation left 4th finger Accidental injury to patient's left 4th finger with soft tissue loss and partial tip amputation, no active bleeding, otherwise well. Tetanus updated, patient started on antibiotics, hemostatic gauze and dressing, extensive discussion regarding return precautions and importance of close follow-up with Orthopedics Findings and discharge diagnosis discussed with patient/family followed by verbalization of understanding Return precautions discussed with patient/family whom verbalize understanding of diagnosis and plan Discharge Plan Departure Patient Disposition: Home Clinical Impression: Traumatic amputation of fingertip Qualifiers: Encounter type: initial encounter Qualified Code(s): S68.119A - Complete traumatic metacarpophalangeal amputation of unspecified finger, initial encounter Activity Restrictions/Additional Instructions: [left 4th finger partial tip amputation] *What to do: *Please continue to take your regular medications as directed. [ x] New medication prescriptions sent to your pharmacy: [[facility] in [place] ] [ ] New medication written as a paper prescription [x] Tylenol and occasional Motrin for pain *Please follow up with [ Rafa] of [facility] in 2-3 days, call for an appointment. Let them know you were seen in the Emergency Department and that we ask that you be seen in follow up. We will electronically transmit a record of today's note if your PCP is in our system *Return to Emergency Department if you should have any new, worsening or concerning symptoms, such as [worsening pain, significant swelling, cold extremities, numbness, tingling, weakness or other bothersome symptoms Splint Care: Keep splint clean and dry. Elevated affected body part to decrease swelling. OK to use ice pack on the affected body part. Use for 15-20 minutes each time, for 5-6x per day. If you develop worsening pain, numbness, tingling, discoloration of the affected body part, loosen the splint by loosening the JESSE wrap, and either see your doctor for an urgent re-assessment, or return to the Emergency Department. Return to the Emergency Department for any new or worsening symptoms. Prescriptions: New cephalexin 500 mg capsule 500 mg PO Q6H 7 Days Qty: 28 0RF No Action naproxen sodium [Aleve] 220 MG tablet 220 mg PO BIDCC Qty: 0 lamotrigine 200 mg tablet 200 mg PO DAILY cetirizine 10 mg tablet 10 mg PO DAILY PRN (Reason: allergies) Label Comments: TAKE 1 TABLET BY MOUTH ONCE DAILY NEEDED FOR CONGESTION glipizide 10 mg tablet 10 mg PO BID felodipine 5 mg tablet extended release 24 hr 5 mg PO DAILY nortriptyline 25 mg capsule 25 mg PO BEDTIME alprazolam 0.25 mg tablet 0.25 mg PO TID PRN (Reason: Anxiety) esomeprazole magnesium 40 mg capsule,delayed release(DR/EC) 40 mg PO DAILY pramipexole 0.25 mg tablet 0.25 mg PO BEDTIME gabapentin 300 mg capsule 300 mg PO QID doxazosin 4 mg tablet 4 mg PO DAILY allopurinol 300 mg tablet 300 mg PO DAILY metformin 500 mg tablet extended release 24 hr 1,000 mg PO BID rosuvastatin 20 mg tablet 20 mg PO DAILY duloxetine 60 mg capsule,delayed release(DR/EC) 60 mg PO DAILY rasagiline [Azilect] 1 mg tablet 1 mg PO DAILY carbidopa-levodopa 50-200 mg tablet extended release 1 tab PO 6XD oxycodone-acetaminophen [Percocet] 5-325 mg tablet 1 tab PO Q4-6H PRN (Reason: pain) Qty: 10 0RF doxycycline hyclate 100 mg tablet 100 mg PO BID Qty: 20 0RF Referrals: Jonatan Bales MD [Primary Care Provider] - Lavelle Craig MD [Physician] - Stand Alone Forms: Patient Portal/API
[2022-06-16] MEDS: TET,DIPH,PERTUSS(ACELL),VAC/PF 0.5 ML SYRINGE IM (21:25)
[2022-06-16] MEDS: cephALEXin 250 MG PREPACK 1 BOTTLE MISC (21:25)
== END 2022-06-16 21:35 | disposition home or self-care (01) ==
PROVIDERS: Emergency Provider Emergency Medicine; Family Provider Internal Medicine; PCP Internal Medicine
DX: S68.125A Partial traumatic metacarpophalangeal amputation of left ring finger, initial encounter (principal); W27.0XXA Contact with workbench tool, initial encounter; Z79.899 Other long term (current) drug therapy; Z23 Encounter for immunization
CPT/HCPCS: 73140; 90471; 99283; 90715

== ENCOUNTER → 2022-07-01 08:48 | Outpatient (CLI) | payer MEDICARE, OTHER, SELFPAY | PROVIDERS: Family Provider Internal Medicine; PCP Internal Medicine; Referring Provider Emergency Medicine; Visit Provider Surgery | DX: S61.215A Laceration without foreign body of left ring finger without damage to nail, initial encounter (principal); G20 Parkinson's disease | CPT/HCPCS: 97597; 99203; 99213 ==

== ENCOUNTER → 2022-07-08 09:47 | Outpatient (CLI) | payer MEDICARE, OTHER, SELFPAY | PROVIDERS: Family Provider Internal Medicine; PCP Internal Medicine; Referring Provider Emergency Medicine; Visit Provider Surgery | DX: S61.215A Laceration without foreign body of left ring finger without damage to nail, initial encounter (principal); G20 Parkinson's disease; C61 Malignant neoplasm of prostate | CPT/HCPCS: 97597 ==

== ENCOUNTER → 2022-07-22 10:05 | Outpatient (CLI) | payer MEDICARE, OTHER, SELFPAY | PROVIDERS: Family Provider Internal Medicine; PCP Internal Medicine; Referring Provider Internal Medicine; Visit Provider Surgery | DX: S61.215A Laceration without foreign body of left ring finger without damage to nail, initial encounter (principal); G20 Parkinson's disease; C25.9 Malignant neoplasm of pancreas, unspecified; Z92.21 Personal history of antineoplastic chemotherapy | CPT/HCPCS: 97597 ==

== ENCOUNTER → 2022-08-06 10:12 | Outpatient (CLI) | payer MEDICARE, OTHER, SELFPAY | PROVIDERS: Family Provider Internal Medicine; PCP Internal Medicine; Referring Provider Emergency Medicine; Visit Provider Surgery | DX: S61.215A Laceration without foreign body of left ring finger without damage to nail, initial encounter (principal) | CPT/HCPCS: 97597; 99213 ==

== ENCOUNTER 2022-08-25 10:41 | Observation (INO) | payer MEDICARE, OTHER, SELFPAY ==
[2022-08-25] VITALS (46 sets, daily range): BP systolic 148–171; BP diastolic 85–98; PULSE 52–83; RESP 12–26; TEMP 36.5–36.8; O2SAT 91–98; BMI 38.9
--- NOTE | 2022-08-25 | DI.CT.S_ITS ---
PROCEDURE: CT STROKE INDICATIONS: STROKE SYMPTOMS TECHNIQUE: Noncontrast 4.5 mm thick angled axial sections acquired from the foramen magnum to the vertex, with coronal reformats. For radiation dose reduction, the following was used: automated exposure control, adjustment of mA and/or kV according to patient size. COMPARISON: [facility], CT, CT HEAD/BRAIN WO CON, 04/16/2021, 10:56. [facility], CT, CT ORBIT BI W CON, 04/29/2022, 11:45. [facility], CT, CT ANGIO HEAD AND NECK, 12/08/2021, 12:54. FINDINGS: Image quality: There is artifact associated with the metallic hardware. CSF spaces: Basal cisterns are patent. No extra-axial fluid collections. The ventricles are symmetric in size and shape. Brain: Bilateral thalamic stimulators can be seen. No intracranial bleeds or masses. There is cerebral volume loss for age, with resultant ventricular and sulcal prominence. There are periventricular and deep white matter chronic small vessel ischemic changes. There is intracranial internal carotid artery atherosclerosis. Skull and face: Calvarium and visualized facial bones appear intact, without suspicious lesions. Sinuses: Bilateral fartun bullosa can be seen. There is mucosal thickening within the right fartun bullosa. There is also a likely mucous retention cyst along the posterior aspect the left sphenoid sinus. Visualized sinuses and mastoids are otherwise relatively clear. IMPRESSION: Limited study demonstrating no acute intracranial hemorrhage. Bilateral thalamic stimulators can be seen, with associated streak artifact. Note: Case discussed by telephone with Dr. Brown at 9:55 a.m. [place] time on August 24, 2022. This study fulfills neurological imaging criteria for inclusion or exclusion of acute stroke therapies based on available published neurological guidelines. Dictated by: Lance Locke M.D. on 08/25/2022 at 9:53 Approved by: Lance Locke M.D. on 08/25/2022 at 9:57
--- NOTE | 2022-08-25 | DI.CT.S_ITS ---
PROCEDURE: CT ANGIO HEAD AND NECK INDICATIONS: STROKE SYMPTOMS TECHNIQUE: After the administration of intravenous contrast, 1 mm thick sections acquired from the aortic arch through the [place] of [place]. Post-contrast 4.5 mm thick sections then re-acquired from the foramen magnum to the vertex. 3-dimensional znardyv-aujiluqvo-frttuywodc (MIP) and/or volume rendering reformats were acquired of the central intracranial vasculature and neck separately. For radiation dose reduction, the following was used: automated exposure control, adjustment of mA and/or kV according to patient size. COMPARISON: [facility], CT, CT ANGIO HEAD AND NECK, 12/08/2021, 12:54. FINDINGS: Image quality: Good HEAD ANGIOGRAPHY Anterior circulation: ICAs: Mild bilateral cavernous carotid calcifications ACAs: Normal and symmetric MCAs: Normal and symmetric AComm: No aneurysm Venous sinuses: patent Intracranial stimulator leads in place. Posterior circulation: Dominance: Slightly left dominant Vertebral arteries: No stenosis or occlusion. No aneurysm. Basilar artery: Unremarkable PComms: No aneurysm marketing analyst: Unremarkable NECK ANGIOGRAPHY Aortic arch and subclavian arteries: Normal flow, no aneurysm. CCAs: No stenosis, occlusion, or aneurysm. ICA origins (by NASCET criteria): No hemodynamically significant narrowing. ICAs: No stenosis, occlusion or aneurysm. ECAs: Origins are patent. Vertebral arteries: [id number] narrowing at the left vertebral artery origin Soft tissues: No significant mass, aneurysm, or lymphadenopathy Suspected coronary calcifications. Partially seen left chest wall pulse generator. Lung apices: Partially seen lung opacities, possibly atelectasis, not well evaluated on this study. Bones: No acute or suspicious abnormality. Partially seen sinus disease. IMPRESSION: No high-grade stenosis or large vessel occlusion. Consider MRI to further evaluate for infarct or other parenchymal pathology. Any quantitative measurements of stenosis were performed using NASCET criteria. Dictated by: Tyler Stearns M.D. on 08/25/2022 at 11:22 Approved by: Tyler Stearns M.D. on 08/25/2022 at 11:30
--- NOTE | 2022-08-25 10:47 | ED.NEUROSD ---
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 Patient is activated as a code stroke and taken directly to the CT. EMS reports the patient had been in his normal state of health until about 945 this morning when he complained of a sudden onset of headache and then became essentially unresponsive, difficulty with speech and confusion, left-sided facial weakness and left upper extremity weakness. He had Deep Brain Stimulator surgery at [facility] two years ago and had subsequent CVA with facial droop On Anticoagulants: No Related Data Home Medications Medication Instructions Recorded Confirmed naproxen sodium 220 mg tablet 220 mg PO BIDCC #0 tabs 01/24/16 06/20/22 (Aleve) allopurinol 300 mg tablet 300 mg PO BEDTIME 12/23/19 08/25/22 alprazolam 0.25 mg tablet 0.25 mg PO TID PRN Anxiety 12/23/19 06/20/22 cetirizine 10 mg tablet 10 mg PO DAILY PRN allergies 12/23/19 08/25/22 doxazosin 4 mg tablet 4 mg PO BEDTIME 12/23/19 08/25/22 duloxetine 60 mg capsule,delayed 60 mg PO DAILY 12/23/19 06/20/22 release esomeprazole magnesium 40 mg 40 mg PO DAILY 12/23/19 08/25/22 capsule,delayed release felodipine 5 mg tablet,extended 5 mg PO DAILY 12/23/19 08/25/22 release 24 hr gabapentin 300 mg capsule 300 mg PO QID 12/23/19 06/20/22 glipizide 10 mg tablet 10 mg PO BID 12/23/19 06/20/22 lamotrigine 200 mg tablet 100 mg PO DAILY 12/23/19 08/25/22 metformin 500 mg tablet,extended 275 mg PO BID 12/23/19 08/25/22 release 24 hr pramipexole 0.25 mg tablet 0.5 mg PO BEDTIME 12/23/19 08/25/22 rasagiline 1 mg tablet (Azilect) 0.5 mg PO DAILY 12/23/19 08/25/22 rosuvastatin 20 mg tablet 20 mg PO DAILY 12/23/19 08/25/22 carbidopa 25 mg-levodopa 100 mg tab TID 08/25/22 tablet carbidopa ER 25 mg-levodopa 100 mg 1 tab PO TID 08/25/22 08/25/22 tablet,extended release desvenlafaxine 100 mg mg PO DAILY 08/25/22 tablet,extended release 24 hr Previous Rx's Medication Instructions Recorded oxycodone-acetaminophen 5 mg-325 1 tab PO Q4-6H PRN pain #10 tabs 12/23/19 mg tablet (Percocet) doxycycline hyclate 100 mg tablet 100 mg PO BID #20 tabs 04/29/22 Allergies Allergy/AdvReac Type Severity Reaction Status Date / Time No Known Drug Allergies Allergy Verified 06/20/22 12:01 Review of Systems Review of Systems ROS Unobtainable: Unobtainable due to mental status/LOC Hematologic/Lymphatic On Anticoagulants: No Patient History Medical History Arthritis Asthma Depression Diabetes Pancreatic tumor Parkinsons disease Sleep apnea Viral URI with cough Surgical History H/O vasectomy Hx of parathyroidectomy Hx of splenectomy S/P deep brain stimulator placement S/P excision of lipoma Status post correction of deviated nasal septum Status post fusion of wrist Status post nail surgery (03/22/18) Social History household members: spouse Smoking Status: Former smoker alcohol intake: current Smoking Status: Former smoker alcohol intake frequency: 0-2 drinks per day Substance Use Type: marijuana Exam Narrative Exam Narrative: GENERAL: [72] year old patient appears stated age. Well-developed patient, in mild distress. HEAD: Atraumatic. Normocephalic. EYES: Pupils equal round and reactive. Extraocular motions intact. No scleral icterus. No injection or drainage. ENT: Nose without bleeding, purulent drainage. Throat without erythema, tonsillar hypertrophy or exudate. Airway patent. NECK: Trachea midline. Non tender CARDIOVASCULAR: Regular rate and rhythm without murmurs, gallops, or rubs. RESPIRATORY: Clear to auscultation. Breath sounds equal bilaterally. No wheezes, rales, or rhonchi. GASTROINTESTINAL: Abdomen soft, non-tender, nondistended. EXTREMITIES: No edema or joint tenderness. BACK: Nontender without deformity or crepitance. No flank tenderness. NEURO: AOx3. SKIN: No rash or erythema of visible areas Initial Vital Signs Initial Vital Signs: Vital Signs Temperature 97.7 F 08/25/22 10:44 Pulse Rate 61 08/25/22 10:44 Respiratory Rate 12 08/25/22 10:44 Blood Pressure 148/88 H 08/25/22 10:44 Pulse Oximetry 91 08/25/22 10:44 Oxygen Delivery Method Nasal Cannula 08/25/22 10:44 Oxygen Flow Rate 2 08/25/22 10:44 Course Orders Ordered: ED Orders 08/25/22 10:55 COVID19 -Nasal RAPID Stat Complete Blood Count AUTO DIFF Stat Comprehensive Metabolic Panel Stat Ethanol (ETOH) Stat PTT Partial Thromboplastin Satya Stat Prothrombin Time INR Stat Troponin & CK Cardiac Panel Stat 08/25/22 10:59 EKG-12 Lead Stat 08/25/22 11:37 Urinalysis and Microscopic Stat 08/25/22 11:43 Urine Drug Screen, Rapid Stat Consultations Consultation #1: discussed with [facility] [place]/ Stroke. Given improved symptoms would hold for now. Still in window if symptoms worsen. Prior DBS is not contraindication for TPA. Vital Signs Vital signs: Vital Signs - 8 hr 08/25/22 10:44 08/25/22 10:53 08/25/22 10:55 Temperature 97.7 F Pulse Rate 61 64 Respiratory Rate 12 Blood Pressure 148/88 H 148/85 H Pulse Oximetry 91 91 Oxygen Delivery Method Nasal Cannula Oxygen Flow Rate 2 08/25/22 10:55 08/25/22 11:00 08/25/22 11:05 Temperature Pulse Rate 67 62 64 Respiratory Rate 26 H 17 Blood Pressure Pulse Oximetry 93 91 Oxygen Delivery Method Nasal Cannula Oxygen Flow Rate 2 08/25/22 11:18 08/25/22 11:10 08/25/22 11:15 Temperature Pulse Rate 65 64 83 Respiratory Rate 16 Blood Pressure Pulse Oximetry 91 98 Oxygen Delivery Method Oxygen Flow Rate 08/25/22 11:20 08/25/22 11:25 08/25/22 11:30 Temperature Pulse Rate 67 65 58 L Respiratory Rate 21 20 21 Blood Pressure Pulse Oximetry 95 97 96 Oxygen Delivery Method Nasal Cannula Oxygen Flow Rate 2 08/25/22 11:45 08/25/22 12:00 08/25/22 12:15 Temperature Pulse Rate 55 L 55 L 55 L Respiratory Rate 17 17 17 Blood Pressure Pulse Oximetry 94 94 94 Oxygen Delivery Method Oxygen Flow Rate 08/25/22 12:26 08/25/22 12:26 08/25/22 12:34 Temperature Pulse Rate 57 L 66 Respiratory Rate 14 Blood Pressure 171/98 H Pulse Oximetry 98 97 Oxygen Delivery Method Oxygen Flow Rate 08/25/22 12:45 08/25/22 13:00 08/25/22 13:15 Temperature Pulse Rate 58 L 57 L 59 L Respiratory Rate Blood Pressure Pulse Oximetry 97 96 97 Oxygen Delivery Method Oxygen Flow Rate 08/25/22 13:30 08/25/22 13:45 08/25/22 14:00 Temperature Pulse Rate 63 58 L 55 L Respiratory Rate Blood Pressure Pulse Oximetry 96 97 97 Oxygen Delivery Method Oxygen Flow Rate 08/25/22 14:15 08/25/22 14:30 08/25/22 14:45 Temperature Pulse Rate 57 L 57 L 57 L Respiratory Rate Blood Pressure Pulse Oximetry 94 96 95 Oxygen Delivery Method Oxygen Flow Rate 08/25/22 15:00 08/25/22 15:14 08/25/22 15:14 Temperature Pulse Rate 58 L 59 L Respiratory Rate Blood Pressure 166/88 H Pulse Oximetry 96 98 Oxygen Delivery Method Oxygen Flow Rate 08/25/22 15:15 08/25/22 15:30 08/25/22 15:45 Temperature Pulse Rate 58 L 71 57 L Respiratory Rate Blood Pressure Pulse Oximetry 98 96 95 Oxygen Delivery Method Oxygen Flow Rate 08/25/22 16:00 08/25/22 16:15 08/25/22 16:30 Temperature Pulse Rate 56 L 56 L 57 L Respiratory Rate Blood Pressure Pulse Oximetry 98 96 98 Oxygen Delivery Method Room Air Oxygen Flow Rate MDM - Neuro Symptoms/Deficit Lab Data 08/25/22 10:55 08/25/22 10:55 Labs: Lab Results 08/25/22 08/25/22 08/25/22 Range/Units 10:55 10:55 10:55 WBC 4.8 (4.5-11.0) X10^3/uL RBC 3.67 L (4.5-5.9) X10^6/uL Hgb 12.9 L (13.5-17.5) g/dL Hct 38.7 L (41-53) % MCV 105.6 H (80-100) fL MCH 35.2 H (26-34) PG MCHC 33.4 (30-36) % RDW 15.2 H (11.6-14.8) % Plt Count 212 (150-400) X10^3/uL Neut % (Auto) 54.7 (50-75) % Lymph % (Auto) 24.4 L (25-40) % [place] % (Auto) 14.4 H (3-14) % Eos % (Auto) 5.1 H (2-4) % Baso % (Auto) 1.4 (0-2) % Neut # (Auto) 2600 (1181-3513) /uL Lymph # (Auto) 1200 (6247-6831) /uL [place] # (Auto) 700 (0-900) /uL Eos # (Auto) 200 (0-450) /uL Baso # (Auto) 100 (0-100) /uL PT 10.5 (10.1-12.7) SECONDS INR 0.9 (0.9-1.3) APTT 31 (26-36) SECONDS Sodium 137 (137-145) mmol/L Potassium 4.0 (3.4-5.1) mmol/L Chloride 103 (98-107) mmol/L Carbon Dioxide 30 (22-32) mmol/L BUN 17 (9-20) mg/dL Creatinine 0.97 (0.66-1.25) mg/dL Estimated GFR > 60 (>60) mL/min BUN/Creatinine Ratio 17.5 (6-22) Glucose 100 (80-110) mg/dL Calcium 9.2 (8.4-10.2) mg/dL Total Bilirubin 0.3 (0.2-1.3) mg/dL AST 27 (17-59) IU/L ALT 8 (<50) IU/L Alkaline Phosphatase 132 H (38-126) U/L Total Creatine Kinase 89 (55-170) U/L CK-MB (CK-2) TNP CK-MB (CK-2) Rel Index TNP Troponin I < 0.012 (0.01-0.034) ng/mL Total Protein 6.9 (6.3-8.2) g/dL Albumin 3.9 (3.5-5.0) g/dL Globulin 3.0 (1.7-4.1) g/dL Albumin/Globulin Ratio 1.3 (1.0-2.8) Urine Color Urine Appearance Urine pH (4.5-8.0) Ur Specific [place] (1.000-1.035) Urine Protein (Negative) Urine Glucose (UA) (Negative) g/dL Urine Ketones (NEGATIVE) Urine Occult Blood (Negative) Urine Nitrate (Negative) Urine Bilirubin (NEGATIVE) Urine Urobilinogen (0.2) E.U./dL Ur Leukocyte Esterase (NEGATIVE) Urine RBC (0-5/HPF) Urine WBC (0-5/HPF) Amorphous Sediment Urine Bacteria (None) Ur Culture Indicated? U Opiates 300ng/mL cut (Negative) Ur Oxycodone Screen (Negative) Urine Methadone Screen (Negative) Ur Barbiturates Screen (Negative) U Tricyclic Antidepress (Negative) Ur Phencyclidine Scrn (Negative) Ur Amphetamines Screen (Negative) U Methamphetamines Scrn (Negative) Ur MDMA Scrn (Ecstasy) (Negative) U Benzodiazepines Scrn (Negative) Urine Cocaine Screen (Negative) U Marijuana (THC) Screen (Negative) Ethyl Alcohol < 10 ( - 10) mg/dL SARS-CoV-2 (PCR) (Negative) 08/25/22 08/25/22 08/25/22 Range/Units 10:55 11:37 11:43 WBC (4.5-11.0) X10^3/uL RBC (4.5-5.9) X10^6/uL Hgb (13.5-17.5) g/dL Hct (41-53) % MCV (80-100) fL MCH (26-34) PG MCHC (30-36) % RDW (11.6-14.8) % Plt Count (150-400) X10^3/uL Neut % (Auto) (50-75) % Lymph % (Auto) (25-40) % [place] % (Auto) (3-14) % Eos % (Auto) (2-4) % Baso % (Auto) (0-2) % Neut # (Auto) (1043-4935) /uL Lymph # (Auto) (7758-6632) /uL [place] # (Auto) (0-900) /uL Eos # (Auto) (0-450) /uL Baso # (Auto) (0-100) /uL PT (10.1-12.7) SECONDS INR (0.9-1.3) APTT (26-36) SECONDS Sodium (137-145) mmol/L Potassium (3.4-5.1) mmol/L Chloride (98-107) mmol/L Carbon Dioxide (22-32) mmol/L BUN (9-20) mg/dL Creatinine (0.66-1.25) mg/dL Estimated GFR (>60) mL/min BUN/Creatinine Ratio (6-22) Glucose (80-110) mg/dL Calcium (8.4-10.2) mg/dL Total Bilirubin (0.2-1.3) mg/dL AST (17-59) IU/L ALT (<50) IU/L Alkaline Phosphatase (38-126) U/L Total Creatine Kinase (55-170) U/L CK-MB (CK-2) CK-MB (CK-2) Rel Index Troponin I (0.01-0.034) ng/mL Total Protein (6.3-8.2) g/dL Albumin (3.5-5.0) g/dL Globulin (1.7-4.1) g/dL Albumin/Globulin Ratio (1.0-2.8) Urine Color Yellow Urine Appearance Clear Urine pH 8.0 (4.5-8.0) Ur Specific [place] 1.010 (1.000-1.035) Urine Protein Negative (Negative) Urine Glucose (UA) Negative (Negative) g/dL Urine Ketones Negative (NEGATIVE) Urine Occult Blood Negative (Negative) Urine Nitrate Negative (Negative) Urine Bilirubin Negative (NEGATIVE) Urine Urobilinogen 0.2 (0.2) E.U./dL Ur Leukocyte Esterase Negative (NEGATIVE) Urine RBC 0-1/hpf (0-5/HPF) Urine WBC None seen (0-5/HPF) Amorphous Sediment 1+ Urine Bacteria None seen (None) Ur Culture Indicated? Cult not indicated U Opiates 300ng/mL cut Negative (Negative) Ur Oxycodone Screen Negative (Negative) Urine Methadone Screen Negative (Negative) Ur Barbiturates Screen Negative (Negative) U Tricyclic Antidepress Negative (Negative) Ur Phencyclidine Scrn Negative (Negative) Ur Amphetamines Screen Negative (Negative) U Methamphetamines Scrn Negative (Negative) Ur MDMA Scrn (Ecstasy) Negative (Negative) U Benzodiazepines Scrn Negative (Negative) Urine Cocaine Screen Negative (Negative) U Marijuana (THC) Screen Negative (Negative) Ethyl Alcohol ( - 10) mg/dL SARS-CoV-2 (PCR) Negative (Negative) Point of Care Testing Glucose POC 119 MDM Narrative Medical decision making narrative: 72-year-old male presented as a code stroke with significant left-sided facial weakness, trouble with speech and left upper and lower extremity weakness. His symptoms had resolved and was therefore not a tPA candidate. I had multiple conversations with the stroke provider and strong recommendations are to keep patient and complete the stroke workup with an MRI. She states that typically deep brain stimulators are not a problem with MRI and strongly encouraged as I discussed with our radiology department. I then discussed with on-call radiologist who says it should not be a problem. brought in his deep brain stimulator controller, he is easily able to flip into MRI mode and is charging the device in order to be able to perform MRI tomorrow. Patient continues to be asymptomatic. He and understand and agree with the plan Discharge Plan Departure Patient Disposition: Admitted as Observation Clinical Impression: Brain TIA Admit Date/Time: 08/25/22 18:20 Admit Provider: Kofi Beverly
[2022-08-25 11:08] LABS: Add Manual Diff / Slide Review NO; Basophils Absolute Auto 100 /uL (0-100); Basophils Percent Auto 1.4 % (0-2); Eosinophils Absolute Auto 200 /uL (0-450); Eosinophils Percent Auto 5.1 % (2-4); Hematocrit 38.7 % (41-53); Hemoglobin 12.9 g/dL (13.5-17.5); Lymphocytes Absolute Auto 1200 /uL (1100-4500); Lymphocytes Percent Auto 24.4 % (25-40); Mean Corpuscular HGB Conc 33.4 % (30-36); Mean Corpuscular Hemoglobin 35.2 PG (26-34); Mean Corpuscular Volume 105.6 fL (80-100); Monocytes Absolute Auto 700 /uL (0-900); Monocytes Percent Auto 14.4 % (3-14); Neutrophils Absolute Auto 2600 /uL (1500-7000); Neutrophils Percent Auto 54.7 % (50-75); Platelet Count 212 X10^3/uL (150-400); Red Blood Cell Count 3.67 X10^6/uL (4.5-5.9); Red Cell Distribution Width 15.2 % (11.6-14.8); White Blood Cell Count 4.8 X10^3/uL (4.5-11.0)
[2022-08-25 11:19] LABS: INR 0.9 (0.9-1.3); Prothrombin Time 10.5 SECONDS (10.1-12.7)
[2022-08-25 11:21] LABS: PTT Partial Thromboplastin Tim 31 SECONDS (26-36)
[2022-08-25 11:27] LABS: Alanine Aminotransferase 8 IU/L (<50); Albumin 3.9 g/dL (3.5-5.0); Albumin Globulin Ratio 1.3 (1.0-2.8); Alkaline Phosphatase 132 U/L (38-126); Aspartate Aminotransferase 27 IU/L (17-59); BUN Creatinine Ratio 17.5 (6-22); Bilirubin Total 0.3 mg/dL (0.2-1.3); Blood Urea Nitrogen 17 mg/dL (9-20); Calcium 9.2 mg/dL (8.4-10.2); Carbon Dioxide 30 mmol/L (22-32); Chloride 103 mmol/L (98-107); Creatine Kinase 89 U/L (55-170); Estimated Glomerular Filt Rate > 60 mL/min (>60); Ethanol (ETOH) < 10 mg/dL; Glucose 100 mg/dL (80-110); HEMOLYSIS < 15 (0-50); Sodium 137 mmol/L (137-145); Total Protein 6.9 g/dL (6.3-8.2)
[2022-08-25 11:38] LABS: Troponin I < 0.012 ng/mL (0.01-0.034)
[2022-08-25 11:42] LABS: Appearance Urine UA CLEAR; Bilirubin Urine UA NEGATIVE (NEGATIVE); Color Urine UA YELLOW; Glucose Urine UA NEGATIVE (Negative); Ketones Urine UA NEGATIVE (NEGATIVE); Leukocyte Esterase Urine UA NEGATIVE (NEGATIVE); Nitrite Urine UA NEGATIVE (Negative); Occult Blood Urine UA NEGATIVE (Negative); Protein Urine UA NEGATIVE (Negative); Urobilinogen Urine UA 0.2 E.U./dL (0.2)
[2022-08-25 11:49] LABS: Amorphous Sediment Urine 1+; Bacteria Urine None Seen; Culture Indicated Urine Cult Not Indicated; RBC Urine 0-1/HPF (0-5/HPF); WBC Urine None Seen (0-5/HPF)
[2022-08-25 11:51] LABS: UR Morphine/Opiate cutoff 300 Negative (Negative); Ur Creatinine Normal (Normal); Ur Specific Gravity Normal (Normal); Urine Amphetamines Negative (Negative); Urine Barbiturates Negative (Negative); Urine Benzodiazepines Negative (Negative); Urine Cocaine Negative (Negative); Urine MDMA Negative (Negative); Urine Methadone Negative (Negative); Urine Methamphetamines Negative (Negative); Urine Oxycodone Negative (Negative); Urine Phencyclidine Negative (Negative); Urine Tetrahydrocannabinol Negative (Negative); Urine Tricyclic Antidepressant Negative (Negative); Urine pH Normal (Normal)
[2022-08-25 12:10] LABS: COVID19 -Nasal RAPID Negative (Negative)
--- NOTE | 2022-08-25 18:30 | DI.MRI.S_ITS ---
PROCEDURE: MR HEAD/BRAIN WO CON INDICATIONS: r/o CVA TECHNIQUE: Non-contrast axial T1 spin echo, axial T2 fast spin echo, sagittal and axial FLAIR, coronal T2 fast spin echo, axial gradient echo, axial diffusion and ADC through the brain. COMPARISON: [facility], CT, CT STROKE, 08/25/2022, 10:43. FINDINGS: Image quality: Excellent. CSF spaces: Ventricles appear symmetric in size and shape. Basal cisterns are patent. No extra-axial fluid collections. Brain: No intracranial bleeds or mass effects. There is cerebral volume loss for age. There are periventricular and deep white matter chronic small vessel ischemic changes. Brainstem appears normal. Diffusion-weighted images show no acute ischemic insults. No chronic ischemic insults. Normal intravascular flow voids are present. Bilateral thalamic stimulators are again noted with associated susceptibility artifact. Skull and face: Calvarial bone marrow is normal in signal. Orbits are normal. Sinuses: Mastoids are clear. Scattered ethmoid and left maxillary sinus mucosal thickening. Other paranasal sinuses appear clear. IMPRESSION: 1. MRI brain without acute intracranial abnormalities. No MRI evidence for acute cerebral infarction. 2. Stable age related senescent changes and sequela of chronic small vessel ischemic disease. 3. Scattered ethmoid and left maxillary sinus disease. Dictated by: Alejo Rogers M.D. on 08/25/2022 at 19:57 Approved by: Alejo Rogers M.D. on 08/25/2022 at 20:00
--- NOTE | 2022-08-25 19:21 | P.HP_ITS ---
History of Present Illness History of Present Illness Date Patient Seen: 08/25/22 Time Patient Seen: 23:00 Chief complaint: Code Stroke Narrative: Mr. 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 He was supposedly in his normal state of health when he then complained of a headache and became unresponsive with difficulty with speech and confusion. He has chronic left sided facial weakness and left upper extremity weakness, but per ED report these seemed to be worse than normal. When I ask the patient he says he has dystonia and these were his typical dystonia symptoms. His symptoms did resolve in the emergency department. In the ED workup was done, vitals notable for afebrile, heart rate in the 60s, blood pressure 140s/80s. Labs reviewed and notable for WBC 4.8, hgb 12.9, plts 212. Creatinine 0.97. INR 0.9. Trop negative. UA negative for bacteria, wbcs, leuk esterase and nitrates. Urine drug screen negative. CT head and CT angio head and neck reviewed by me and negative for acute stroke or other acute process. Stroke center called and as he was improving recommended against TPA. He was admitted for further treatment. [facility] Medical History Arthritis Asthma Depression Diabetes Pancreatic tumor Parkinsons disease Sleep apnea Viral URI with cough Surgical History H/O vasectomy Hx of parathyroidectomy Hx of splenectomy S/P deep brain stimulator placement S/P excision of lipoma Status post correction of deviated nasal septum Status post fusion of wrist Status post nail surgery (03/22/18) Social History household members: spouse Smoking Status: Former smoker alcohol intake: current Meds Home Medications and Allergies Home Medications Medication Instructions Recorded Confirmed Type naproxen sodium 220 mg tablet 220 mg PO BIDCC #0 tabs 01/24/16 06/20/22 History (Aleve) allopurinol 300 mg tablet 300 mg PO BEDTIME 12/23/19 08/25/22 History alprazolam 0.25 mg tablet 0.25 mg PO TID PRN Anxiety 12/23/19 06/20/22 History cetirizine 10 mg tablet 10 mg PO DAILY PRN allergies 12/23/19 08/25/22 History doxazosin 4 mg tablet 4 mg PO BEDTIME 12/23/19 08/25/22 History duloxetine 60 mg capsule,delayed 60 mg PO DAILY 12/23/19 06/20/22 History release esomeprazole magnesium 40 mg 40 mg PO DAILY 12/23/19 08/25/22 History capsule,delayed release felodipine 5 mg tablet,extended 5 mg PO DAILY 12/23/19 08/25/22 History release 24 hr gabapentin 300 mg capsule 300 mg PO QID 12/23/19 06/20/22 History glipizide 10 mg tablet 10 mg PO BID 12/23/19 06/20/22 History lamotrigine 200 mg tablet 100 mg PO DAILY 12/23/19 08/25/22 History metformin 500 mg tablet,extended 275 mg PO BID 12/23/19 08/25/22 History release 24 hr oxycodone-acetaminophen 5 mg-325 1 tab PO Q4-6H PRN pain #10 tabs 12/23/19 06/20/22 Rx mg tablet (Percocet) pramipexole 0.25 mg tablet 0.5 mg PO BEDTIME 12/23/19 08/25/22 History rasagiline 1 mg tablet (Azilect) 0.5 mg PO DAILY 12/23/19 08/25/22 History rosuvastatin 20 mg tablet 20 mg PO DAILY 12/23/19 08/25/22 History doxycycline hyclate 100 mg tablet 100 mg PO BID #20 tabs 04/29/22 06/20/22 Rx carbidopa 25 mg-levodopa 100 mg tab TID 08/25/22 History tablet carbidopa ER 25 mg-levodopa 100 mg 1 tab PO TID 08/25/22 08/25/22 History tablet,extended release desvenlafaxine 100 mg mg PO DAILY 08/25/22 History tablet,extended release 24 hr Allergies Allergy/AdvReac Type Severity Reaction Status Date / Time No Known Drug Allergies Allergy Verified 06/20/22 12:01 Review of Systems Review of Systems Narrative: 14 systems reviewed and negative aside from what is noted in HPI Exam Vital Signs (past 8 hours): - 08/25/22 11:25 08/25/22 11:30 08/25/22 11:45 Pulse Rate 65 58 L 55 L Respiratory Rate 20 21 17 Blood Pressure Pulse Oximetry 97 96 94 Oxygen Delivery Method Nasal Cannula Oxygen Flow Rate 2 08/25/22 12:00 08/25/22 12:15 08/25/22 12:26 Pulse Rate 55 L 55 L 57 L Respiratory Rate 17 17 14 Blood Pressure Pulse Oximetry 94 94 98 Oxygen Delivery Method Oxygen Flow Rate 08/25/22 12:26 08/25/22 12:34 08/25/22 12:45 Pulse Rate 66 58 L Respiratory Rate Blood Pressure 171/98 H Pulse Oximetry 97 97 Oxygen Delivery Method Oxygen Flow Rate 08/25/22 13:00 08/25/22 13:15 08/25/22 13:30 Pulse Rate 57 L 59 L 63 Respiratory Rate Blood Pressure Pulse Oximetry 96 97 96 Oxygen Delivery Method Oxygen Flow Rate 08/25/22 13:45 08/25/22 14:00 08/25/22 14:15 Pulse Rate 58 L 55 L 57 L Respiratory Rate Blood Pressure Pulse Oximetry 97 97 94 Oxygen Delivery Method Oxygen Flow Rate 08/25/22 14:30 08/25/22 14:45 08/25/22 15:00 Pulse Rate 57 L 57 L 58 L Respiratory Rate Blood Pressure Pulse Oximetry 96 95 96 Oxygen Delivery Method Oxygen Flow Rate 08/25/22 15:14 08/25/22 15:14 08/25/22 15:15 Pulse Rate 59 L 58 L Respiratory Rate Blood Pressure 166/88 H Pulse Oximetry 98 98 Oxygen Delivery Method Oxygen Flow Rate 08/25/22 15:30 08/25/22 15:45 08/25/22 16:00 Pulse Rate 71 57 L 56 L Respiratory Rate Blood Pressure Pulse Oximetry 96 95 98 Oxygen Delivery Method Oxygen Flow Rate 08/25/22 16:15 08/25/22 16:30 08/25/22 16:45 Pulse Rate 56 L 57 L 52 L Respiratory Rate Blood Pressure Pulse Oximetry 96 98 96 Oxygen Delivery Method Room Air Oxygen Flow Rate 08/25/22 17:00 08/25/22 17:15 08/25/22 17:30 Pulse Rate 53 L 58 L 63 Respiratory Rate Blood Pressure Pulse Oximetry 96 97 96 Oxygen Delivery Method Oxygen Flow Rate 08/25/22 17:45 08/25/22 18:00 08/25/22 18:15 Pulse Rate 58 L 58 L 56 L Respiratory Rate Blood Pressure Pulse Oximetry 96 97 95 Oxygen Delivery Method Oxygen Flow Rate 08/25/22 18:30 08/25/22 18:45 08/25/22 19:00 Pulse Rate 60 61 59 L Respiratory Rate Blood Pressure Pulse Oximetry 98 98 97 Oxygen Delivery Method Oxygen Flow Rate 08/25/22 19:15 Pulse Rate 57 L Respiratory Rate Blood Pressure Pulse Oximetry 97 Oxygen Delivery Method Oxygen Flow Rate Oxygen Delivery Method Room Air Oxygen Flow Rate 2 Narrative Exam Narrative: GEN: no acute distress HEENT: moist mucous membranes, PERRL NECK: trachea midline, no JVD PULM: clear bilaterally, no wheezes, rhonchi, rales CV: regular rate and rhythm, no murmurs ABD: soft, nontender, nondistended, no organomegaly EXT: warm and well perfused with no edema NEURO: awake, alert, oriented, nom focal deficits noted Objective Labs 08/25/22 10:55 08/25/22 10:55 Labs: Laboratory Results - last 24 hr 08/25/22 08/25/22 08/25/22 10:55 10:55 10:55 WBC 4.8 RBC 3.67 L Hgb 12.9 L Hct 38.7 L MCV 105.6 H MCH 35.2 H MCHC 33.4 RDW 15.2 H Plt Count 212 Neut % (Auto) 54.7 Lymph % (Auto) 24.4 L [place] % (Auto) 14.4 H Eos % (Auto) 5.1 H Baso % (Auto) 1.4 Neut # (Auto) 2600 Lymph # (Auto) 1200 [place] # (Auto) 700 Eos # (Auto) 200 Baso # (Auto) 100 PT 10.5 INR 0.9 APTT 31 Sodium 137 Potassium 4.0 Chloride 103 Carbon Dioxide 30 BUN 17 Creatinine 0.97 Estimated GFR > 60 BUN/Creatinine Ratio 17.5 Glucose 100 Calcium 9.2 Total Bilirubin 0.3 AST 27 ALT 8 Alkaline Phosphatase 132 H Total Creatine Kinase 89 CK-MB (CK-2) TNP CK-MB (CK-2) Rel Index TNP Troponin I < 0.012 Total Protein 6.9 Albumin 3.9 Globulin 3.0 Albumin/Globulin Ratio 1.3 Urine Color Urine Appearance Urine pH Ur Specific [place] Urine Protein Urine Glucose (UA) Urine Ketones Urine Occult Blood Urine Nitrate Urine Bilirubin Urine Urobilinogen Ur Leukocyte Esterase Urine RBC Urine WBC Amorphous Sediment Urine Bacteria Ur Culture Indicated? U Opiates 300ng/mL cut Ur Oxycodone Screen Urine Methadone Screen Ur Barbiturates Screen U Tricyclic Antidepress Ur Phencyclidine Scrn Ur Amphetamines Screen U Methamphetamines Scrn Ur MDMA Scrn (Ecstasy) U Benzodiazepines Scrn Urine Cocaine Screen U Marijuana (THC) Screen Ethyl Alcohol < 10 SARS-CoV-2 (PCR) 08/25/22 08/25/22 08/25/22 10:55 11:37 11:43 WBC RBC Hgb Hct MCV MCH MCHC RDW Plt Count Neut % (Auto) Lymph % (Auto) [place] % (Auto) Eos % (Auto) Baso % (Auto) Neut # (Auto) Lymph # (Auto) [place] # (Auto) Eos # (Auto) Baso # (Auto) PT INR APTT Sodium Potassium Chloride Carbon Dioxide BUN Creatinine Estimated GFR BUN/Creatinine Ratio Glucose Calcium Total Bilirubin AST ALT Alkaline Phosphatase Total Creatine Kinase CK-MB (CK-2) CK-MB (CK-2) Rel Index Troponin I Total Protein Albumin Globulin Albumin/Globulin Ratio Urine Color Yellow Urine Appearance Clear Urine pH 8.0 Ur Specific [place] 1.010 Urine Protein Negative Urine Glucose (UA) Negative Urine Ketones Negative Urine Occult Blood Negative Urine Nitrate Negative Urine Bilirubin Negative Urine Urobilinogen 0.2 Ur Leukocyte Esterase Negative Urine RBC 0-1/hpf Urine WBC None seen Amorphous Sediment 1+ Urine Bacteria None seen Ur Culture Indicated? Cult not indicated U Opiates 300ng/mL cut Negative Ur Oxycodone Screen Negative Urine Methadone Screen Negative Ur Barbiturates Screen Negative U Tricyclic Antidepress Negative Ur Phencyclidine Scrn Negative Ur Amphetamines Screen Negative U Methamphetamines Scrn Negative Ur MDMA Scrn (Ecstasy) Negative U Benzodiazepines Scrn Negative Urine Cocaine Screen Negative U Marijuana (THC) Screen Negative Ethyl Alcohol SARS-CoV-2 (PCR) Negative Assessment & Plan Assessment & Plan narrative: 1. Dystonia with history of CVA -initially with neurologic symptoms that have resolved -CT head and CTA head/neck showed no acute process -MRI negative for stroke -ordered for plavix for now -continue statin -check Nih score q4h -PT,OT ordered -check a1c, lipids -keep on telemetry 2. Parkinson's disease -continue sinemet, rasagiline 3. Hypertension -hold anti-hypertensives for now, allow permissive hypertension 4. Type 2 Diabetes -hold metformin -check glucose achs -insulin sliding scale ordered 5. [place] -not on cpap at home -check o2 sats with vital signs 6. Depression -continue ssri I have discussed the plan and obtained history from patient. I have discussed the plan of care with the ED physician and bedside nurse. I have reviewed labs, EKG, and CT head imaging. CODE: Full Proxy: Christin Hinds, spouse Quality [facility] - Meds 'Current medications' to include all prescriptions, [id number] products, herbals, cannabis/cannabidiol products, and vitamin/mineral/dietary (nutritional) supplements. I have utilized all available resources to obtain, update, or review the patient?s current medications. [If Yes, STOP here]: Yes
[2022-08-25] MEDS: PRAMIPEXOLE 0.25 MG TABLET 0.5 MG PO (21:05)
[2022-08-25] MEDS: ATORVASTATIN 20 MG TABLET 80 MG PO (21:05)
[2022-08-25] MEDS: [UNRECOGNIZED DRUG - REMARK] 1 EACH PO (21:05)
[2022-08-26 00:09] VITALS: O2SAT 92
[2022-08-26 00:47] VITALS: BP 167/93; PULSE 57; RESP 16; TEMP 37; O2SAT 92
[2022-08-26 03:35] VITALS: BP 146/91; PULSE 52; RESP 18; TEMP 36.4; O2SAT 95
[2022-08-26 04:00] VITALS: O2SAT 92
[2022-08-26 05:32] LABS: Add Manual Diff / Slide Review NO; Basophils Absolute Auto 100 /uL (0-100); Basophils Percent Auto 0.9 % (0-2); Eosinophils Absolute Auto 300 /uL (0-450); Eosinophils Percent Auto 4.9 % (2-4); Hematocrit 39.3 % (41-53); Hemoglobin 13.3 g/dL (13.5-17.5); Lymphocytes Absolute Auto 1400 /uL (1100-4500); Lymphocytes Percent Auto 25.8 % (25-40); Mean Corpuscular Hemoglobin 35.8 PG (26-34); Mean Corpuscular Volume 105.2 fL (80-100); Monocytes Absolute Auto 600 /uL (0-900); Monocytes Percent Auto 11.3 % (3-14); Neutrophils Absolute Auto 3100 /uL (1500-7000); Neutrophils Percent Auto 57.1 % (50-75); Platelet Count 211 X10^3/uL (150-400); Red Blood Cell Count 3.73 X10^6/uL (4.5-5.9); Red Cell Distribution Width 15.5 % (11.6-14.8); White Blood Cell Count 5.5 X10^3/uL (4.5-11.0)
[2022-08-26 05:36] LABS: Cholesterol 136 mg/dL (140-199); HDL Cholesterol 69 mg/dL (40-60); LDL Cholesterol Calculated 45 mg/dL (<100); Triglycerides 111 mg/dL (35-150)
[2022-08-26 05:37] LABS: Blood Urea Nitrogen 17 mg/dL (9-20); Calcium 9.4 mg/dL (8.4-10.2); Carbon Dioxide 29 mmol/L (22-32); Chloride 101 mmol/L (98-107); Estimated Glomerular Filt Rate > 60 mL/min (>60); Glucose 175 mg/dL (80-110); HEMOLYSIS < 15 (0-50); Potassium 3.8 mmol/L (3.4-5.1); Sodium 138 mmol/L (137-145)
[2022-08-26 08:00] VITALS: BP 160/93; PULSE 55; RESP 16; TEMP 37.6; O2SAT 93
[2022-08-26] MEDS: lamoTRIgine 100 MG TABLET PO (08:12)
--- NOTE | 2022-08-26 08:40 | P.DS_ITS ---
History of Present Illness History of Present Illness Date Patient Seen: 08/26/22 Time Patient Seen: 08:40 Chief complaint: Code Stroke Narrative: Per admitting provider, Mr. 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 He was supposedly in his normal state of health when he then complained of a headache and became unresponsive with difficulty with speech and confusion. He has chronic left sided facial weakness and left upper extremity weakness, but per ED report these seemed to be worse than normal. When I ask the patient he says he has dystonia and these were his typical dystonia symptoms. His symptoms did resolve in the emergency department. In the ED workup was done, vitals notable for afebrile, heart rate in the 60s, blood pressure 140s/80s. Labs reviewed and notable for WBC 4.8, hgb 12.9, plts 212. Creatinine 0.97. INR 0.9. Trop negative. UA negative for bacteria, wbcs, leuk esterase and nitrates. Urine drug screen negative. CT head and CT angio head and neck reviewed by me and negative for acute stroke or other acute process. Stroke center called and as he was improving recommended against TPA. He was admitted for further treatment. Discharge Providers Provider Date of admission: 08/25/22 18:20 Discharge Date: 08/26/22 Primary care physician: Jonatan Bales MD Consults: 08/25/22 20:09 Consult to Occupational Therapy Evaluate & Treat Comment: Physician Instructions: Evaluate and treat Consult to Physical Therapy Evaluate & Treat Comment: Physician Instructions: Evaluate and Treat Discharge provider: Kofi Beverly DO Summary Hospital Course Discharge Diagnosis: 1. Dystonia with history of CVA with L sided weakness and possible TIA 2. Parkinson's disease 3. Hypertension 4. Type 2 Diabetes 5. [place] 6. Depression Hospital Course: Mr. 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 He was supposedly in his normal state of health when he then complained of a headache and became unresponsive with difficulty with speech and confusion. He has chronic left sided facial weakness and left upper extremity weakness, but per ED report these seemed to be worse than normal. He had resolution of his symptoms, and no recurrence over the course of his stay. MRI was able to be obtained, though with a lot of planning and coordination given his deep brain stimulator which was negative for an acute infarct. Previous echocardiograms had been unremarkable, with no evidence for PFO (most recent in 2021). He was discharged home the following morning. He was hesistant to start antiplatelet therapy and refused plavix, he was agreeable to baby aspirin. He will continue his home statin. No other medication changes are recommended at this time. Patient had returned to his usual baseline and wished to discharge home without therapy evaluation which seemed appropriate. Time Spent with Patient Time spent: Greater than 30 minutes Exam Vital Signs (past 8 hours): - 08/26/22 00:47 08/26/22 03:35 08/26/22 04:00 Temperature 98.6 F 97.6 F Pulse Rate 57 L 52 L Respiratory Rate 16 18 Blood Pressure 167/93 H 146/91 H Pulse Oximetry 92 95 92 Oxygen Delivery Method Room Air Oxygen Flow Rate 0 0 Oxygen Delivery Method Room Air Oxygen Flow Rate 0 Narrative Exam Narrative: GEN: no acute distress HEENT: moist mucous membranes, PERRL NECK: trachea midline, no JVD PULM: clear bilaterally, no wheezes, rhonchi, rales CV: regular rate and rhythm, no murmurs ABD: soft, nontender, nondistended, no organomegaly EXT: warm and well perfused with no edema NEURO: awake, alert, oriented, nom focal deficits noted Objective Labs 08/26/22 04:58 08/26/22 04:58 Labs: Laboratory Results - last 24 hr 08/25/22 08/25/22 08/25/22 10:55 10:55 10:55 WBC 4.8 RBC 3.67 L Hgb 12.9 L Hct 38.7 L MCV 105.6 H MCH 35.2 H MCHC 33.4 RDW 15.2 H Plt Count 212 Neut % (Auto) 54.7 Lymph % (Auto) 24.4 L [place] % (Auto) 14.4 H Eos % (Auto) 5.1 H Baso % (Auto) 1.4 Neut # (Auto) 2600 Lymph # (Auto) 1200 [place] # (Auto) 700 Eos # (Auto) 200 Baso # (Auto) 100 PT 10.5 INR 0.9 APTT 31 Sodium 137 Potassium 4.0 Chloride 103 Carbon Dioxide 30 BUN 17 Creatinine 0.97 Estimated GFR > 60 BUN/Creatinine Ratio 17.5 Glucose 100 Calcium 9.2 Magnesium Total Bilirubin 0.3 AST 27 ALT 8 Alkaline Phosphatase 132 H Total Creatine Kinase 89 CK-MB (CK-2) TNP CK-MB (CK-2) Rel Index TNP Troponin I < 0.012 Total Protein 6.9 Albumin 3.9 Globulin 3.0 Albumin/Globulin Ratio 1.3 Triglycerides Cholesterol LDL Cholesterol, Calc HDL Cholesterol Urine Color Urine Appearance Urine pH Ur Specific [place] Urine Protein Urine Glucose (UA) Urine Ketones Urine Occult Blood Urine Nitrate Urine Bilirubin Urine Urobilinogen Ur Leukocyte Esterase Urine RBC Urine WBC Amorphous Sediment Urine Bacteria Ur Culture Indicated? U Opiates 300ng/mL cut Ur Oxycodone Screen Urine Methadone Screen Ur Barbiturates Screen U Tricyclic Antidepress Ur Phencyclidine Scrn Ur Amphetamines Screen U Methamphetamines Scrn Ur MDMA Scrn (Ecstasy) U Benzodiazepines Scrn Urine Cocaine Screen U Marijuana (THC) Screen Ethyl Alcohol < 10 SARS-CoV-2 (PCR) 08/25/22 08/25/22 08/25/22 10:55 11:37 11:43 WBC RBC Hgb Hct MCV MCH MCHC RDW Plt Count Neut % (Auto) Lymph % (Auto) [place] % (Auto) Eos % (Auto) Baso % (Auto) Neut # (Auto) Lymph # (Auto) [place] # (Auto) Eos # (Auto) Baso # (Auto) PT INR APTT Sodium Potassium Chloride Carbon Dioxide BUN Creatinine Estimated GFR BUN/Creatinine Ratio Glucose Calcium Magnesium Total Bilirubin AST ALT Alkaline Phosphatase Total Creatine Kinase CK-MB (CK-2) CK-MB (CK-2) Rel Index Troponin I Total Protein Albumin Globulin Albumin/Globulin Ratio Triglycerides Cholesterol LDL Cholesterol, Calc HDL Cholesterol Urine Color Yellow Urine Appearance Clear Urine pH 8.0 Ur Specific [place] 1.010 Urine Protein Negative Urine Glucose (UA) Negative Urine Ketones Negative Urine Occult Blood Negative Urine Nitrate Negative Urine Bilirubin Negative Urine Urobilinogen 0.2 Ur Leukocyte Esterase Negative Urine RBC 0-1/hpf Urine WBC None seen Amorphous Sediment 1+ Urine Bacteria None seen Ur Culture Indicated? Cult not indicated U Opiates 300ng/mL cut Negative Ur Oxycodone Screen Negative Urine Methadone Screen Negative Ur Barbiturates Screen Negative U Tricyclic Antidepress Negative Ur Phencyclidine Scrn Negative Ur Amphetamines Screen Negative U Methamphetamines Scrn Negative Ur MDMA Scrn (Ecstasy) Negative U Benzodiazepines Scrn Negative Urine Cocaine Screen Negative U Marijuana (THC) Screen Negative Ethyl Alcohol SARS-CoV-2 (PCR) Negative 08/26/22 08/26/22 08/26/22 04:58 04:58 04:58 WBC 5.5 RBC 3.73 L Hgb 13.3 L Hct 39.3 L MCV 105.2 H MCH 35.8 H MCHC 34.0 RDW 15.5 H Plt Count 211 Neut % (Auto) 57.1 Lymph % (Auto) 25.8 [place] % (Auto) 11.3 Eos % (Auto) 4.9 H Baso % (Auto) 0.9 Neut # (Auto) 3100 Lymph # (Auto) 1400 [place] # (Auto) 600 Eos # (Auto) 300 Baso # (Auto) 100 PT INR APTT Sodium 138 Potassium 3.8 Chloride 101 Carbon Dioxide 29 BUN 17 Creatinine 0.85 Estimated GFR > 60 BUN/Creatinine Ratio 20.0 Glucose 175 H Calcium 9.4 Magnesium 2.0 Total Bilirubin AST ALT Alkaline Phosphatase Total Creatine Kinase CK-MB (CK-2) CK-MB (CK-2) Rel Index Troponin I Total Protein Albumin Globulin Albumin/Globulin Ratio Triglycerides 111 Cholesterol 136 L LDL Cholesterol, Calc 45 HDL Cholesterol 69 H Urine Color Urine Appearance Urine pH Ur Specific [place] Urine Protein Urine Glucose (UA) Urine Ketones Urine Occult Blood Urine Nitrate Urine Bilirubin Urine Urobilinogen Ur Leukocyte Esterase Urine RBC Urine WBC Amorphous Sediment Urine Bacteria Ur Culture Indicated? U Opiates 300ng/mL cut Ur Oxycodone Screen Urine Methadone Screen Ur Barbiturates Screen U Tricyclic Antidepress Ur Phencyclidine Scrn Ur Amphetamines Screen U Methamphetamines Scrn Ur MDMA Scrn (Ecstasy) U Benzodiazepines Scrn Urine Cocaine Screen U Marijuana (THC) Screen Ethyl Alcohol SARS-CoV-2 (PCR) PFSH Medical History Arthritis Asthma Depression Diabetes Pancreatic tumor Parkinsons disease Sleep apnea Viral URI with cough Surgical History H/O vasectomy Hx of parathyroidectomy Hx of splenectomy S/P deep brain stimulator placement S/P excision of lipoma Status post correction of deviated nasal septum Status post fusion of wrist Status post nail surgery (03/22/18) Social History household members: spouse Smoking Status: Former smoker alcohol intake: current Discharge Plan Discharge Plan Patient Disposition: Home Provider Discharge Comment: You were admitted to the hospital with stroke like symptoms. Recommend initiation of baby aspirin and continue home statin therapy. MRI was negative for any stroke. Discharge orders & Medications Prescriptions: New aspirin 81 mg tablet,delayed release (DR/EC) 81 mg PO DAILY Qty: 90 0RF Continued naproxen sodium [Aleve] 220 MG tablet 220 mg PO BIDCC Qty: 0 carbidopa-levodopa 25-100 mg tablet TID Rx Instructions: afternoon dose PRN carbidopa-levodopa 25-100 mg Tablet Extended Release 1 tab PO TID Rx Instructions: afternoon dose PRN desvenlafaxine 100 mg Tablet Extended Release 24 Hr PO DAILY lamotrigine 200 mg tablet 100 mg PO DAILY cetirizine 10 mg tablet 10 mg PO DAILY PRN (Reason: allergies) Patient Comments: TAKE 1 TABLET BY MOUTH ONCE DAILY NEEDED FOR CONGESTION glipizide 10 mg tablet 10 mg PO BID felodipine 5 mg tablet extended release 24 hr 5 mg PO DAILY alprazolam 0.25 mg tablet 0.25 mg PO TID PRN (Reason: Anxiety) esomeprazole magnesium 40 mg capsule,delayed release(DR/EC) 40 mg PO DAILY pramipexole 0.25 mg tablet 0.5 mg PO BEDTIME gabapentin 300 mg capsule 300 mg PO QID doxazosin 4 mg tablet 4 mg PO BEDTIME allopurinol 300 mg tablet 300 mg PO BEDTIME metformin 500 mg tablet extended release 24 hr 275 mg PO BID rosuvastatin 20 mg tablet 20 mg PO DAILY duloxetine 60 mg capsule,delayed release(DR/EC) 60 mg PO DAILY rasagiline [Azilect] 1 mg tablet 0.5 mg PO DAILY oxycodone-acetaminophen [Percocet] 5-325 mg tablet 1 tab PO Q4-6H PRN (Reason: pain) Qty: 10 0RF doxycycline hyclate 100 mg tablet 100 mg PO BID Qty: 20 0RF Follow up/Referrals: Jonatan Bales MD [Primary Care Provider] - Diet/Activity/Treatments Diet: Diet as Tolerated Activity: As tolerated Visit Report/Discharge Packet Instructions: Transient Ischemic Attack Stand Alone Forms: Patient Portal/API, Stroke Signs & Symptoms Discharge Data Primary Care Provider: Jonatan Bales Attending Provider: Kofi Beverly Admit Date/Time: 08/25/22 18:20 Discharges patient from system. Discharge Date/Time: 08/26/22 09:45 Quality VTE Deep Vein Thrombosis/Pulmonary Embolism Present on Admission: No
[2022-08-26 08:43] VITALS: O2SAT 93
--- NOTE | 2022-08-26 09:02 | OT.IPNOTE ---
Ot eval and treat order received. Chart reviewed and discussed case with pt. Per MD assessment in chart and pts assessment, pt is back at his baseline. Pt's spouse in room and agrees pt is at his baseline. Stroke has been rulled out. Will discharge OT eval order and recommend d/c P.T. order as pt is at his baseline.
--- NOTE | 2022-08-26 09:14 | PT-OP ANOTE ---
Per OT pt was seen this am for OT screen and is at his baseline. No PT needs will discharge order. Stroke ruled out.
--- NOTE | 2022-08-26 13:25 | CM.DANOTE ---
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 Patient lives w/spouse Christin who is in charge of everything Patient and son deny needs from CM team and state appreciation for the visit Plan: Discharge home today w/spouse and family to assist as needed, close outpatient follow up STANTON Mathews Discharge Planning/Care Management CM Discharge Assessment Start: 08/26/22 13:22 Freq: Status: Active Protocol: Document 08/26/22 13:23 RON (Rec: 08/26/22 13:25 RON [id number]) Discharge Planning Assessment Assigned Test Center Manager STANTON Calvert DPOA/Assigned Designee Name Christin Hinds, spouse Contact Information [phone] Advance Directives? Yes: Advance Directive Advance Directives on File No History Provided By Patient,Family Member Prior Living Arrangements House Household Members spouse Type of transporation used prior to Drives own vehicle admit Independent with ADL's Yes Is patient alert and oriented? Yes: PMH parkinsons disease with deep brain stimulator, neuro-endocrine cancer w Needs Assistance With Meal Prep,Managing Medications ,Home Chores / Shopping Barriers to Discharge No Discharge Plan Home Transportation Arrangement Family Referrals Initiated None needed
--- NOTE | 2022-08-26 13:54 | CM.DANOTE ---
Initial DCP Assessment Note Patient is a 72 yo male, resident of [place], presents with activation of code stroke. Patient admitted observation to r/o CVA and has been discharged home w/spouse and close outpatient follow up recommended Patient back to baseline, no need for PT/OT; no CM needs identified RON Discharge Planning/Care Management CM Discharge Assessment Start: 08/26/22 13:22 Freq: Status: Active Protocol: Document 08/26/22 13:23 RON (Rec: 08/26/22 13:25 RON [id number]) Discharge Planning Assessment Assigned Vascular Radiologist STANTON Calvert DPJULIÁN/Assigned Designee Name Christin Hinds, spouse Contact Information [phone] Advance Directives? Yes: Advance Directive Advance Directives on File No History Provided By Patient,Family Member Prior Living Arrangements House Household Members spouse Type of transporation used prior to Drives own vehicle admit Independent with ADL's Yes Is patient alert and oriented? Yes: PMH parkinsons disease with deep brain stimulator, neuro-endocrine cancer w Needs Assistance With Meal Prep,Managing Medications ,Home Chores / Shopping Barriers to Discharge No Discharge Plan Home Transportation Arrangement Family Referrals Initiated None needed
[2022-08-26 21:07] LABS: x Labcorp Estim. Avg Glu (eAG) 160 mg/dL (.); x Labcorp Hemoglobin A1c 7.2 % (4.8-5.6)
== END 2022-08-26 09:45 | disposition home or self-care (01) ==
LOC: ED 18:19 → AC 18:21
PROVIDERS: Internal Medicine; Admitting Provider Internal Medicine; Emergency Provider Emergency Medicine; Family Provider Internal Medicine; PCP Internal Medicine; Referring Provider Emergency Medicine; Visit Provider Internal Medicine
DX: G24.9 Dystonia, unspecified (principal); R29.810 Facial weakness; E11.9 Type 2 diabetes mellitus without complications; Z79.84 Long term (current) use of oral hypoglycemic drugs; G20 Parkinson's disease; Z95.828 Presence of other vascular implants and grafts; I10 Essential (primary) hypertension; G47.33 Obstructive sleep apnea (adult) (pediatric); F32.A Depression, unspecified; Z86.73 Personal history of transient ischemic attack (TIA), and cerebral infarction without residual deficits; Z20.822 Contact with and (suspected) exposure to COVID-19
CPT/HCPCS: 36415; 70450; 70496; 70498; 70551; 80048; 80053; 80061; 80305; 80320; 81001; 82550; 82962; 83036; 83735; 84484; 85025; 85610; 85730; 87635; 93005; 99284; 99285; C9803; G0378; Q9967

== ENCOUNTER → 2022-08-27 10:12 | Outpatient (CLI) | payer MEDICARE, OTHER, SELFPAY ==
[2022-08-25 20:34] VITALS: BMI 38.9
== END ==
PROVIDERS: Family Provider Internal Medicine; PCP Internal Medicine; Referring Provider Emergency Medicine; Visit Provider Surgery
DX: S61.215A Laceration without foreign body of left ring finger without damage to nail, initial encounter (principal)
CPT/HCPCS: 99212; 99213

== ENCOUNTER → 2023-05-22 08:42 | Outpatient (CLI) | payer MEDICARE, OTHER, SELFPAY ==
[2022-08-25 20:34] VITALS: BMI 38.9
--- NOTE | 2023-05-22 | DI.MRI.S_ITS ---
PROCEDURE: MR KNEE RT WO CON INDICATIONS: PAIN IN RT KNEE TECHNIQUE: Noncontrast sagittal PD fast spin echo and T2 fast spin echo with fat saturation, sagittal 3-D FLASH with fat saturation; coronal T1 spin echo and PD fast spin echo with fat saturation, and axial PD fast spin echo with fat saturation through the knee. COMPARISON: [facility], CR, XR KNEE 4+ VIEWS RIGHT, 02/02/2023, 16:56. FINDINGS: Image quality: Excellent. Menisci: Peripheral displacement of medial meniscus bowing medial collateral ligament is seen. Complex oblique tear involving body and posterior horn of medial meniscus is seen extending to both superior and inferior articulating surfaces. Subtle complex tear involving posterior horn of lateral meniscus extending to both superior and inferior articulating surface. The meniscal root ligaments appear intact. Cruciate ligaments: The anterior cruciate ligament is thickened. The posterior cruciate ligament is intact. Medial structures: The medial collateral ligament appears thickened with intrasubstance T2 hyperintense signal and adjacent soft tissue edema. Visualized portions of the pes anserinus tendons appear normal. No abnormal bursal fluid. Lateral structures: The lateral collateral ligament, long and short heads of the biceps femoris tendon appear mildly thickened. The popliteus tendon is intact. Iliotibial band appears normal. Anterior structures: The quadriceps and patellar tendons appear intact. Patellar alignment is normal. No femoral trochlear dysplasia or ventral trochlear prominence. No edema in the infrapatellar fat pad. Bones and cartilage: Moderate to severe osteoarthritis and chondromalacia is seen in medial femoral tibial compartment with near complete loss of joint space, extensive subchondral sclerosis and marginal osteophyte formation. No fracture or dislocation. Osteochondral injuries are noted in weight-bearing portion of medial femoral condyle and adjacent medial tibial plateau. Mild osteoarthritis and low-grade chondromalacia in lateral femoral tibial compartment and patellofemoral compartment is seen. Joint space: There is moderate to large knee joint fluid. No Castellanos's cyst. Normal appearing synovial plicae are incidentally noted. IMPRESSION: 1. Complex tear involving body and posterior horn of medial meniscus extending to both superior and inferior articulating surfaces. Subtle vertical tear involving posterior horn of lateral meniscus extending to both superior and inferior articulating surfaces. 2. Thickened ACL suggestive of degenerative changes/sprain. No ACL rupture. The PCL is intact. 3. Low to moderate grade MCL sprain/partial-thickness tear. Low-grade LCL sprain. Distal biceps femorals tendinosis. 4. Moderate to severe medial femoral tibial compartment osteoarthritis and chondromalacia. Mild osteoarthritis and low-grade chondromalacia in lateral femoral tibial compartment and patellofemoral compartment. No fracture or dislocation. Moderate to large joint effusion, no gross loose bodies. Dictated by: Duarte Loza M.D. on 05/24/2023 at 11:29 Approved by: Duarte Loza M.D. on 05/24/2023 at 11:34
== END ==
LOC: MRI 08:43
PROVIDERS: Family Provider Internal Medicine; PCP Internal Medicine; Referring Provider Orthopaedic Surgery; Visit Provider Orthopaedic Surgery
DX: S83.231A Complex tear of medial meniscus, current injury, right knee, initial encounter (principal); S83.271A Complex tear of lateral meniscus, current injury, right knee, initial encounter; S83.411A Sprain of medial collateral ligament of right knee, initial encounter; S83.421A Sprain of lateral collateral ligament of right knee, initial encounter; M17.11 Unilateral primary osteoarthritis, right knee; M22.41 Chondromalacia patellae, right knee; M25.561 Pain in right knee; M25.461 Effusion, right knee
CPT/HCPCS: 73721

== ENCOUNTER → 2024-02-07 09:56 | Outpatient (CLI) | payer MEDICARE, OTHER, SELFPAY ==
[2022-08-25 20:34] VITALS: BMI 38.9
[2024-02-07 10:48] LABS: Influenza A - CEPHEID Flu A NEGATIVE (NEGATIVE); Influenza B - CEPHEID Flu B NEGATIVE (NEGATIVE); Respiratory Syncytial Virus Negative (Negative)
[2024-02-07 14:30] LABS: COVID-19 CEPHEID 4-PLEX PCR POSITIVE (Negative)
== END ==
PROVIDERS: Family Provider Internal Medicine; PCP Internal Medicine; Visit Provider Nurse Practitioner Family
DX: R05.1 Acute cough (principal)
CPT/HCPCS: 0241U

== ENCOUNTER → 2024-02-29 13:47 | Outpatient (CLI) | payer MEDICARE, OTHER, SELFPAY ==
[2022-08-25 20:34] VITALS: BMI 38.9
--- NOTE | 2024-02-29 13:49 | DI.RAD.S_ITS ---
PROCEDURE: XR CHEST 2V INDICATIONS: Acute cough TECHNIQUE: 2 views of the chest were acquired. COMPARISON: [facility], CR, XR CHEST 2V, 04/29/2022, 9:44. FINDINGS: Heart, mediastinum and pulmonary vascular: Heart is normal in size and configuration. Mediastinum is unremarkable. Pulmonary vascular is normal. Lungs: Minor bibasilar atelectasis noted. Pleural spaces: Normal-no effusions or pneumothorax. Bones and soft tissues: Normal IMPRESSION: Normal chest. Dictated by: Guille Burgos M.D. on 03/01/2024 at 10:44 Approved by: Guille Burgos M.D. on 03/01/2024 at 10:44
== END ==
PROVIDERS: Family Provider Internal Medicine; PCP Internal Medicine; Referring Provider Student in an Organized Health Care Education/Training Program; Visit Provider Student in an Organized Health Care Education/Training Program
DX: R05.1 Acute cough (principal)
CPT/HCPCS: 71046

== ENCOUNTER 2024-05-13 12:55 | Emergency (ER) | payer MEDICARE, OTHER, SELFPAY ==
[2022-08-25 20:34] VITALS: BMI 38.9
[2024-05-13] VITALS (8 sets, daily range): BP systolic 110–133; BP diastolic 57–82; PULSE 57–67; RESP 17–24; TEMP 36.3; O2SAT 94–96; BMI 38.0
--- NOTE | 2024-05-13 13:10 | EKG_ITS ---
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
--- NOTE | 2024-05-13 13:10 | DI.RAD.S_ITS ---
PROCEDURE: XR CHEST 1V INDICATIONS: chest pain TECHNIQUE: One view of the chest was acquired. COMPARISON: [facility], CR, XR CHEST 2V, 02/29/2024, 13:47. [facility], CR, XR CHEST 2V, 04/29/2022, 9:44. FINDINGS: Surgical changes and devices: Left generator lead in place. Lungs and pleura: No dense consolidation or pleural effusion. Possible bibasilar atelectasis/scarring. Mediastinum: Heart size is normal and unchanged Bones and chest wall: Degenerative findings IMPRESSION: Possible basilar atelectasis/scarring. No dense consolidation or pleural effusion on this single view study. Dictated by: Tyler Stearns M.D. on 05/13/2024 at 13:05 Approved by: Tyler Stearns M.D. on 05/13/2024 at 13:06
[2024-05-13 13:38] LABS: Add Manual Diff / Slide Review NO; Basophils Absolute Auto 100 /uL (0-100); Basophils Percent Auto 0.8 % (0-2); Eosinophils Absolute Auto 300 /uL (0-450); Eosinophils Percent Auto 3.9 % (2-4); Hematocrit 39.3 % (41-53); Lymphocytes Absolute Auto 2100 /uL (1100-4500); Lymphocytes Percent Auto 30.4 % (25-40); Mean Corpuscular HGB Conc 33.1 % (30-36); Mean Corpuscular Hemoglobin 34.9 PG (26-34); Mean Corpuscular Volume 105.2 fL (80-100); Monocytes Absolute Auto 600 /uL (0-900); Monocytes Percent Auto 8.8 % (3-14); Neutrophils Absolute Auto 3800 /uL (1500-7000); Neutrophils Percent Auto 56.1 % (50-75); Platelet Count 287 X10^3/uL (150-400); Red Blood Cell Count 3.74 X10^6/uL (4.5-5.9); Red Cell Distribution Width 15.5 % (11.6-14.8); White Blood Cell Count 6.8 X10^3/uL (4.5-11.0)
[2024-05-13 13:42] LABS: Prothrombin Time 11.5 SECONDS (9.4-12.5)
[2024-05-13 13:45] LABS: PTT Partial Thromboplastin Tim 34 SECONDS (25.1-36.5)
[2024-05-13 13:52] LABS: Alanine Aminotransferase 12 IU/L (<50); Albumin 3.9 g/dL (3.5-5.0); Albumin Globulin Ratio 1.4 (1.0-2.8); Alkaline Phosphatase 114 U/L (38-126); Aspartate Aminotransferase 25 IU/L (17-59); Bilirubin Total 0.4 mg/dL (0.2-1.3); Blood Urea Nitrogen 26 mg/dL (9-20); Calcium 9.8 mg/dL (8.4-10.2); Carbon Dioxide 29 mmol/L (22-32); Chloride 103 mmol/L (98-107); Creatine Kinase 51 U/L (55-170); Estimated Glomerular Filt Rate > 60 mL/min (>60); Globulin 2.8 g/dL (1.7-4.1); Glucose 125 mg/dL (80-110); HEMOLYSIS < 15 (0-50); Lipase 40 U/L (23-300); Magnesium 2.1 mg/dL (1.6-2.3); Potassium 4.9 mmol/L (3.4-5.1); Sodium 137 mmol/L (137-145); Total Protein 6.7 g/dL (6.3-8.2)
[2024-05-13 14:04] LABS: NT-proBNP (BNP-Adult 18+) 55 pg/mL (<125); Troponin I < 0.012 ng/mL (0.01-0.034)
--- NOTE | 2024-05-13 16:40 | ED.DIZZY ---
HPI - Dizziness General Chief Complaint: Dizziness Stated Complaint: Low Blood Pressure,Dizzy, Coughing Time Seen by Provider: 05/13/24 16:39 Source: patient Mode of arrival: Wheelchair History of Present Illness HPI Narrative: Patient is a 73-year-old male history of Parkinson's with deep brain stimulator, pancreatic cancer with metastatic disease to the liver (not on any chemoradiation currently), asthma, PE on Eliquis diabetes, hypertension, comes into the ED from home for multiple complaints. States that he has been having intermittent dizziness states that it is normally associated whenever he does cough, states that he has been some wheezing, is also complaining of cough that has been ongoing persistent for the past several weeks but denies any actual chest pain nausea vomiting abdominal pain or any other GI/ symptoms time. Related Data Home Medications Medication Instructions Recorded Confirmed allopurinol 300 mg tablet 300 mg PO BEDTIME 12/23/19 02/07/24 alprazolam 0.25 mg tablet 0.25 mg PO TID PRN Anxiety 12/23/19 02/07/24 cetirizine 10 mg tablet 10 mg PO DAILY PRN allergies 12/23/19 02/07/24 doxazosin 4 mg tablet 4 mg PO BEDTIME 12/23/19 02/07/24 duloxetine 60 mg capsule,delayed 60 mg PO DAILY 12/23/19 02/07/24 release esomeprazole magnesium 40 mg 40 mg PO DAILY 12/23/19 02/07/24 capsule,delayed release felodipine 5 mg tablet,extended 5 mg PO DAILY 12/23/19 02/07/24 release 24 hr gabapentin 300 mg capsule 300 mg PO QID 12/23/19 02/07/24 glipizide 10 mg tablet 10 mg PO BID 12/23/19 02/07/24 rasagiline 1 mg tablet (Azilect) 0.5 mg PO DAILY 12/23/19 02/07/24 rosuvastatin 20 mg tablet 20 mg PO DAILY 12/23/19 02/07/24 carbidopa ER 25 mg-levodopa 100 mg 1 tab PO TID 08/25/22 02/07/24 tablet,extended release apixaban 5 mg tablet (Eliquis) 5 mg PO BID 02/07/24 02/07/24 desvenlafaxine succinate 100 mg 100 mg PO DAILY 02/07/24 02/07/24 tablet,extended release 24 hr insulin aspar prot-insulin aspart SUBCUT 02/07/24 02/07/24 100 unit/mL (70-30) subcutaneous pen (Novolog Mix 70-30FlexPen U-100) insulin aspart U-100 100 unit/mL SUBCUT 02/07/24 02/07/24 (3 mL) subcutaneous pen (Novolog FlexPen U-100 Insulin aspart) lamotrigine 100 mg tablet,extended mg PO 02/07/24 02/07/24 release 24 hr losartan 50 mg tablet 50 mg PO DAILY 02/07/24 02/07/24 metformin 750 mg tablet,extended 750 mg PO BID 02/07/24 02/07/24 release 24 hr pen needle, diabetic 31 gauge x #1,200 ea 02/07/24 02/07/24/ (BD Ultra-Fine Short Pen Needle) pramipexole 0.5 mg tablet 0.5 mg PO DAILY 02/07/24 02/07/24 Previous Rx's Medication Instructions Recorded aspirin 81 mg tablet,delayed 81 mg PO DAILY #90 tabs 08/26/22 release benzonatate 200 mg capsule 200 mg PO BID PRN cough #28 caps 02/07/24 albuterol sulfate 5 mg/mL(0.5 %) 2.5 mg (0.5 mL) inhalation TID 10 05/13/24 solution for nebulization days #15 mL albuterol sulfate 90 mcg/actuation 2 inh inhalation Q4H PRN shortness 05/13/24 breath activated powder inhaler of breath or wheezing #1 ea prednisone 20 mg tablet 20 mg PO DAILY 5 days #5 tabs 05/13/24 Allergies Allergy/AdvReac Type Severity Reaction Status Date / Time No Known Drug Allergies Allergy Verified 05/13/24 12:59 Patient History Medical History Arthritis Asthma Depression Diabetes Pancreatic tumor Parkinsons disease Sleep apnea Viral URI with cough Surgical History H/O vasectomy Hx of parathyroidectomy Hx of splenectomy S/P deep brain stimulator placement S/P excision of lipoma Status post correction of deviated nasal septum Status post fusion of wrist Status post nail surgery (03/22/18) Social History household members: spouse Smoking Status: Former smoker alcohol intake: current Smoking Status: Former smoker alcohol intake frequency: 0-2 drinks per day Alcohol type: beer Exam Initial Vital Signs Initial Vital Signs: Vital Signs Temperature 97.3 F L 05/13/24 12:59 Pulse Rate 67 05/13/24 12:59 Respiratory Rate 18 05/13/24 12:59 Blood Pressure 110/57 L 05/13/24 12:59 Pulse Oximetry 94 05/13/24 12:59 Oxygen Delivery Method Room Air 05/13/24 12:59 Course Orders Ordered: ED Orders 05/13/24 13:10 XR chest 1V Stat EKG-12 Lead Stat 05/13/24 13:23 Complete Blood Count AUTO DIFF Stat Comprehensive Metabolic Panel Stat Lipase Stat Magnesium Stat NT-proBNP (BNP-Adult 18+) Stat PTT Partial Thromboplastin Satya Stat Prothrombin Time INR Stat Troponin & CK Cardiac Panel Stat Discontinued Medications Albuterol (Albuterol Hfa Mdi 60 Puff/8 Gm Inhaler) 4 puff INH NOW ONE Stop: 05/13/24 16:56 Last Admin: 05/13/24 17:44 Dose: Not Given Documented By: RADHA Albuterol (Albuterol Hfa Prepack) 1 box MISC DIRECTED ONE Stop: 05/13/24 17:39 Last Admin: 05/13/24 17:43 Dose: 1 box Documented By: RADHA Prednisone (Prednisone 20 Mg Tablet) 40 mg PO NOW ONE Stop: 05/13/24 16:56 Last Admin: 05/13/24 17:34 Dose: 40 mg Documented By: RADHA Vital Signs Vital signs: Vital Signs - 8 hr 05/13/24 12:59 05/13/24 15:43 05/13/24 15:45 Temperature 97.3 F L Pulse Rate 67 58 L 59 L Respiratory Rate 18 24 21 Blood Pressure 110/57 L Pulse Oximetry 94 95 95 Oxygen Delivery Method Room Air 05/13/24 15:45 05/13/24 16:00 05/13/24 16:00 Temperature Pulse Rate 57 L Respiratory Rate 20 Blood Pressure 132/75 133/82 Pulse Oximetry 96 Oxygen Delivery Method MDM - Dizziness Differential Diagnosis Differential diagnosis: Likely other (Asthma exacerbation, pneumonia, electrolyte abnormality,) Lab Data 05/13/24 13:23 05/13/24 13:23 Labs: Lab Results 05/13/24 Range/Units 13:23 WBC 6.8 (4.5-11.0) X10^3/uL RBC 3.74 L (4.5-5.9) X10^6/uL Hgb 13.0 L (13.5-17.5) g/dL Hct 39.3 L (41-53) % MCV 105.2 H (80-100) fL MCH 34.9 H (26-34) PG MCHC 33.1 (30-36) % RDW 15.5 H (11.6-14.8) % Plt Count 287 (150-400) X10^3/uL Neut % (Auto) 56.1 (50-75) % Lymph % (Auto) 30.4 (25-40) % [place] % (Auto) 8.8 (3-14) % Eos % (Auto) 3.9 (2-4) % Baso % (Auto) 0.8 (0-2) % Neut # (Auto) 3800 (8179-1889) /uL Lymph # (Auto) 2100 (6689-6332) /uL [place] # (Auto) 600 (0-900) /uL Eos # (Auto) 300 (0-450) /uL Baso # (Auto) 100 (0-100) /uL PT 11.5 (9.4-12.5) SECONDS INR 1.0 (0.9-1.3) APTT 34 (25.1-36.5) SECONDS Sodium 137 (137-145) mmol/L Potassium 4.9 (3.4-5.1) mmol/L Chloride 103 (98-107) mmol/L Carbon Dioxide 29 (22-32) mmol/L BUN 26 H (9-20) mg/dL Creatinine 1.13 (0.66-1.25) mg/dL Estimated GFR > 60 (>60) mL/min BUN/Creatinine Ratio 23.0 H (6-22) Glucose 125 H (80-110) mg/dL Calcium 9.8 (8.4-10.2) mg/dL Magnesium 2.1 (1.6-2.3) mg/dL Total Bilirubin 0.4 (0.2-1.3) mg/dL AST 25 (17-59) IU/L ALT 12 (<50) IU/L Alkaline Phosphatase 114 (38-126) U/L Total Creatine Kinase 51 L (55-170) U/L Troponin I < 0.012 (0.01-0.034) ng/mL NT-Pro-B Natriuret Pep 55 (<125) pg/mL Total Protein 6.7 (6.3-8.2) g/dL Albumin 3.9 (3.5-5.0) g/dL Globulin 2.8 (1.7-4.1) g/dL Albumin/Globulin Ratio 1.4 (1.0-2.8) Lipase 40 (23-300) U/L Imaging Data Chest x-ray: Radiologist's Impression: [address] [address] XRay Report Signed Patient: Arvind Hinds MR#: [id number] : 1950 Acct:[id number] Age/Sex: 73 / M Date of Service: 05/13/24 Loc: ED Accession Number: [id number] Procedure: XR chest 1V Ordering Provider: Kofi Randall D.O. PROCEDURE: XR CHEST 1V INDICATIONS: chest pain TECHNIQUE: One view of the chest was acquired. COMPARISON: [facility], CR, XR CHEST 2V, 02/29/2024, 13:47. [facility], CR, XR CHEST 2V, 04/29/2022, 9:44. FINDINGS: Surgical changes and devices: Left generator lead in place. Lungs and pleura: No dense consolidation or pleural effusion. Possible bibasilar atelectasis/scarring. Mediastinum: Heart size is normal and unchanged Bones and chest wall: Degenerative findings IMPRESSION: Possible basilar atelectasis/scarring. No dense consolidation or pleural effusion on this single view study. ECG Data Interpretation: EKG interpreted by ED physician sinus bradycardia at 59 beats per minute, QTC 516, significant amount of artifact given patient with brain stimulator however no obvious STEMI, MDM Narrative Medical decision making narrative: 73-year-old male history of PE on Eliquis, Parkinson's with brain stimulator, asthma, diabetes, hypertension, presents to the ED from home for multiple complaints. He states that he has been having intermittent coughing wheezing ongoing persistent for the past several weeks, states it is worse whenever he lays down, has ran out of his albuterol/nebulizer medications therefore has not used any. Also states that as he is coughing he has been having some associated dizziness, states that he also checked his blood pressure which was low therefore decided come into the ED for further evaluation treatment. Patient is blood pressure has been normotensive here without any intervention. Patient on exam did have some mild expiratory wheezes and coughing consistent with acute asthma exacerbation. Patient will be treated and discharged home for acute asthma exacerbation Discharge Plan Departure Patient Disposition: Home Clinical Impression: Asthma exacerbation Activity Restrictions/Additional Instructions: Please read the discharge instructions sheet carefully and bring all papers to all doctor follow-up visits, as it may contain information that your doctor may want to see. Disease processes change and evolve, if your symptoms worsen or if you develop any new symptoms that are concerning to you please return for evaluation. Your evaluation today does not show any evidence of any life-threatening/serious illnesses requiring admission to the hospital or surgery. Please follow-up with your doctor for re-evaluation in approximately 1 day. Seek immediate medical attention for any worrisome symptoms. *If you do not have a primary care provider please contact the [facility] Resource line at [phone]. They will ask some questions about your medical history and help get you set up with a doctor in the community. Prescriptions: New prednisone 20 mg tablet 20 mg PO DAILY 5 Days Qty: 5 0RF albuterol sulfate 5 mg/mL solution for nebulization 2.5 mg inhalation TID 10 Days Qty: 15 0RF albuterol sulfate 90 mcg/actuation aerosol powdr breath activated 2 inh inhalation Q4H PRN (Reason: shortness of breath or wheezing) Qty: 1 0RF No Action insulin asp prt-insulin aspart [Novolog Mix 70-30FlexPen U-100] 100 unit/mL (70-30) insulin pen SUBCUT Patient Comments: [NO ORIGINAL SIG] metformin 750 mg tablet extended release 24 hr 750 mg PO BID Eliquis 5 mg tablet 5 mg PO BID pramipexole 0.5 mg tablet 0.5 mg PO DAILY lamotrigine 100 mg tablet extended release 24hr PO desvenlafaxine succinate 100 mg tablet extended release 24 hr 100 mg PO DAILY losartan 50 mg tablet 50 mg PO DAILY insulin aspart U-100 [Novolog FlexPen U-100 Insulin] 100 unit/mL (3 mL) insulin pen SUBCUT Patient Comments: [NO ORIGINAL SIG] (DME) pen needle, diabetic [BD Ultra-Fine Short Pen Needle] 31 gauge x 5/16 needle See Rx Instructions .ROUTE .MEDSUPPLY Qty: 1200 Patient Comments: [NO ORIGINAL SIG] Rx Instructions: As directed benzonatate 200 mg capsule 200 mg PO BID PRN (Reason: cough) Qty: 28 0RF carbidopa-levodopa 25-100 mg Tablet Extended Release 1 tab PO TID Rx Instructions: afternoon dose PRN aspirin 81 mg tablet,delayed release (DR/EC) 81 mg PO DAILY Qty: 90 0RF cetirizine 10 mg tablet 10 mg PO DAILY PRN (Reason: allergies) Patient Comments: TAKE 1 TABLET BY MOUTH ONCE DAILY NEEDED FOR CONGESTION glipizide 10 mg tablet 10 mg PO BID felodipine 5 mg tablet extended release 24 hr 5 mg PO DAILY alprazolam 0.25 mg tablet 0.25 mg PO TID PRN (Reason: Anxiety) esomeprazole magnesium 40 mg capsule,delayed release(DR/EC) 40 mg PO DAILY gabapentin 300 mg capsule 300 mg PO QID doxazosin 4 mg tablet 4 mg PO BEDTIME allopurinol 300 mg tablet 300 mg PO BEDTIME rosuvastatin 20 mg tablet 20 mg PO DAILY duloxetine 60 mg capsule,delayed release(DR/EC) 60 mg PO DAILY rasagiline [Azilect] 1 mg tablet 0.5 mg PO DAILY Referrals: Jonatan Bales MD [Primary Care Provider] - Stand Alone Forms: Patient Portal/API/Survey
[2024-05-13] MEDS: predniSONE 20 MG TABLET 40 MG PO (17:34)
[2024-05-13] MEDS: ALBUTEROL HFA PREPACK 1 BOX MISC (17:43)
== END 2024-05-13 18:43 | disposition home or self-care (01) ==
PROVIDERS: Emergency Provider Student in an Organized Health Care Education/Training Program; Family Provider Internal Medicine; PCP Internal Medicine
DX: J45.901 Unspecified asthma with (acute) exacerbation (principal); Z87.891 Personal history of nicotine dependence
CPT/HCPCS: 36415; 71045; 80053; 82550; 83690; 83735; 83880; 84484; 85025; 85610; 85730; 93005; 99284; A9270

== ENCOUNTER → 2024-08-17 11:47 | Outpatient (CLI) | payer MEDICARE, OTHER, SELFPAY ==
[2022-08-25 20:34] VITALS: BMI 38.9
--- NOTE | 2024-08-17 11:49 | DI.RAD.S_ITS ---
PROCEDURE: XR FOOT RT MIN 3V INDICATIONS: Pain 5th toe and 5th metatarsal from injury TECHNIQUE: 3 views of the foot were acquired. COMPARISON: [facility], CR, XR FOOT LT MIN 3V, 02/26/2021, 9:30. FINDINGS: Bones: Questionable minimally displaced fracture of the 5th proximal phalanx, only seen on one view. Mild hallux valgus angulation of the 1st MTP joint. No suspicious bony lesions. Soft tissues: No tibiotalar joint effusion. Achilles tendon appears normal. IMPRESSION: Possible minimally displaced fracture of the 5th proximal phalanx, only seen on a single view. Dictated by: Rakan Duvall M.D. on 08/17/2024 at 15:21 Approved by: Rakan Duvall M.D. on 08/17/2024 at 15:23
== END ==
PROVIDERS: Family Provider Internal Medicine; PCP Internal Medicine; Referring Provider Nurse Practitioner Family; Visit Provider Nurse Practitioner Family
DX: S99.921A Unspecified injury of right foot, initial encounter (principal); X58.XXXA Exposure to other specified factors, initial encounter
CPT/HCPCS: 73630

== ENCOUNTER 2025-03-07 10:57 | Emergency (ER) | payer MEDICARE, OTHER, SELFPAY ==
[2022-08-25 20:34] VITALS: BMI 38.9
[2025-03-07] VITALS (11 sets, daily range): BP systolic 137–159; BP diastolic 58–91; PULSE 59–86; RESP 0–42; TEMP 36.9; O2SAT 95–97; BMI 38.0
--- NOTE | 2025-03-07 11:39 | DI.RAD.S_ITS ---
PROCEDURE: XR CHEST 1V INDICATIONS: Shortness of breath TECHNIQUE: One view of the chest was acquired. COMPARISON: [facility], CR, XR CHEST 1V, 05/13/2024, 13:14. FINDINGS: Surgical changes and devices: Probable deep brain stimulator Lungs and pleura: Lungs are clear. No pleural effusions or pneumothorax. Mediastinum: Mediastinal contours appear normal. Heart size is normal. Bones and chest wall: No suspicious bony lesions. Overlying soft tissues appear unremarkable. IMPRESSION: No acute cardiopulmonary abnormality is seen. Dictated by: Red Washington M.D. on 03/07/2025 at 12:03 Approved by: Red Washington M.D. on 03/07/2025 at 12:05
--- NOTE | 2025-03-07 11:39 | EKG_ITS ---
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
[2025-03-07 11:47] LABS: Add Manual Diff / Slide Review NO; Hematocrit 37.6 % (41-53); Hemoglobin 12.8 g/dL (13.5-17.5); Lymphocytes Absolute Auto 1500 /uL (1100-4500); Mean Corpuscular HGB Conc 34.1 % (30-36); Mean Corpuscular Hemoglobin 35.3 PG (26-34); Mean Corpuscular Volume 103.4 fL (80-100); Platelet Count 248 X10^3/uL (150-400)
--- NOTE | 2025-03-07 11:50 | ED.SOB ---
HPI - SOB/Dyspnea General Chief Complaint: Shortness of Breath/Dyspnea Stated Complaint: Possible pneuomonia Time Seen by Provider: 03/07/25 11:37 Source: patient Mode of arrival: Ambulatory Limitations: no limitations History of Present Illness HPI Narrative: Patient here with for dry cough for the past 10 days nighttime. No exertional chest pain. No fever chills. Patient has a history of recurrent pneumonia. Patient has history of Parkinson's with history of deep brain stimulator placed at [facility]. Patient has history of stroke and Parkinson's. Patient denies any recent long travel foreign travel. No known sick contacts. Patient is on Eliquis but stopped Eliquis this he had rectal bleeding that has resolved. He states he injected right lower quadrant into an area that appeared to be ventral hernia by accident last week. He stopped his Eliquis. The rectal bleeding has stopped. Related Data Home Medications ?Medication ?Instructions ?Recorded ?Confirmed allopurinol 300 mg tablet 300 mg PO BEDTIME 12/23/19 08/17/24 alprazolam 0.25 mg tablet 0.25 mg PO TID PRN Anxiety 12/23/19 08/17/24 cetirizine 10 mg tablet 10 mg PO DAILY PRN allergies 12/23/19 08/17/24 doxazosin 4 mg tablet 4 mg PO BEDTIME 12/23/19 08/17/24 duloxetine 60 mg capsule,delayed 60 mg PO DAILY 12/23/19 08/17/24 release esomeprazole magnesium 40 mg 40 mg PO DAILY 12/23/19 08/17/24 capsule,delayed release felodipine 5 mg tablet,extended 5 mg PO DAILY 12/23/19 08/17/24 release 24 hr gabapentin 300 mg capsule 300 mg PO QID 12/23/19 08/17/24 glipizide 10 mg tablet 10 mg PO BID 12/23/19 08/17/24 rasagiline 1 mg tablet (Azilect) 0.5 mg PO DAILY 12/23/19 08/17/24 rosuvastatin 20 mg tablet 20 mg PO DAILY 12/23/19 08/17/24 carbidopa ER 25 mg-levodopa 100 mg 1 tab PO TID 08/25/22 08/17/24 tablet,extended release apixaban 5 mg tablet (Eliquis) 5 mg PO BID 02/07/24 08/17/24 desvenlafaxine succinate 100 mg 100 mg PO DAILY 02/07/24 08/17/24 tablet,extended release 24 hr insulin aspar prot-insulin aspart SUBCUT 02/07/24 08/17/24 100 unit/mL (70-30) subcutaneous pen (Novolog Mix 70-30FlexPen U-100) insulin aspart U-100 100 unit/mL SUBCUT 02/07/24 08/17/24 (3 mL) subcutaneous pen (Novolog FlexPen U-100 Insulin aspart) lamotrigine 100 mg tablet,extended mg PO 02/07/24 08/17/24 release 24 hr losartan 50 mg tablet 50 mg PO DAILY 02/07/24 08/17/24 metformin 750 mg tablet,extended 750 mg PO BID 02/07/24 08/17/24 release 24 hr pen needle, diabetic 31 gauge x #1,200 ea 02/07/24 08/17/24 5/16 (BD Ultra-Fine Short Pen Needle) pramipexole 0.5 mg tablet 0.5 mg PO DAILY 02/07/24 08/17/24 Previous Rx's ?Medication ?Instructions ?Recorded aspirin 81 mg tablet,delayed 81 mg PO DAILY #90 tabs 08/26/22 release benzonatate 200 mg capsule 200 mg PO BID PRN cough #28 caps 02/07/24 albuterol sulfate 90 mcg/actuation 2 inh inhalation Q4H PRN shortness 05/13/24 breath activated powder inhaler of breath or wheezing #1 ea amoxicillin 875 mg-potassium 1 tab PO BID #14 tabs 03/07/25 clavulanate 125 mg tablet benzonatate 100 mg capsule 100 mg PO TID PRN cough #20 caps 03/07/25 Allergies Allergy/AdvReac Type Severity Reaction Status Date / Time No Known Drug Allergies Allergy Verified 08/17/24 11:32 Review of Systems Review of Systems Narrative: GENERAL: Negative chills, fatigue, malaise, fever, sweats. HEENT: Negative sinus pain, ear pain, sore throat RESPIRATORY: Positive dyspnea, positive cough CARDIOVASCULAR: Negative chest pain, palpitations GASTROINTESTINAL: Negative vomiting, nausea, positive abdominal pain, positive rectal bleeding : Negative dysuria, frequency, hematuria MUSCULOSKELETAL: Negative muscle or bony pain SKIN: Negative rash, skin lesions NEUROLOGIC: Negative weakness, numbness ROS Unobtainable: All systems reviewed & are unremarkable except as noted in HPI and below Patient History Medical History Arthritis Asthma Depression Diabetes Pancreatic tumor Parkinsons disease Sleep apnea Viral URI with cough Surgical History H/O vasectomy Hx of parathyroidectomy Hx of splenectomy S/P deep brain stimulator placement S/P excision of lipoma Status post correction of deviated nasal septum Status post fusion of wrist Status post nail surgery (03/22/18) Social History household members: spouse alcohol intake: current alcohol intake frequency: 0-2 drinks per day Alcohol type: beer Exam Narrative Exam Narrative: GENERAL: in no distress, not toxic not dyspneic HEAD: Normocephalic. EYES: Pupils equal round ENT: Mucous membranes moist. NECK: Trachea midline. CARDIOVASCULAR: Regular rate and rhythm RESPIRATORY: Clear to auscultation. Breath sounds equal bilaterally. No wheezes, rales, or rhonchi. GASTROINTESTINAL: Abdomen soft, reproducible ventral hernia right lower quadrant. No overlying skin color changes.. No suprapubic tenderness. No left lower quadrant tenderness. EXTREMITIES: No gross deformities. BACK: No flank tenderness. NEURO: AOx4. Clear speech SKIN: Warm and dry PSYCH: Not anxious, is cooperative Initial Vital Signs Initial Vital Signs: Vital Signs Pulse Rate 72 03/07/25 11:25 Respiratory Rate 17 03/07/25 11:25 Pulse Oximetry 96 03/07/25 11:25 Course Orders Ordered: ED Orders 03/07/25 11:22 Complete Blood Count AUTO DIFF Stat Comprehensive Metabolic Panel Stat Lactate (Lactic Acid) Stat NT-proBNP (BNP-Adult 18+) Stat Prothrombin Time INR Stat Troponin I Stat 03/07/25 11:39 XR chest 1V Stat EKG-12 Lead Stat Measure peak expiratory flow STAT RT Consult Eval and Treat STAT 03/07/25 11:49 CT chest abd pel w con Stat 03/07/25 12:13 Covid-19 + FLU A/B + RSV - PCR Stat 03/07/25 12:56 Consult to [employer] - Assessment Nurse Practitioner Stat Discontinued Medications Amoxicillin/Clavulanate Potassium (Amoxicillin/Clav 875/125 Mg) 1 tab PO NOW ONE Stop: 03/07/25 13:39 Last Admin: 03/07/25 13:58 Dose: 1 tab Documented By: JVOI Sodium Chloride (Normal Saline 0.9%) 500 mls @ 1,000 mls/hr IV BOLUS ONE Stop: 03/07/25 12:19 Last Infusion: 03/07/25 12:29 Dose: Infused Documented By: Admin: 03/07/25 11:58 Dose: 1,000 mls/hr Documented By: JOVI Vital Signs Vital signs: Vital Signs - 8 hr 03/07/25 11:25 03/07/25 11:30 03/07/25 11:30 Temperature 98.4 F Pulse Rate 72 86 Respiratory Rate 17 20 Blood Pressure 159/91 H 144/72 H Pulse Oximetry 96 96 Oxygen Delivery Method Room Air 03/07/25 11:30 03/07/25 12:00 03/07/25 12:00 Temperature Pulse Rate 65 68 Respiratory Rate 19 19 Blood Pressure 150/85 H Pulse Oximetry 96 95 Oxygen Delivery Method 03/07/25 12:26 03/07/25 12:26 03/07/25 12:30 Temperature Pulse Rate 76 Respiratory Rate 13 Blood Pressure 159/82 H 151/74 H Pulse Oximetry 97 Oxygen Delivery Method 03/07/25 12:30 03/07/25 13:00 03/07/25 13:01 Temperature Pulse Rate 64 59 L Respiratory Rate 20 10 L Blood Pressure 137/58 L Pulse Oximetry 96 96 Oxygen Delivery Method 03/07/25 13:01 03/07/25 13:30 03/07/25 13:30 Temperature Pulse Rate 64 61 Respiratory Rate 11 L 0 L Blood Pressure 149/79 H Pulse Oximetry 95 96 Oxygen Delivery Method 03/07/25 14:00 03/07/25 14:01 03/07/25 14:01 Temperature Pulse Rate 71 75 Respiratory Rate 36 H 33 H Blood Pressure 152/84 H Pulse Oximetry Oxygen Delivery Method 03/07/25 14:30 Temperature Pulse Rate 76 Respiratory Rate 42 H Blood Pressure Pulse Oximetry Oxygen Delivery Method MDM - SOB/Dyspnea Lab Data 03/07/25 11:22 03/07/25 11:22 Labs: Lab Results 03/07/25 03/07/25 Range/Units 11:22 12:13 WBC 6.1 (4.5-11.0) X10^3/uL RBC 3.64 L (4.5-5.9) X10^6/uL Hgb 12.8 L (13.5-17.5) g/dL Hct 37.6 L (41-53) % MCV 103.4 H (80-100) fL MCH 35.3 H (26-34) PG MCHC 34.1 (30-36) % RDW 14.8 (11.6-14.8) % Plt Count 248 (150-400) X10^3/uL Neut % (Auto) 57.6 (50-75) % Lymph % (Auto) 25.2 (25-40) % Bent % (Auto) 12.3 (3-14) % Eos % (Auto) 3.8 (2-4) % Baso % (Auto) 1.1 (0-2) % Neut # (Auto) 3500 (6772-1507) /uL Lymph # (Auto) 1500 (7754-1327) /uL Bent # (Auto) 700 (0-900) /uL Eos # (Auto) 200 (0-450) /uL Baso # (Auto) 100 (0-100) /uL PT 10.2 (9.4-12.5) SECONDS INR 0.9 (0.9-1.3) Sodium 136 L (137-145) mmol/L Potassium 4.4 (3.4-5.1) mmol/L Chloride 103 (98-107) mmol/L Carbon Dioxide 26 (22-32) mmol/L BUN 21 H (9-20) mg/dL Creatinine 0.84 (0.66-1.25) mg/dL Estimated GFR > 60 (>60) mL/min BUN/Creatinine Ratio 25.0 H (6-22) Glucose 207 H (70-99) mg/dL Lactate 2.0 (0.7-2.1) mmol/L Calcium 9.7 (8.4-10.2) mg/dL Total Bilirubin 0.2 (0.2-1.3) mg/dL AST 26 (17-59) IU/L ALT 14 (<50) IU/L Alkaline Phosphatase 151 H (38-126) U/L Troponin I < 0.012 (0.01-0.034) ng/mL NT-Pro-B Natriuret Pep 88 (<125) pg/mL Total Protein 6.7 (6.3-8.2) g/dL Albumin 3.9 (3.5-5.0) g/dL Globulin 2.8 (1.7-4.1) g/dL Albumin/Globulin Ratio 1.4 (1.0-2.8) SARS-CoV-2 (PCR) Negative (Negative) Influenza A (RT-PCR) Flu a negative (NEGATIVE) Influenza B (RT-PCR) Flu b negative (NEGATIVE) RSV (PCR) Negative (Negative) Imaging Data CT chest abdomen pelvis: Radiologist's Impression: [address] [address] [address] Scan Report Signed Patient: Arvind Hinds MR#: [id number] : 1950 Acct:[id number] Age/Sex: 74 / M Date of Service: 03/07/25 Loc: ED Accession Number: [id number] Procedure: CT chest abd pel w con Ordering Provider: Jackson Jimenez MD PROCEDURE: CT CHEST ABD PEL W CON INDICATIONS: Cough/shortness of breath/right lower quadrant pain TECHNIQUE: After the administration of intravenous contrast, 5 mm thick sections acquired from the lung apices to the symphysis. 5 mm coronal and sagittal reformats were performed, with additional 7 mm MIP reformats through the lungs. For radiation dose reduction, the following was used: automated exposure control, adjustment of mA and/or kV according to patient size. COMPARISON: CT abdomen pelvis on 05/24/2016. FINDINGS: Image quality: Excellent. CHEST: Lower Neck: No enlarged lymph nodes. Thyroid: No thyroid nodules which require sonographic follow up, per consensus guidelines. Axillae: No enlarged lymph nodes. Chest Wall: Left chest simulator device courses superiorly into the left lower neck.. Lungs and Pleura: No pneumothorax or pleural effusions. Bibasilar subpleural atelectasis. No consolidation. Calcified punctate granulomas in the lingula. Mosaic attenuation in the bilateral lower lobes can be seen with exhalation versus small airways disease. A 10 mm nodule in the lateral segment of the right middle lobe (5/211) and a 3 mm nodule in the superior basilar segment of the right lower lobe (5/197). Heart: Heart size is normal. No pericardial effusion. Thoracic Vessels: The aorta and pulmonary arteries demonstrate normal size. Mediastinum and Liliane: No enlarged lymph nodes. Esophagus: No wall thickening. No hiatal hernia. ABDOMEN: Liver: No solid mass. Gallbladder: The gallbladder is partially collapsed without radiopaque stone. Biliary ducts: No biliary dilation. Pancreas: Post resection of the distal pancreas. Moderate fatty infiltration of the pancreatic head, neck, proximal body common uncinate process. No focal lesion. Spleen: Size is within normal limits. Adrenal Glands: No adrenal nodules. Kidneys and Ureters: No hydronephrosis. No solid mass. Nonobstructive right lower pole 3 mm stone. Thinly septated 5.2 cm cyst in the anterior left lower pole. Stomach and Bowel: The stomach is collapsed. The small bowel is normal in caliber with normal wall thickness. Normal appendix. Colonic diverticulosis. Mild fat stranding and trace free fluid in the left lower quadrant without abscess. Peritoneum: No abnormal intraperitoneal fluid. No free air. Ventral Wall: No significant ventral hernia. Abdominal Nodes: No retroperitoneal or mesenteric adenopathy by size criteria. Vessels: Aorta and inferior vena cava are normal in size. PELVIS: Pelvic Organs: Unremarkable. Bladder: No bladder wall thickening, accounting for underdistention. Pelvic Nodes: No enlarged lymph nodes. Miscellaneous: Small fat containing left inguinal hernia.. Bones: No aggressive osseous abnormality. Multilevel degenerative changes of the lumbar spine. IMPRESSION: 1. Sigmoid colon diverticulitis. No abscess. 2. Right middle lobe 1 cm solid pulmonary nodule. Recommend follow-up chest CT in 3 months. 3. Nonobstructive intrarenal nephrolithiasis. Dictated by: Manolo Grijalva M.D. on 03/07/2025 at 12:52 Approved by: Manolo Grijalva M.D. on 03/07/2025 at 13:03 [facility] Narrative Medical decision making narrative: Patient here with for dry cough for the past 10 days nighttime. No exertional chest pain. No fever chills. Patient has a history of recurrent pneumonia. Patient has history of Parkinson's with history of deep brain stimulator placed at [facility]. Patient has history of stroke and Parkinson's. Patient denies any recent long travel foreign travel. No known sick contacts. Patient is on Eliquis but stopped Eliquis this he had rectal bleeding that has resolved. He states he injected right lower quadrant into an area that appeared to be ventral hernia by accident last week. He stopped his Eliquis. The rectal bleeding has stopped. MDM After history and exam, CT chest abdomen pelvis EKG CBC CMP respiratory panel Differential considered: Includes but not limited to pneumonia bowel perforation Medical records reviewed: No recent admission for this complaint Lab Test results independently reviewed as above. Pertinent findings: WBC 6.1 hemoglobin 12.8 INR 0.9 sodium 136 potassium 4.4 GFR greater than 60 AST 26 ALT 14 troponin less than 0.012 BNP 88 respiratory panel negative Independently reviewed EKG artifact noted. Patient has deep brain stimulator that is interfering with EKG. Imaging studies independently reviewed: CT abdomen pelvis and chest, sigmoid diverticulitis. Likely ventral right lower quadrant hernia. Consultations: Daja with social work has seen patient, 12:26 p.m.. Social work evaluation completed and no concerns for SI/SA at this time. Re-evaluations: 1:45 p.m.. Reviewed with patient and results. He has no known no intentions of hurting himself. Denies any SI. at bedside. Reviewed results with patient and regarding laboratory studies today. Likely there is a lipoma in the right lower quadrant. Referral for General surgery provided. Augmentin and Tessalon Perle prescriptions will be provided. Return precautions reviewed. They desire discharge home. Discussion: Appropriate for discharge home. Exam is reassuring. Augmentin has been started. Cough medication provided. Referral for General surgery provided for patient's lipoma Diagnosis: Sigmoid diverticulitis, ventral hernia, cough Discharge Plan Departure Patient Disposition: Home Clinical Impression: Diverticulitis Cough Qualifiers: Cough type: unspecified Qualified Code(s): R05.9 - Cough, unspecified Lipoma Qualifiers: Lipoma location: unspecified Qualified Code(s): D17.9 - Benign lipomatous neoplasm, unspecified Instructions: Lipoma, DI for Diverticulitis, DI for Cough -- Adult Activity Restrictions/Additional Instructions: Your exam is reassuring. You are being treated for diverticulitis with antibiotics. Cough medication has been provided for you. Please call provided general surgery office regarding lipoma/fat pad on your abdominal wall for reassessment. Return if worse if any questions or concerns. Prescriptions: New benzonatate 100 mg capsule 100 mg PO TID PRN (Reason: cough) Qty: 20 0RF amoxicillin-pot clavulanate 875-125 mg tablet 1 tab PO BID Qty: 14 0RF No Action insulin asp prt-insulin aspart [Novolog Mix 70-30FlexPen U-100] 100 unit/mL (70-30) insulin pen SUBCUT Patient Comments: [NO ORIGINAL SIG] metformin 750 mg tablet extended release 24 hr 750 mg PO BID Eliquis 5 mg tablet 5 mg PO BID pramipexole 0.5 mg tablet 0.5 mg PO DAILY lamotrigine 100 mg tablet extended release 24hr PO desvenlafaxine succinate 100 mg tablet extended release 24 hr 100 mg PO DAILY losartan 50 mg tablet 50 mg PO DAILY insulin aspart U-100 [Novolog FlexPen U-100 Insulin] 100 unit/mL (3 mL) insulin pen SUBCUT Patient Comments: [NO ORIGINAL SIG] (DME) pen needle, diabetic [BD Ultra-Fine Short Pen Needle] 31 gauge x 5/16 needle See Rx Instructions .ROUTE .MEDSUPPLY Qty: 1200 Patient Comments: [NO ORIGINAL SIG] Rx Instructions: As directed benzonatate 200 mg capsule 200 mg PO BID PRN (Reason: cough) Qty: 28 0RF carbidopa-levodopa 25-100 mg Tablet Extended Release 1 tab PO TID Rx Instructions: afternoon dose PRN aspirin 81 mg tablet,delayed release (DR/EC) 81 mg PO DAILY Qty: 90 0RF cetirizine 10 mg tablet 10 mg PO DAILY PRN (Reason: allergies) Patient Comments: TAKE 1 TABLET BY MOUTH ONCE DAILY NEEDED FOR CONGESTION glipizide 10 mg tablet 10 mg PO BID felodipine 5 mg tablet extended release 24 hr 5 mg PO DAILY alprazolam 0.25 mg tablet 0.25 mg PO TID PRN (Reason: Anxiety) esomeprazole magnesium 40 mg capsule,delayed release(DR/EC) 40 mg PO DAILY gabapentin 300 mg capsule 300 mg PO QID doxazosin 4 mg tablet 4 mg PO BEDTIME allopurinol 300 mg tablet 300 mg PO BEDTIME rosuvastatin 20 mg tablet 20 mg PO DAILY duloxetine 60 mg capsule,delayed release(DR/EC) 60 mg PO DAILY rasagiline [Azilect] 1 mg tablet 0.5 mg PO DAILY albuterol sulfate 90 mcg/actuation aerosol powdr breath activated 2 inh inhalation Q4H PRN (Reason: shortness of breath or wheezing) Qty: 1 0RF Referrals: Shiva Day DO [Physician, General Surgery] Jonatan Bales MD [Primary Care Provider, Internal Medicine] Stand Alone Forms: Patient Portal/API
[2025-03-07 11:58] LABS: INR 0.9 (0.9-1.3); Prothrombin Time 10.2 SECONDS (9.4-12.5)
[2025-03-07] MEDS: SODIUM CHLORIDE 0.9% 500 ML 1000 ML IV (11:58)
[2025-03-07 12:10] LABS: Alanine Aminotransferase 14 IU/L (<50); Albumin 3.9 g/dL (3.5-5.0); Albumin Globulin Ratio 1.4 (1.0-2.8); Alkaline Phosphatase 151 U/L (38-126); Blood Urea Nitrogen 21 mg/dL (9-20); Calcium 9.7 mg/dL (8.4-10.2); Carbon Dioxide 26 mmol/L (22-32); Chloride 103 mmol/L (98-107); Estimated Glomerular Filt Rate > 60 mL/min (>60); Globulin 2.8 g/dL (1.7-4.1); Glucose 207 mg/dL (70-99); HEMOLYSIS 18 (0-50); Lactate (Lactic Acid) 2.0 mmol/L (0.7-2.1); Potassium 4.4 mmol/L (3.4-5.1); Sodium 136 mmol/L (137-145); Total Protein 6.7 g/dL (6.3-8.2)
[2025-03-07 12:21] LABS: NT-proBNP (BNP-Adult 18+) 88 pg/mL (<125); Troponin I < 0.012 ng/mL (0.01-0.034)
[2025-03-07 12:58] LABS: COVID-19 CEPHEID 4-PLEX PCR Negative (Negative); Influenza A - CEPHEID Flu A NEGATIVE (NEGATIVE); Influenza B - CEPHEID Flu B NEGATIVE (NEGATIVE)
[2025-03-07] MEDS: AMOXICILLIN/CLAV 875/125 MG 1 TAB PO (13:58)
--- NOTE | 2025-03-07 14:55 | CM.SWNOTE ---
ED [employer] Assessment Note: Pt is a 74yo male, resident of [place], is seen in the ED for shortness of breath, pneumonia, and passive suicidal ideation. Pt lives in a house with his spouse, his adult daughter and granddaughter. Pt's Primary Care Provider is Dr. Jonatan Bales and insurance is Medicare and [employer]. Reviewed chart and discussed with multidisciplinary team pt's medical status and initial discharge needs. [employer] consulted for low risk suicidal ideation and assessment. [employer] CHIE[employer] entered room to meet with patient, introduced self and role. Present in the room is pt's spouse, Christin. Patient states he has many resources which include [facility], [facility], and his [facility]CP. He has been offered therapy and support groups in the past. Pt was found and expressed to experience hopelessness especially with history of Parkinson's, cancer (in remission) and PTSD related to the . Patient was found to speak compulsively and was labile in affect, tearful at times. Patient consults to safety and denies any plan/intention of suicide. Patient provided with Parkinson's Support Group list in discharge packet. [employer] provided emotional support through therapeutic listening. [employer] reviews this with ED provider Dr. Jimenez who indicates agreement and understanding. Plan: Pt to discharge home with spouse to transport when medically cleared, will follow up with PCP and neurologist, already established. KLAUDIA Dowd
== END 2025-03-07 14:56 | disposition home or self-care (01) ==
PROVIDERS: Emergency Provider Emergency Medicine; Family Provider Internal Medicine; PCP Internal Medicine
DX: K57.92 Diverticulitis of intestine, part unspecified, without perforation or abscess without bleeding (principal); R05.9 Cough, unspecified; D17.9 Benign lipomatous neoplasm, unspecified; G20.A1 Parkinson's disease without dyskinesia, without mention of fluctuations
CPT/HCPCS: 36415; 71045; 71260; 74177; 80053; 83605; 83880; 84484; 85025; 85610; 87637; 93005; 93010; 96360; 99284; J7040; Q9967

== ENCOUNTER → 2025-04-05 09:20 | Outpatient (CLI) | payer MEDICARE, OTHER, SELFPAY ==
[2022-08-25 20:34] VITALS: BMI 38.9
== END ==
LOC: PHYS 09:23
PROVIDERS: Family Provider Internal Medicine; PCP Internal Medicine; Referring Provider Orthopaedic Surgery; Visit Provider Orthopaedic Surgery
DX: R20.0 Anesthesia of skin (principal); M19.131 Post-traumatic osteoarthritis, right wrist; M19.032 Primary osteoarthritis, left wrist; M79.642 Pain in left hand; M79.641 Pain in right hand
CPT/HCPCS: 95885; 95886; 95912